=== PATIENT | female | born 1995 | race Caucasian/White ===

== ENCOUNTER 2017-11-28 06:20 | Emergency (ER) | payer OTHER, SELFPAY ==
[2017-11-28] MEDS ORDERED: LIDOCAINE 1% MPF 5 ML VIAL ONE (06:44)
[2017-11-28] MEDS ORDERED: LIDOCAINE 1% W/EPI 1:100,000 MDV 50 ML VIAL ONE (06:45)
--- NOTE | 2017-11-28 07:04 | EDPHYS ---
Physician Documentation [facility] Name: Jenn Wills Age: 21 yrs Sex: Female : 1995 Arrival Date: 11/28/2017 Time: 06:24 Bed 8 Private MD: ED Physician Lobito Trent HPI: 11/28 06:55 This 21 yrs old Female presents to ER via Ambulatory with complaints of mass cp on chest. 06:57 mass. Description: erythematous. Onset: The symptoms/episode began/occurred 1 year(s) cp ago. Associated signs and symptoms: Pertinent positives: bleeding, Pertinent negatives: discharge, fever. 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 - Social history:: Smoking status: Patient/guardian denies using tobacco. ROS: 06:58 Cardiovascular: Negative for chest pain, edema, palpitations. cp 06:58 Respiratory: Negative for cough, shortness of breath, wheezing. 06:58 Abdomen/GI: Negative for abdominal pain, nausea, vomiting, and diarrhea. 06:58 Skin: Positive for erythema, of the chest, mass, Negative for rash. 06:58 All other systems are negative. Exam: 07:00 Constitutional: The patient appears in no acute distress, alert, awake, well developed, cp well nourished. 07:00 Head/Face: Normocephalic, atraumatic. cp 07:00 Eyes: Periorbital structures: appear normal, Conjunctiva: normal, no exudate, no injection, Lids and lashes: appear normal, bilaterally. 07:00 ENT: External ear(s): are unremarkable, Nose: is normal, Mouth: is normal, Posterior pharynx: is normal, airway is patent. 07:00 Chest/axilla: Inspection: noted erythematous mass, tender with mild bleeding noted anterior upper chest. 07:00 Cardiovascular: Rate: normal, Rhythm: regular. 07:00 Respiratory: the patient does not display signs of respiratory distress, Respirations: normal, no use of accessory muscles, no retractions, no splinting, no tachypnea. 07:00 Abdomen/GI: Exam negative for discomfort, distension, guarding, Inspection: abdomen appears normal. Vital Signs: 06:36 BP 122 / 91; Pulse 87; Resp 18; Temp 98.9(O); Pulse Ox 100% on R/A; Weight 95.25 kg fc (R); Height 5 ft. 3 in. (160.02 cm) (R); Pain 5/10; 06:36 Body Mass Index 37.20 (95.25 kg, 160.02 cm) Procedures: 07:00 Performed excision of skin mass using: Area cleaned with betadine swabs. Area cp anaesthetized with 3 ccs of 1% lidocaine. Mass excised with #11 blade. Pressure dressing applied and bleeding controlled. MDM: 06:34 Patient medically screened. cp 07:01 Data reviewed: vital signs, nurses notes, and as a result, I will discharge patient. cp Administered Medications: 07:02 Drug: Lidocaine-Epinephrine -1%: (1:100,000) 1 application {Note: at bedside.} Volume: ak1 20 ml; Route: Infiltration; Disposition: 07:30 Chart complete. cp Disposition: 11/28/17 07:03 Discharged to Home. Impression: Localized swelling, mass and lump of skin and subcutaneous tissue - Chest. - Condition is Stable. - Discharge Instructions: Excision of Skin Lesions. - Prescriptions for Keflex 500 mg Oral Capsule - take 1 capsule by ORAL route every 8 hours for 7 days; 21 capsule. - Medication Reconciliation Form, Thank You Letter, Antibiotic Education, Prescription Opioid Use form. - Follow up: Private Physician; When: 1 - 2 days; Reason: Worsening of condition. - Problem is new. - Symptoms have improved. Addendum: 12/04/2017 01:53 Co-signature as Attending Physician, Lobito Trent MD. m a2 Signatures: Mayte Davison RN RN Rhoda Harden RN RN ak1 Zenon Diego PA PA cp Lawanda Martinez RN RN 2 Lobito Trent MD MD ma2 Corrections: (The following items were deleted from the chart) 11/28 07:18 07:03 11/28/2017 07:03 Discharged to Home. Impression: Localized swelling, mass and tw2 lump of skin and subcutaneous tissue - Chest. Condition is Stable. Forms are Medication Reconciliation Form, Thank You Letter, Antibiotic Education, Prescription Opioid Use. Follow up: Private Physician; When: 1 - 2 days; Reason: Worsening of condition. Problem is new. Symptoms have improved. cp
--- NOTE | 2017-11-28 07:19 | ER ---
Nurse's Notes [facility] Name: Jenn Wills Age: 21 yrs Sex: Female : 1995 Arrival Date: 11/28/2017 Time: 06:24 Bed 8 Private MD: Diagnosis: Localized swelling, mass and lump of skin and subcutaneous tissue-Chest Presentation: 11/28 06:34 Presenting complaint: Patient states: that she has had this bump on her chest for over fc a year. on the 4th it started to bleed and burn. Transition of care: patient was not received from another setting of care. Onset of symptoms was November 25, 2017. Initial Sepsis Screen: Does the patient meet any 2 criteria? No. Patient's initial sepsis screen is negative. Does the patient have a suspected source of infection? No. Patient's initial sepsis screen is negative. Care prior to arrival: None. 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 - Social history:: Smoking status: Patient/guardian denies using tobacco. Screenin:37 Abuse screen: Denies threats or abuse. Nutritional screening: No deficits noted. fc Tuberculosis screening: No symptoms or risk factors identified. Fall Risk None identified. Assessment: 07:16 General: Appears in no apparent distress. obese, Behavior is calm, cooperative, tw2 appropriate for age. Pain: Complains of pain in chest. Neuro: Level of Consciousness is awake, alert, obeys commands, Oriented to person, place, time, situation. Cardiovascular: Denies chest pain, shortness of breath, Capillary refill < 3 seconds Patient's skin is warm and dry. Respiratory: Airway is patent Respiratory effort is even, unlabored, Respiratory pattern is regular, symmetrical. GI: No signs and/or symptoms were reported involving the gastrointestinal system. : No signs and/or symptoms were reported regarding the genitourinary system. Derm: Abscess located on chest. Musculoskeletal: Range of motion: intact in all extremities. Vital Signs: 06:36 BP 122 / 91; Pulse 87; Resp 18; Temp 98.9(O); Pulse Ox 100% on R/A; Weight 95.25 kg (R); Height 5 ft. 3 in. (160.02 cm) (R); Pain 5/10; 06:36 Body Mass Index 37.20 (95.25 kg, 160.02 cm) ED Course: 06:24 Patient arrived in ED. al2 06:34 Zenon Diego PA is PHCP. cp 06:34 Lobito Trent MD is Attending Physician. cp 06:35 Triage completed. 06:36 Arm band placed on Patient placed in an exam room, on a stretcher. 06:37 Patient has correct armband on for positive identification. Bed in low position. Call light in reach. 07:17 No provider procedures requiring assistance completed. Patient did not have IV access tw2 during this emergency room visit. Administered Medications: 07:02 Drug: Lidocaine-Epinephrine -1%: (1:100,000) 1 application {Note: at bedside.} Volume: ak1 20 ml; Route: Infiltration; Outcome: 07:03 Discharge ordered by MD. cp 07:17 Discharged to home ambulatory. tw2 07:17 Condition: stable 07:17 Discharge instructions given to patient, Instructed on discharge instructions, follow up and referral plans. medication usage, wound care, Demonstrated understanding of instructions, follow-up care, medications, wound care, Prescriptions given X 1. 07:18 Patient left the ED. tw2 Signatures: Mayte Davison RN RN Rhoda Harden RN RN ak1 Zenon Diego PA PA cp Wise, Tara, RN RN tw2 Maureen Lazaro al2
== END 2017-11-28 07:18 | disposition home or self-care (01) ==
LOC: ER 06:20
DX: R22.2 Localized swelling, mass and lump, trunk (principal); Z88.6 Allergy status to analgesic agent
CPT/HCPCS: 99283

== ENCOUNTER 2018-02-25 14:06 | Emergency (ER) | payer SELFPAY ==
[2018-02-25] MEDS ORDERED: NA CHLORIDE 0.9% 1,000 ML ONE (14:49)
[2018-02-25] MEDS ORDERED: ONDANSETRON 4 MG/2 ML VIAL ONE (14:49)
[2018-02-25] MEDS ORDERED: CEFTRIAXONE/SWI 1gm 1 GM/10 ML SYR ONE (14:49)
[2018-02-25] MEDS ORDERED: FENTANYL CITR 100 MCG/2 ML ONE (14:49)
[2018-02-25 14:56] LABS: Urine Glucose NEGATIVE (NEG)
[2018-02-25 14:57] LABS: Urine Blood NEGATIVE (NEG); Urine Protein NEGATIVE (NEG); Urine pH 7.5 (5.0-7.0)
[2018-02-25 14:59] LABS: Urine Bacteria 20-50 /HPF (<20); Urine RBC <5 /HPF (NONE SEEN)
[2018-02-25 15:00] LABS: Urine Amorphous Sediment 1+ /HPF (NONE SEEN); Urine Culture Reflex Order NOT NEEDED
--- NOTE | 2018-02-25 15:04 | RAD REPORT ---
EXAM DESCRIPTION: CT - Stone Protocol - 02/25/2018 2:49 pm CLINICAL HISTORY: Flank pain. ABD PAIN COMPARISON: Stone Protocol dated 10/16/2017Stone Protocol dated 10/16/2017 TECHNIQUE: Axial images were obtained without oral or IV contrast. Lack of contrast limits solid org an and vascular assessment. The [id number] spans the entirety of the system partially obscuring uppermost abdomen and lung bases. Coronal reformatted images were obtained and reviewed. All CT scans are performed using dose optimization technique as appropriate and may include automated exposure control or mA/KV adjustment according to patient size. FINDINGS: The lower lung espinal are clear. Imaged portions of the liver and spleen show no suspicious findings on non-contrast imaging. The panc reas demonstrates diffuse fatty infiltration. The adrenal glands are normal. No pathologic lymphadeno ene in the abdomen or pelvis. No urinary tract stones or obstructive uropathy. No bowel obstruction, free air, free fluid or abscess. Normal appendix noted. Chronic bilateral spondylolysis L5-S1. IMPRESSION: No urinary tract stones or obstructive uropathy.
[2018-02-25 15:51] LABS: Absolute Lymphocytes (CBC) 3.4 K/uL (0.7-4.9); Absolute Monocytes 0.8 K/uL (0.1-1.3); Absolute Neutrophil 4.6 K/uL (1.8-8.0); Basophils % 0.7 % (0-1.3); Eosinophils % 1.4 % (0-4.4); Hematocrit 38.7 % (36.0-45.0); Lymphocytes % 38.1 % (15.3-44.8); MCH 28.9 pg (27.0-35.0); MCV 85.1 fL (80-100); Monocytes % 8.6 % (3.3-12.3); RBC Red Blood Cell Count 4.55 M/uL (3.86-4.86)
--- NOTE | 2018-02-25 15:53 | RAD REPORT ---
EXAM DESCRIPTION: RAD - Chest Single View - 02/25/2018 3:18 pm CLINICAL HISTORY: COUGH Chest pain. COMPARISON: Chest Pa And Lat (2 Views) dated 09/20/2017; Chest Pa And Lat (2 Views) dated 01/23/2017 FINDINGS: Portable technique limits examination quality. The lungs are grossly clear. The heart is normal in size. No displaced fractures. IMPRESSION: No acute intrathoracic process suspected.
[2018-02-25 16:02] LABS: ALT/SGPT 29 U/L (12-78); AST/SGOT 17 U/L (15-37); Albumin 3.4 g/dL (3.4-5.0); Alkaline Phosphatase 72 U/L (45-117); Amylase Level 39 U/L (25-115); BUN Blood Urea Nitrogen 15 mg/dL (7-18); Bicarbonate 28 mmol/L (21-32); Bilirubin Direct < 0.1 mg/dL (0-0.2); Bilirubin Total 0.3 mg/dL (0.2-1.0); Glucose Level 87 mg/dL (74-106); Lipase 116 U/L (73-393); Potassium 3.7 mmol/L (3.5-5.1); Protein, Total 7.7 g/dL (6.4-8.2); Sodium Level 143 mmol/L (136-145)
--- NOTE | 2018-02-25 16:13 | ER ---
Nurse's Notes [facility] Name: Jenn Wills Age: 22 yrs Sex: Female : 1995 Arrival Date: 02/25/2018 Time: 14:09 Bed 20 Private MD: Diagnosis: Abdominal tenderness;Urinary tract infection, site not specified Presentation: 02/25 14:15 Presenting complaint: Patient states: "I'm having really bad pain in my right side that aj1 goes to my back. I've had it for a week but to day it got to where I can't move. I'm having dizzy spells off and on." Reports nausea, denies V/D. Denies dysuria, urinary frequency. Transition of care: patient was not received from another setting of care. Onset of symptoms was February 18, 2018. Risk Assessment: Do you want to hurt yourself or someone else? Patient reports no desire to harm self or others. Initial Sepsis Screen: Does the patient meet any 2 criteria? No. Patient's initial sepsis screen is negative. Does the patient have a suspected source of infection? No. Patient's initial sepsis screen is negative. Care prior to arrival: None. 14:15 Method Of Arrival: Ambulatory aj1 14:15 Acuity: CARLOS 3 aj1 Triage Assessment: 14:20 General: Appears in no apparent distress. uncomfortable, Behavior is calm, cooperative, aj1 appropriate for age. Pain: Complains of pain in right lower quadrant and left lower quadrant Pain radiates to back Pain currently is 10 out of 10 on a pain scale. Neuro: Level of Consciousness is awake, alert, obeys commands. Cardiovascular: Patient's skin is warm and dry. Respiratory: Airway is patent Respiratory effort is even, unlabored, Respiratory pattern is regular, symmetrical. GI: Reports nausea, Patient currently denies diarrhea, vomiting. : Denies burning with urination, urinary frequency. Derm: Skin is pink, warm \\T\\ dry. normal. Musculoskeletal: Circulation, motion, and sensation intact. 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 - Social history:: Smoking status: Patient/guardian denies using tobacco. - Ebola Screening: : Patient denies travel to an Ebola-affected area in the 21 days before illness onset. - Family history:: not pertinent. Screenin:25 Abuse screen: Denies threats or abuse. Nutritional screening: No deficits noted. em Tuberculosis screening: No symptoms or risk factors identified. Fall Risk None identified. Assessment: 14:30 General: Appears in no apparent distress. uncomfortable, Behavior is calm, cooperative. em Pain: Complains of pain in right low back and right mid back. Neuro: Level of Consciousness is awake, alert, Oriented to person, place, time, situation. Cardiovascular: Capillary refill < 3 seconds Patient's skin is warm and dry. Respiratory: Airway is patent Respiratory effort is even, unlabored, Respiratory pattern is regular, symmetrical. GI: Reports nausea, Patient currently denies vomiting. : Urine is cloudy. EENT: No signs and/or symptoms were reported regarding the EENT system. Derm: Skin is intact, Skin is pink, warm \\T\\ dry. Musculoskeletal: Range of motion: intact in all extremities. 14:45 Reassessment: Patient appears in no apparent distress at this time. I agree with above iw assessment by Lexx Dahl LVN. 15:30 Reassessment: Patient appears in no apparent distress at this time. Patient and/or em family updated on plan of care and expected duration. Pain level reassessed. Patient is alert, oriented x 3, equal unlabored respirations, skin warm/dry/pink. rates pain 9/10. Vital Signs: 14:20 BP 127 / 89; Pulse 79; Resp 18; Temp 100.0(TE); Pulse Ox 100% on R/A; Weight 95.25 kg aj1 (R); Height 5 ft. 3 in. (160.02 cm) (R); Pain 10/10; 15:35 BP 118 / 72; Pulse 66; Resp 18; Pulse Ox 99% on R/A; Pain 9/10; em 16:00 Temp 98.7(O); em 14:20 Body Mass Index 37.20 (95.25 kg, 160.02 cm) aj1 ED Course: 14:09 Patient arrived in ED. rg4 14:19 Triage completed. aj1 14:20 Arm band placed on Patient placed in an exam room. aj1 14:25 Zenon Ojeda MD is Attending Physician. sabina 14:37 Lexx Dahl LVN is Primary Nurse. em 14:38 Radiology exam delayed due to test not completed at this time. vm2 14:46 CT completed. Patient tolerated procedure well. Patient moved to CT via wheelchair. mw3 Patient moved back from CT. 14:49 CT Stone Protocol In Process Unspecified. EDMS 14:53 Radiology exam delayed due to PT IS IN CT. ag1 15:13 X-ray completed. Portable x-ray completed in exam room. Patient tolerated procedure la2 well. 15:18 Chest Single View XRAY In Process Unspecified. EDMS 15:20 No provider procedures requiring assistance completed. Initial lab(s) drawn, by me, em sent to lab. Inserted saline lock: 20 gauge in right antecubital area, using aseptic technique. Blood collected. 15:25 Patient has correct armband on for positive identification. Bed in low position. Call em light in reach. Adult w/ patient. 16:40 IV discontinued, intact, bleeding controlled, No redness/swelling at site. Pressure em dressing applied. Administered Medications: 15:28 Drug: Rocephin - (cefTRIAXone) 1 grams Route: IVPB; Infused Over: 30 mins; Site: right iw antecubital; 16:43 Follow up: Response: No adverse reaction; IV Status: Completed infusion; IV Intake: 10mlem 15:28 Drug: fentaNYL (PF) 50 mcg Route: IVP; Site: right antecubital; iw 15:28 Drug: Zofran 4 mg Route: IVP; Site: right antecubital; iw 15:29 Drug: NS 0.9% 1000 ml Route: IV; Rate: 1 bolus; Site: right antecubital; em 16:37 Drug: Homer 10 mg-325 mg 1 tabs Route: PO; mg2 16:37 Follow up: Response: No adverse reaction; Medication administered at discharge. mg2 Intake: 16:43 IV: 10ml; Total: 10ml. em Outcome: 16:12 Discharge ordered by . sabina 16:40 Discharged to home ambulatory. em 16:40 Condition: good 16:40 Discharge instructions given to patient, Instructed on discharge instructions, follow up and referral plans. the need for admit, no drinking with medication, no driving heavy equipment, medication usage, Demonstrated understanding of instructions, follow-up care, medications, Prescriptions given X 3. 16:43 Patient left the ED. em Signatures: Dispatcher [employer] EDEthel Shrestha, MCKAY RN aj1 Zenon Ojeda MD MD cha Munoz, Edgar, ASSOCIATE PROFESSOR OF ANTHROPOLOGY ASSOCIATE PROFESSOR OF ANTHROPOLOGY em Tayler Castillo RN Melissa Ndiaye1 Zari Arguello rg4 Pretty Guzman 2 Anel Chen2 Barrington Amezquita RN RN [facility] Neda Cannon 3
--- NOTE | 2018-02-25 16:13 | EDPHYS ---
Physician Documentation [facility] Name: Jenn Wills Age: 22 yrs Sex: Female : 1995 Arrival Date: 02/25/2018 Time: 14:09 Bed 20 Private MD: ED Physician Zenon Ojeda HPI: 02/25 14:36 This 22 yrs old Female presents to ER via Ambulatory with complaints of Flank sabina Pain, Back Pain. 14:36 The patient complains of pain in the right mid back and right low back. The pain sabina radiates to the right mid back and right low back. Onset: The symptoms/episode began/occurred 2 day(s) ago. Modifying factors: The symptoms are alleviated by nothing. the symptoms are aggravated by movement. Associated signs and symptoms: Pertinent positives: fever, nausea. Severity of pain: At its worst the pain was moderate. The patient has not experienced similar symptoms in the past. 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 - Social history:: Smoking status: Patient/guardian denies using tobacco. - Ebola Screening: : Patient denies travel to an Ebola-affected area in the 21 days before illness onset. - Family history:: not pertinent. ROS: 14:36 Constitutional: Negative for fever, chills, and weight loss, Eyes: Negative for injury, sabina pain, redness, and discharge, ENT: Negative for injury, pain, and discharge, Neck: Negative for injury, pain, and swelling, Cardiovascular: Negative for chest pain, palpitations, and edema, Respiratory: Negative for shortness of breath, cough, wheezing, and pleuritic chest pain, MS/Extremity: Negative for injury and deformity, Skin: Negative for injury, rash, and discoloration, Neuro: Negative for headache, weakness, numbness, tingling, and seizure, Psych: Negative for depression, anxiety, suicide ideation, homicidal ideation, and hallucinations, Allergy/Immunology: Negative for hives, rash, and allergies, Endocrine: Negative for neck swelling, polydipsia, polyuria, polyphagia, and marked weight changes, Hematologic/Lymphatic: Negative for swollen nodes, abnormal bleeding, and unusual bruising. 14:36 Abdomen/GI: Positive for abdominal pain, nausea, of the posterior aspect of right lateral abdomen, anterior aspect of right lateral abdomen, right upper quadrant and right lower quadrant. Exam: 14:36 Constitutional: This is a well developed, well nourished patient who is awake, alert, sabina and in no acute distress. Head/Face: Normocephalic, atraumatic. Eyes: Pupils equal round and reactive to light, extra-ocular motions intact. Lids and lashes normal. Conjunctiva and sclera are non-icteric and not injected. Cornea within normal limits. Periorbital areas with no swelling, redness, or edema. ENT: Nares patent. No nasal discharge, no septal abnormalities noted. Tympanic membranes are normal and external auditory canals are clear. Oropharynx with no redness, swelling, or masses, exudates, or evidence of obstruction, uvula midline. Mucous membranes moist. Neck: Trachea midline, no thyromegaly or masses palpated, and no cervical lymphadenopathy. Supple, full range of motion without nuchal rigidity, or vertebral point tenderness. No Meningismus. Chest/axilla: Normal chest wall appearance and motion. Nontender with no deformity. No lesions are appreciated. Cardiovascular: Regular rate and rhythm with a normal S1 and S2. No gallops, murmurs, or rubs. Normal PMI, no JVD. No pulse deficits. Respiratory: Lungs have equal breath sounds bilaterally, clear to auscultation and percussion. No rales, rhonchi or wheezes noted. No increased work of breathing, no retractions or nasal flaring. Female : Normal external genitalia. Skin: Warm, dry with normal turgor. Normal color with no rashes, no lesions, and no evidence of cellulitis. MS/ Extremity: Pulses equal, no cyanosis. Neurovascular intact. Full, normal range of motion. Neuro: Awake and alert, GCS 15, oriented to person, place, time, and situation. Cranial nerves II-XII grossly intact. Motor strength 5/5 in all extremities. Sensory grossly intact. Cerebellar exam normal. Normal gait. Psych: Awake, alert, with orientation to person, place and time. Behavior, mood, and affect are within normal limits. 14:36 Respiratory: the patient does not display signs of respiratory distress, Respirations: normal, no acute changes, Breath sounds: are clear throughout. 14:36 Abdomen/GI: Inspection: abdomen appears normal, Bowel sounds: normal, Palpation: mild abdominal tenderness, in the posterior aspect of right lateral abdomen, anterior aspect of right lateral abdomen, right upper quadrant and right lower quadrant, Liver: no appreciated palpable abnormalities, Hernia: not appreciated. 16:30 Musculoskeletal/extremity: DVT Exam: No signs of deep vein thrombosis. no pain, no sabina swelling, no tenderness, negative Homans' sign noted on exam, no appreciated bluish discoloration, no erythema, no increased warmth. Vital Signs: 14:20 BP 127 / 89; Pulse 79; Resp 18; Temp 100.0(TE); Pulse Ox 100% on R/A; Weight 95.25 kg aj1 (R); Height 5 ft. 3 in. (160.02 cm) (R); Pain 10/10; 15:35 BP 118 / 72; Pulse 66; Resp 18; Pulse Ox 99% on R/A; Pain 9/10; em 16:00 Temp 98.7(O); em 14:20 Body Mass Index 37.20 (95.25 kg, 160.02 cm) aj1 MDM: 14:25 Patient medically screened. [facility] 14:39 Data reviewed: vital signs, nurses notes, lab test result(s), radiologic studies, CT sabina scan, plain films. 02/25 14:36 Order name: Amylase, Serum [facility] 02/25 14:36 Order name: Basic Metabolic Panel [facility] 02/25 14:36 Order name: CBC with Diff; Complete Time: 16:05 [facility] 02/25 14:36 Order name: Creatinine for Radiology; Complete Time: 16:05 [facility] 02/25 14:36 Order name: Hepatic Function; Complete Time: 16:05 [facility] 02/25 14:36 Order name: Lipase; Complete Time: 16:05 [facility] 02/25 14:36 Order name: Urine Microscopic Only; Complete Time: 15:47 [facility] 02/25 14:36 Order name: Blood Culture Adult (2) [facility] 02/25 14:36 Order name: Chest Single View XRAY; Complete Time: 16:05 [facility] 02/25 14:36 Order name: Urine Culture [facility] 02/25 14:36 Order name: Amylase Level; Complete Time: 16:05 [facility] 02/25 14:36 Order name: Basic Metabolic Panel; Complete Time: 16:05 [facility] 02/25 14:44 Order name: Urine Dipstick--Ancillary (enter results); Complete Time: 15:47 [facility] 02/25 14:44 Order name: Urine --Ancillary (enter results); Complete Time: 15:47 [facility] 02/25 14:36 Order name: Urine Test (obtain specimen); Complete Time: 15:29 [facility] 02/25 14:36 Order name: IV Saline Lock; Complete Time: 15:29 [facility] 02/25 14:36 Order name: Labs collected and sent; Complete Time: 15:29 [facility] 02/25 14:36 Order name: Urine Dipstick-Ancillary (obtain specimen); Complete Time: 15:29 [facility] 02/25 14:36 Order name: CT Stone Protocol; Complete Time: 15:47 [facility] Administered Medications: 15:28 Drug: Rocephin - (cefTRIAXone) 1 grams Route: IVPB; Infused Over: 30 mins; Site: right iw antecubital; 16:43 Follow up: Response: No adverse reaction; IV Status: Completed infusion; IV Intake: 10mlem 15:28 Drug: fentaNYL (PF) 50 mcg Route: IVP; Site: right antecubital; iw 15:28 Drug: Zofran 4 mg Route: IVP; Site: right antecubital; iw 15:29 Drug: NS 0.9% 1000 ml Route: IV; Rate: 1 bolus; Site: right antecubital; em 16:37 Drug: [place] 10 mg-325 mg 1 tabs Route: PO; mg2 16:37 Follow up: Response: No adverse reaction; Medication administered at discharge. mg2 Disposition: 02/25/18 16:12 Discharged to Home. Impression: Abdominal tenderness, Urinary tract infection, site not specified. - Condition is Stable. - Discharge Instructions: Abdominal Pain, Adult, Dysuria, Urinary Tract Infection, Adult, Abdominal Pain, Adult, [id number]. - Prescriptions for Zofran 4 mg Oral Tablet - take 1 tablet by ORAL route every 12 hours As needed; 20 tablet. Cipro 500 mg Oral Tablet - take 1 tablet by ORAL route every 12 hours for 7 days; 14 tablet. Tylenol- Codeine #3 300-30 mg Oral Tablet - take 2 tablets by ORAL route every 6 hours As needed; 20 tablet. - Medication Reconciliation Form, Thank You Letter, Antibiotic Education, Prescription Opioid Use, Work release form form. - Follow up: Private Physician; When: 2 - 3 days; Reason: Recheck today's complaints, Continuance of care, Re-evaluation by your physician. - Problem is new. - Symptoms have improved. Signatures: Dispatcher [employer] Ethel Briceno RN RN aj1 Zenon Ojeda MD MD cha Munoz, Edgar, BOAT MASTER BOAT MASTER em Tayler Castillo, RN RN iw Barrington Amezquita RN RN mg2 Corrections: (The following items were deleted from the chart) 16:43 16:13 02/25/2018 16:12 Discharged to Home. Impression: Abdominal tenderness; Urinary em tract infection, site not specified. Condition is Stable. Forms are Medication Reconciliation Form, Thank You Letter, Antibiotic Education, Prescription Opioid Use. Follow up: Private Physician; When: 2 - 3 days; Reason: Recheck today's complaints, Continuance of care, Re-evaluation by your physician. Problem is new. Symptoms have improved. sabina
[2018-02-25] MEDS ORDERED: HYDROCODONE/APAP 10/325 TAB ONE (16:40)
== END 2018-02-25 16:43 | disposition home or self-care (01) ==
LOC: ER 14:06
DX: N39.0 Urinary tract infection, site not specified (principal); Z88.6 Allergy status to analgesic agent
CPT/HCPCS: 36415; 71045; 74176; 76377; 80048; 80076; 81003; 81015; 81025; 82150; 83690; 85025; 87040; 87086; 87088; 96365; 96375; 99284; J0696; J2405; J3010; J7030

== ENCOUNTER 2018-04-12 16:44 | Emergency (ER) | payer SELFPAY ==
--- NOTE | 2018-04-12 17:35 | ER ---
Nurse's Notes [facility] Name: Jenn Wills Age: 22 yrs Sex: Female : 1995 Arrival Date: 04/12/2018 Time: 16:48 Bed 19 Private MD: None, None Diagnosis: Radiculopathy, lumbar region;Low back pain Presentation: 04/12 16:50 Presenting complaint: Patient states: Reports pain to low back that shoots down right aj leg since Tuesday. 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 Patient reports numbness to right leg when walking. Observed sitting in waiting room with right leg lifted and resting on her fiance's lap. Stood quickly and moved with steady quick gait to triage when called. Transition of care: patient was not received from another setting of care. Onset of symptoms was April 10, 2018. Risk Assessment: Do you want to hurt yourself or someone else? Patient reports no desire to harm self or others. Initial Sepsis Screen: Does the patient meet any 2 criteria? No. Patient's initial sepsis screen is negative. Does the patient have a suspected source of infection? No. Patient's initial sepsis screen is negative. Care prior to arrival: None. 16:50 Method Of Arrival: Ambulatory aj 16:50 Acuity: CARLOS 4 aj Triage Assessment: 16:53 General: Appears in no apparent distress. comfortable, Behavior is calm, cooperative, aj appropriate for age. Pain: Complains of pain in coccyx, left lower back, right lower back, right gluteus valente and right gluteal fold. Neuro: Level of Consciousness is awake, alert, obeys commands, Oriented to person, place, time, situation, Appropriate for age. Respiratory: Airway is patent Respiratory effort is even, unlabored, Respiratory pattern is regular, symmetrical. Derm: Skin is intact, is healthy with good turgor, Skin is pink, warm \T\ dry. normal. Musculoskeletal: Circulation, motion, and sensation intact. Range of motion: intact in all extremities, Reports pain in coccyx, left lower back, right lower back, right gluteus valente and right gluteal fold. 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 - Social history:: Smoking status: Patient/guardian denies using tobacco. - Ebola Screening: : Patient negative for fever greater than or equal to 101.5 degrees Fahrenheit, and additional compatible Ebola Virus Disease symptoms Patient denies exposure to infectious person Patient denies travel to an Ebola-affected area in the 21 days before illness onset No symptoms or risks identified at this time. Screenin:07 Abuse screen: Denies threats or abuse. Denies injuries from another. Nutritional hj screening: No deficits noted. Tuberculosis screening: No symptoms or risk factors identified. Fall Risk None identified. Assessment: 17:08 General: Appears in no apparent distress. uncomfortable, Behavior is calm, cooperative, hj appropriate for age. Pain: Complains of pain in buttocks and right lower back and left lower back Pain radiates to right gluteal fold and right gluteus valente and coccyx. Neuro: Level of Consciousness is awake, alert, obeys commands, Oriented to person, place, time, situation, Appropriate for age. Cardiovascular: Capillary refill < 3 seconds Patient's skin is warm and dry. Respiratory: Airway is patent Respiratory effort is even, unlabored, Respiratory pattern is regular, symmetrical. GI: No signs and/or symptoms were reported involving the gastrointestinal system. : No signs and/or symptoms were reported regarding the genitourinary system. EENT: No signs and/or symptoms were reported regarding the EENT system. Derm: No signs and/or symptoms reported regarding the dermatologic system. Musculoskeletal: Circulation, motion, and sensation intact. Capillary refill Reports pain in right lower back and left lower back. Vital Signs: 16:53 BP 124 / 78; Pulse 76; Resp 15; Temp 97.4; Pulse Ox 97% on R/A; Weight 95.25 kg; Height aj 5 ft. 3 in. (160.02 cm); 16:53 Body Mass Index 37.20 (95.25 kg, 160.02 cm) ED Course: 16:48 Patient arrived in ED. mr 16:48 None, None is Private Physician. mr 16:52 Guido Pedro MD is Attending Physician. snw 16:52 Denisse Lambert [facility]C [facility]. snw 16:52 Triage completed. aj 16:53 Arm band placed on right wrist. Patient placed in an exam room. aj 17:07 Ty Gil, RN is Primary Nurse. hj 17:07 Patient has correct armband on for positive identification. Placed in gown. Bed in low hj position. Call light in reach. Side rails up X 1. Adult w/ patient. 17:54 No provider procedures requiring assistance completed. Patient did not have IV access hj during this emergency room visit. Administered Medications: 17:33 Drug: Flexeril 10 mg Route: PO; hj 17:44 Follow up: Response: No adverse reaction hj 17:33 Drug: predniSONE 20 mg Route: PO; hj 17:44 Follow up: Response: No adverse reaction hj 17:33 Drug: Pepcid 20 mg Route: PO; hj 17:44 Follow up: Response: No adverse reaction hj Outcome: 17:31 Discharge ordered by MD. snw 17:54 Discharged to home ambulatory. hj 17:54 Condition: stable 17:54 Discharge instructions given to patient, family, Instructed on discharge instructions, follow up and referral plans. medication usage, Demonstrated understanding of instructions, follow-up care, medications, Prescriptions given X 2. 17:55 Patient left the ED. hj Signatures: Pascale Ayala RN Denisse Ivy FNP-C FNP-[facility] JigarSheryl mr Ty Gil RN MCKAY esquivel
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
[2018-04-12 17:46] LABS: Urine Glucose NEGATIVE (NEG); Urine Specific Gravity >1.030 (1.005-1.030)
[2018-04-12 17:47] LABS: Urine Blood NEGATIVE (NEG); Urine Protein NEGATIVE (NEG); Urine pH 6.5 (5.0-7.0)
[2018-04-12] MEDS ORDERED: CYCLOBENZAPRINE 10 MG TAB ONE (17:47)
[2018-04-12] MEDS ORDERED: predniSONE 10 MG TAB ONE (17:47)
[2018-04-12] MEDS ORDERED: FAMOTIDINE 20 MG TAB ONE (17:47)
[2018-04-12 19:20] LABS: Urine Bacteria 20-50 /HPF (<20); Urine Culture Reflex Order NOT NEEDED; Urine Mucus 3+ /HPF (NONE SEEN); Urine RBC <5 /HPF (NONE SEEN)
== END 2018-04-12 17:55 | disposition home or self-care (01) ==
LOC: ER 16:44
DX: M54.16 Radiculopathy, lumbar region (principal); Z88.6 Allergy status to analgesic agent
CPT/HCPCS: 81003; 81015; 87086; 87088; 99283; J7512

== ENCOUNTER 2018-05-17 10:26 | Emergency (ER) | payer SELFPAY ==
[2018-05-17 12:01] LABS: Urine Bacteria 20-50 /HPF (<20); Urine RBC <5 /HPF (NONE SEEN)
[2018-05-17 12:02] LABS: Urine Culture Reflex Order REFLEXED; Urine Mucus LIGHT /HPF (NONE SEEN)
[2018-05-17 12:04] LABS: Urine Blood NEGATIVE (NEG); Urine Glucose NEGATIVE (NEG); Urine Protein NEGATIVE (NEG); Urine Specific Gravity >1.030 (1.005-1.030)
[2018-05-17 12:54] LABS: Absolute Lymphocytes (CBC) 3.3 K/uL (0.7-4.9); Absolute Monocytes 0.5 K/uL (0.1-1.3); Absolute Neutrophil 5.3 K/uL (1.8-8.0); Basophils % 0.4 % (0-1.3); Eosinophils % 1.2 % (0-4.4); Hematocrit 38.2 % (36.0-45.0); Lymphocytes % 35.5 % (15.3-44.8); MCH 29.1 pg (27.0-35.0); MCV 85.4 fL (80-100); MPV 8.5 fL (7.6-11.3); Monocytes % 5.2 % (3.3-12.3); RBC Red Blood Cell Count 4.48 M/uL (3.86-4.86)
[2018-05-17 13:12] LABS: BUN Blood Urea Nitrogen 14 mg/dL (7-18); Bicarbonate 29 mmol/L (21-32); Glucose Level 154 mg/dL (74-106); Potassium 3.6 mmol/L (3.5-5.1); Sodium Level 141 mmol/L (136-145)
[2018-05-17] MEDS ORDERED: NA CHLORIDE 0.9% 1,000 ML ONE (13:26)
--- NOTE | 2018-05-17 13:44 | RAD REPORT ---
EXAM DESCRIPTION: CTAbdomen Pelvis W Contrast - 05/17/2018 1:32 pm CLINICAL HISTORY: Abdominal pain. IV contrast only;Abd pain COMPARISON: Stone Protocol dated 02/25/2018; Stone Protocol dated 10/16/2017 TECHNIQUE: Biphasic CT imaging of the abdomen and pelvis was performed with 100 ml non-ionic IV cont rast. All CT scans are performed using dose optimization technique as appropriate and may include automated exposure control or mA/KV adjustment according to patient size. FINDINGS: Small area of pneumonitis noted posterior left lung base. Fatty infiltration of of the liver and pancreas noted. The spleen, adrenal glands and kidneys are wit hin normal limits. No bowel obstruction, free air, free fluid or abscess. Sigmoid diverticulosis is present without dive rticulitis. The appendix is normal. No evidence of significant lymphadenopathy. No suspicious bony findings. IMPRESSION: No acute intra-abdominal or pelvic finding. Fatty infiltration of the liver and pancreas.
--- NOTE | 2018-05-17 14:07 | ER ---
Nurse's Notes [facility] Name: Jenn Wills Age: 22 yrs Sex: Female : 1995 Arrival Date: 05/17/2018 Time: 10:28 Bed 23 Private MD: Diagnosis: Urinary tract infection, site not specified;Lower abdominal pain, unspecified;Cough Presentation: 05/17 10:57 Presenting complaint: Patient states: "I was at work this morning when all the sudden I aj1 turned to cough and clear my throat and I just threw up and had a sudden pain in my right side. It comes and goes and it's moving. Its a sharp, stabbing pain. It's brought me to my knees once time already. I haven't thrown up since that one time." Denies diarrhea. Transition of care: patient was not received from another setting of care. Onset of symptoms was May 17, 2018 at 06:30. Risk Assessment: Do you want to hurt yourself or someone else? Patient reports no desire to harm self or others. Care prior to arrival: None. 10:57 Method Of Arrival: Ambulatory aj1 10:57 Acuity: CARLOS 3 aj1 13:06 Initial Sepsis Screen: Does the patient meet any 2 criteria? No. Patient's initial tw2 sepsis screen is negative. Does the patient have a suspected source of infection? No. Patient's initial sepsis screen is negative. Triage Assessment: 10:59 General: Appears in no apparent distress. comfortable, Behavior is calm, cooperative, aj1 appropriate for age. Pain: Complains of pain in abdomen Pain currently is 6 out of 10 on a pain scale. Neuro: Level of Consciousness is awake, alert, obeys commands. Cardiovascular: Patient's skin is warm and dry. Respiratory: Airway is patent Respiratory effort is even, unlabored, Respiratory pattern is regular, symmetrical. GI: Reports nausea, vomiting. 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 - Social history:: Smoking status: . - Ebola Screening: : Patient denies travel to an Ebola-affected area in the 21 days before illness onset. Screenin:28 Abuse screen: Denies threats or abuse. Nutritional screening: No deficits noted. tw2 Tuberculosis screening: No symptoms or risk factors identified. Fall Risk None identified. Assessment: 13:03 Reassessment: Patient appears in no apparent distress at this time. No changes from tw2 previously documented assessment. Patient and/or family updated on plan of care and expected duration. Pain level reassessed. Patient is alert, oriented x 3, equal unlabored respirations, skin warm/dry/pink. 13:04 General: Appears in no apparent distress. obese, Behavior is calm, cooperative, tw2 appropriate for age. Pain: Complains of pain in right lower quadrant and right upper quadrant. Neuro: Level of Consciousness is awake, alert, confused, Oriented to person, place, time, situation. Cardiovascular: Heart tones S1 S2 Patient's skin is warm and dry. Respiratory: Airway is patent Respiratory effort is even, unlabored, Respiratory pattern is regular, symmetrical, Breath sounds are clear bilaterally. GI: Abdomen is round obese, Bowel sounds present X 4 quads. Abd is soft X 4 quads. : No signs and/or symptoms were reported regarding the genitourinary system. EENT: No signs and/or symptoms were reported regarding the EENT system. Derm: No signs and/or symptoms reported regarding the dermatologic system. Musculoskeletal: Range of motion: intact in all extremities. 14:19 Reassessment: Patient appears in no apparent distress at this time. No changes from tw2 previously documented assessment. Patient and/or family updated on plan of care and expected duration. Pain level reassessed. Patient is alert, oriented x 3, equal unlabored respirations, skin warm/dry/pink. Vital Signs: 10:59 BP 132 / 88; Pulse 74; Resp 18; Temp 97.6; Pulse Ox 100% on R/A; Weight 95.25 kg (R); aj1 Height 5 ft. 3 in. (160.02 cm) (R); Pain 6/10; 13:03 BP 111 / 79; Pulse 69; Resp 17; Pulse Ox 98% on R/A; tw2 14:09 BP 133 / 83; Pulse 69; Resp 17; Pulse Ox 99% on R/A; tw2 10:59 Body Mass Index 37.20 (95.25 kg, 160.02 cm) aj1 ED Course: 10:28 Patient arrived in ED. as 10:59 Triage completed. aj1 10:59 Arm band placed on Patient placed in an exam room. aj1 12:24 [facility]C [facility] kb 12:24 Jhon Araiza MD is Attending Physician. kb 12:26 Bed in low position. Call light in reach. Adult w/ patient. Pulse ox on. NIBP on. Warm tw2 blanket given. 12:27 Lawanda Martinez, RN is Primary Nurse. tw2 12:45 Inserted saline lock: 22 gauge in right antecubital area, using aseptic technique. tw2 Blood collected. 13:32 CT Abd/Pelvis - W/Contrast In Process Unspecified. EDMS 14:10 Awaiting: completion of iv fluids PRIOR to discharge. tw2 14:19 No provider procedures requiring assistance completed. IV discontinued, intact, tw2 bleeding controlled, No redness/swelling at site. Pressure dressing applied. Administered Medications: 13:23 Drug: NS 0.9% 1000 ml Route: IV; Rate: 1000 ml; Site: right antecubital; tw2 14:17 Follow up: Response: No adverse reaction; IV Status: Order to discontinue infusion; IV tw2 Intake: 500ml Intake: 14:17 IV: 500ml; Total: 500ml. tw2 Outcome: 14:06 Discharge ordered by . kb 14:19 Discharged to home ambulatory, with family. tw2 14:19 Condition: stable 14:19 Discharge instructions given to patient, family, Instructed on discharge instructions, follow up and referral plans. medication usage, Demonstrated understanding of instructions, follow-up care, medications, Prescriptions given X 1. 14:19 Patient left the ED. tw2 Signatures: Dispatcher [employer] EDKS Sabina Cooper FNP-C FNP-Ckb Johnson, Angela RN RN aj1 Barbara Silverman as Lawanda Martinez RN RN tw2
--- NOTE | 2018-05-17 14:08 | EDPHYS ---
Physician Documentation [facility] Name: Jenn Wills Age: 22 yrs Sex: Female : 1995 Arrival Date: 05/17/2018 Time: 10:28 Bed 23 Private MD: ED Physician Jhon Araiza HPI: 05/17 12:46 This 22 yrs old Female presents to ER via Ambulatory with complaints of kb Abdominal Pain. 12:46 The patient presents with abdominal pain right lower quadrant. Onset: The kb symptoms/episode began/occurred this morning, at 06:00. The symptoms do not radiate. Associated signs and symptoms: Pertinent positives: nausea and vomiting. The symptoms are described as intermittent, sharp. Modifying factors: The symptoms are alleviated by nothing, the symptoms are aggravated by nothing. Modifying factors: the symptoms are aggravated by. Severity of pain: At its worst the pain was moderate in the emergency department the pain is unchanged. The patient has not experienced similar symptoms in the past. The patient has not recently seen a physician. 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 - Social history:: Smoking status: . - Ebola Screening: : Patient denies travel to an Ebola-affected area in the 21 days before illness onset. ROS: 12:46 Constitutional: Negative for fever, chills, and weight loss, Cardiovascular: Negative kb for chest pain, palpitations, and edema, Respiratory: Negative for shortness of breath, cough, wheezing, and pleuritic chest pain, Back: Negative for injury and pain, : Negative for injury, bleeding, discharge, and swelling, MS/Extremity: Negative for injury and deformity, Skin: Negative for injury, rash, and discoloration, Neuro: Negative for headache, weakness, numbness, tingling, and seizure. 12:46 Abdomen/GI: Positive for abdominal pain, nausea and vomiting, Negative for diarrhea, constipation, abdominal cramps, abdominal distension, anorexia. Exam: 12:46 Constitutional: This is a well developed, well nourished patient who is awake, alert, kb and in no acute distress. Head/Face: Normocephalic, atraumatic. Chest/axilla: Normal chest wall appearance and motion. Nontender with no deformity. No lesions are appreciated. Cardiovascular: Regular rate and rhythm with a normal S1 and S2. No gallops, murmurs, or rubs. Normal PMI, no JVD. No pulse deficits. Respiratory: Lungs have equal breath sounds bilaterally, clear to auscultation and percussion. No rales, rhonchi or wheezes noted. No increased work of breathing, no retractions or nasal flaring. Back: No spinal tenderness. No costovertebral tenderness. Full range of motion. Skin: Warm, dry with normal turgor. Normal color with no rashes, no lesions, and no evidence of cellulitis. MS/ Extremity: Pulses equal, no cyanosis. Neurovascular intact. Full, normal range of motion. Neuro: Awake and alert, GCS 15, oriented to person, place, time, and situation. Cranial nerves II-XII grossly intact. Motor strength 5/5 in all extremities. Sensory grossly intact. Cerebellar exam normal. Normal gait. 12:46 Abdomen/GI: Inspection: obese Bowel sounds: normal, in all quadrants, Palpation: soft, in all quadrants, mild abdominal tenderness, in the right upper quadrant, moderate abdominal tenderness, in the right lower quadrant. Vital Signs: 10:59 BP 132 / 88; Pulse 74; Resp 18; Temp 97.6; Pulse Ox 100% on R/A; Weight 95.25 kg (R); aj1 Height 5 ft. 3 in. (160.02 cm) (R); Pain 6/10; 13:03 BP 111 / 79; Pulse 69; Resp 17; Pulse Ox 98% on R/A; tw2 14:09 BP 133 / 83; Pulse 69; Resp 17; Pulse Ox 99% on R/A; tw2 10:59 Body Mass Index 37.20 (95.25 kg, 160.02 cm) aj1 MDM: 12:28 Patient medically screened. kb 12:47 Data reviewed: vital signs, nurses notes. Data interpreted: Pulse oximetry: on room air kb is 100 %. Interpretation: normal. 13:54 Counseling: I had a detailed discussion with the patient and/or guardian regarding: the kb historical points, exam findings, and any diagnostic results supporting the discharge/admit diagnosis, lab results, radiology results, the need for outpatient follow up, a family practitioner, to return to the emergency department if symptoms worsen or persist or if there are any questions or concerns that arise at home. 05/17 11:42 Order name: Urine Microscopic Only; Complete Time: 12:28 hb 05/17 11:55 Order name: Urine Dipstick--Ancillary (enter results) bd 05/17 11:55 Order name: Urine --Ancillary (enter results) bd 05/17 11:55 Order name: Urine Dipstick-Ancillary; Complete Time: 12:28 EDMS 05/17 11:55 Order name: Urine --Ancillary; Complete Time: 12:28 EDMS 05/17 12:04 Order name: Urine Culture EDMS 05/17 12:35 Order name: Basic Metabolic Panel; Complete Time: 13:15 kb 05/17 12:35 Order name: CBC with Diff; Complete Time: 13:00 kb 05/17 12:35 Order name: IV Saline Lock; Complete Time: 13:12 kb 05/17 12:35 Order name: Labs collected and sent; Complete Time: 13:12 kb 05/17 13:16 Order name: CT Abd/Pelvis - W/Contrast; Complete Time: 13:51 kb Administered Medications: 13:23 Drug: NS 0.9% 1000 ml Route: IV; Rate: 1000 ml; Site: right antecubital; tw2 14:17 Follow up: Response: No adverse reaction; IV Status: Order to discontinue infusion; IV tw2 Intake: 500ml Disposition: 05/17/18 14:06 Discharged to Home. Impression: Urinary tract infection, site not specified, Lower abdominal pain, unspecified, Cough. - Condition is Stable. - Discharge Instructions: Urinary Tract Infection, Adult, [id number], Abdominal Pain, Adult, [id number]. - Prescriptions for Augmentin 875- 125 mg Oral Tablet - take 1 tablet by ORAL route every 12 hours for 7 days; 14 tablet. - Medication Reconciliation Form, Thank You Letter, Antibiotic Education, Prescription Opioid Use, Work release form, Family Work Release form. - Follow up: Emergency Department; When: As needed; Reason: Worsening of condition. Follow up: Private Physician; When: 2 - 3 days; Reason: Recheck today's complaints, Continuance of care, Re-evaluation by your physician. Signatures: Dispatcher [employer] Sabina Santos FNP-C FNP-Ethel Tobias RN RN aj1 Lawanda Martinez RN RN tw2 Corrections: (The following items were deleted from the chart) 14:19 14:06 05/17/2018 14:06 Discharged to Home. Impression: Urinary tract infection, site tw2 not specified; Lower abdominal pain, unspecified; Cough. Condition is Stable. Forms are Medication Reconciliation Form, Thank You Letter, Antibiotic Education, Prescription Opioid Use. Follow up: Emergency Department; When: As needed; Reason: Worsening of condition. Follow up: Private Physician; When: 2 - 3 days; Reason: Recheck today's complaints, Continuance of care, Re-evaluation by your physician. kb
== END 2018-05-17 14:19 | disposition home or self-care (01) ==
LOC: ER 10:26
DX: N39.0 Urinary tract infection, site not specified (principal); R05 Cough; Z88.6 Allergy status to analgesic agent
CPT/HCPCS: 36415; 74177; 80048; 81003; 81015; 81025; 85025; 87086; 87088; J7030; Q9967

== ENCOUNTER 2018-06-08 22:00 | Emergency (ER) | payer SELFPAY ==
[2018-06-08] MEDS ORDERED: HYDROCODONE/APAP 5/325 MG TAB ONE (23:17)
[2018-06-08] MEDS ORDERED: AMOX/K CLAV 875 MG TAB ONE (23:17)
--- NOTE | 2018-06-08 23:18 | ER ---
Nurse's Notes [facility] Name: Jenn Wills Age: 22 yrs Sex: Female : 1995 Arrival Date: 06/08/2018 Time: 22:11 Bed 19 Private MD: Diagnosis: Otitis media, unspecified, right ear Presentation: 06/08 22:14 Presenting complaint: Patient states: R ear pain since this am. States, "It's so bad aa1 that I can't sleep.". Transition of care: patient was not received from another setting of care. Onset of symptoms was June 08, 2018. Risk Assessment: Do you want to hurt yourself or someone else? Patient reports no desire to harm self or others. Initial Sepsis Screen: Does the patient meet any 2 criteria? No. Patient's initial sepsis screen is negative. Does the patient have a suspected source of infection? No. Patient's initial sepsis screen is negative. Care prior to arrival: None. 22:14 Method Of Arrival: Ambulatory aa1 22:14 Acuity: CARLOS 5 aa1 Triage Assessment: 22:15 General: Appears in no apparent distress. uncomfortable, Behavior is calm, cooperative, aa1 appropriate for age. 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 - Social history:: Smoking status: Patient/guardian denies using tobacco. - Ebola Screening: : Patient denies exposure to infectious person Patient denies travel to an Ebola-affected area in the 21 days before illness onset. Screenin:39 Abuse screen: Denies threats or abuse. Denies injuries from another. Nutritional ak1 screening: No deficits noted. Tuberculosis screening: No symptoms or risk factors identified. Fall Risk None identified. Assessment: 22:38 General: Appears uncomfortable, Behavior is calm, cooperative. Pain:. ak1 22:38 Pain: Complains of pain in right ear Pain began this morning. Neuro: No deficits noted. ak1 Cardiovascular: No deficits noted. Respiratory: No deficits noted. GI: No signs and/or symptoms were reported involving the gastrointestinal system. : No signs and/or symptoms were reported regarding the genitourinary system. EENT: Reports pain in right ear. Derm: No signs and/or symptoms reported regarding the dermatologic system. Musculoskeletal: No signs and/or symptoms reported regarding the musculoskeletal system. Vital Signs: 22:15 BP 134 / 86; Pulse 84; Resp 18; Temp 98.7; Pulse Ox 100% on R/A; Weight 95.25 kg; aa1 Height 5 ft. 3 in. (160.02 cm); Pain 10/10; 22:15 Body Mass Index 37.20 (95.25 kg, 160.02 cm) aa1 ED Course: 22:11 Patient arrived in ED. ds1 22:15 Triage completed. aa1 22:15 Arm band placed on left wrist. Patient placed in waiting room, Patient notified of wait aa1 time. 22:30 Sabina Cooper FNP-C is PHCP. kb 22:30 Zenon Ojeda MD is Attending Physician. kb 22:38 Rhoda Harden, RN is Primary Nurse. ak1 22:40 Patient has correct armband on for positive identification. Bed in low position. Call ak1 light in reach. Side rails up X 1. 22:57 Sabina Cooper FNP-C is PHCP. kb 22:57 Zenon Ojeda MD is Attending Physician. kb 23:04 No provider procedures requiring assistance completed. ak1 23:32 Patient did not have IV access during this emergency room visit. lp1 Administered Medications: 23:11 Drug: Amoxicillin 875 mg Route: PO; ak1 23:32 Follow up: Response: No adverse reaction lp1 23:11 Drug: [place] 5 mg-325 mg 1 tabs Route: PO; ak1 23:32 Follow up: Response: No adverse reaction lp1 Outcome: 23:17 Discharge ordered by . kb 23:32 Discharged to home ambulatory, with significant other. lp1 23:32 Condition: good 23:32 Discharge instructions given to patient, Instructed on discharge instructions, follow up and referral plans. medication usage, Demonstrated understanding of instructions, follow-up care, medications, Prescriptions given X 1. 23:33 Patient left the ED. lp1 Signatures: Sabina Cooper FNP-C ENGRAVER LETTER-Ckb Saira Bruce, RN RN aa1 Julissa Tao ds1 Divina Awan, RN RN lp1 Rhoda Harden RN RN ak1
--- NOTE | 2018-06-08 23:19 | EDPHYS ---
Physician Documentation [facility] Name: Jenn Wills Age: 22 yrs Sex: Female : 1995 Arrival Date: 06/08/2018 Time: 22:11 Bed 19 Private MD: ED Physician Zenon Ojeda HPI: 06/08 23:16 This 22 yrs old Female presents to ER via Ambulatory with complaints of Ear kb Pain. 23:16 The patient presents with pain, severe. The complaints affect the right ear. Onset: The kb symptoms/episode began/occurred this morning. Modifying factors: The symptoms are alleviated by nothing, the symptoms are aggravated by touching. Associated signs and symptoms: The patient has no apparent associated signs or symptoms. Severity of symptoms: At their worst the symptoms were severe in the emergency department the symptoms are unchanged. The patient has not experienced similar symptoms in the past. The patient has not recently seen a physician. 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 - Social history:: Smoking status: Patient/guardian denies using tobacco. - Ebola Screening: : Patient denies exposure to infectious person Patient denies travel to an Ebola-affected area in the 21 days before illness onset. ROS: 23:16 Constitutional: Negative for fever, chills, and weight loss, Cardiovascular: Negative kb for chest pain, palpitations, and edema, Respiratory: Negative for shortness of breath, cough, wheezing, and pleuritic chest pain, Abdomen/GI: Negative for abdominal pain, nausea, vomiting, diarrhea, and constipation, MS/Extremity: Negative for injury and deformity, Skin: Negative for injury, rash, and discoloration, Neuro: Negative for headache, weakness, numbness, tingling, and seizure. 23:16 ENT: Positive for ear pain. Exam: 23:16 Constitutional: This is a well developed, well nourished patient who is awake, alert, kb and in no acute distress. Head/Face: Normocephalic, atraumatic. Chest/axilla: Normal chest wall appearance and motion. Nontender with no deformity. No lesions are appreciated. Cardiovascular: Regular rate and rhythm with a normal S1 and S2. No gallops, murmurs, or rubs. Normal PMI, no JVD. No pulse deficits. Respiratory: Lungs have equal breath sounds bilaterally, clear to auscultation and percussion. No rales, rhonchi or wheezes noted. No increased work of breathing, no retractions or nasal flaring. Abdomen/GI: Soft, non-tender, with normal bowel sounds. No distension or tympany. No guarding or rebound. No evidence of tenderness throughout. Skin: Warm, dry with normal turgor. Normal color with no rashes, no lesions, and no evidence of cellulitis. MS/ Extremity: Pulses equal, no cyanosis. Neurovascular intact. Full, normal range of motion. Neuro: Awake and alert, GCS 15, oriented to person, place, time, and situation. Cranial nerves II-XII grossly intact. Motor strength 5/5 in all extremities. Sensory grossly intact. Cerebellar exam normal. Normal gait. 23:16 ENT: External ear(s): are unremarkable, Ear canal(s): are normal, TM's: bulging, on the right, erythema, that is moderate, on the right. Vital Signs: 22:15 BP 134 / 86; Pulse 84; Resp 18; Temp 98.7; Pulse Ox 100% on R/A; Weight 95.25 kg; aa1 Height 5 ft. 3 in. (160.02 cm); Pain 10/10; 22:15 Body Mass Index 37.20 (95.25 kg, 160.02 cm) aa1 MDM: 22:30 Patient medically screened. kb 23:17 Data reviewed: vital signs, nurses notes. Data interpreted: Pulse oximetry: on room air kb is 100 %. Interpretation: normal. Counseling: I had a detailed discussion with the patient and/or guardian regarding: the historical points, exam findings, and any diagnostic results supporting the discharge/admit diagnosis, the need for outpatient follow up, a family practitioner, to return to the emergency department if symptoms worsen or persist or if there are any questions or concerns that arise at home. Administered Medications: 23:11 Drug: Amoxicillin 875 mg Route: PO; ak1 23:32 Follow up: Response: No adverse reaction lp1 23:11 Drug: [place] 5 mg-325 mg 1 tabs Route: PO; ak1 23:32 Follow up: Response: No adverse reaction lp1 Disposition: 06/08/18 23:17 Discharged to Home. Impression: Otitis media, unspecified, right ear. - Condition is Stable. - Discharge Instructions: Otitis Media, Adult, [id number]. - Prescriptions for Amoxicillin 875 mg Oral Tablet - take 1 tablet by ORAL route every 12 hours for 7 days; 14 tablet. - Medication Reconciliation Form, Thank You Letter, Antibiotic Education, Prescription Opioid Use, Work release form, Family Work Release form. - Follow up: Emergency Department; When: As needed; Reason: Worsening of condition. Follow up: Private Physician; When: 2 - 3 days; Reason: Recheck today's complaints, Continuance of care, Re-evaluation by your physician. Addendum: 06/12/2018 06:51 Co-signature as Attending Physician, Zenon Ojeda MD I agree with the assessment and c aquino plan of care. Signatures: Sabina Cooper, PAYROLL AND BENEFITS ASSISTANT-C PAYROLL AND BENEFITS ASSISTANT-Ckb Saira Bruce, RN RN aa1 Zenon Ojeda MD MD cha Pena, Laura, RN RN lp1 Rhoda Harden RN RN ak1 Corrections: (The following items were deleted from the chart) 06/08 23:33 23:17 06/08/2018 23:17 Discharged to Home. Impression: Otitis media, unspecified, right lp1 ear. Condition is Stable. Forms are Work release form, Family Work Release, Medication Reconciliation Form, Thank You Letter, Antibiotic Education, Prescription Opioid Use. Follow up: Emergency Department; When: As needed; Reason: Worsening of condition. Follow up: Private Physician; When: 2 - 3 days; Reason: Recheck today's complaints, Continuance of care, Re-evaluation by your physician. kb
== END 2018-06-08 23:33 | disposition home or self-care (01) ==
LOC: ER 22:00
DX: H66.91 Otitis media, unspecified, right ear (principal); Z88.6 Allergy status to analgesic agent
CPT/HCPCS: 99283

== ENCOUNTER 2018-07-19 19:41 | Emergency (ER) | payer SELFPAY ==
[2018-07-19 21:06] LABS: Urine Blood 2+ (NEG); Urine Glucose NEGATIVE (NEG); Urine Protein NEGATIVE (NEG); Urine Specific Gravity 1.025 (1.005-1.030); Urine pH 5.5 (5.0-7.0)
[2018-07-19 21:50] LABS: Absolute Lymphocytes (CBC) 3.6 K/uL (0.7-4.9); Absolute Monocytes 0.8 K/uL (0.1-1.3); Absolute Neutrophil 5.4 K/uL (1.8-8.0); Basophils % 0.8 % (0-1.3); Eosinophils % 1.3 % (0-4.4); Hematocrit 37.7 % (36.0-45.0); Lymphocytes % 35.9 % (15.3-44.8); MPV 7.9 fL (7.6-11.3); Monocytes % 7.9 % (3.3-12.3); RBC Red Blood Cell Count 4.43 M/uL (3.86-4.86)
[2018-07-19 22:04] LABS: BUN Blood Urea Nitrogen 15 mg/dL (7-18); Bicarbonate 28 mmol/L (21-32); Glucose Level 93 mg/dL (74-106); Potassium 3.9 mmol/L (3.5-5.1); Sodium Level 141 mmol/L (136-145)
[2018-07-19 22:29] LABS: Specific Gravity 1.025 (1.005-1.030)
--- NOTE | 2018-07-19 22:41 | EDPHYS ---
Physician Documentation [facility] Name: Jenn Wills Age: 22 yrs Sex: Female : 1995 Arrival Date: 07/19/2018 Time: 19:44 Bed 25 Private MD: ED Physician Zenon Ojeda HPI: 07/19 22:00 This 22 yrs old Female presents to ER via Ambulatory with complaints of pm1 Vaginal Bleeding. 22:00 The patient presents with vaginal bleeding that is spotting. Onset: The pm1 symptoms/episode began/occurred today. Modifying factors: The symptoms are alleviated by nothing, the symptoms are aggravated by nothing. Associated signs and symptoms: Pertinent negatives: constipation, diarrhea, dyspareunia, dysuria, fever, nausea, vaginal discharge, vomiting, abdominal pain. The patient is sexually active, reportedly has a single partner. The patient has not recently seen a physician. 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 - Social history:: Smoking status: Patient/guardian denies using tobacco. - Ebola Screening: : No symptoms or risks identified at this time. ROS: 22:00 Positive for vaginal bleeding, Negative for flank pain, burning with urination, pm1 vaginal discharge, vaginal itching. 22:00 Constitutional: Negative for fever, chills, and weight loss, Eyes: Negative for injury, pain, redness, and discharge, ENT: Negative for injury, pain, and discharge, Neck: Negative for injury, pain, and swelling, Cardiovascular: Negative for chest pain, palpitations, and edema, Respiratory: Negative for shortness of breath, cough, wheezing, and pleuritic chest pain, Abdomen/GI: Negative for abdominal pain, nausea, vomiting, diarrhea, and constipation, Back: Negative for injury and pain, MS/Extremity: Negative for injury and deformity, Skin: Negative for injury, rash, and discoloration. 22:00 Neuro: Negative for headache, weakness, numbness, tingling, and seizure. Exam: 22:00 Constitutional: This is a well developed, well nourished patient who is awake, alert, pm1 and in no acute distress. Head/Face: Normocephalic, atraumatic. Eyes: Pupils equal round and reactive to light, extra-ocular motions intact. Lids and lashes normal. Conjunctiva and sclera are non-icteric and not injected. Cornea within normal limits. Periorbital areas with no swelling, redness, or edema. ENT: Nares patent. No nasal discharge, no septal abnormalities noted. Tympanic membranes are normal and external auditory canals are clear. Oropharynx with no redness, swelling, or masses, exudates, or evidence of obstruction, uvula midline. Mucous membranes moist. Neck: Trachea midline, no thyromegaly or masses palpated, and no cervical lymphadenopathy. Supple, full range of motion without nuchal rigidity, or vertebral point tenderness. No Meningismus. Chest/axilla: Normal chest wall appearance and motion. Nontender with no deformity. No lesions are appreciated. Cardiovascular: Regular rate and rhythm with a normal S1 and S2. No gallops, murmurs, or rubs. Normal PMI, no JVD. No pulse deficits. Respiratory: Lungs have equal breath sounds bilaterally, clear to auscultation and percussion. No rales, rhonchi or wheezes noted. No increased work of breathing, no retractions or nasal flaring. Abdomen/GI: Soft, non-tender, with normal bowel sounds. No distension or tympany. No guarding or rebound. No evidence of tenderness throughout. Back: No spinal tenderness. No costovertebral tenderness. Full range of motion. 22:00 Neuro: Orientation: is normal, Motor: is normal, moves all fours. Vital Signs: 19:59 BP 116 / 78; Pulse 78; Resp 18; Temp 99.1; Pulse Ox 98% on R/A; Weight 97.52 kg (R); ak1 Height 5 ft. 3 in. (160.02 cm) (R); Pain 2/10; 21:40 BP 113 / 74; Pulse 73; Resp 18; Pulse Ox 100% on R/A; Pain 1/10; mg2 23:05 BP 95 / 61; Pulse 70; Resp 18; Pulse Ox 100% on R/A; Pain 0/10; mg2 19:59 Body Mass Index 38.09 (97.52 kg, 160.02 cm) ak1 MDM: 19:52 Patient medically screened. pm1 22:40 Data reviewed: vital signs. Data interpreted: Pulse oximetry: on room air is 100 %. pm1 Interpretation: normal. Counseling: I had a detailed discussion with the patient and/or guardian regarding: the historical points, exam findings, and any diagnostic results supporting the discharge/admit diagnosis, lab results, the need for outpatient follow up, for definitive care, an OB/Gyne specialist, to return to the emergency department if symptoms worsen or persist or if there are any questions or concerns that arise at home. 07/19 20:46 Order name: Urine Dipstick--Ancillary (enter results); Complete Time: 21:17 ar5 07/19 21:17 Order name: Abo/rh Typing; Complete Time: 22:40 pm1 07/19 21:17 Order name: Basic Metabolic Panel; Complete Time: 22:13 pm1 07/19 21:17 Order name: CBC with Diff; Complete Time: 22:13 pm1 07/19 22:26 Order name: Test, Urine; Complete Time: 22:40 EDMS 07/19 19:53 Order name: Urine Dipstick-Ancillary (obtain specimen); Complete Time: 20:12 pm1 07/19 19:53 Order name: Urine Test (obtain specimen); Complete Time: 20:44 pm1 07/19 21:17 Order name: IV Saline Lock; Complete Time: 21:40 pm1 07/19 21:17 Order name: Labs collected and sent; Complete Time: 21:40 pm1 07/19 21:17 Order name: NPO; Complete Time: 21:40 pm1 Administered Medications: No medications were administered Disposition: 07/19/18 22:41 Discharged to Home. Impression: Abnormal uterine and vaginal bleeding, unspecified. - Condition is Stable. - Discharge Instructions: Abnormal Uterine Bleeding. - Medication Reconciliation Form, Thank You Letter form. - Follow up: Emergency Department; When: As needed; Reason: Worsening of condition. Follow up: Private Physician; When: 2 - 3 days; Reason: Recheck today's complaints, Continuance of care, Re-evaluation by your physician. - Problem is new. - Symptoms have improved. Addendum: 07/25/2018 11:30 Co-signature as Attending Physician, Zenon Ojeda MD I agree with the assessment and c aquino plan of care. Signatures: Dispatcher [employer] [facility] Zenon Ojeda MD MD cha Krenek, Amber, RN RN ak1 Malcolm Adams, SUBSTITUTE SCHOOL NURSE SUBSTITUTE SCHOOL NURSE pm1 Barrington Amezquita, RN RN mg2 Corrections: (The following items were deleted from the chart) 07/19 22:26 21:18 TEST, SERUM+SC.LAB.BRZ ordered. [facility] 23:05 22:41 07/19/2018 22:41 Discharged to Home. Impression: Abnormal uterine and vaginal mg2 bleeding, unspecified. Condition is Stable. Forms are Medication Reconciliation Form, Thank You Letter, Antibiotic Education, Prescription Opioid Use. Follow up: Emergency Department; When: As needed; Reason: Worsening of condition. Follow up: Private Physician; When: 2 - 3 days; Reason: Recheck today's complaints, Continuance of care, Re-evaluation by your physician. Problem is new. Symptoms have improved. pm1
--- NOTE | 2018-07-19 22:41 | ER ---
Nurse's Notes [facility] Name: Jenn Wills Age: 22 yrs Sex: Female : 1995 Arrival Date: 07/19/2018 Time: 19:44 Bed 25 Private MD: Diagnosis: Abnormal uterine and vaginal bleeding, unspecified Presentation: 07/19 20:01 Presenting complaint: Patient states: spotting vaginal bleeding today after ak1 intercourse. pt stated LMP 06/23/18. pt stated she had spotting on 07/03/18. pt stated her home UPT test "did not activate and had no results.". Transition of care: patient was not received from another setting of care. Onset of symptoms was July 19, 2018. Risk Assessment: Do you want to hurt yourself or someone else? Patient reports no desire to harm self or others. Initial Sepsis Screen: Does the patient meet any 2 criteria? No. Patient's initial sepsis screen is negative. Does the patient have a suspected source of infection? No. Patient's initial sepsis screen is negative. Care prior to arrival: None. 20:01 Method Of Arrival: Ambulatory ak1 20:01 Acuity: CARLOS 3 ak1 Triage Assessment: 20:07 General: Appears in no apparent distress. Behavior is calm, cooperative. Pain: ak1 Complains of pain in suprapubic area. EENT: No signs and/or symptoms were reported regarding the EENT system. Neuro: No deficits noted. Cardiovascular: No deficits noted. Respiratory: No deficits noted. GI: No signs and/or symptoms were reported involving the gastrointestinal system. : Reports vaginal bleeding that is spotty. Derm: No signs and/or symptoms reported regarding the dermatologic system. Musculoskeletal: No signs and/or symptoms reported regarding the musculoskeletal system. 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 - Social history:: Smoking status: Patient/guardian denies using tobacco. - Ebola Screening: : No symptoms or risks identified at this time. Screenin:46 Abuse screen: Denies threats or abuse. Denies injuries from another. Nutritional mg2 screening: No deficits noted. Tuberculosis screening: No symptoms or risk factors identified. Fall Risk None identified. Assessment: 20:49 General: Appears in no apparent distress. comfortable, Behavior is calm, cooperative. mg2 Pain: Denies pain. Neuro: Level of Consciousness is awake, alert, obeys commands, Oriented to person, place, time, situation. Cardiovascular: Capillary refill < 3 seconds Patient's skin is warm and dry. Respiratory: Airway is patent Respiratory effort is even, unlabored, Respiratory pattern is regular, symmetrical. GI: No signs and/or symptoms were reported involving the gastrointestinal system. : Urine is clear, Reports vaginal bleeding that is spotty, since 2 days. EENT: No signs and/or symptoms were reported regarding the EENT system. Derm: Skin is intact, is healthy with good turgor, Skin is pink, warm \\T\\ dry. normal. Musculoskeletal: No signs and/or symptoms reported regarding the musculoskeletal system. 21:41 Reassessment: Patient appears in no apparent distress at this time. Patient and/or mg2 family updated on plan of care and expected duration. Pain level reassessed. Patient is alert, oriented x 3, equal unlabored respirations, skin warm/dry/pink. Vital Signs: 19:59 BP 116 / 78; Pulse 78; Resp 18; Temp 99.1; Pulse Ox 98% on R/A; Weight 97.52 kg (R); ak1 Height 5 ft. 3 in. (160.02 cm) (R); Pain 2/10; 21:40 BP 113 / 74; Pulse 73; Resp 18; Pulse Ox 100% on R/A; Pain 1/10; mg2 23:05 BP 95 / 61; Pulse 70; Resp 18; Pulse Ox 100% on R/A; Pain 0/10; mg2 19:59 Body Mass Index 38.09 (97.52 kg, 160.02 cm) ak1 ED Course: 19:44 Patient arrived in ED. ag3 19:52 Malcolm Adams NP is PHCP. pm1 19:52 Zenon Ojeda MD is Attending Physician. pm1 19:53 Gardose, Barrington, RN is Primary Nurse. mg2 19:59 Arm band placed on Patient placed in an exam room, on a stretcher, Patient notified of ak1 wait time. 20:05 Triage completed. ak1 20:48 No provider procedures requiring assistance completed. mg2 20:50 Patient has correct armband on for positive identification. Door closed. mg2 20:58 Urine collected: clean catch specimen, clear, for test. mg2 21:40 Inserted saline lock: 22 gauge in left antecubital area, using aseptic technique. Blood mg2 collected. 22:55 IV discontinued, intact, bleeding controlled, No redness/swelling at site. Pressure mg2 dressing applied. Administered Medications: No medications were administered Outcome: 22:41 Discharge ordered by MD. pm1 22:55 Discharged to home ambulatory, with family. mg2 22:55 Condition: stable 22:55 Discharge instructions given to patient, family, Instructed on discharge instructions, follow up and referral plans. Demonstrated understanding of instructions, follow-up care. 23:05 Patient left the ED. mg2 Signatures: Rhoda Harden RN RN ak1 Malcolm Adams, KYUNG CAR MOVER pm1 Barrington Amezquita, RN RN mg2 Prachi Lazo ag3 Corrections: (The following items were deleted from the chart) 21:40 20:48 Patient did not have IV access during this emergency room visit. mg2 mg2
== END 2018-07-19 23:05 | disposition home or self-care (01) ==
LOC: ER 19:41
DX: N93.9 Abnormal uterine and vaginal bleeding, unspecified (principal); Z79.84 Long term (current) use of oral hypoglycemic drugs
CPT/HCPCS: 36415; 80048; 81003; 81025; 85025; 86900; 86901; 99283

== ENCOUNTER 2018-11-01 14:03 | Emergency (ER) | payer OTHER ==
[2018-11-01] MEDS ORDERED: DICYCLOMINE HCL 10 MG CAP ONE (16:29)
[2018-11-01] MEDS ORDERED: ONDANSETRON 4 MG/2 ML VIAL ONE (16:30)
[2018-11-01] MEDS ORDERED: NA CHLORIDE 0.9% 1,000 ML ONE ×2 (16:30→17:53)
[2018-11-01] MEDS ORDERED: FAMOTIDINE 20 MG/2 ML VIAL IV ONE (16:30)
[2018-11-01 16:35] LABS: Absolute Lymphocytes (CBC) 2.3 K/uL (0.7-4.9); Absolute Monocytes 0.7 K/uL (0.1-1.3); Basophils % 0.6 % (0-1.3); Eosinophils % 2.2 % (0-4.4); Hematocrit 43.5 % (36.0-45.0); Lymphocytes % 27.8 % (15.3-44.8); MPV 8.6 fL (7.6-11.3); Monocytes % 8.4 % (3.3-12.3); RBC Red Blood Cell Count 5.14 M/uL (3.86-4.86)
[2018-11-01 16:42] LABS: Urine RBC <5 /HPF (NONE SEEN)
[2018-11-01 16:43] LABS: Urine Bacteria <20 /HPF (<20); Urine Culture Reflex Order NOT NEEDED
[2018-11-01 16:49] LABS: Albumin 3.9 g/dL (3.4-5.0); Bilirubin Direct 0.2 mg/dL (0-0.2); Bilirubin Total 0.8 mg/dL (0.2-1.0); Potassium 3.5 mmol/L (3.5-5.1); Protein, Total 8.6 g/dL (6.4-8.2)
--- NOTE | 2018-11-01 16:52 | RAD REPORT ---
EXAM DESCRIPTION: US - Abdomen Exam Limited - 11/01/2018 4:21 pm CLINICAL HISTORY: Epigastric pain, right upper quadrant pain COMPARISON: CT April 2018 FINDINGS: No gallstones, sludge or other abnormalities within the gallbladder lumen. There is no wal l thickening or pericholecystic fluid. No common duct stone or biliary tree dilatation identified. IMPRESSION: Normal gallbladder and biliary tree ultrasound.
[2018-11-01 17:22] LABS: Urine Blood NEGATIVE (NEG); Urine Glucose NEGATIVE (NEG); Urine Protein NEGATIVE (NEG); Urine Specific Gravity 1.015 (1.005-1.030); Urine pH 5.5 (5.0-7.0)
[2018-11-01] MEDS ORDERED: PROMETHAZINE 25 MG/ML VIAL ONE (17:53)
--- NOTE | 2018-11-01 18:57 | RAD REPORT ---
EXAM DESCRIPTION: CT - Abdomen Pelvis W Contrast - 11/01/2018 6:39 pm CLINICAL HISTORY: Right-sided abdominal pain, nausea and vomiting COMPARISON: CT April 2018, CT study February 2018 TECHNIQUE: Biphasic, helical CT imaging of the abdomen and pelvis was performed following 100 ml non -ionic IV contrast. Oral contrast was given. All CT scans are performed using dose optimization technique as appropriate and may include automated exposure control or mA/KV adjustment according to patient size. FINDINGS: Minimal patchy alveolar opacities are present in the lung bases. New pleural effusion. No pericardial effusion. In the absence of any acute respiratory symptoms this is probably atelectasis r ather than pneumonia. Fatty infiltration pattern of the liver is identified. No focal liver lesion identified. Gallbladder and biliary tree show no suspicious findings. No new splenic finding. No focal mass or pancreatic duct dilatation. No peripancreatic inflammatory stranding. There is dimin ished attenuation throughout the pancreas most likely fatty infiltration. This pattern is stable back to at least February 2018. Symmetric renal function is seen with no hydronephrosis or suspicious renal mass. No pyelonephritis o r acute parenchymal process. No bladder abnormalities. No adrenal abnormalities. Uterus and ovaries s how no suspicious findings. No dilated bowel loops or bowel wall thickening. No free air, free fluid or inflammatory stranding. No mass or bulky lymphadenopathy. A very small umbilical hernia is present. No suspicious bony findings. IMPRESSION: Contrast enhanced CT abdomen and pelvis showing no acute finding. Nonacute findings are detailed in the body of the report and similar to comparison.
--- NOTE | 2018-11-01 20:03 | EDPHYS ---
Physician Documentation [facility] Name: Jenn Wills Age: 22 yrs Sex: Female : 1995 Arrival Date: 11/01/2018 Time: 14:06 Bed 28 Private MD: None, None ED Physician Jhon Araiza HPI: 11/01 16:15 This 22 yrs old Female presents to ER via Ambulatory with complaints of cp Abdominal Pain, Nausea, Dizziness. 16:15 The patient presents with abdominal pain in the upper abdomen. Onset: The cp symptoms/episode began/occurred 1 week(s) ago. Associated signs and symptoms: Pertinent positives: nausea and vomiting since yesterday, Pertinent negatives: blood in stools, chest pain, constipation, diarrhea, dysuria, fever, vomiting blood. 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 - Social history:: Smoking status: . - Ebola Screening: : Patient negative for fever greater than or equal to 101.5 degrees Fahrenheit, and additional compatible Ebola Virus Disease symptoms Patient denies travel to an Ebola-affected area in the 21 days before illness onset. ROS: 16:20 Constitutional: Negative for body aches, chills, fever, poor PO intake. cp 16:20 Eyes: Negative for injury, pain, redness, and discharge. cp 16:20 ENT: Negative for drainage from ear(s), ear pain, sore throat, difficulty swallowing, difficulty handling secretions. 16:20 Cardiovascular: Negative for chest pain, edema, palpitations. 16:20 Respiratory: Negative for cough, shortness of breath, wheezing. 16:20 Abdomen/GI: Positive for abdominal pain, nausea and vomiting, Negative for diarrhea, constipation, anorexia, hematemesis, black/tarry stool, rectal bleeding. 16:20 Back: Negative for pain at rest, pain with movement. 16:20 Skin: Negative for cellulitis, rash. 16:20 Neuro: Negative for altered mental status, headache, weakness. 16:20 All other systems are negative. Exam: 16:23 Constitutional: The patient appears in no acute distress, alert, awake, non-toxic, well cp developed, well nourished. 16:23 Head/Face: Normocephalic, atraumatic. cp 16:23 Eyes: Periorbital structures: appear normal, Conjunctiva: normal, no exudate, no injection, Sclera: no appreciated abnormality, Lids and lashes: appear normal, bilaterally. 16:23 ENT: External ear(s): are unremarkable, Ear canal(s): are normal, clear, TM's: bulging, is not appreciated, bilaterally, dullness, bilaterally, erythema, is not appreciated, bilaterally, Nose: is normal, Mouth: Lips: moist, Oral mucosa: pink and intact, moist, Posterior pharynx: Airway: no evidence of obstruction, patent, Tonsils: are normal in appearance, Uvula: normal, swelling, is not appreciated, erythema, is not appreciated, exudate, is not appreciated. 16:23 Neck: ROM/movement: is normal, is supple, without pain, no range of motions limitations, no nuchal rigidity. 16:23 Chest/axilla: Inspection: normal. 16:23 Cardiovascular: Rate: normal, Rhythm: regular. 16:23 Respiratory: the patient does not display signs of respiratory distress, Respirations: normal, no use of accessory muscles, no retractions, no splinting, no tachypnea, labored breathing, is not present, Breath sounds: are clear throughout, no decreased breath sounds, no stridor, no wheezing. 16:23 Abdomen/GI: Inspection: obese Bowel sounds: active, all quadrants, Palpation: soft, in all quadrants, moderate abdominal tenderness, in the epigastric area and right upper quadrant, rebound tenderness, is not appreciated, involuntary guarding, is not appreciated. 16:23 Back: pain, of the between shoulder blades, ROM is normal. 16:23 Skin: cellulitis, is not appreciated, no rash present. Vital Signs: 14:53 BP 141 / 91; Pulse 97; Resp 17; Temp 98.5(TE); Pulse Ox 100% on R/A; Weight 95.25 kg tw2 (R); Height 5 ft. 3 in. (160.02 cm) (R); Pain 8/10; 17:00 BP 106 / 79 RA; Pulse 76; Resp 17 S; Pulse Ox 100% on R/A; rv 18:00 BP 103 / 70 RA; Pulse 64; Resp 16 S; Pulse Ox 100% on R/A; rv 19:00 BP 119 / 73 RA; Pulse 66; Resp 16 S; Pulse Ox 100% on R/A; rv 20:00 BP 128 / 99 RA; Pulse 79; Resp 17 S; Pulse Ox 98% on R/A; rv 14:53 Body Mass Index 37.20 (95.25 kg, 160.02 cm) tw2 MDM: 15:14 Patient medically screened. cp 17:00 Differential diagnosis: appendicitis, bowel obstruction, cholecystitis, Cholelithiasis, cp gastritis, pancreatitis, Peptic Ulcer Disease, Perf. Duodenal Ulcer, Perf. Gastric Ulcer, Ureterolithiasis, urinary tract infection. 20:02 Data reviewed: vital signs. Data interpreted: Pulse oximetry: on room air is 100 %. pm1 Interpretation: normal. 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 11/01 16:02 Order name: Basic Metabolic Panel; Complete Time: 17:13 cp 11/01 17:13 Interpretation: Normal except: GFR 89. cp 11/01 16:02 Order name: CBC with Diff; Complete Time: 17:13 cp 11/01 17:13 Interpretation: Normal except: RBC 5.14. cp 11/01 16:02 Order name: Creatinine for Radiology; Complete Time: 17:13 cp 11/01 16:02 Order name: Hepatic Function; Complete Time: 17:13 cp 11/01 16:02 Order name: Lipase; Complete Time: 17:13 cp 11/01 16:02 Order name: Urine Microscopic Only; Complete Time: 17:13 cp 11/01 16:02 Order name: US Abdomen Limited; Complete Time: 17:13 cp 11/01 16:34 Order name: Urine Dipstick--Ancillary (enter results) bd 11/01 16:34 Order name: Urine --Ancillary (enter results) bd 11/01 17:50 Order name: CT Abd/Pelvis - W/Contrast: no oral contrast; Complete Time: 19:01 cp 11/01 16:02 Order name: IV Saline Lock; Complete Time: 16:14 cp 11/01 16:02 Order name: Labs collected and sent; Complete Time: 16:14 cp 11/01 16:02 Order name: Urine Dipstick-Ancillary (obtain specimen); Complete Time: 16:03 cp 11/01 16:02 Order name: Urine Test (obtain specimen); Complete Time: 16:02 cp 11/01 16:02 Order name: NPO; Complete Time: 16:02 cp 11/01 17:14 Order name: PO challenge; Complete Time: 17:38 cp Administered Medications: 16:35 Drug: Zofran 4 mg Route: IVP; Site: left antecubital; rv 17:01 Follow up: Response: Nausea is decreased rv 16:35 Drug: Pepcid 20 mg Route: IVP; Site: left antecubital; rv 17:01 Follow up: Response: Nausea is decreased rv 16:35 Drug: NS 0.9% 1000 ml Route: IV; Rate: 1 bolus; Site: left antecubital; rv 17:01 Follow up: IV Status: Completed infusion rv 16:35 Drug: Bentyl 20 mg Route: PO; rv 17:01 Follow up: Response: Pain is unchanged, physician notified rv 17:50 Drug: Phenergan 12.5 mg Route: IVP; Site: left antecubital; rv 20:19 Follow up: Response: Nausea unchanged rv 17:50 Drug: NS 0.9% 1000 ml Route: IV; Rate: 1 bolus; Site: left antecubital; rv 20:18 Follow up: IV Status: Completed infusion rv 20:17 Not Given (Patient Refused): GI Cocktail without - (Maalox Suspension 30 ml, rv Lidocaine Liquid 2 % 15 ml) PO once Disposition: 11/02 06:40 Co-signature as Attending Physician, Jhon Araiza MD I agree with the assessment and kdr plan of care. Disposition: 11/01/18 20:03 Discharged to Home. Impression: Unspecified abdominal pain. - Condition is Stable. - Discharge Instructions: Abdominal Pain, Adult. - Prescriptions for Bentyl 20 mg Oral Tablet - take 1 tablet by ORAL route every 6 hours As needed; 20 tablet. Zofran 4 mg Oral Tablet - take 1 tablet by ORAL route every 12 hours As needed; 20 tablet. - Work release form, Medication Reconciliation Form, Thank You Letter, Antibiotic Education, Prescription Opioid Use form. - Follow up: Emergency Department; When: As needed; Reason: Worsening of condition. Follow up: Private Physician; When: 2 - 3 days; Reason: Recheck today's complaints, Continuance of care, Re-evaluation by your physician. - Problem is new. - Symptoms have improved. Signatures: Dispatcher [employer] EDMS Jhon Araiza MD MD [facility] Zenon Diego PA PA cp Malcolm Adams, WEIGH MACHINE OPERATOR WEIGH MACHINE OPERATOR pm1 Lawanda Martinez RN RN tw2 Gulshan Wisdom, RN RN rv Corrections: (The following items were deleted from the chart) 11/01 20:26 20:03 11/01/2018 20:03 Discharged to Home. Impression: Unspecified abdominal pain. rv Condition is Stable. Forms are Medication Reconciliation Form, Thank You Letter, Antibiotic Education, Prescription Opioid Use. Follow up: Emergency Department; When: As needed; Reason: Worsening of condition. Follow up: Private Physician; When: 2 - 3 days; Reason: Recheck today's complaints, Continuance of care, Re-evaluation by your physician. Problem is new. Symptoms have improved. pm1
--- NOTE | 2018-11-01 20:03 | ER ---
Nurse's Notes [facility] Name: Jenn Wilsl Age: 22 yrs Sex: Female : 1995 Arrival Date: 11/01/2018 Time: 14:06 Bed 28 Private MD: None, None Diagnosis: Unspecified abdominal pain Presentation: 11/01 14:52 Presenting complaint: Patient states: i have been having for a week now and it is tw2 strongly getting worse and worse on the right side where my gallbladder was, i have been nauseated, i am vomiting, 20 times in passed 2 days, i still have my gallbladders. Transition of care: patient was not received from another setting of care. Onset of symptoms was November 01, 2018. Risk Assessment: Do you want to hurt yourself or someone else? Patient reports no desire to harm self or others. Initial Sepsis Screen: Does the patient meet any 2 criteria? No. Patient's initial sepsis screen is negative. Does the patient have a suspected source of infection? No. Patient's initial sepsis screen is negative. Care prior to arrival: None. 14:52 Method Of Arrival: Ambulatory tw2 14:52 Acuity: CARLOS 3 tw2 Triage Assessment: 14:54 General: Appears in no apparent distress. Behavior is calm, cooperative, appropriate tw2 for age. Pain: Complains of pain in abdomen. GI: Reports lower abdominal pain, upper abdominal pain, nausea, vomiting. 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 - Social history:: Smoking status: . - Ebola Screening: : Patient negative for fever greater than or equal to 101.5 degrees Fahrenheit, and additional compatible Ebola Virus Disease symptoms Patient denies travel to an Ebola-affected area in the 21 days before illness onset. Screenin:03 Abuse screen: Denies threats or abuse. Denies injuries from another. Nutritional rv screening: No deficits noted. Tuberculosis screening: No symptoms or risk factors identified. Fall Risk None identified. Assessment: 15:01 General: Appears in no apparent distress. uncomfortable, Behavior is calm, cooperative. rv Pain: Complains of pain in abdomen Pain currently is 8 out of 10 on a pain scale. Neuro: Level of Consciousness is awake, alert, obeys commands, Oriented to person, place, time, situation. Cardiovascular: Capillary refill < 3 seconds. Respiratory: Airway is patent. GI: Bowel sounds present X 4 quads. Abd is soft and non tender X 4 quads. : No signs and/or symptoms were reported regarding the genitourinary system. EENT: No signs and/or symptoms were reported regarding the EENT system. Derm: Skin is intact. Musculoskeletal: No signs and/or symptoms reported regarding the musculoskeletal system. 17:00 Reassessment: Patient appears in no apparent distress at this time. No changes from rv previously documented assessment. Patient and/or family updated on plan of care and expected duration. Pain level reassessed. Patient is alert, oriented x 3, equal unlabored respirations, skin warm/dry/pink. Vital Signs: 14:53 BP 141 / 91; Pulse 97; Resp 17; Temp 98.5(TE); Pulse Ox 100% on R/A; Weight 95.25 kg tw2 (R); Height 5 ft. 3 in. (160.02 cm) (R); Pain 8/10; 17:00 BP 106 / 79 RA; Pulse 76; Resp 17 S; Pulse Ox 100% on R/A; rv 18:00 BP 103 / 70 RA; Pulse 64; Resp 16 S; Pulse Ox 100% on R/A; rv 19:00 BP 119 / 73 RA; Pulse 66; Resp 16 S; Pulse Ox 100% on R/A; rv 20:00 BP 128 / 99 RA; Pulse 79; Resp 17 S; Pulse Ox 98% on R/A; rv 14:53 Body Mass Index 37.20 (95.25 kg, 160.02 cm) tw2 ED Course: 14:06 Patient arrived in ED. mr 14:07 None, None is Private Physician. mr 14:53 Triage completed. tw2 14:53 Arm band placed on. tw2 14:57 Gulshan Wisdom, MCKAY is Primary Nurse. rv 15:03 Patient has correct armband on for positive identification. Bed in low position. Call rv light in reach. Side rails up X 1. Adult w/ patient. Pulse ox on. NIBP on. 15:14 Zenon Diego PA is PHCP. cp 15:14 Jhon Araiza MD is Attending Physician. cp 16:12 Inserted saline lock: 20 gauge in left antecubital area, using aseptic technique. Blood ca1 collected. 16:21 US Abdomen Limited In Process Unspecified. EDMS 18:15 PHCP role handed off by Zenon Diego PA pm1 18:15 Malcolm Adams NP is PHCP. pm1 18:39 CT Abd/Pelvis - W/Contrast: no oral contrast In Process Unspecified. EDMS 20:21 No provider procedures requiring assistance completed. IV discontinued, intact, rv bleeding controlled, No redness/swelling at site. Pressure dressing applied. Administered Medications: 16:35 Drug: Zofran 4 mg Route: IVP; Site: left antecubital; rv 17:01 Follow up: Response: Nausea is decreased rv 16:35 Drug: Pepcid 20 mg Route: IVP; Site: left antecubital; rv 17:01 Follow up: Response: Nausea is decreased rv 16:35 Drug: NS 0.9% 1000 ml Route: IV; Rate: 1 bolus; Site: left antecubital; rv 17:01 Follow up: IV Status: Completed infusion rv 16:35 Drug: Bentyl 20 mg Route: PO; rv 17:01 Follow up: Response: Pain is unchanged, physician notified rv 17:50 Drug: Phenergan 12.5 mg Route: IVP; Site: left antecubital; rv 20:19 Follow up: Response: Nausea unchanged rv 17:50 Drug: NS 0.9% 1000 ml Route: IV; Rate: 1 bolus; Site: left antecubital; rv 20:18 Follow up: IV Status: Completed infusion rv 20:17 Not Given (Patient Refused): GI Cocktail without - (Maalox Suspension 30 ml, rv Lidocaine Liquid 2 % 15 ml) PO once Outcome: 20:03 Discharge ordered by . pm1 20:23 Discharged to home ambulatory. rv 20:23 Condition: good 20:23 Discharge instructions given to patient, Instructed on discharge instructions, follow up and referral plans. medication usage, Demonstrated understanding of instructions, follow-up care, medications, Prescriptions given X 2. 20:26 Patient left the ED. rv Signatures: Dispatcher [employer] EDCO Rashmi Kimball, Zenon, Malcolm Rosado cp, KYUNG MACHINE SKIVER pm1 Lawanda Martinez RN RN tw2 Gulshan Wisdom RN RN rv Fabiola Fried RN RN ca1
== END 2018-11-01 20:26 | disposition home or self-care (01) ==
LOC: ER 14:03
DX: R10.10 Upper abdominal pain, unspecified (principal); R11.2 Nausea with vomiting, unspecified; E28.2 Polycystic ovarian syndrome; Z79.84 Long term (current) use of oral hypoglycemic drugs; Z88.6 Allergy status to analgesic agent
CPT/HCPCS: 36415; 74177; 76705; 80048; 80076; 81003; 81015; 81025; 83690; 85025; 96361; 96374; 96375; 99284; J2405; J2550; J7030; Q9967

== ENCOUNTER 2019-01-13 22:46 | Emergency (ER) | payer OTHER ==
[2019-01-13 23:21] LABS: Basophils % 0.7 % (0-1.3); Eosinophils % 1.3 % (0-4.4); Hematocrit 39.5 % (36.0-45.0); Lymphocytes % 48.1 % (15.3-44.8); MPV 8.4 fL (7.6-11.3); Monocytes % 8.3 % (3.3-12.3); RBC Red Blood Cell Count 4.61 M/uL (3.86-4.86)
[2019-01-13 23:41] LABS: ALT/SGPT 25 U/L (12-78); AST/SGOT 13 U/L (15-37); Albumin 3.7 g/dL (3.4-5.0); Alkaline Phosphatase 76 U/L (45-117); BUN Blood Urea Nitrogen 15 mg/dL (7-18); Bicarbonate 29 mmol/L (21-32); Bilirubin Direct 0.1 mg/dL (0-0.2); Bilirubin Total 0.3 mg/dL (0.2-1.0); Glucose Level 85 mg/dL (74-106); Lipase 109 U/L (73-393); Protein, Total 7.9 g/dL (6.4-8.2); Sodium Level 143 mmol/L (136-145)
[2019-01-13] MEDS ORDERED: ONDANSETRON 4 MG/2 ML VIAL ONE (23:46)
[2019-01-13] MEDS ORDERED: FAMOTIDINE 20 MG/2 ML VIAL IV ONE (23:46)
[2019-01-13] MEDS ORDERED: NA CHLORIDE 0.9% 1,000 ML ONE (23:46)
[2019-01-13] MEDS ORDERED: MORPHINE 4 MG/ML SYR ONE (23:46)
[2019-01-13 23:49] LABS: Magnesium 2.2 mg/dL (1.8-2.4)
[2019-01-14] MEDS ORDERED: FENTANYL CITR 100 MCG/2 ML ONE (02:20)
--- NOTE | 2019-01-14 02:48 | EDPHYS ---
Physician Documentation [facility] Name: Jenn Wills Age: 23 yrs Sex: Female : 1995 Arrival Date: 01/13/2019 Time: 22:49 Bed 8 Private MD: ED Physician Pollo Leach HPI: 01/13 23:10 This 23 yrs old Female presents to ER via Ambulatory with complaints of cp Abdominal Pain. 23:10 The patient presents with abdominal pain in the upper abdomen. cp 23:10 Onset: The symptoms/episode began/occurred yesterday. Associated signs and symptoms: cp Pertinent positives: nausea, vomiting. 23:10 The symptoms are described as constant. Modifying factors: the symptoms are aggravated cp by movement, pressure. Severity of pain: in the emergency department the pain is unchanged despite home interventions. The patient has experienced similar episodes in the past, several times. [employer] [place]: 23:02 LMP 12/19/2018 aa1 Historical: - Allergies: 23:02 Ibuprofen; aa1 23:02 NSAIDS; aa1 - Home Meds: 23:02 None [Active]; aa1 - PMHx: 23:02 PCOS; aa1 - PSHx: 23:02 Tonsillectomy; wisdon teeth; Adenoids; Ear Tubes; aa1 - Immunization history:: Flu vaccine is up to date. - Social history:: Smoking status: Patient/guardian denies using tobacco. - Ebola Screening: : No symptoms or risks identified at this time. ROS: 23:15 Constitutional: Positive for poor PO intake, Negative for body aches, chills, fever. cp 23:15 Eyes: Negative for injury, pain, redness, and discharge. cp 23:15 ENT: Negative for drainage from ear(s), ear pain, sore throat, difficulty swallowing, difficulty handling secretions. 23:15 Cardiovascular: Negative for chest pain, palpitations. 23:15 Respiratory: Negative for cough, shortness of breath, wheezing. 23:15 Abdomen/GI: Positive for abdominal pain, nausea and vomiting, anorexia, Negative for diarrhea, constipation, black/tarry stool, rectal bleeding. 23:15 Back: Positive for radiated pain. 23:15 : Negative for urinary symptoms. 23:15 Neuro: Negative for altered mental status, headache, weakness. 23:15 All other systems are negative. Exam: 23:25 Constitutional: The patient appears in no acute distress, alert, awake, non-toxic, well cp developed, well nourished, obese. 23:25 Head/Face: Normocephalic, atraumatic. cp 23:25 Eyes: Periorbital structures: appear normal, Conjunctiva: normal, no exudate, no cp injection, Sclera: no appreciated abnormality, Lids and lashes: appear normal, bilaterally. 23:25 ENT: External ear(s): are unremarkable, Nose: is normal, Mouth: Lips: moist, Oral cp mucosa: pink and intact, moist, Posterior pharynx: is normal, airway is patent, no erythema, no exudate. 23:25 Chest/axilla: Inspection: normal, Palpation: is normal, no crepitus, no tenderness. 23:25 Cardiovascular: Rate: normal, Rhythm: regular. 23:25 Respiratory: the patient does not display signs of respiratory distress, Respirations: normal, no use of accessory muscles, no retractions, no splinting, no tachypnea, labored breathing, is not present, Breath sounds: are clear throughout, no decreased breath sounds, no stridor, no wheezing. 23:25 Abdomen/GI: Inspection: abdomen appears normal, Bowel sounds: active, all quadrants, Palpation: soft, in all quadrants, moderate abdominal tenderness, in the epigastric area and right upper quadrant, rebound tenderness, is not appreciated, voluntary guarding, is elicited in the epigastric area and right upper quadrant. Vital Signs: 23:02 BP 123 / 79; Pulse 80; Resp 18; Temp 97.6; Pulse Ox 97% on R/A; Weight 102.06 kg; aa1 Height 5 ft. 4 in. (162.56 cm); Pain 10/10; 01/14 00:11 BP 102 / 66; Pulse 65; Resp 17; Pulse Ox 99% on R/A; Pain 6/10; tl1 01:04 BP 105 / 65; Pulse 64; Resp 17; Pulse Ox 100% ; tl1 02:13 BP 97 / 55; Pulse 75; Resp 17; Pulse Ox 96% ; Pain 5/10; tl1 01/13 23:02 Body Mass Index 38.62 (102.06 kg, 162.56 cm) aa1 MDM: 01/13 22:52 Patient medically screened. cp 23:30 Differential diagnosis: cholecystitis, Cholelithiasis, gastritis, non-specific abd cp pain, pancreatitis, Peptic Ulcer Disease, Perf. Duodenal Ulcer, Perf. Gastric Ulcer. 01/14 02:45 Data reviewed: vital signs, nurses notes, lab test result(s), radiologic studies, CT cp scan, and as a result, I will discharge patient. 02:45 Counseling: I had a detailed discussion with the patient and/or guardian regarding: the cp historical points, exam findings, and any diagnostic results supporting the discharge/admit diagnosis, lab results, radiology results, to return to the emergency department if symptoms worsen or persist or if there are any questions or concerns that arise at home. Response to treatment: the patient's symptoms have markedly improved after treatment. ED course: VSS. Patient reports she has upcoming appt with general surgeon DR Silverman on 01-17-2019 for evaluation of pain. Labs stable and CT abdomen/pelvis negative for acute findings. Will discharge to home for continued monitoring. 01/13 23:01 Order name: Basic Metabolic Panel 1 01/13 23:01 Order name: CBC with Diff; Complete Time: 01:10 tl1 01/13 23:01 Order name: Creatinine for Radiology; Complete Time: 01:10 tl1 01/13 23:01 Order name: Hepatic Function; Complete Time: 01:10 tl1 01/13 23:01 Order name: Lipase; Complete Time: 01:10 tl1 01/13 23:01 Order name: Basic Metabolic Panel; Complete Time: 01:10 EDMS 01/13 23:22 Order name: Urine Dipstick--Ancillary (enter results) ag4 01/13 23:22 Order name: Urine --Ancillary (enter results) ag4 01/13 23:45 Order name: Magnesium; Complete Time: 01:10 EDMS 01/14 01:11 Order name: CT Abd/Pelvis - IV Contrast Only cp 01/13 23:01 Order name: IV Saline Lock; Complete Time: 23:14 tl1 01/13 23:01 Order name: Labs collected and sent; Complete Time: 23:14 tl1 01/14 02:42 Order name: PO challenge; Complete Time: 03:00 cp Administered Medications: 01/13 23:39 Drug: Pepcid 20 mg Route: IVP; Infused Over: 2 mins; Site: right antecubital; tl1 01/14 00:24 Follow up: Response: No adverse reaction; No change in condition tl1 01/13 23:39 Drug: NS 0.9% 1000 ml Route: IV; Rate: 1 bolus; Site: right antecubital; tl1 01/14 00:24 Follow up: IV Status: Completed infusion; IV Intake: 1000ml tl1 01/13 23:40 Drug: morphine 4 mg Route: IVP; Infused Over: 2 mins; Site: right antecubital; tl1 01/14 00:24 Follow up: Response: No adverse reaction; Marked relief of symptoms; Pain is decreased tl1 01/13 23:40 Drug: Zofran 4 mg Route: IVP; Infused Over: 2 mins; Site: right antecubital; tl1 01/14 00:24 Follow up: Response: No adverse reaction; Marked relief of symptoms; Nausea is decreasedtl1 02:09 Drug: fentaNYL (PF) 25 mcg Route: IVP; Infused Over: 2 mins; Site: right antecubital; tl1 03:01 Follow up: Response: No adverse reaction; Marked relief of symptoms; Pain is decreased tl1 Disposition: 03:46 Co-signature as Attending Physician, Pollo Leach MD. pkl Disposition: 01/14/19 02:47 Discharged to Home. Impression: Upper abdominal pain, unspecified. - Condition is Stable. - Discharge Instructions: Abdominal Pain, Adult. - Prescriptions for Bentyl 20 mg Oral Tablet - take 2 tablet by ORAL route every 6 hours As needed; 40 tablet. Protonix 40 mg Oral Tablet, Delayed Release (E.C.) - take 1 tablet by ORAL route once daily; 20 tablet. promethazine 25 mg Oral Tablet - take 1 tablet by ORAL route every 6 hours As needed; 20 tablet. Phenergan 25 mg Rectal Suppository - insert 1 suppository by RECTAL route every 6 hours As needed; 12 suppository. - Work release form, Medication Reconciliation Form, Thank You Letter, Antibiotic Education, Prescription Opioid Use form. - Follow up: Ty Silverman MD; When: 01/17/2019; Reason: Recheck today's complaints, as scheduled. - Problem is new. - Symptoms have improved. Signatures: Dispatcher [employer] Saira Rich RN RN aa1 Pollo Leach MD MD pkl Allison Soliman RN RN tl1 Zenon Diego PA PA cp Corrections: (The following items were deleted from the chart) 01/13 23:44 23:26 MAGNESIUM+C.LAB.BRZ ordered. EDMS EDMS 01/14 03:31 02:47 01/14/2019 02:47 Discharged to Home. Impression: Upper abdominal pain, tl1 unspecified. Condition is Stable. Forms are Medication Reconciliation Form, Thank You Letter, Antibiotic Education, Prescription Opioid Use. Follow up: Ty Silverman; When: 01/17/2019; Reason: Recheck today's complaints, as scheduled. Problem is new. Symptoms have improved. cp
--- NOTE | 2019-01-14 02:48 | ER ---
Nurse's Notes [facility] Name: Jenn Wills Age: 23 yrs Sex: Female : 1995 Arrival Date: 01/13/2019 Time: 22:49 Bed 8 Private MD: Diagnosis: Upper abdominal pain, unspecified Presentation: 01/13 23:01 Presenting complaint: Patient states: upper abd pain and vomiting since yesterday. aa1 Transition of care: patient was not received from another setting of care. Onset of symptoms was January 12, 2019. Risk Assessment: Do you want to hurt yourself or someone else? Patient reports no desire to harm self or others. Initial Sepsis Screen: Does the patient meet any 2 criteria? No. Patient's initial sepsis screen is negative. Does the patient have a suspected source of infection? No. Patient's initial sepsis screen is negative. Care prior to arrival: None. 23:01 Method Of Arrival: Ambulatory aa1 23:01 Acuity: CARLOS 3 aa1 Triage Assessment: 23:02 General: Appears in no apparent distress. comfortable, Behavior is calm, cooperative, aa1 appropriate for age. 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 - Social history:: Smoking status: Patient/guardian denies using tobacco. - Ebola Screening: : No symptoms or risks identified at this time. Screenin/23 02:14 Abuse screen: Denies threats or abuse. Denies injuries from another. Nutritional tl1 screening: No deficits noted. Tuberculosis screening: No symptoms or risk factors identified. Fall Risk IV access (20 points). Assessment: 00:21 General: Appears in no apparent distress. uncomfortable, obese, Behavior is tl1 cooperative, appropriate for age. Pain: Complains of pain in right upper quadrant Pain currently is 10 out of 10 on a pain scale. Quality of pain is described as aching, crampy, sharp, shooting, Pain began 1 day ago. Neuro: Level of Consciousness is awake, alert, obeys commands, Oriented to person, place, time, situation. Cardiovascular: Denies chest pain. Respiratory: Airway is patent Trachea midline Respiratory effort is even, unlabored, Breath sounds are clear bilaterally. GI: Bowel sounds present X 4 quads. Abdomen is tender to palpation in right upper quadrant Reports upper abdominal pain, bloating, nausea, vomiting. : No signs and/or symptoms were reported regarding the genitourinary system. EENT: No signs and/or symptoms were reported regarding the EENT system. Derm: No signs and/or symptoms reported regarding the dermatologic system. 03:00 Reassessment: Patient and/or family updated on plan of care and expected duration. Pain tl1 level reassessed. Patient is alert, oriented x 3, equal unlabored respirations, skin warm/dry/pink. Patient states feeling better. Patient states symptoms have improved. GI: Bowel sounds present X 4 quads. Abdomen is tender to palpation in right upper quadrant. Vital Signs: 01/13 23:02 BP 123 / 79; Pulse 80; Resp 18; Temp 97.6; Pulse Ox 97% on R/A; Weight 102.06 kg; aa1 Height 5 ft. 4 in. (162.56 cm); Pain 10/10; 01/14 00:11 BP 102 / 66; Pulse 65; Resp 17; Pulse Ox 99% on R/A; Pain 6/10; tl1 01:04 BP 105 / 65; Pulse 64; Resp 17; Pulse Ox 100% ; tl1 02:13 BP 97 / 55; Pulse 75; Resp 17; Pulse Ox 96% ; Pain 5/10; tl1 01/13 23:02 Body Mass Index 38.62 (102.06 kg, 162.56 cm) aa1 ED Course: 01/13 22:49 Patient arrived in ED. am2 22:50 Zenon Diego PA is PHCP. cp 22:50 Pollo Leach MD is Attending Physician. cp 23:00 Allison Soliman, MCKAY is Primary Nurse. tl1 23:01 Triage completed. aa1 23:02 Arm band placed on right wrist. aa1 23:02 Patient has correct armband on for positive identification. Placed in gown. Bed in low tl1 position. Call light in reach. Side rails up X 1. 23:14 No provider procedures requiring assistance completed. Inserted saline lock: 20 gauge tl1 in right antecubital area, using aseptic technique. Blood collected. 01/14 01:05 Resting quietly. Appears to be sleeping. tl1 02:09 CT Abd/Pelvis - IV Contrast Only In Process Unspecified. EDMS 02:46 Ty Silverman MD is Referral Physician. cp 03:30 IV discontinued, intact, bleeding controlled, No redness/swelling at site. Pressure tl1 dressing applied. Administered Medications: 01/13 23:39 Drug: Pepcid 20 mg Route: IVP; Infused Over: 2 mins; Site: right antecubital; tl1 01/14 00:24 Follow up: Response: No adverse reaction; No change in condition tl1 01/13 23:39 Drug: NS 0.9% 1000 ml Route: IV; Rate: 1 bolus; Site: right antecubital; tl1 01/14 00:24 Follow up: IV Status: Completed infusion; IV Intake: 1000ml tl1 01/13 23:40 Drug: morphine 4 mg Route: IVP; Infused Over: 2 mins; Site: right antecubital; tl1 01/14 00:24 Follow up: Response: No adverse reaction; Marked relief of symptoms; Pain is decreased tl1 01/13 23:40 Drug: Zofran 4 mg Route: IVP; Infused Over: 2 mins; Site: right antecubital; tl1 01/14 00:24 Follow up: Response: No adverse reaction; Marked relief of symptoms; Nausea is decreasedtl1 02:09 Drug: fentaNYL (PF) 25 mcg Route: IVP; Infused Over: 2 mins; Site: right antecubital; tl1 03:01 Follow up: Response: No adverse reaction; Marked relief of symptoms; Pain is decreased tl1 Intake: 00:24 IV: 1000ml; Total: 1000ml. tl1 Outcome: 02:47 Discharge ordered by . cp 03:30 Discharged to home via wheelchair, with significant other. tl1 03:30 Condition: stable 03:30 Discharge instructions given to patient, family, Instructed on discharge instructions, follow up and referral plans. the need for admit, medication usage, Demonstrated understanding of instructions, follow-up care, medications, Prescriptions given X 4. 03:31 Patient left the ED. tl1 Signatures: Dispatcher [employer] EDMS Autenrieth, Saira, RN RN aa1 Allison Soliman RN RN tl1 Zenon Diego PA PA cp Moreno, Amanda am2
[2019-01-14 02:49] LABS: Urine Blood NEGATIVE (NEG); Urine Glucose NEGATIVE (NEG); Urine Protein NEGATIVE (NEG); Urine Specific Gravity 1.025 (1.005-1.030); Urine pH 6.5 (5.0-7.0)
--- NOTE | 2019-01-15 11:58 | RAD REPORT ---
EXAM DESCRIPTION: CT - Abdomen Pelvis W Contrast - 01/14/2019 2:39 am CLINICAL HISTORY: The patient is 23 years old and is Female; upper abdomen pain TECHNIQUE: Axial computed tomography images of the abdomen and pelvis with intravenous contrast. S agittal and coronal reformatted images were created and reviewed. This CT exam was performed using one or more of the following dose reduction techniques: automated exposure control, adjustment of t he mA and/or kV according to patient size, and/or use of iterative reconstruction technique. COMPARISON: CT the abdomen and pelvis November 01, 2018. FINDINGS: LUNG BASES: Unremarkable. No mass. No consolidation. ABDOMEN: LIVER: The liver is fatty. GALLBLADDER AND BILE DUCTS: No calcified stones. No ductal dilation. PANCREAS: Diffuse fatty infiltration of the pancreas is noted. There is no peripancreatic inflam mation or fluid. There is no pseudocyst. SPLEEN: A splenule is present within the left upper quadrant. The spleen is unremarkable. ADRENALS: Unremarkable. No mass. KIDNEYS AND URETERS: Unremarkable. No solid mass. No hydronephrosis. STOMACH AND BOWEL: The stomach is minimally distended. The small bowel is relatively normal in c aliber. A moderate amount of stool is present throughout the colon. There is no mucosal thickening or evidence of bowel obstruction. PELVIS: APPENDIX: The appendix is normal in caliber without surrounding inflammation. BLADDER: The bladder is moderately distended. REPRODUCTIVE: Unremarkable as visualized. ABDOMEN and PELVIS: INTRAPERITONEAL SPACE: Unremarkable. No free air. No significant fluid collection. BONES/JOINTS: No acute fracture. SOFT TISSUES: The soft tissues are normal. VASCULATURE: Unremarkable. No abdominal aortic aneurysm. LYMPH NODES: Unremarkable. No enlarged lymph nodes. IMPRESSION: No acute findings on this contrasted CT of the abdomen and pelvis to explain the patient 's symptoms. Electronically signed by: Tabatha Kline MD 01/14/2019 2:14 AM CDT Due to temporary technical issues with the PACS/Fluency reporting system, reports are being signed by the in house radiologist as a courtesy to ensure prompt reporting. The interpreting radiologist is f ully responsible for the content of the report.
== END 2019-01-14 03:31 | disposition home or self-care (01) ==
LOC: ER 22:46
DX: R10.10 Upper abdominal pain, unspecified (principal); Z88.6 Allergy status to analgesic agent
CPT/HCPCS: 36415; 74177; 80048; 80076; 81003; 81025; 83690; 83735; 85025; 96361; 96374; 96375; 99284; J2405; J3010; J7030; Q9967

== ENCOUNTER 2019-01-31 06:21 | Day surgery (SDC) | payer OTHER ==
[2019-01-30 16:28] LABS: Absolute Lymphocytes (CBC) 3.3 K/uL (0.7-4.9); Basophils % 0.6 % (0-1.3); Eosinophils % 0.9 % (0-4.4); Hematocrit 40.8 % (36.0-45.0); Lymphocytes % 35.1 % (15.3-44.8); MPV 8.7 fL (7.6-11.3)
[2019-01-30 16:46] LABS: BUN Blood Urea Nitrogen 14 mg/dL (7-18); Bicarbonate 29 mmol/L (21-32); Glucose Level 77 mg/dL (74-106); Sodium Level 141 mmol/L (136-145)
[2019-01-31] MEDS ORDERED: CEFAZOLIN/SWI 1gm 1 GM/10 ML SYR ONE (06:54)
[2019-01-31] MEDS ORDERED: NA CHLORIDE 0.9% 1,000 ML ONE ×2 (06:54→08:58)
[2019-01-31] MEDS ORDERED: BUPIVACAINE 0.5% PF 10 ML VIAL ONE (07:20)
[2019-01-31] MEDS ORDERED: FENTANYL CITR 100 MCG/2 ML ONE ×2 (07:24→08:35)
[2019-01-31] MEDS ORDERED: PROPOFOL 200 MG/20 ML VIAL IV ONE (07:24)
[2019-01-31] MEDS ORDERED: MIDAZOLAM HCL 2 MG/2 ML INJ ONE (07:24)
[2019-01-31] MEDS ORDERED: ROCURONIUM 50 MG/5 ML VIAL IV ONE (07:25)
[2019-01-31] MEDS ORDERED: LIDOCAINE 1% MPF 5 ML VIAL ONE (07:25)
[2019-01-31] MEDS ORDERED: NEOSTIGMINE 1 MG/ML -10 ML VIAL ONE (08:55)
[2019-01-31] MEDS ORDERED: GLYCOPYRROLATE 0.2 MG/ML SYR ONE (08:55)
--- NOTE | 2019-01-31 09:10 | P.BOP ---
Preoperative diagnosis: acute cholecystitis, biliary dyskinesia, intractable RUQ abd pain Postoperative diagnosis: same, upper abdominal extensive intrabdominal adhesions Primary procedure: 1. Laparoscopic cholecystectomy Secondary procedure: 2. Laparoscopic lysis of adhesions Estimated blood loss: <20cc Specimen: gb Findings: see dictation Anesthesia: General Complications: None Transferred to: Recovery Room Condition: Good
[2019-01-31] MEDS ORDERED: Mastisol Adhesive Liq ONE (09:14)
[2019-01-31] MEDS: HYDROMORPHONE HCL 1 MG/ML INJ ONE ×5 (09:20→09:59)
[2019-01-31] MEDS ORDERED: PROMETHAZINE 25 MG/ML VIAL ONE (09:37)
[2019-01-31] MEDS ORDERED: CODEINE 30MG/APAP 300MG TAB PO ONE (11:30)
--- NOTE | 2019-02-05 23:02 | DS ---
Date of Discharge: 01/31/2019 Diagnoses: Acute cholecystitis, biliary dyskinesia, intractable right upper quadrant abdominal pain, and upper abdominal extensive intraabdominal adhesions. Procedure: Laparoscopic cholecystectomy and extensive laparoscopic lysis of adhesions. Disposition: To home. Activity: As tolerated. No heavy lifting. Followup: Follow up in my office in 1 week. Call for appointment at [phone]. Keep the area dry fo r 48 hours, then may shower. Keep Steri-Strips intact. Medications: For medications, see orders. MANUEL/GEENA Voice ID: [id number] Report ID: [id number]
--- NOTE | 2019-02-05 23:14 | OP ---
Date of Procedure: 01/31/2019 Surgeon: Ty Silverman MD Preoperative Diagnoses: Acute cholecystitis, biliary dyskinesia, intractable right upper quadrant ab dominal pain. Postoperative Diagnosis: Acute cholecystitis, biliary dyskinesia, intractable right upper quadrant a bdominal pain, upper abdominal extensive intraabdominal adhesions. Procedures: 1.Laparoscopic cholecystectomy. 2.Laparoscopic lysis of adhesions. Specimen: Gallbladder. Anesthesia: General plus local. Indications: This is a case of a 23-year-old patient, who had persistent epigastric right upper quad rant pain associated with nausea, bloating, and vomiting. The patient has not been able to eat prope rly. 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 She even had an extensive workup done, endoscopies and imaging, and one that shows some finding is that duplication of symptoms when we had a HIDA scan done. The patient claimed symptoms were similar. Extensive workup was done and she was offered diag nostic laparoscopy and laparoscopic, possible open cholecystectomy since she wants her gallbladder ou t. Her family member had gallbladder out for having the same symptoms. She claimed that it was diff icult in their cases to diagnose also the gallbladder, and when it was done, they felt better. So, s he wants her gallbladder removed. The benefits, alternatives, and risks of laparoscopic, possible op en cholecystectomy were fully explained to the patient, which include but are not limited to infectio n, bleeding, damage to adjacent structures, anesthesia complication, choledocholithiasis, bile leak, pancreatitis, LA, and even . She also understands this may not relieve the symptoms and she melody ht need more than one surgical intervention. She understood, signed a consent. Description Of Procedure: The patient was brought to the operating room, placed in supine position. Anesthesia was done without complication. Abdominal area was prepped and draped in a sterile fashio n. Marcaine 0.5% was injected for local anesthetic, followed by sharp incision of the skin in the in fraumbilical region. Incision was carried down to fascia, which was opened under direct vision. Per itoneum was encountered, opened under direct vision. Vicryl #1 placed inside the fascia. Brennan tro car was carefully introduced. Pneumoperitoneum was obtained. I placed 3 more trocars, 5 mm each one of them, 1 in the epigastric area, 2 in the right upper quadrant using same technique, which consist ed of local anesthetic, sharp incision of the skin, and introduction of the trocars under direct visi on. This allowed me to visualize the area of the upper abdomen. Stomach looked soft and compressibl e. Liver with no masses, at least anterior and extracapsular. Gallbladder had lateral adhesions harry und the area, also near the falciform ligament. The etiology of that is unknown. Since transverse c olon does not show any inflammatory process or small bowel throughout that area. In order for me to go and take care of those, I had to even use LigaSure. I spent some time just doing lysis of adhesio ns to be able to get to the gallbladder. Using LigaSure, we proceeded to carefully do lysis of adhes ions. This allowed me to visualize the area of the gallbladder. Some adhesions of omentum were also attached to the gallbladder, carefully removed. A grasper was placed in the fundus of the gallbladd er, another grasper in the infundibulum. The gallbladder was retracted in the inferolateral fashion exposing the triangle of Calot and obtaining critical view of safety. Cystic duct and cystic artery were clearly isolated, freed circumferentially, and a connection between those and the gallbladder wa s clearly identified. I proceeded to ligate those by using at least 3 clips proximal, 1 clip distal, ligation in middle. Same was done with the cystic artery. No bile leak. No bleeding. The gallbla dder was removed from abdominal cavity using an EndoCatch through the umbilical incision. This gallb ladder wall looked erythematous and edematous. Gallbladder sent to the pathologist. At that moment, we inspected the area of the lysis of adhesions and also the area of the liver bed with no bile leak . No bleeding. Clips were intact. At that moment, I proceeded to remove the trocars under direct v ision. Deflated pneumoperitoneum. Closed the fascia with #1 Vicryl. Irrigated subcutaneous tissue, closed that with 3-0 chromic and the skin in a subcuticular fashion. Sponge count and instrument co unts were correct. The patient tolerated the procedure well. The patient was sent to recovery in stable condition. MANUEL/GEENA Voice ID: [id number] Report ID: [id number]
== END 2019-01-31 11:55 | disposition home or self-care (01) ==
LOC: OR 06:21
PROVIDERS: ATTEND Surgery
PROC: 0DNW4ZZ Release Peritoneum, Percutaneous Endoscopic Approach (ICD-10-PCS; 2019-01-31)
PROC: 0FT44ZZ Resection of Gallbladder, Percutaneous Endoscopic Approach (ICD-10-PCS; principal; 2019-01-31 07:30)
DX: K81.0 Acute cholecystitis (principal); K82.8 Other specified diseases of gallbladder; K66.0 Peritoneal adhesions (postprocedural) (postinfection); E66.01 Morbid (severe) obesity due to excess calories; Z68.39 Body mass index [BMI] 39.0-39.9, adult; Z83.3 Family history of diabetes mellitus; Z82.49 Family history of ischemic heart disease and other diseases of the circulatory system
CPT/HCPCS: 36415; 80048; 82962; 84703; 85025; 88304; J0690; J1170; J2250; J2550; J2704; J2710; J3010; J7030

== ENCOUNTER 2020-08-12 20:55 | Emergency (ER) | payer OTHER, SELFPAY ==
--- OUTSIDE RECORDS SUMMARY | 2020-08-12 20:58 | XMS REPORT | Continuity of Care Document ---
:1995 Author Organization [facility] t Address [address] [place] 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 00:00: Medica l 00 Group Allergies, Adverse Reactions, Alerts Allergy Allergy Status Severity Reaction(s) Onset Inactive Treating Comm ents Source Name Type Date Date Clinician Motrin Allergy Active Anaphylaxis Yao gor to da substanc Medical e Group NSAIDS Allergy Active Moderate Anaphylaxis [place] [facility] (NON-MICHEAL to to severe da ROIDAL substanc Medical ANTI-INF e Group LAMMATOR Y DRUG) Social History Smoking Status Start Date Stop Date Source Former Smoker [facility] Medications Ordered Filled Start Stop Current Ordering Indication Dosage Frequency Signature Comments Components Source Medication Medication Date Date Medication? Clinician (SIG) Name Name metformin metformin No 1 BID metformin [facility] 500 mg 500 mg 500 mg da tablet Take tablet Take tablet Medical 1 tablet 1 tablet Take 1 Group twice a day twice a day tablet by oral by oral twice a route. route. day by oral route. Provera 10 Provera 10 No 1 Q1D Provera 10 [facility] mg tablet mg tablet mg tablet da Take 1 Take 1 Take 1 Medical tablet tablet tablet Group every day every day every day by oral by oral by oral route for 7 route for 7 route for days. days. 7 days. Vital Signs Vital Name Observation Time Observation Value Comments Source BP Diastolic 2020-04-22 00:00:00 93 mm[Hg] [facility] Height 2020-04-22 00:00:00 62 [in_i] [facility] BMI (Body Mass 2020-04-22 00:00:00 41 kg/m2 [facility] Medical Index) Group BP Systolic 2020-04-22 00:00:00 133 mm[Hg] [facility] Body Weight 2020-04-22 00:00:00 224.1 [lb_av] [facility] Procedures Procedure Date / Time Performing Clinician Source Performed Cholecystectomy 2019-01-31 00:00:00 [facility] Extraction of Mize Tooth [facility] Remove Tonsils and [facility] Plan of Care Planned Activity Planned Date Details Comments Source Diagnostic Test 2020-04-22 urinalysis, [facility] Pending 00:00:00 dipstick [code = Group urinalysis, dipstick] Diagnostic Test 2020-04-22 pap, LB + CT/NG/TV [facility] Pending 00:00:00 + reflex HR HPV Group [code = pap, LB + CT/NG/TV + reflex HR HPV] Diagnostic Test 2020-04-22 test, [facility] Pending 00:00:00 urine [code = Group test, urine] Diagnostic Test 2020-04-22 beta-HCG, [facility] Pending 00:00:00 quantitative, serum Group or plasma [code = beta-HCG, quantitative, serum or plasma] Encounters Start End Encounter Admission Attending Care Care Encounter Source Date/Time Date/Time Type Type Clinicians Facility Department ID 2020-04-22 2020-04-22 Debbie Oseguera [facility] [place] - [id number] [place] 00:00:00 00:00:00 [facility] Kendall Cabrera: [address] [facility] [address], [place] [address] , Ph. [phone] Results This patient has no known results.
[2020-08-12 23:24] LABS: Urine Blood NEGATIVE (NEG); Urine Glucose NEGATIVE (NEG); Urine Protein NEGATIVE (NEG); Urine Specific Gravity >1.030 (1.005-1.030)
[2020-08-12 23:46] LABS: Absolute Lymphocytes (CBC) 4.4 K/uL (0.7-4.9); Basophils % 0.6 % (0-1.3); Hematocrit 41.9 % (36.0-45.0); Lymphocytes % 48.4 % (15.3-44.8); MPV 8.5 fL (7.6-11.3); RBC Red Blood Cell Count 4.81 M/uL (3.86-4.86)
[2020-08-12] MEDS ORDERED: ONDANSETRON 4 MG/2 ML VIAL ONE (23:47)
[2020-08-12] MEDS ORDERED: KETOROLAC 30 MG/ML INJ ONE (23:48)
[2020-08-12] MEDS ORDERED: NA CHLORIDE 0.9% 1,000 ML ONE (23:48)
[2020-08-12 23:55] LABS: ALT/SGPT 21 U/L (12-78); AST/SGOT 12 U/L (15-37); Albumin 3.7 g/dL (3.4-5.0); Alkaline Phosphatase 74 U/L (45-117); BUN Blood Urea Nitrogen 13 mg/dL (7-18); Bicarbonate 28 mmol/L (21-32); Bilirubin Direct 0.1 mg/dL (0-0.2); Bilirubin Total 0.6 mg/dL (0.2-1.0); Glucose Level 80 mg/dL (74-106); Lipase 56 U/L (73-393); Potassium 3.9 mmol/L (3.5-5.1); Protein, Total 8.1 g/dL (6.4-8.2); Sodium Level 142 mmol/L (136-145)
[2020-08-13] MEDS ORDERED: MORPHINE 2 MG/ML SYR ONE (00:31)
[2020-08-13 01:22] LABS: Blood Morphology Comment NOT SEEN (NOT SEEN); Platelet Estimate ADEQ
--- NOTE | 2020-08-13 01:45 | EDPHYS ---
Physician Documentation [facility] Name: Jenn Cronin Age: 24 yrs Sex: Female : 1995 Arrival Date: 08/12/2020 Time: 20:57 Bed 19 Private MD: ED Physician Lobito Trent HPI: 08/12 23:10 This 24 yrs old Female presents to ER via Ambulatory with complaints of cp Abdominal Pain. 23:10 The patient presents with abdominal pain in the right upper quadrant, right lower cp quadrant. 23:10 Onset: The symptoms/episode began/occurred 2 day(s) ago. cp 23:10 The symptoms radiate to right back. Associated signs and symptoms: Pertinent negatives: cp anorexia, constipation, diarrhea, dysuria, fever, vaginal discharge, vomiting. The symptoms are described as intermittent, sharp. 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 - Social history:: Smoking status: Patient denies any tobacco usage or history of. ROS: 23:15 Constitutional: Negative for body aches, chills, fever, poor PO intake. cp 23:15 Eyes: Negative for injury, pain, redness, and discharge. cp 23:15 Cardiovascular: Negative for chest pain. 23:15 Respiratory: Negative for cough, shortness of breath, wheezing. 23:15 Abdomen/GI: Positive for abdominal pain, nausea, Negative for vomiting, diarrhea, constipation, anorexia, black/tarry stool, rectal bleeding. 23:15 Back: Positive for radiated pain, of the right low back. 23:15 : Negative for urinary symptoms, vaginal bleeding, vaginal discharge. 23:15 Skin: Negative for rash. 23:15 Neuro: Negative for altered mental status, headache, syncope, weakness. 23:15 All other systems are negative. Exam: 23:20 Constitutional: The patient appears in no acute distress, alert, awake, non-toxic, well cp developed, well nourished, obese. 23:20 Head/Face: Normocephalic, atraumatic. cp 23:20 Eyes: Periorbital structures: appear normal, Conjunctiva: normal, no exudate, no injection, Sclera: no appreciated abnormality, Lids and lashes: appear normal, bilaterally. 23:20 ENT: External ear(s): are unremarkable, Nose: is normal, Mouth: Lips: moist, Oral mucosa: pink and intact, moist, Posterior pharynx: Airway: no evidence of obstruction, patent. 23:20 Neck: ROM/movement: is normal, is supple, without pain, no range of motions limitations. 23:20 Chest/axilla: Inspection: normal, Palpation: is normal, no crepitus, no tenderness. 23:20 Cardiovascular: Rate: normal, Rhythm: regular. 23:20 Respiratory: the patient does not display signs of respiratory distress, Respirations: normal, no use of accessory muscles, no retractions, labored breathing, is not present, Breath sounds: are clear throughout, no decreased breath sounds, no stridor, no wheezing. 23:20 Abdomen/GI: Inspection: abdomen appears normal, Bowel sounds: active, all quadrants, Palpation: soft, in all quadrants, mild abdominal tenderness, in the anterior aspect of right lateral abdomen, right upper quadrant and right lower quadrant, rebound tenderness, is not appreciated, voluntary guarding, is not appreciated, involuntary guarding, is not appreciated. 23:20 Back: CVA tenderness, is absent. 23:20 Skin: no rash present. Vital Signs: 21:46 BP 134 / 91; Pulse 84; Resp 16 S; Temp 97.2(TE); Pulse Ox 100% on R/A; Weight 97.52 kg ca1 (R); Height 5 ft. 3 in. (160.02 cm) (R); Pain 9/10; 08/13 00:00 BP 123 / 96; Pulse 71; Resp 16; Pulse Ox 100% on R/A; jb4 01:00 BP 112 / 77; Pulse 73; Resp 18; Pulse Ox 100% on R/A; jb4 01:45 BP 115 / 72; Pulse 70; Resp 16; Pulse Ox 100% on R/A; jb4 08/12 21:46 Body Mass Index 38.09 (97.52 kg, 160.02 cm) ca1 MDM: 08/12 22:53 Patient medically screened. 08/13 00:00 Differential diagnosis: appendicitis, non-specific abd pain, Pyelonephritis, cp Ureterolithiasis, urinary tract infection, colitis, enteritis. 45 Data reviewed: vital signs, nurses notes, lab test result(s), radiologic studies, CT cp scan. 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 Response to treatment: the patient's symptoms have markedly improved after treatment, and as a result, I will discharge patient. Special discussion: Based on the patient's Hx, exam, and Dx evaluation, there is no indication for emergent surgery or inpatient Tx. It is understood by the patient/guardian that if the Sx's persist or worsen they need to return immediately for re-evaluation. 08/12 23:06 Order name: Basic Metabolic Panel; Complete Time: 00:50 cp 08/13 00:51 Interpretation: Normal except: CL 110. cp 08/12 23:06 Order name: CBC with Diff; Complete Time: cp 08/13 00:51 Interpretation: Normal except: EDWARD% 39.3; LYM% 48.4. cp 08/12 23:06 Order name: Hepatic Function; Complete Time: 00:50 cp 08/13 00:51 Interpretation: Normal except: AST 12; GLOB 4.4; A/G 0.8. cp 08/12 23:06 Order name: Lipase; Complete Time: 00:50 cp 08/12 23:07 Order name: Urine --Ancillary (enter results); Complete Time: 00:50 tt3 08/12 23:07 Order name: Urine Dipstick--Ancillary (enter results); Complete Time: 00:50 tt3 08/13 00:51 Interpretation: Normal except: UESTR 1+. cp 08/12 23:07 Order name: CT Abd/Pelvis - IV Contrast Only cp 08/12 23:53 Order name: Manual Differential; Complete Time: EDMS 08/13 00: Interpretation: Normal except: SEGS 35; BANDS [F] 2; LYM 46; EOS 4. cp 08/12 22:45 Order name: Urine Dipstick-Ancillary (obtain specimen); Complete Time: 23:05 cp 08/12 22:45 Order name: Urine Test (obtain specimen); Complete Time: 23:05 cp 08/12 23:06 Order name: IV Saline Lock; Complete Time: 00:09 cp 08/12 23:06 Order name: Labs collected and sent; Complete Time: 00:08 cp Administered Medications: 08/12 23:39 Not Given (Pt is allergic): TORadol - Ketorolac 15 mg IVP once jb4 23:45 Drug: NS 0.9% 1000 ml Route: IV; Rate: 1 bolus; Site: right antecubital; jb4 08/13 00:45 Follow up: Response: No adverse reaction; IV Status: Completed infusion; IV Intake: jb4 1000ml 08/12 23:45 Drug: Zofran (Ondansetron) 4 mg Route: IVP; Site: right antecubital; jb4 08/13 00:15 Follow up: Response: No adverse reaction; Nausea is decreased jb4 00:25 Drug: morphine 2 mg Route: IVP; Site: right antecubital; jb4 00:50 Follow up: Response: No adverse reaction; Marked relief of symptoms; Pain is decreased; jb4 RASS: Alert and Calm (0) 01:55 Drug: Cipro 500 mg Route: PO; jb4 02:00 Follow up: Response: Medication administered at discharge. jb4 01:55 Drug: metroNIDAZOLE 500 mg Route: PO; jb4 02:00 Follow up: Response: Medication administered at discharge. jb4 Disposition: 06:59 Co-signature as Attending Physician, Lobito Trent MD. ma2 Disposition: 08/13/20 01:45 Discharged to Home. Impression: Unspecified abdominal pain. - Condition is Stable. - Discharge Instructions: Abdominal Pain, Adult. - Prescriptions for Bentyl 20 mg Oral Tablet - take 1 tablet by ORAL route every 6 hours As needed; 30 tablet. Zofran 4 mg Oral Tablet - take 1 tablet by ORAL route every 12 hours As needed; 20 tablet. Cipro 500 mg Oral Tablet - take 1 tablet by ORAL route every 12 hours for 10 days; 20 tablet. Metronidazole 500 mg Oral Tablet - take 1 tablet by ORAL route every 8 hours; 30 tablet. - Medication Reconciliation Form, Thank You Letter, Antibiotic Education, Prescription Opioid Use form. - Follow up: Johny Eisenberg MD; When: 2 - 3 days; Reason: Recheck today's complaints. - Problem is new. - Symptoms have improved. Signatures: Dispatcher [employer] EDMS Zenon Diego PA PA cp Bryson, James, RN RN jb4 Lobito Trent MD MD ak2 Fabiola Fried RN RN ca1 Corrections: (The following items were deleted from the chart) 02:13 01:45 08/13/2020 01:45 Discharged to Home. Impression: Unspecified abdominal pain. jb4 Condition is Stable. Forms are Medication Reconciliation Form, Thank You Letter, Antibiotic Education, Prescription Opioid Use. Follow up: Johny Eisenberg; When: 2 - 3 days; Reason: Recheck today's complaints. Problem is new. Symptoms have improved. cp
--- NOTE | 2020-08-13 01:45 | ER ---
Nurse's Notes [facility] Name: Jenn Cronin Age: 24 yrs Sex: Female : 1995 Arrival Date: 08/12/2020 Time: 20:57 Bed 19 Private MD: Diagnosis: Unspecified abdominal pain Presentation: 08/12 21:46 Chief complaint: Patient states: RUQ and RLQ pain radiating to the back x 2 days. ca1 Reports nausea. Coronavirus screen: Client denies travel out of the [place] in the last 14 days. nausea, Client presents with at least one sign or symptom that may indicate coronavirus-19. Standard/surgical mask placed on the client. Provider contacted for isolation considerations. Ebola Screen: Patient negative for fever greater than or equal to 101.5 degrees Fahrenheit, and additional compatible Ebola Virus Disease symptoms Patient denies exposure to infectious person. Patient denies travel to an Ebola-affected area in the 21 days before illness onset. No symptoms or risks identified at this time. Initial Sepsis Screen: Does the patient meet any 2 criteria? No. Patient's initial sepsis screen is negative. Does the patient have a suspected source of infection? No. Patient's initial sepsis screen is negative. Risk Assessment: Do you want to hurt yourself or someone else? Patient reports no desire to harm self or others. Onset of symptoms was August 10, 2020. 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 - Social history:: Smoking status: Patient denies any tobacco usage or history of. Screenin:10 Abuse screen: Denies threats or abuse. Nutritional screening: No deficits noted. jb4 Tuberculosis screening: No symptoms or risk factors identified. Fall Risk None identified. Assessment: 23:10 General: Appears in no apparent distress. uncomfortable, Behavior is calm, cooperative, jb4 appropriate for age. Pain: Complains of pain in right upper quadrant and right lower quadrant Pain radiates to right mid back and right low back Pain currently is 8 out of 10 on a pain scale. Quality of pain is described as stabbing. Neuro: Level of Consciousness is awake, alert, obeys commands, Oriented to person, place, time, situation. Cardiovascular: Patient's skin is warm and dry. Respiratory: Airway is patent Respiratory effort is even, unlabored, Respiratory pattern is regular, symmetrical. GI: Abdomen is round obese, Bowel sounds present X 4 quads. Abd is soft and non tender X 4 quads. :. : Reports pain in right flank(s). EENT: No signs and/or symptoms were reported regarding the EENT system. Derm: Skin is intact, Skin is pink, warm \T\ dry. Musculoskeletal: Circulation, motion, and sensation intact. Range of motion: intact in all extremities. 08/13 00:00 Reassessment: Patient appears in no apparent distress at this time. Patient and/or jb4 family updated on plan of care and expected duration. Pain level reassessed. Patient is alert, oriented x 3, equal unlabored respirations, skin warm/dry/pink. 01:00 Reassessment: Patient appears in no apparent distress at this time. Patient and/or jb4 family updated on plan of care and expected duration. Pain level reassessed. Patient is alert, oriented x 3, equal unlabored respirations, skin warm/dry/pink. 02:00 Reassessment: Patient appears in no apparent distress at this time. Patient and/or jb4 family updated on plan of care and expected duration. Pain level reassessed. Patient is alert, oriented x 3, equal unlabored respirations, skin warm/dry/pink. Vital Signs: 08/12 21:46 BP 134 / 91; Pulse 84; Resp 16 S; Temp 97.2(TE); Pulse Ox 100% on R/A; Weight 97.52 kg ca1 (R); Height 5 ft. 3 in. (160.02 cm) (R); Pain 04/03; 08/13 00:00 BP 123 / 96; Pulse 71; Resp 16; Pulse Ox 100% on R/A; jb4 01:00 BP 112 / 77; Pulse 73; Resp 18; Pulse Ox 100% on R/A; jb4 01:45 BP 115 / 72; Pulse 70; Resp 16; Pulse Ox 100% on R/A; jb4 08/12 21:46 Body Mass Index 38.09 (97.52 kg, 160.02 cm) ca1 ED Course: 08/12 20:57 Patient arrived in ED. am2 21:48 Triage completed. ca1 21:49 Arm band placed on right wrist. ca1 22:53 Zenon Diego PA is PHCP. cp 22:53 Lobito Trent MD is Attending Physician. cp 23:03 Elder Torres, MCKAY is Primary Nurse. jb4 23:10 Patient has correct armband on for positive identification. Bed in low position. Call jb4 light in reach. Side rails up X 1. Pulse ox on. NIBP on. 08/13 00:53 CT Abd/Pelvis - IV Contrast Only In Process Unspecified. EDMS 01:45 Johny Eisenberg MD is Referral Physician. cp 02:00 No provider procedures requiring assistance completed. IV discontinued, intact, jb4 bleeding controlled, No redness/swelling at site. Pressure dressing applied. Administered Medications: 08/12 23:39 Not Given (Pt is allergic): TORadol - Ketorolac 15 mg IVP once jb4 23:45 Drug: NS 0.9% 1000 ml Route: IV; Rate: 1 bolus; Site: right antecubital; jb4 08/13 00:45 Follow up: Response: No adverse reaction; IV Status: Completed infusion; IV Intake: jb4 1000ml 08/12 23:45 Drug: Zofran (Ondansetron) 4 mg Route: IVP; Site: right antecubital; jb4 08/13 00:15 Follow up: Response: No adverse reaction; Nausea is decreased jb4 00:25 Drug: morphine 2 mg Route: IVP; Site: right antecubital; jb4 00:50 Follow up: Response: No adverse reaction; Marked relief of symptoms; Pain is decreased; jb4 RASS: Alert and Calm (0) 01:55 Drug: Cipro 500 mg Route: PO; jb4 02:00 Follow up: Response: Medication administered at discharge. jb4 01:55 Drug: metroNIDAZOLE 500 mg Route: PO; jb4 02:00 Follow up: Response: Medication administered at discharge. jb4 Intake: 00:45 IV: 1000ml; Total: 1000ml. jb4 Outcome: 01:45 Discharge ordered by . cp 02:13 Discharged to home ambulatory. jb4 02:13 Condition: stable 02:13 Discharge instructions given to patient, Instructed on discharge instructions, follow up and referral plans. medication usage, Demonstrated understanding of instructions, follow-up care, medications, Prescriptions given X 4. 02:13 Patient left the ED. jb4 Signatures: Dispatcher [employer] EDMS Zenon Diego PA PA cp Bryson, James RN RN jb4 Pascale Temple am2 Fabiola Fried RN RN ca1
[2020-08-13] MEDS ORDERED: metroNIDAZOLE 500 MG TABLET ONE (02:11)
[2020-08-13] MEDS ORDERED: CIPROFLOXACIN HCL 500 MG TAB ONE (02:11)
[2020-08-13 02:18] VITALS: TEMP 97.2; O2SAT 100
[2020-08-13 02:22] VITALS: BP 115/72
--- NOTE | 2020-08-13 12:01 | RAD REPORT ---
EXAM DESCRIPTION: CT - Abdomen Pelvis W Contrast - 08/13/2020 5:42 am CLINICAL HISTORY: Right side abdomen pain COMPARISON: 01/14/2019 TECHNIQUE: CT of the abdomen and pelvis performed following IV administration of iodinated contras t. FINDINGS: Lung Bases: The visualized lung bases are clear. Bones: No destructive bone lesions identified. Abdomen: Liver: The liver has normal size and decreased density. No intrahepatic biliary dilatation. Gallbladder: Prior cholecystectomy. Spleen, Pancreas, and Adrenal Glands: Fatty replacement of the pancreas. Adrenal glands and spleen are unremarkable. Kidneys: No hydronephrosis or obstructing calculus. Vasculature: The aorta and IVC have normal caliber and position. The portal vein is patent. The pro ximal visceral and renal arteries are patent. Stomach: The stomach and duodenum have normal course. Other: No free intraperitoneal air. No free fluid or lymphadenopathy. Pelvis: Bladder: Urinary bladder is unremarkable. Bowel: Mild prominence and wall thickening of the terminal ileum. No other dilated loops of bowel. Moderate amount of stool. Appendix: Normal appendix. Pelvis: Uterus is not enlarged. IMPRESSION: 1. Findings compatible with enteritis involving the terminal ileum. This may be of infec tious or inflammatory etiology. 2. Hepatic steatosis. This exam was performed according to our departmental dose-optimization program, which includes autom ated exposure control, adjustment of the mA and/or kV according to patient size and/or use of iterati ve reconstruction technique. Electronically signed by: Dillon Mike 08/13/2020 1:07 AM SERVICE CENTER ASSISTANT Due to temporary technical issues with the PACS/Fluency reporting system, reports are being signed by the in house radiologist without review as a courtesy to ensure prompt reporting. The interpreting r adiologist is fully responsible for the content of the report.
== END 2020-08-13 02:13 | disposition home or self-care (01) ==
LOC: ER 20:55
DX: R10.9 Unspecified abdominal pain (principal)
CPT/HCPCS: 36415; 74177; 80048; 80076; 81003; 81025; 83690; 85025; 96361; 96374; 96375; 99284; J2270; J2405; J7030; Q9967

== ENCOUNTER 2020-12-18 16:08 | Emergency (ER) | payer BC, SELFPAY ==
--- OUTSIDE RECORDS SUMMARY | 2020-12-18 16:09 | XMS REPORT | Continuity of Care Document ---
:1995 Author Organization [facility] t Address [address] [place] [address] Care Team Providers Name Role Phone Cedrickdorene-Lawton ANP Attending Clinician Doctor Unassigned, Name Attending Clinician Unavailable Problems Condition Condition Condition Status Onset Resolution Last Treating Co mments Source Name Details Category Date Date Treatment Clinician Date Oligomenor Oligomenor Problem Active [facility] lorrie lorrie 04-22 da 00:00: Medical 00 Group Primary Primary Problem Active [place] female Female 04-22 da infertilit Infertilit 00:00: Me dical y y 00 Group Gynecologi Gynecologi Problem Active [facility] c c 04-22 da examinatio Examinatio 00:00: Me dical n n 00 Group 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 00:00: Medica l 00 Group Allergies, Adverse Reactions, Alerts Allergy Allergy Status Severity Reaction(s) Onset Inactive Treating Comm ents Source Name Type Date Date Clinician NSAIDS Allergy Active Moderate Anaphylaxis [place] (NON-MICHEAL to to severe da ROIDAL substanc Medical ANTI-INF e Group LAMMATOR Y DRUG) Motrin Allergy Active Anaphylaxis Yao gor to [facility] e Group Social History Smoking Status Start Date Stop Date Source Former Smoker [place] [facility] Medications Ordered Filled Start [...] Source BP Diastolic 2020-04-22 00:00:00 93 mm[Hg] [facility] Height 2020-04-22 00:00:00 62 [in_i] [facility] BMI (Body Mass 2020-04-22 00:00:00 41 kg/m2 [facility] Medical Index) Group BP Systolic 2020-04-22 00:00:00 133 [facility]Hg[facility] Body Weight 2020-04-22 00:00:00 224.1 [lb_av] [facility] Procedures Procedure Date / Time Performing Clinician Source Performed Cholecystectomy 2019-01-31 00:00:00 [facility] Extraction of [facility] Remove Tonsils and [place] [facility] Adenoids Group Plan of Care Planned Activity Planned Date Details Comments Source Diagnostic Test 2020-04-22 urinalysis, [place] [facility] dical Pending 00:00:00 dipstick [code = Group urinalysis, dipstick] Diagnostic Test 2020-04-22 pap, LB + CT/NG/TV [facility] 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 [id number] 10:47:00 23:59:00 Encounter ricardo, PRIMARY [id number] [facility] [id number] NIDIA [id number] 2020-10-16 2020-10-16 Orders Doctor ALBINA [id number] 00:00:00 00:00:00 Only Unassigned, MATT [id number] [facility] [id number] 2020-04-22 2020-04-22 Debbie Oseguera [facility] [place] - [id number] [place] 00:00:00 00:00:00 Discovery hawa Cabrera NP: [address] [facility] [address], [place] [address] , Ph. [phone] Results This patient has no known results.
[2020-12-18] MEDS ORDERED: ONDANSETRON 4 MG/2 ML VIAL ONE (17:50)
[2020-12-18] MEDS ORDERED: MORPHINE 4 MG/ML SYR ONE ×2 (17:50→19:49)
[2020-12-18] MEDS ORDERED: NA CHLORIDE 0.9% 1,000 ML ONE (17:50)
[2020-12-18 17:59] LABS: Absolute Lymphocytes (CBC) 2.5 K/uL (0.7-4.9); Basophils % 0.4 % (0-1.3); Hematocrit 38.4 % (36.0-45.0); Lymphocytes % 38.6 % (15.3-44.8); MPV 8.9 fL (7.6-11.3)
[2020-12-18 18:11] LABS: BUN Blood Urea Nitrogen 11 mg/dL (7-18); Bicarbonate 28 mmol/L (21-32); Glucose Level 88 mg/dL (74-106); Potassium 3.7 mmol/L (3.5-5.1); Sodium Level 143 mmol/L (136-145)
[2020-12-18 19:07] LABS: Urine Blood Negative (Negative); Urine Glucose Negative (Negative); Urine Protein Negative (Negative); Urine Specific Gravity 1.025 (1.005-1.030)
[2020-12-18 19:43] LABS: Urine Bacteria <20 /HPF (<20); Urine Mucus 2+ /HPF (NONE SEEN); Urine RBC <5 /HPF (NONE SEEN)
--- NOTE | 2020-12-18 19:48 | RAD REPORT ---
EXAM DESCRIPTION: CT - Abdomen Pelvis W Contrast - 12/18/2020 7:15 pm CLINICAL HISTORY: ABD PAIN COMPARISON: Abdomen Pelvis W Contrast dated 08/13/2020; Abdomen Pelvis W Contrast dated 01/14/2019 TECHNIQUE: Biphasic, helical CT imaging of the abdomen and pelvis was performed following 100 ml non -ionic IV contrast. No oral contrast administered. All CT scans are performed using dose optimization technique as appropriate and may include automated exposure control or mA/KV adjustment according to patient size. FINDINGS: No suspicious findings in the lung bases. Liver and spleen show no suspicious findings. Cholecystectomy clips are present with no biliary tree dilatation. Fat infiltration into the pancreatic parenchyma again noted. No acute pancreatic process seen. Symmetric renal function is seen with no hydronephrosis or suspicious renal mass. No pyelonephritis o r acute parenchymal process. No bladder abnormalities. No adrenal abnormalities. Uterus and ovaries s how no suspicious findings. No dilated bowel loops or bowel wall thickening. No direct or indirect evidence for appendicitis. No active GI process seen. No free air, free fluid or inflammatory stranding. No hernia, mass or bulky lymphadenopathy. No suspicious bony findings. IMPRESSION: Contrast enhanced CT abdomen and pelvis showing no acute or emergent finding. No worrisome changes since the prior study.
[2020-12-18 20:13] LABS: Urine Specific Gravity/Preg 1.025 (1.005-1.030)
--- NOTE | 2020-12-18 20:18 | ER ---
Nurse's Notes [facility] Name: Jenn Cronin Age: 25 yrs Sex: Female : 1995 Arrival Date: 12/18/2020 Time: 16:09 Bed 13 Private MD: Diagnosis: Generalized abdominal pain Presentation: 12/18 16:21 Chief complaint: Patient states: RLQ pain x 3 days. Reports N/V. Pain radiates to the ca1 pelvic and L groin area. Coronavirus screen: Client denies travel out of the [place] in the last 14 days. nausea, vomiting. Client presents with at least one sign or symptom that may indicate coronavirus-19. Standard/surgical mask placed on the client. Provider contacted for isolation considerations. Ebola Screen: Patient negative for fever greater than or equal to 101.5 degrees Fahrenheit, and additional compatible Ebola Virus Disease symptoms Patient denies exposure to infectious person. Patient denies travel to an Ebola-affected area in the 21 days before illness onset. No symptoms or risks identified at this time. Initial Sepsis Screen: Does the patient meet any 2 criteria? No. Patient's initial sepsis screen is negative. Does the patient have a suspected source of infection? No. Patient's initial sepsis screen is negative. Risk Assessment: Do you want to hurt yourself or someone else? Patient reports no desire to harm self or others. Onset of symptoms was December 18, 2020. 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 Flu vaccine is not up to date. - Social history:: Smoking status: Patient denies any tobacco usage or history of. Screenin:49 Abuse screen: Denies threats or abuse. Nutritional screening: No deficits noted. vg1 Tuberculosis screening: No symptoms or risk factors identified. Fall Risk No fall in past 12 months (0 pts). No secondary diagnosis (0 pts). IV access (20 points). Ambulatory Aid- None/Bed Rest/Nurse Assist (0 pts). Gait- Normal/Bed Rest/Wheelchair (0 pts) Mental Status- Oriented to own ability (0 pts). Total Warner Fall Scale indicates No Risk (0-24 pts). Assessment: 17:20 General: Appears in no apparent distress. comfortable, Behavior is calm, cooperative. vg1 Pain: Complains of pain in umbilical area and right lower quadrant Pain currently is 9 out of 10 on a pain scale. Quality of pain is described as sharp, stabbing. Neuro: Level of Consciousness is awake, alert, obeys commands, Oriented to person, place, time, situation. Cardiovascular: Patient's skin is warm and dry. Respiratory: Airway is patent Respiratory effort is even, unlabored. GI: Bowel sounds present X 4 quads. Abdomen is tender to palpation in umbilical area and right lower quadrant Reports nausea, vomiting. : No signs and/or symptoms were reported regarding the genitourinary system. EENT: No signs and/or symptoms were reported regarding the EENT system. Derm: Skin is intact, is healthy with good turgor. Musculoskeletal: Circulation, motion, and sensation intact. 18:56 Reassessment: Patient appears in no apparent distress at this time. No changes from vg1 previously documented assessment. Patient and/or family updated on plan of care and expected duration. Pain level reassessed. Patient is alert, oriented x 3, equal unlabored respirations, skin warm/dry/pink. Pt stated the pain medication 'only worked for a little bit'; pt stated 'is feeling uncomfortable and cant sit still' because of the pain. Provider notified. 19:15 Reassessment: Patient appears in no apparent distress at this time. Patient and/or wh family updated on plan of care and expected duration. Pain level reassessed. Patient is alert, oriented x 3, equal unlabored respirations, skin warm/dry/pink. 20:35 Reassessment: Patient appears in no apparent distress at this time. Patient and/or wh family updated on plan of care and expected duration. Pain level reassessed. Patient is alert, oriented x 3, equal unlabored respirations, skin warm/dry/pink. Vital Signs: 16:21 BP 139 / 77; Pulse 76; Resp 16; Temp 97.6(TE); Pulse Ox 100% on R/A; Weight 99.79 kg ca1 (R); Height 5 ft. 3 in. (160.02 cm) (R); Pain 9/10; 17:15 BP 110 / 80; Pulse 67; Resp 16; Pulse Ox 99% on R/A; vg1 19:30 BP 111 / 57; Pulse 68; Resp 18; Pulse Ox 100% on R/A; wh 20:30 BP 117 / 85; Pulse 79; Resp 18; Pulse Ox 100% on R/A; wh 16:21 Body Mass Index 38.97 (99.79 kg, 160.02 cm) ca1 ED Course: 16:09 Patient arrived in ED. ds1 16:19 Sab[facility] Cooper [facility]C [facility] kb 16:19 Jhon Araiza MD is Attending Physician. kb 16:22 Triage completed. ca1 16:23 Arm band placed on right wrist. ca1 17:13 Pretty Arguello RN is Primary Nurse. vg1 17:36 Initial lab(s) drawn, by wa, sent to lab. Inserted saline lock: 20 gauge in right vg1 antecubital area, using aseptic technique. Blood collected. 17:49 Patient has correct armband on for positive identification. Bed in low position. Call vg1 light in reach. Side rails up X 1. 18:00 Radiology exam delayed due to test not completed at this time. vm2 19:13 Primary Nurse role handed off by Pretty Arguello, RN mw2 19:15 CT Abd/Pelvis - IV Contrast Only In Process Unspecified. EDMS 20:09 Shauna Caal, RN is Primary Nurse. wh 20:44 No provider procedures requiring assistance completed. IV discontinued, intact, wh bleeding controlled, No redness/swelling at site. Administered Medications: 17:40 Drug: NS 0.9% 1000 ml Route: IV; Rate: 1000 ml; Site: right antecubital; vg1 18:56 Follow up: IV Status: Completed infusion; IV Intake: 1000ml vg1 17:41 Drug: Zofran (Ondansetron) 4 mg Route: IVP; Site: right antecubital; vg1 18:57 Follow up: Response: No adverse reaction; Nausea is decreased vg1 17:43 Drug: morphine 4 mg Route: IVP; Site: right antecubital; vg1 18:57 Follow up: Response: No adverse reaction; Pain is unchanged, physician notified vg1 19:31 Drug: morphine 4 mg {Note: RASS 0.} Route: IVP; Site: right antecubital; 20:09 Follow up: Response: No adverse reaction; Pain is decreased; RASS: Alert and Calm (0) 20:27 Drug: [place] (HYDROcodone-acetaminophen) 10 mg-325 mg 1 tabs Route: PO; 20:44 Follow up: Response: No adverse reaction Intake: 18:56 IV: 1000ml; Total: 1000ml. vg1 Outcome: 20:17 Discharge ordered by MD. kb 20:44 Discharged to home ambulatory, with family. 20:44 Condition: stable 20:44 Discharge instructions given to patient, family, Instructed on discharge instructions, follow up and referral plans. medication usage, POC Demonstrated understanding of instructions, follow-up care, medications, POC Prescriptions given X 2. 20:44 Patient left the ED. Signatures: Dispatcher [employer] EDMS Sabina Cooper, MARCELO-C CHIEF OF STAFF-Julissa Seth ds1 Pretty Guzman 2 Shauna Caal, MCKAY RN Re Lara mw2 Fabiola Fried RN RN [facility] Pretty Arguello, RN RN vg1 Corrections: (The following items were deleted from the chart) 18:58 18:56 Reassessment: Patient appears in no apparent distress at this time. No changes vg1 from previously documented assessment. Patient and/or family updated on plan of care and expected duration. Pain level reassessed. Patient is alert, oriented x 3, equal unlabored respirations, skin warm/dry/pink. vg1
--- NOTE | 2020-12-18 20:18 | EDPHYS ---
Physician Documentation [facility] Name: Jenn Cronin Age: 25 yrs Sex: Female : 1995 Arrival Date: 12/18/2020 Time: 16:09 Bed 13 Private MD: ED Physician Jhon Araiza HPI: 12/18 20:16 This 25 yrs old Female presents to ER via Ambulatory with complaints of kb Abdominal Pain, Nausea/Vomiting. 20:16 The patient presents with abdominal pain right lower quadrant. Onset: The kb symptoms/episode began/occurred 3 day(s) ago. The symptoms do not radiate. Associated signs and symptoms: Pertinent positives: nausea and vomiting, Pertinent negatives: fever. The symptoms are described as intermittent. Modifying factors: The symptoms are alleviated by nothing, the symptoms are aggravated by nothing. Severity of pain: At its worst the pain was moderate in the emergency department the pain is unchanged. The patient has not experienced similar symptoms in the past. The patient has not recently seen a physician. Pt reports RLQ pain that radiates to umbilicus at times, groin at others. Reports nausea intermittently and vomiting after eating. . 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 Flu vaccine is not up to date. - Social history:: Smoking status: Patient denies any tobacco usage or history of. ROS: 20:14 Constitutional: Negative for fever, chills, and weight loss. kb 20:14 Abdomen/GI: Positive for abdominal pain, nausea and vomiting. 20:14 All other systems are negative. Exam: 20:15 Constitutional: This is a well developed, well nourished patient who is awake, alert, kb and in no acute distress. Head/Face: Normocephalic, atraumatic. ENT: Moist Mucous membranes Respiratory: Respirations even and unlabored. No increased work of breathing, no retractions or nasal flaring. Skin: Warm, dry with normal turgor. Normal color. MS/ Extremity: Pulses equal, no cyanosis. Neurovascular intact. Full, normal range of motion. Neuro: Awake and alert, GCS 15, oriented to person, place, time, and situation. Moves all extremities. Normal gait. Psych: Awake, alert, with orientation to person, place and time. Behavior, mood, and affect are within normal limits. 20:15 Abdomen/GI: Inspection: abdomen appears normal, Bowel sounds: normal, Palpation: soft, in all quadrants, moderate abdominal tenderness, in the right lower quadrant. Vital Signs: 16:21 BP 139 / 77; Pulse 76; Resp 16; Temp 97.6(TE); Pulse Ox 100% on R/A; Weight 99.79 kg ca1 (R); Height 5 ft. 3 in. (160.02 cm) (R); Pain 9/10; 17:15 BP 110 / 80; Pulse 67; Resp 16; Pulse Ox 99% on R/A; vg1 19:30 BP 111 / 57; Pulse 68; Resp 18; Pulse Ox 100% on R/A; wh 20:30 BP 117 / 85; Pulse 79; Resp 18; Pulse Ox 100% on R/A; wh 16:21 Body Mass Index 38.97 (99.79 kg, 160.02 cm) ca1 MDM: 17:11 Patient medically screened. kb 20:14 Data reviewed: vital signs, nurses notes. Data interpreted: Pulse oximetry: on room air kb is 99 %. Interpretation: normal. Counseling: I had a detailed discussion with the patient and/or guardian regarding: the historical points, exam findings, and any diagnostic results supporting the discharge/admit diagnosis, lab results, radiology results, the need for outpatient follow up, a family practitioner, to return to the emergency department if symptoms worsen or persist or if there are any questions or concerns that arise at home. 12/18 16:54 Order name: Urine Microscopic Only; Complete Time: 19:48 kb 12/18 17:13 Order name: CBC with Diff; Complete Time: 18:00 kb 12/18 17:13 Order name: Basic Metabolic Panel; Complete Time: 18:19 kb 12/18 19:07 Order name: Urine Dipstick-Ancillary; Complete Time: 19:09 EDPA 12/18 19:44 Order name: Urine Culture EDPA 12/18 19:57 Order name: Urine --Ancillary (enter results) mw2 12/18 16:54 Order name: Urine Test (obtain specimen); Complete Time: 19:06 kb 12/18 17:13 Order name: CT Abd/Pelvis - IV Contrast Only; Complete Time: 19:59 kb 12/18 19:58 Order name: Urine --Ancillary; Complete Time: 20:14 EDMS 12/18 16:54 Order name: Urine Dipstick-Ancillary (obtain specimen); Complete Time: 19:06 kb 12/18 17:13 Order name: IV Saline Lock; Complete Time: 17:46 kb 12/18 17:13 Order name: Labs collected and sent; Complete Time: 17:46 kb Administered Medications: 17:40 Drug: NS 0.9% 1000 ml Route: IV; Rate: 1000 ml; Site: right antecubital; vg1 18:56 Follow up: IV Status: Completed infusion; IV Intake: 1000ml vg1 17:41 Drug: Zofran (Ondansetron) 4 mg Route: IVP; Site: right antecubital; vg1 18:57 Follow up: Response: No adverse reaction; Nausea is decreased vg1 17:43 Drug: morphine 4 mg Route: IVP; Site: right antecubital; vg1 18:57 Follow up: Response: No adverse reaction; Pain is unchanged, physician notified vg1 19:31 Drug: morphine 4 mg {Note: RASS 0.} Route: IVP; Site: right antecubital; 20:09 Follow up: Response: No adverse reaction; Pain is decreased; RASS: Alert and Calm (0) 20:27 Drug: [place] (HYDROcodone-acetaminophen) 10 mg-325 mg 1 tabs Route: PO; 20:44 Follow up: Response: No adverse reaction Disposition: 12/19 06:42 Co-signature as Attending Physician, Jhon Araiza MD I agree with the assessment and kdr plan of care. Disposition: 12/18/20 20:17 Discharged to Home. Impression: Generalized abdominal pain. - Condition is Stable. - Discharge Instructions: Abdominal Pain, Adult, [id number]. - Prescriptions for Bentyl 20 mg Oral Tablet - take 1 tablet by ORAL route every 6 hours As needed; 20 tablet. Zofran 4 mg Oral Tablet - take 1 tablet by ORAL route every 6 hours As needed; 20 tablet. - Medication Reconciliation Form, Thank You Letter, Antibiotic Education, Prescription Opioid Use, Work release form, Family Work Release form. - Follow up: Emergency Department; When: As needed; Reason: Worsening of condition. Follow up: Private Physician; When: 2 - 3 days; Reason: Recheck today's complaints, Continuance of care, Re-evaluation by your physician. Signatures: Dispatcher [employer] EDPA Sabina Cooper, PREPARING BOX TENDER-C PREPARING BOX TENDER-Jhon Ngo MD MD [facility] Shauna Caal RN RN Fabiola Fried RN RN [facility] Pretty Arguello, RN RN vg1 Corrections: (The following items were deleted from the chart) 12/18 20:15 20:15 Abdomen/GI: Inspection: abdomen appears normal, Bowel sounds: normal, Palpation: kb soft, in all quadrants, moderate abdominal tenderness, in the right lower quadrant, kb 20:44 20:17 12/18/2020 20:17 Discharged to Home. Impression: Generalized abdominal pain. Condition is Stable. Forms are Medication Reconciliation Form, Thank You Letter, Antibiotic Education, Prescription Opioid Use. Follow up: Emergency Department; When: As needed; Reason: Worsening of condition. Follow up: Private Physician; When: 2 - 3 days; Reason: Recheck today's complaints, Continuance of care, Re-evaluation by your physician. kb
[2020-12-18] MEDS ORDERED: HYDROCODONE/APAP 10/325 TAB ONE (20:43)
[2020-12-18 21:05] VITALS: TEMP 97.6
[2020-12-18 21:09] VITALS: O2SAT 100
[2020-12-18 21:10] VITALS: BP 117/85
== END 2020-12-18 20:44 | disposition home or self-care (01) ==
LOC: ER 16:08
DX: R10.84 Generalized abdominal pain (principal); R11.2 Nausea with vomiting, unspecified; Z88.6 Allergy status to analgesic agent
CPT/HCPCS: 36415; 74177; 80048; 81003; 81015; 81025; 85025; 87086; 87088; 96361; 96374; 96375; 99284; J2405; J7030; Q9967

== ENCOUNTER 2021-02-06 20:25 | Emergency (ER) | payer BC ==
--- OUTSIDE RECORDS SUMMARY | 2021-02-06 20:28 | XMS REPORT | Continuity of Care Document ---
:1995 Author Organization [facility] t Address [address] [place] [address] Care Team Providers Name Role Phone Adum , L Attending Clinician Doctor Unassigned, Name Attending Clinician Unavailable Problems Condition Condition Condition Status Onset Resolution Last Treating Co mments Source Name Details Category Date Date Treatment Clinician Date Oligomenor Oligomenor Problem Active 0 M atagor lorrie lorrie 04-22 da 00:00: [...] NSAIDS Allergy Active Moderate Anaphylaxis Ma tag[place] (NON-CHIKI to to severe da ROIDAL [facility] ANTI-INF e Group LAMMATOR Y DRUG) Social History Smoking Status Start Date Stop Date Source Former Smoker [facility] Medications Ordered Filled Start [...] BMI (Body Mass 2020-04-22 00:00:00 41 kg/m2 [facility]) Group BP Systolic 2020-04-22 00:00:00 133 mm[Hg] [facility] Body Weight 2020-04-22 00:00:00 224.1 [lb_av] [facility] Procedures Procedure Date / Time Performing Clinician Source Performed Cholecystectomy 2019-01-31 00:00:00 [facility] Extraction of [place] Tooth [facility] Remove Tonsils and [facility] Plan of Care Planned Activity Planned Date Details Comments Source Diagnostic Test 2020-04-22 urinalysis, [facility] Pending 00:00:00 dipstick [code = Group urinalysis, dipstick] Diagnostic Test 2020-04-22 pap, LB + CT/NG/TV [facility] Pending 00:00:00 + reflex HR HPV Group [code = pap, LB + CT/NG/TV + reflex HR HPV] Diagnostic Test 2020-04-22 test, [facility] Pending 00:00:00 urine [code = Group test, urine] Diagnostic Test 2020-04-22 beta-HCG, [facility] Pending 00:00:00 quantitative, serum Group or plasma [code = beta-HCG, quantitative, serum or plasma] Encounters Start End Encounter Admission Attending Care Care Encounter Source Date/Time Date/Time Type Type Clinicians Facility Department ID 2021-01-29 2021-01-29 Hospital [facility] [id number] 15:58:54 23:59:00 Encounter Joellen Gutiérrez [place] [id number] [place] [id number] [place] [id number] 2021-01-29 2021-01-29 Orders Doctor ALBINA [id number] 00:00:00 00:00:00 Only Unassigned, MATT [id number] [place] [facility] [id number] 2021-01-23 2021-01-23 Telephone [facility] [id number] 00:00:00 00:00:00 oJellen Quiros [id number] [place] [id number] [facility] [id number] [place] [address] Building 2020-04-22 2020-04-22 Debbie Oseguera [facility] [place] - [id number] [place] 00:00:00 00:00:00 [facility] hawa Cabrera WHNP: [address] [facility] [address], [place] [address] , Ph. [phone] Results This patient has no known results.
--- NOTE | 2021-02-06 21:50 | RAD REPORT ---
EXAM DESCRIPTION: CT - Head Brain Wo Cont - 02/06/2021 9:21 pm CLINICAL HISTORY: NUMBNESS Headache, drowsiness COMPARISON: No comparisons TECHNIQUE: All CT scans are performed using dose optimization technique as appropriate and may inclu de automated exposure control or mA/KV adjustment according to patient size. FINDINGS: No intracranial hemorrhage, hydrocephalus or extra-axial fluid collection.No areas of brai n edema or evidence of midline shift. The paranasal sinuses and mastoids are clear. The calvarium is intact. IMPRESSION: No acute intracranial abnormality.
[2021-02-06 23:06] LABS: Basophils % 0.6 % (0-1.3); Hematocrit 36.8 % (36.0-45.0); Lymphocytes % 36.6 % (15.3-44.8); MPV 9.2 fL (7.6-11.3); Protime INR 1.01; RBC Red Blood Cell Count 4.25 M/uL (3.86-4.86)
[2021-02-06 23:17] LABS: ALT/SGPT 21 U/L (12-78); AST/SGOT 11 U/L (15-37); Albumin 3.7 g/dL (3.4-5.0); Alkaline Phosphatase 62 U/L (45-117); BUN Blood Urea Nitrogen 15 mg/dL (7-18); Bicarbonate 25 mmol/L (21-32); Bilirubin Direct < 0.1 mg/dL (0-0.2); Bilirubin Total 0.4 mg/dL (0.2-1.0); CKMB Creatine Kinase MB < 1.0 ng/mL (1.0-3.6); Creatine Phosphokinase 47 U/L (26-192); Glucose Level 99 mg/dL (74-106); Lipase 67 U/L (73-393); Magnesium 2.2 mg/dL (1.8-2.4); Potassium 3.4 mmol/L (3.5-5.1); Protein, Total 7.6 g/dL (6.4-8.2); Sodium Level 143 mmol/L (136-145); Troponin (Emerg Dept Use Only) < 0.02 ng/mL (0.0-0.045)
[2021-02-06] MEDS ORDERED: ACETAMINOPHEN 500 MG TAB ONE (23:19)
[2021-02-07 00:46] LABS: Urine Blood 3+ (Negative); Urine Glucose Negative (Negative); Urine Protein 3+ (Negative)
--- NOTE | 2021-02-07 01:27 | ER ---
Nurse's Notes [facility] Name: Jenn Cronin Age: 25 yrs Sex: Female : 1995 Arrival Date: 02/06/2021 Time: 20:26 Bed 24 Private MD: Diagnosis: Cerebral Vascular Accident Presentation: 02/06 20:37 Chief complaint: Patient states: Numbness and tingling of L arm and L leg started early ca1 in the day around 1000. Has gotten worse through the day. Around 1600, gotten worse and worse with chest pains. Denies Hx of stroke. Denies Hx of heart conditions. No slurring. No facial droop. VAN negative. Coronavirus screen: Client denies travel out of the [place] in the last 14 days. At this time, the client does not indicate any symptoms associated with coronavirus-19. Ebola Screen: Patient negative for fever greater than or equal to 101.5 degrees Fahrenheit, and additional compatible Ebola Virus Disease symptoms Patient denies exposure to infectious person. Patient denies travel to an Ebola-affected area in the 21 days before illness onset. No symptoms or risks identified at this time. No acute neurological deficit is noted. Pre-hospital glucose is not applicable to this patient. Initial Sepsis Screen: Does the patient meet any 2 criteria? No. Patient's initial sepsis screen is negative. Does the patient have a suspected source of infection? No. Patient's initial sepsis screen is negative. Risk Assessment: Do you want to hurt yourself or someone else? Patient reports no desire to harm self or others. Onset of symptoms was February 06, 2021. 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 02/04/2021 ca1 Stroke Activation: Symptom onset > 6 hours Physician: Stroke Attending; Name: ; Notified At: ; Arrived At: Physician: Chief Stroke Resident; Name: ; Notified At: ; Arrived At: Physician: Stroke Resident; Name: ; Notified At: ; Arrived At: Physician: ED Attending; Name: ; Notified At: ; Arrived At: Physician: ED Resident; Name: ; Notified At: ; Arrived At: Historical: - Allergies: 20:41 Ibuprofen; ca1 20:41 NSAIDS; ca1 - PMHx: 20:41 Anxiety; Depression; PCOS; PCOS; ca1 - PSHx: 20:41 Cholecystectomy; ear tubes; ca1 - Immunization history:: Client reports having NOT received the Covid vaccine. - Social history:: Smoking status: Patient denies any tobacco usage or history of. Screenin:00 Abuse screen: Denies threats or abuse. Nutritional screening: No deficits noted. jb4 Tuberculosis screening: No symptoms or risk factors identified. Fall Risk None identified. Assessment: 20:45 VAN Scoring: Arm Drift: Patients demonstrates NO arm weakness. Patient is VAN Negative. ca1 Patient has been NPO before screening. The patient is alert, and able to follow commands. The patient does not exhibit slurred or garbled speech. The patient is not exhibiting difficulty speaking. The patient does not exhibit difficulty understanding words. The patient is able to swallow own secretions with no drooling or need for suction. Patient tolerated one teaspoon of water. No drooling, immediate coughing, gurgling, or clearing of the throat was noted. The patient tolerated 90mL of water. No drooling, immediate coughing, gurgling, or clearing of the throat was noted. The patient passed the bedside swallow screening. Oral medications may be given as ordered. Contact Physician for further diet orders. Provider notified of bedside swallow screening results: Tarun Wong MD. 21:15 General: Appears in no apparent distress. comfortable, Behavior is calm, cooperative, jb4 appropriate for age. Pain: Denies pain. Neuro: Level of Consciousness is awake, alert, obeys commands, Oriented to person, place, time, situation. Cardiovascular: Patient's skin is warm and dry. Respiratory: Airway is patent Respiratory effort is even, unlabored, Respiratory pattern is regular, symmetrical. GI: No signs and/or symptoms were reported involving the gastrointestinal system. : No signs and/or symptoms were reported regarding the genitourinary system. EENT: No signs and/or symptoms were reported regarding the EENT system. Derm: Skin is intact, Skin is pink, warm \T\ dry. Musculoskeletal: Circulation, motion, and sensation intact. Range of motion: intact in all extremities. 22:30 Reassessment: Patient appears in no apparent distress at this time. Patient and/or jb4 family updated on plan of care and expected duration. Pain level reassessed. Patient is alert, oriented x 3, equal unlabored respirations, skin warm/dry/pink. 23:30 Reassessment: Patient appears in no apparent distress at this time. Patient and/or jb4 family updated on plan of care and expected duration. Pain level reassessed. Patient is alert, oriented x 3, equal unlabored respirations, skin warm/dry/pink. 02/07 01:00 Reassessment: Patient appears in no apparent distress at this time. Patient and/or jb4 family updated on plan of care and expected duration. Pain level reassessed. Patient is alert, oriented x 3, equal unlabored respirations, skin warm/dry/pink. 02:00 Reassessment: Patient appears in no apparent distress at this time. Patient and/or jb4 family updated on plan of care and expected duration. Pain level reassessed. Patient is alert, oriented x 3, equal unlabored respirations, skin warm/dry/pink. 02:55 Reassessment: Patient appears in no apparent distress at this time. Patient and/or jb4 family updated on plan of care and expected duration. Pain level reassessed. Patient is alert, oriented x 3, equal unlabored respirations, skin warm/dry/pink. Vital Signs: 02/06 20:37 BP 125 / 71; Pulse 75; Resp 16; Temp 97.3(TE); Pulse Ox 96% ; Weight 98.88 kg (R); ca1 Height 5 ft. 2 in. (157.48 cm) (R); Pain 5/10; 21:00 BP 96 / 63; Pulse 74; Resp 16; Pulse Ox 100% on R/A; jb4 22:30 BP 92 / 76; Pulse 71; Resp 16; Pulse Ox 100% on R/A; jb4 23:15 BP 116 / 80; Pulse 68; Resp 15; Pulse Ox 100% on R/A; jb4 02/07 01:15 BP 124 / 76; Pulse 69; Resp 16; Pulse Ox 100% on R/A; jb4 02:00 BP 133 / 94; Pulse 81; Resp 16; Pulse Ox 100% on R/A; jb4 02/06 20:37 Body Mass Index 39.87 (98.88 kg, 157.48 cm) ca1 NIH Stroke Scale Scores: 02/06 21:20 NIHSS Score: 2 mh7 ED Course: 20:26 Patient arrived in ED. wm 20:40 Triage completed. ca1 20:41 Arm band placed on right wrist. ca1 21:00 Patient has correct armband on for positive identification. Bed in low position. Call jb4 light in reach. Side rails up X 1. classroom monitor on. Pulse ox on. NIBP on. 21:14 Tarun Wong MD is Attending Physician. mh7 21:20 Head Brain Wo Cont In Process Unspecified. EDMS 22:10 Inserted saline lock: 20 gauge in left antecubital area, using aseptic technique. Blood ds4 collected. 22:23 Chest Single View XRAY In Process Unspecified. EDMS 22:25 Elder Torres, RN is Primary Nurse. jb4 23:40 CT Neck Angio In Process Unspecified. EDMS 23:40 CT Head Angio In Process Unspecified. EDMS 02/07 01:03 Called [facility] to initiate transfer. tt3 01:07 Initiated transfer at [facility] with Ana Huffman. Stated she would do a capacity check and tt3 call back. 01:14 Ana Huffman called back with their physician to do doc to doc consultation regarding tt3 the transfer request with Dr. Wong. 01:22 Ana Huffman gave admin approval. The accepting physician is Dr. Adamaris Wheeler. The pt is tt3 going to [facility] room [address] [place] [address]. Nurse to call report to . Face sheet to be faxed to and emailed to [facility] if fax doesn't go through. 02:56 No provider procedures requiring assistance completed. Patient transferred, IV remains jb4 in place. Administered Medications: 02/06 22:15 Drug: Tylenol 1000 mg Route: PO; jb4 23:00 Follow up: Response: No adverse reaction; Marked relief of symptoms; Pain is decreased jb4 02/07 01:45 Drug: PlaVIX (clopidogrel) 300 mg Route: PO; jb4 02:53 Follow up: Response: No adverse reaction jb4 01:45 Drug: NS 0.9% 1000 ml Route: IV; Rate: 1000 ml; Site: left antecubital; jb4 02:53 Follow up: Response: No adverse reaction; IV Status: Completed infusion; IV Intake: jb4 1000ml Intake: 02:53 IV: 1000ml; Total: 1000ml. jb4 Outcome: 01:26 ER care complete, transfer ordered by . 7 02:56 Transferred by [facility]. to [facility], Transfer jb4 form completed. X-rays sent w/ patient. 02:56 Condition: stable 02:56 Discharge instructions given to patient, family, Instructed on the need for transfer, Demonstrated understanding of instructions. 02:56 Patient left the ED. jb4 NIH Stroke Scale - NIH Stroke Score Date: 02/06/2021 Time: 21:20 Total Score = 2 1a. Level of Consciousness (LOC) - 0(Alert) 1b. Level of Consciousness (LOC) (Month \T\ Age) - 0(Both) 1c. LOC Commands (Open \T\ Closes Eyes/Buggy Runner) - 0(Both) 2. Best Gaze (Lateral Gaze Paresis) - 0(Normal) 3. Visual Field Loss - 0(No visual loss) 4. Facial Palsy - 0(Normal) 5a. Left Arm: Motor (10-second hold) - 1(Drift) 5b. Right Arm: Motor (10-second hold) - 0(No drift) 6a. Left Leg: Motor (5-second hold - always test supine) - 1(Drift) 6b. Right Leg: Motor (5-second hold - always test supine) - 0(No drift) 7. Limb Ataxia (finger/nose \T\ heel/ramirez - test with eyes open) - 0(Absent) 8. Sensory Loss (pinprick arms/legs/face) - 0(Normal) 9. Best Language: Aphasia (description/naming/reading) - 0(No aphasia) 10. Dysarthria (speech clarity - read or repeat words) - 0(Normal) 11. Extinction and Inattention (visual/tactile/auditory/spatial/personal) - 0(No abnormality) Initials: 7 Signatures: Dispatcher [employer] EDMS Mando Richard ds4 Elder Torres RN RN jb4 Fabiola Fried RN RN ca1 Holmes, Maurice, MD MD 7 Prem Argueta tt3 Irina Acevedo Corrections: (The following items were deleted from the chart) 01:27 01:07 Initiated transfer at [facility] with Ana. Stated she would do a capacity tt3 check and call back. tt3 01:28 01:27 Ana Huffman called back with their physician to do doc to doc tt3 consultation regarding the transfer request with Dr. Wong. tt3
--- NOTE | 2021-02-07 01:27 | EDPHYS ---
Physician Documentation [facility] Name: Jenn Cronin Age: 25 yrs Sex: Female : 1995 Arrival Date: 02/06/2021 Time: 20:26 Bed 24 Private MD: ED Physician Tarun Wong HPI: 02/06 21:20 This 25 yrs old Female presents to ER via Ambulatory with complaints of S/S mh7 of Possible Stroke, Numbness Of Arm - LEFT SIDE. 21:20 The patient's problem is reported as paresthesias, in left upper extremity, in left mh7 lower extremity, weakness, in the left upper extremity, in the left lower extremity. Onset: The symptoms/episode began/occurred today, at 10:00. Duration: The episode is continuous. Context: the episode(s) was witnessed, by family, , symptoms became apparent on February 06, 2021, at 10:00. occurred at an office, occurred while the patient was sitting, Possible contributing factors include: none. The symptoms are alleviated by nothing. The symptoms are aggravated by nothing. Associated signs and symptoms: Pertinent positives: chest pain, headache, numbness, tingling, weakness, Pertinent negatives: abdominal pain, agitation, blurred vision, combativeness, confusion, diaphoresis, diarrhea, dizziness. Severity of symptoms: At their worst the symptoms were moderate today, in the emergency department the symptoms are unchanged. Patient's baseline: Neuro: alert and fully oriented, Motor: no deficits, Ambulation: walks without assistance, Speech: normal. 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 - Social history:: Smoking status: Patient denies any tobacco usage or history of. ROS: 21:20 Constitutional: Negative for fever, chills, and weight loss, Eyes: Negative for injury, mh7 pain, redness, and discharge, ENT: Negative for injury, pain, and discharge, Neck: Negative for injury, pain, and swelling, Respiratory: Negative for shortness of breath, cough, wheezing, and pleuritic chest pain, Abdomen/GI: Negative for abdominal pain, nausea, vomiting, diarrhea, and constipation, Back: Negative for injury and pain, : Negative for injury, bleeding, discharge, and swelling, Skin: Negative for injury, rash, and discoloration, Psych: Negative for depression, anxiety, suicide ideation, homicidal ideation, and hallucinations, Allergy/Immunology: Negative for hives, rash, and allergies, Endocrine: Negative for neck swelling, polydipsia, polyuria, polyphagia, and marked weight changes, Hematologic/Lymphatic: Negative for swollen nodes, abnormal bleeding, and unusual bruising. Exam: 21:20 Constitutional: This is a well developed, well nourished patient who is awake, alert, mh7 and in no acute distress. Head/Face: Normocephalic, atraumatic. Eyes: Pupils equal round and reactive to light, extra-ocular motions intact. Lids and lashes normal. Conjunctiva and sclera are non-icteric and not injected. Cornea within normal limits. Periorbital areas with no swelling, redness, or edema. Neck: Trachea midline, no thyromegaly or masses palpated, and no cervical lymphadenopathy. Supple, full range of motion without nuchal rigidity, or vertebral point tenderness. No Meningismus. Chest/axilla: Normal chest wall appearance and motion. Nontender with no deformity. No lesions are appreciated. Cardiovascular: Regular rate and rhythm with a normal S1 and S2. No gallops, murmurs, or rubs. Normal PMI, no JVD. No pulse deficits. Respiratory: Lungs have equal breath sounds bilaterally, clear to auscultation and percussion. No rales, rhonchi or wheezes noted. No increased work of breathing, no retractions or nasal flaring. Abdomen/GI: Soft, non-tender, with normal bowel sounds. No distension or tympany. No guarding or rebound. No evidence of tenderness throughout. Back: No spinal tenderness. No costovertebral tenderness. Full range of motion. Skin: Warm, dry with normal turgor. Normal color with no rashes, no lesions, and no evidence of cellulitis. Psych: Awake, alert, with orientation to person, place and time. Behavior, mood, and affect are within normal limits. 22:00 Radiologist reports: No Acute findings [facility] Vital Signs: 20:37 BP 125 / 71; Pulse 75; Resp 16; Temp 97.3(TE); Pulse Ox 96% ; Weight 98.88 kg (R); ca1 Height 5 ft. 2 in. (157.48 cm) (R); Pain 5/10; 21:00 BP 96 / 63; Pulse 74; Resp 16; Pulse Ox 100% on R/A; jb4 22:30 BP 92 / 76; Pulse 71; Resp 16; Pulse Ox 100% on R/A; jb4 23:15 BP 116 / 80; Pulse 68; Resp 15; Pulse Ox 100% on R/A; jb4 02/07 01:15 BP 124 / 76; Pulse 69; Resp 16; Pulse Ox 100% on R/A; jb4 02:00 BP 133 / 94; Pulse 81; Resp 16; Pulse Ox 100% on R/A; jb4 02/06 20:37 Body Mass Index 39.87 (98.88 kg, 157.48 cm) ca1 NIH Stroke Scale Scores: 02/06 21:20 NIHSS Score: 2 [facility] MDM: 02/07 01:22 Differential diagnosis: CVA, TIA, paralysis, metabolic disorder, drug effects. Data [facility] reviewed: vital signs, nurses notes, lab test result(s), cardiac enzymes, CBC, electrolytes, EKG, radiologic studies, CT scan, plain films. Data interpreted: Pulse oximetry: on room air is 100 %. Interpretation: normal. Counseling: I had a detailed discussion with the patient and/or guardian regarding: the historical points, exam findings, and any diagnostic results supporting the discharge/admit diagnosis, lab results, radiology results, the need for further work-up and treatment in the hospital. Physician consultation: Renaldo Bailey MD was contacted at 22:15, regarding patient's condition, and will see patient in inpatient room. ED course: Patient requested transfer to [facility].. 01:22 ED course: Patient presented to ED outside of time window for consideration of [facility] thrombolytic therapy.. 01:26 Patient medically screened. [facility] 02/06 21:42 Order name: Basic Metabolic Panel [facility] 02/06 21:42 Order name: CBC with Diff [facility] 02/06 21:42 Order name: CPK [facility] 02/06 21:42 Order name: Ckmb [facility] 02/06 21:42 Order name: Hepatic Function [facility] 02/06 21:42 Order name: Lipase; Complete Time: 23:23 [facility] 02/06 21:42 Order name: Magnesium; Complete Time: 23:23 [facility] 02/06 21:42 Order name: Protime (+inr); Complete Time: 23:23 [facility] 02/06 21:42 Order name: Ptt, Activated; Complete Time: 23:23 [facility] 02/06 21:42 Order name: Troponin (emerg Dept Use Only); Complete Time: 23:23 [facility] 02/06 21:42 Order name: Basic Metabolic Panel; Complete Time: 23:23 [facility] 02/06 21:43 Order name: CBC with Automated Diff; Complete Time: 23:23 [facility] 02/06 21:43 Order name: Creatine Phosphokinase; Complete Time: 23:23 [facility] 02/06 21:43 Order name: CKMB Creatine Kinase MB; Complete Time: 23:23 [facility] 02/06 20:52 Order name: Head Brain Wo Cont; Complete Time: 22:18 [facility] 02/06 21:42 Order name: EKG; Complete Time: 21:43 [facility] 02/06 21:42 Order name: Cardiac monitoring; Complete Time: 21:54 [facility] 02/06 21:43 Order name: Liver (Hepatic) Function; Complete Time: 23:23 [facility] 02/06 21:43 Order name: Chest Single View XRAY [facility] 02/06 22:54 Order name: CT Neck Angio [facility] 02/06 22:54 Order name: CT Head Angio [facility] 02/07 00:45 Order name: Urine Dipstick-Ancillary; Complete Time: 01:08 [facility] 02/07 00:47 Order name: Urine --Ancillary (enter results); Complete Time: 01:08 [facility] 02/07 00:52 Order name: COVID-19 : Document "Date of Symptom Onset" if Symptomatic. tt3 02/07 02:14 Order name: SARS-COV-2 RT PCR [facility] 02/06 21:42 Order name: EKG - Nurse/Tech; Complete Time: 23:50 [facility] 02/06 21:42 Order name: IV Saline Lock; Complete Time: 22:14 [facility] 02/06 21:42 Order name: Labs collected and sent; Complete Time: 22:14 [facility] 02/06 21:42 Order name: NPO; Complete Time: 23:50 [facility] 02/06 21:42 Order name: O2 Per Protocol; Complete Time: 21:54 [facility] 02/06 21:42 Order name: O2 Sat Monitoring; Complete Time: 21:54 [facility] 02/06 21:42 Order name: Urine Dipstick-Ancillary (obtain specimen); Complete Time: 00:46 [facility] 02/06 21:43 Order name: Urine Test (obtain specimen); Complete Time: 00:46 [facility] Administered Medications: 02/06 22:15 Drug: Tylenol 1000 mg Route: PO; [facility] [place] 23:00 Follow up: Response: No adverse reaction; Marked relief of symptoms; Pain is decreased [facility] [place] 02/07 01:45 Drug: PlaVIX (clopidogrel) 300 mg Route: PO; jb4 02:53 Follow up: Response: No adverse reaction [facility] [place] 01:45 Drug: NS 0.9% 1000 ml Route: IV; Rate: 1000 ml; Site: left antecubital; 4 02:53 Follow up: Response: No adverse reaction; IV Status: Completed infusion; IV Intake: jb4 1000ml Disposition Summary: 02/07/21 01:26 Transfer Ordered Transfer Location: [place] [id number] Reason: Higher level of care [facility] Condition: Stable [facility] Problem: new [facility] Symptoms: are unchanged 7 Accepting Physician: Dr. Wheeler(02/07/21 02:56) jb4 Diagnosis - Cerebral Vascular Accident [facility] Forms: - Medication Reconciliation Form 7 - SBAR form 7 NIH Stroke Scale - NIH Stroke Score Date: 02/06/2021 Time: 21:20 Total Score = 2 1a. Level of Consciousness (LOC) - 0(Alert) 1b. Level of Consciousness (LOC) (Month \\T\\ Age) - 0(Both) 1c. LOC Commands (Open \\T\\ Closes Eyes/Meat Grader) - 0(Both) 2. Best Gaze (Lateral Gaze Paresis) - 0(Normal) 3. Visual Field Loss - 0(No visual loss) 4. Facial Palsy - 0(Normal) 5a. Left Arm: Motor (10-second hold) - 1(Drift) 5b. Right Arm: Motor (10-second hold) - 0(No drift) 6a. Left Leg: Motor (5-second hold - always test supine) - 1(Drift) 6b. Right Leg: Motor (5-second hold - always test supine) - 0(No drift) 7. Limb Ataxia (finger/nose \\T\\ heel/ramirez - test with eyes open) - 0(Absent) 8. Sensory Loss (pinprick arms/legs/face) - 0(Normal) 9. Best Language: Aphasia (description/naming/reading) - 0(No aphasia) 10. Dysarthria (speech clarity - read or repeat words) - 0(Normal) 11. Extinction and Inattention (visual/tactile/auditory/spatial/personal) - 0(No abnormality) Initials: 7 Signatures: Dispatcher [employer] EDMS Elder Torres RN RN jb4 Fabiola Fried RN RN ca1 Tarun Wong MD MD mh7 Corrections: (The following items were deleted from the chart) 02/06 20:52 20:45 CT-STROKE BRAIN W/O CONTRAST+CT.RAD.BRZ ordered. EDMS EDMS 02/07 01:23 00:53 CORONAVIRUS ordered. EDMS EDMS 02:56 01:26 Dr. Wheeler 7 jb4
[2021-02-07] MEDS ORDERED: NA CHLORIDE 0.9% 1,000 ML ONE (02:00)
[2021-02-07] MEDS ORDERED: CLOPIDOGREL 75 MG TABLET ONE (02:00)
[2021-02-07 03:06] VITALS: TEMP 97.3
[2021-02-07 03:09] VITALS: O2SAT 100
[2021-02-07 03:16] VITALS: BP 133/94
--- NOTE | 2021-02-07 06:32 | RAD REPORT ---
EXAM DESCRIPTION: RAD - Chest Single View - 02/06/2021 10:23 pm CLINICAL HISTORY: weakness COMPARISON: Chest Single View dated 02/25/2018; Chest Pa And Lat (2 Views) dated 09/20/2017; Chest Pa A nd Lat (2 Views) dated 01/23/2017 FINDINGS: No evidence of edema or pneumonia. The heart size is within normal limits.No acute osseous abnormality. No significant pleural effusions or pneumothorax. IMPRESSION: No acute cardiopulmonary disease.
--- NOTE | 2021-02-07 09:02 | EKG ---
Test Date: 2021-02-06 Test Time: 22:37:29 Real Estate Clerk: RENALDO MEASUREMENT RESULTS: Intervals: Rate: 69 WA: 140 QRSD: 80 QT: 394 QTc: 422 [place]: P: 3 WA: 140 QRS: -1 T: -14 INTERPRETIVE STATEMENTS: Normal sinus rhythm Nonspecific T wave abnormality Abnormal ECG No previous ECG available for comparison Electronically Signed On 02-07-21 09:01:49 CDT by Armando Garibay
--- NOTE | 2021-02-08 16:23 | RAD REPORT ---
EXAM DESCRIPTION: CT - Neck Angio - 02/07/2021 6:47 am CLINICAL HISTORY: 25-year-old female with stroke symptoms. COMPARISON: Noncontrast CT brain 02/07/2021. TECHNIQUE: CT angiography of the head and neck following dynamic bolus of intravenous contrast. MIP reformatted reconstructions were created. This exam was performed according to our departmental dose optimization program which includes use of automated exposure control, adjustment of the mA and/or kV according to patient size and/or use of iterative reconstruction technique. FINDINGS: CTA neck: Patent flow opacification of the aortic arch origin right brachiocephalic, left common carotid, and l eft subclavian arteries. The LEFT vertebral artery origin is normal. The RIGHT vertebral artery origi n is obscured by contrast artifact. Medialization of the RIGHT internal carotid artery. Patent flow opacification through the bilateral common carotid arteries, carotid bifurcations, cervic al internal/external carotid, and vertebral arteries. CTA brain: Patent flow opacification through anterior circulation (bilateral petrous/cavernous/supraclinoid inte rnal carotid arteries, anterior and middle cerebral arteries), posterior circulation (vertebral-basil ar, posterior-inferior cerebellar, anterior-inferior cerebellar, superior cerebellar, and posterior c erebral arteries), and distal intracranial vasculature. Patent flow opacification through an incomplete [id number] with a patent anterior communicating artery and bilateral absent posterior communicating arteries. Normal superficial and deep intracranial venous drainage. No evidence of occlusive thrombus, dissection, or vascular malformation. 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 IMPRESSION: 1. Patent flow related enhancement of the intracranial circulation. 2. Patent flow related enhancement of the cervical vasculature without significant stenosis by NASC ET criteria. 3. 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 Electronically signed by: Xin Finn MD 02/07/2021 12:12 AM CDT Due to temporary technical issues with the PACS/Fluency reporting system, reports are being signed by the in house radiologists without review as a courtesy to insure prompt reporting. The interpreting radiologist is fully responsible for the content of the report.
--- NOTE | 2021-02-08 16:28 | RAD REPORT ---
EXAM DESCRIPTION: CT - Head angio - 02/07/2021 6:47 am CLINICAL HISTORY: 25-year-old female with stroke symptoms. COMPARISON: Noncontrast CT brain 02/07/2021. TECHNIQUE: CT angiography of the head and neck following dynamic bolus of intravenous contrast. MIP reformatted reconstructions were created. This exam was performed according to our departmental dose optimization program which includes use of automated exposure control, adjustment of the mA and/or kV according to patient size and/or use of iterative reconstruction technique. FINDINGS: CTA neck: Patent flow opacification of the aortic arch origin right brachiocephalic, left common carotid, and l eft subclavian arteries. The LEFT vertebral artery origin is normal. The RIGHT vertebral artery origi n is obscured by contrast artifact. Medialization of the RIGHT internal carotid artery. Patent flow opacification through the bilateral common carotid arteries, carotid bifurcations, cervic al internal/external carotid, and vertebral arteries. CTA brain: Patent flow opacification through anterior circulation (bilateral petrous/cavernous/supraclinoid inte rnal carotid arteries, anterior and middle cerebral arteries), posterior circulation (vertebral-basil ar, posterior-inferior cerebellar, anterior-inferior cerebellar, superior cerebellar, and posterior c erebral arteries), and distal intracranial vasculature. Patent flow opacification through an incomplete [id number] with a patent anterior communicating artery and bilateral absent posterior communicating arteries. Normal superficial and deep intracranial venous drainage. No evidence of occlusive thrombus, dissection, or vascular malformation. 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 IMPRESSION: 1. Patent flow related enhancement of the intracranial circulation. 2. Patent flow related enhancement of the cervical vasculature without significant stenosis by NASC ET criteria. 3. 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 Electronically signed by: Xin Finn MD 02/07/2021 12:12 AM CDT Due to temporary technical issues with the PACS/Fluency reporting system, reports are being signed by the in house radiologists without review as a courtesy to insure prompt reporting. The interpreting radiologist is fully responsible for the content of the report.
== END 2021-02-07 02:56 | disposition short-term general hospital (02) ==
LOC: ER 20:25
DX: I63.9 Cerebral infarction, unspecified (principal); R29.702 NIHSS score 2; Z20.822 Contact with and (suspected) exposure to COVID-19; Z88.6 Allergy status to analgesic agent
CPT/HCPCS: 93005; 85025; 80048; 36415; 83735; 82550; 81025; 85610; 80076; 85730; 81003; 84484; 82553; 83690; 70450; 70496; 70498; 71045; 96360; 99285; U0003; Q9967; J7030

== ENCOUNTER 2021-06-07 19:51 | Emergency (ER) | payer BC, OTHER ==
--- OUTSIDE RECORDS SUMMARY | 2021-06-07 19:57 | XMS REPORT | Continuity of Care Document ---
:1995 Author Organization [facility] t Address [address] [place] [address] Care Team Providers Name Role Phone GRAZYNA, Jade Primary Care Physician Unavailable Yudy Attending Clinician Unavailable PATSY WHEELER Attending Clinician Unavailable LUKE Attending Clinician Unavailable Marla HART Attending Clinician Unavailable Jos RN, D Attending Clinician Unavailable Jean-Pierre ROBERTSON Attending Clinician Manuelito ORTIZ, L Attending Clinician Unavailable Marla King MD Attending Clinician Jade RAMIREZ Attending Clinician Unavailable Marla KING Attending Clinician Unavailable Everett Esqueda PT Attending Clinician Unavailable AB MORA Attending Clinician Unavailable AB MORA Attending Clinician Unavailable Patsy Wheeler MD Attending Clinician Angel ALONZO Attending Clinician ANGEL Attending Clinician Unavailable Doctor Unassigned, Name Attending Clinician Unavailable Jade Flynn Attending Clinician Ab Mora MD Attending Clinician Marla Hart MD Attending Clinician Pob, Lab Main Attending Clinician Unavailable Lab, Fam Pob I Attending Clinician Unavailable Brandy PATEL Attending Clinician BRANDY Attending Clinician Unavailable G_Pappafederico Admitting Clinician Unavailable PATSY WHEELER Admitting Clinician Unavailable Patsy Wheeler MD Admitting Clinician Payers Payer Name Policy Type Policy Number Effective Date Expiration Date Federico saavedra [place] - [id number] [facility] (MEDICAID) [facility] [id number] 2020 EMPLOYEE PLAN 00:00:00 Problems Condition Condition Condition Status Onset Resolution Last Treating Co mments Source Name Details Category Date Date Treatment Clinician Date Disturbanc Disturbanc Disease Active U nivers e of skin e of skin 02-07 it[place] [facility] Numbness Numbness Disease Active Unive rs 02-07 ity of 00:00: [address] Acute non Acute non Disease Active Uni vers intractabl intractabl 02-07 it y of e e 00:00: [place] tension-ty tension-ty 00 Me dical pe pe Branch headache headache Obesity Obesity Disease Active Univers (BMI (BMI 01-22 ity of 30-39.9) 30-39.9) 00:00: [address] Oligomenor Oligomenor Problem Active M atagor lorrie lorrie 04-22 da 00:00: Medical 00 Group Primary Primary Problem Active [place] female Female 04-22 da infertilit Infertilit 00:00: Me dical y y 00 Group Gynecologi Gynecologi Problem Active M atagor c c 04-22 da examinatio Examinatio 00:00: Me dical n n 00 Group No known No known Disease Unive rs active active ity of problems problems [facility] PCOS PCOS Disease Active Univers (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) [facility] Allergies, Adverse Reactions, Alerts Allergy Allergy Status Severity Reaction(s) Onset Inactive Treating Comm ents Source Name Type Date Date Clinician IBUPROFE DRUG Active Anaphylaxis Uni vers N INGREDI 02-07 ity of 00:00: [place] 00 Medical Branch NSAIDS Drug Active Anaphylaxis Unive rs (NON-MICHEAL Class 02-07 ity of ROIDAL 00:00: [place] ANTI-INF 00 Medical LAMMATOR Branch Y DRUG) Ibuprofe Propensi Active Anaphylaxis U nivers n ty to 02-07 ity of adverse 00:00: [place] reaction 00 Medical s Branch Nsaids Propensi Active Anaphylaxis Uni vers (Non-Micheal ty to 02-07 ity of roidal adverse 00:00: [place] Anti-Inf reaction 00 Medica l lammator s Branch y Drug) IBUPROFE DRUG Active Swelling 2016-07 Univer s N INGREDI 07-26 ity of 00:00: [place] 00 Medical Branch NSAIDS Drug Active Swelling 2016-07 Univers (NON-MICHEAL Class 07-26 ity of ROIDAL 00:00: [place] ANTI-INF 00 Medical LAMMATOR Branch Y DRUG) Ibuprofe Propensi Active Swelling 2016-07 Univ ers n ty to 07-26 ity of adverse 00:00: [place] reaction 00 Medical s Branch Nsaids Propensi Active Swelling 2016-07 Univer s (Non-Micheal ty to 07-26 ity of roidal adverse 00:00: [place] Anti-Inf reaction 00 Medica l lammator s Branch y Drug) Motrin Allergy Active Anaphylaxis Yao gor to da substanc Medical e Group NSAIDS Allergy Active Moderate Anaphylaxis [place] (NON-MICHEAL to to severe da ROIDAL substanc Medical ANTI-INF e Group LAMMATOR Y DRUG) Social History Social Habit Start Date Stop Date Quantity Comments Source History SDSD University o f Alcohol Frequency [facility] edical Branch History [facility] University o f Alcohol Std [place] Medical Drinks Branch History [facility] University o f Alcohol Binge [place] Medic al Branch Exposure to Not sure University of SARS-CoV-2 [place] Medical (event) Branch Alcohol intake 2021-04-17 2021-04-17 Current drinker Unive rsity of 00:00:00 00:00:00 of alcohol [facility] (finding) Branch Alcohol Comment 2021-03-24 2021-03-24 Socially Universit y of 00:00:00 00:00:00 [facility] Tobacco use and 2021-02-07 2021-02-07 Never used Universit y of exposure 00:00:00 00:00:00 [facility] Sex Ass[birth year] At [birth year] Universit y of 00:00:00 00:00:00 [facility] Smoking Status Start Date Stop Date Source Former Smoker [facility] Never smoker [facility] Medications Ordered Filled Start Stop Current Ordering Indication Dosage Frequency Signature Comments Components Source Medication Medication Date Date Medication? Clinician (SIG) Name Name polymyxin B 2020- Yes [id number] 1[drp] Place 1 Univers sulf-trimet 04-17 Drop in ity of hoprim 00:00: 04:59 right eye [place] 10,000 00 :00 every 4 Medical unit- 1 (four) Branch mg/mL hours for ophthalmic 7 days. drops polymyxin B 2020- Yes [id number] 1[drp] Place 1 Univers sulf-trimet 04-17 Drop in ity of hoprim 00:00: 04:59 right eye [place] 10,000 00 :00 every 4 Medical unit- 1 (four) Branch mg/mL hours for ophthalmic 7 days. drops methylPREDN 2020-0 Yes [id number] Take by Univers ISolone 9-17 mouth ity of (MEDROL, 00:00: SEE-INSTRU Renaldo as ROBLES,) 4 mg 00 CTIONS. Medica l tablets follow Branch package directions methylPREDN 2020-0 Yes [id number] Take by Univers ISolone 9-17 mouth ity of (MEDROL, 00:00: SEE-INSTRU Renaldo as ROBLES,) 4 mg 00 CTIONS. Medica l tablets follow Branch package directions methylPREDN 2020-0 Yes [id number] Take by Univers ISolone 9-17 mouth ity of (MEDROL, 00:00: SEE-INSTRU Renaldo as ROBLES,) 4 mg 00 CTIONS. Medica l tablets follow Branch package directions methylPREDN 2020-0 Yes [id number] Take by Univers ISolone 9-17 mouth ity of (MEDROL, 00:00: SEE-INSTRU Renaldo as ROBLES,) 4 mg 00 CTIONS. Medica l tablets follow Branch package directions amitriptyli 2020-0 Yes [id number] 25mg Take 1 Univers ne 25 mg 8-27 tablet by ity of tablet 00:00: mouth at [place] 00 bedtime. Medical Branch amitriptyli Yes [id number] 25mg Take 1 Univers ne 25 mg 8-27 tablet by ity of tablet 00:00: mouth at [place] [address] bedtime. Medical Branch amitriptyli Yes [id number] 25mg Take 1 Univers ne 25 mg 8-27 tablet by ity of tablet 00:00: mouth at [place] [address] bedtime. Medical Branch amitriptyli Yes [id number] 25mg Take 1 Univers ne 25 mg 8-27 tablet by ity of tablet 00:00: mouth at [place] [address] bedtime. Medical Branch amitriptyli Yes [id number] 25mg Take 1 Univers ne 25 mg 8-27 tablet by ity of tablet 00:00: mouth at [place] [address] bedtime. Medical Branch amitriptyli Yes [id number] 25mg Take 1 Univers ne 25 mg 8-27 tablet by ity of tablet 00:00: mouth at [place] [address] bedtime. Medical Branch amitriptyli Yes [id number] 25mg Take 1 Univers ne 25 mg 8-27 tablet by ity of tablet 00:00: mouth at [place] [address] bedtime. Medical Branch amitriptyli Yes [id number] 25mg Take 1 Univers ne 25 mg 8-27 tablet by ity of tablet 00:00: mouth at [place] [address] bedtime. Medical Branch cyanocobala 2020- No 1000ug 1,000 mcg, Univers min 02-08 Intramuscu ity of (VITAMIN 18:43: 19:46 [place], ONCE, [place] B12) 00 :00 1 dose, Medical injection [facility], [facility] 1,000 mcg 02/08/21 at 1345, Routine acetaminoph Yes 650mg 650 mg, Un celestino en 02-08 Oral, ity of (TYLENOL) 12:44: Q6HPRN, [place] tablet 650 15 Starting Medic al mg [facility], [facility] 02/08/21 at 0744, Until Discontinu ed, Routine, Pain (scale 1-3), Pain (scale 4-6), pain 1-10 gadobenate 2020- No [id number] .2mL/kg 19.8 mL Univers dimeglumine 02-08 (0.2 mL/kg i ty of (MULTIHANCE 10:33: 10:45 ?99 kg), [place] -20 mL) 00 :00 Intravenou Medica l injection s, ONCE, 1 Bran ch 19.8 mL dose, [place] 02/08/21 at 0545, Routine LORazepam 2020-0 2020- No 1mg 1 mg, Univer s (ATIVAN) 02-08 Oral, ity of tablet 1 mg 06:00: 09:11 ONCE, 1 [place] 00 :[place] dose, [facility] 02/08/21 at Branch 0100, Routine glucagon 2020- Yes 1mg 1 mg, Univers (GLUCAGEN 02-08 Intramuscu ity of DIAGNOSTIC 01:45: lar, PRN, [place] KIT) 14 Starting Medical injection 1 Sat [facility] 02/07/21 at 2044, Until Discontinu ed, MIRANDA, Blood Glucose < or = 70 mg/dL and patient is unable to swallow or has mental changes. dextrose 50 Yes 25mL 25 mL, Univ ers % in water 02-08 Slow IV ity of (D50W) 01:45: Push, PRN, [place] injection 14 Starting Medica l 25 mL Sat [place] 02/07/21 at 2044, Until Discontinu ed, MIRANDA, Blood Glucose < or = 70 mg/dL and patient is unable to swallow or has mental status changes. magnesium 0 Yes [id number] 400mg Take 1 U nivers oxide 400 7-18 tablet by ity o f mg (241.3 00:00: mouth [place] mg 00 daily. Medical magnesium) Branch tablet vitamin 2020-0 Yes [id number] 1000ug Take 1 Un celestino B-12 1,000 7-18 tablet by ity of mcg tablet 00:00: mouth [place] 00 daily. Medical Branch magnesium 2020-0 Yes [id number] 400mg Take 1 U nivers oxide 400 7-18 tablet by ity o f mg (241.3 00:00: mouth [place] mg 00 daily. Medical magnesium) Branch tablet vitamin 2020-0 Yes [id number] 1000ug Take 1 Un celestino B-12 1,000 7-18 tablet by ity of mcg tablet 00:00: mouth [place] 00 daily. Medical Branch magnesium 2020-0 Yes [id number] 400mg Take 1 U nivers oxide 400 7-18 tablet by ity o f mg (241.3 00:00: mouth [place] mg 00 daily. Medical magnesium) Branch tablet vitamin 2020-0 Yes [id number] 1000ug Take 1 Un celestino B-12 1,000 7-18 tablet by ity of mcg tablet 00:00: mouth [place] 00 daily. Medical Branch magnesium 2020-0 Yes [id number] 400mg Take 1 U nivers oxide 400 7-18 tablet by ity o f mg (241.3 00:00: mouth [place] mg 00 daily. Medical magnesium) Branch tablet vitamin 2020-0 Yes [id number] 1000ug Take 1 Un celestino B-12 1,000 7-18 tablet by ity of mcg tablet 00:00: mouth [place] 00 daily. Medical Branch magnesium 2020-0 Yes [id number] 400mg Take 1 U nivers oxide 400 7-18 tablet by ity o f mg (241.3 00:00: mouth [place] mg 00 daily. Medical magnesium) Branch tablet vitamin 2020-0 Yes [id number] 1000ug Take 1 Un celestino B-12 1,000 7-18 tablet by ity of mcg tablet 00:00: mouth [place] 00 daily. Medical Branch magnesium 2020-0 Yes [id number] 400mg Take 1 U nivers oxide 400 7-18 tablet by ity o f mg (241.3 00:00: mouth [place] mg 00 daily. Medical magnesium) Branch tablet vitamin 2020-0 Yes [id number] 1000ug Take 1 Un celestino B-12 1,000 7-18 tablet by ity of mcg tablet 00:00: mouth [place] 00 daily. Medical Branch magnesium 2020-0 Yes [id number] 400mg Take 1 U nivers oxide 400 7-18 tablet by ity o f mg (241.3 00:00: mouth [place] mg 00 daily. Medical magnesium) Branch tablet vitamin 2020-0 Yes [id number] 1000ug Take 1 Un celest[place] B-12 1,000 7-18 tablet by ity of mcg tablet 00:00: mouth [place] 00 daily. Medical Branch magnesium 2020-0 Yes [id number] 400mg Take 1 U nivers oxide 400 7-18 tablet by ity o f mg (241.3 00:00: mouth [place] mg 00 daily. Medical magnesium) Branch tablet vitamin 2020-0 Yes [id number] 1000ug Take 1 Un celestino B-12 1,000 7-18 tablet by ity of mcg tablet 00:00: mouth [place] 00 daily. Medical Branch magnesium 2020-0 Yes [id number] 400mg Take 1 U nivers oxide 400 7-18 tablet by ity o f mg (241.3 00:00: mouth [place] mg 00 daily. Medical magnesium) Branch tablet vitamin 2020-0 Yes [id number] 1000ug Take 1 Un celestino B-12 1,000 7-18 tablet by ity of mcg tablet 00:00: mouth [place] 00 daily. Medical Branch magnesium 2020-0 Yes [id number] 400mg Take 1 U nivers oxide 400 7-18 tablet by ity o f mg (241.3 00:00: mouth [place] mg 00 daily. Medical magnesium) Branch tablet vitamin 2020-0 Yes [id number] 1000ug Take 1 Un celestino B-12 1,000 7-18 tablet by ity of mcg tablet 00:00: mouth [place] 00 daily. Medical Branch magnesium 2020-0 Yes [id number] 400mg Take 1 U nivers oxide 400 7-18 tablet by ity o f mg (241.3 00:00: mouth [place] mg 00 daily. Medical magnesium) Branch tablet vitamin 2020-0 Yes [id number] 1000ug Take 1 Un celest[place] B-12 1,000 7-18 tablet by ity of mcg tablet 00:00: mouth [place] 00 daily. Medical Branch magnesium 2020-0 Yes [id number] 400mg Take 1 U nivers oxide 400 7-18 tablet by ity o f mg (241.3 00:00: mouth [place] mg 00 daily. Medical magnesium) Branch tablet vitamin 2020-0 Yes [id number] 1000ug Take 1 Un celestino B-12 1,000 7-18 tablet by ity of mcg tablet 00:00: mouth [place] 00 daily. Medical Branch magnesium 2020-0 Yes [id number] 400mg Take 1 U nivers oxide 400 7-18 tablet by ity o f mg (241.3 00:00: mouth [place] mg 00 daily. Medical magnesium) Branch tablet vitamin 2020-0 Yes [id number] 1000ug Take 1 Un celestino B-12 1,000 7-18 tablet by ity of mcg tablet 00:00: mouth [place] 00 daily. Medical Branch magnesium No 2g 2 g, IV Univ ers sulfate in 02-07 Piggyback, it y of water 2 16:51: 17:00 ONCE, 1 [place] gram/50 mL 00 :00 dose, Sat Medi chavo (4 %) 02/07/21 at Branch infusion 2 1200, g Routine famotidine Yes 20mg 20 mg, Unive rs (PEPCID AC) 02-07 Oral, BID, it y of tablet 20 13:00: First dose [place] mg 00 on [facility] Medical 02/07/21 at Branch 0800, Until Discontinu ed, Routine heparin Yes 5000U 5,000 Univers (porcine) 02-07 Units, ity of injection 13:00: Subcutaneo [place] 5,000 Units 00 us, Q12H, Med ical First dose Branch on [facility] 02/07/21 at 0800, Until Discontinu ed, Routine ondansetron Yes 4mg 4 mg, Slow Univers (ZOFRAN 02-07 IV Push, ity of (PF)) 10:47: Q6HPRN, [place] injection 4 30 Starting Medi chavo mg Sat [place] 02/07/21 at 0547, Until Discontinu ed, Routine, Nausea and Vomiting (N/V) acetaminoph 2020- No 500mg 500 mg, U nivers en 02-07 Oral, ity of (TYLENOL) 10:47: 12:45 Q6HPRN, [place] tablet 500 00 :19 Starting Medic al mg [facility] 02/07/21 at 0547, Until 02/08/21 at 0745, Routine, Pain (scale 1-3), Pain (scale 4-6) PNV WITH Yes Take by Unive rs CA8/IRON/FA 01-22 mouth. ity of /LMEFOLATE 19:49: [place] (PNV-IRON 14 Medical ORAL) Branch PNV WITH Yes Take by Unive rs CA8/IRON/FA 01-22 mouth. ity of /LMEFOLATE 19:49: [place] (PNV-IRON 14 Medical ORAL) Branch PNV WITH Yes Take by Unive rs CA8/IRON/FA 7- mouth. ity of /LMEFOLATE 19:49: [place] (PNV-IRON 14 Medical ORAL) Branch PNV WITH 2020-0 Yes Take by Unive rs CA8/IRON/FA 7- mouth. ity of /LMEFOLATE 19:49: [place] (PNV-IRON 14 Medical ORAL) Branch PNV WITH 2020-0 Yes Take by Unive rs CA8/IRON/FA 7- mouth. ity of /LMEFOLATE 19:49: [place] (PNV-IRON 14 Medical ORAL) Branch PNV WITH 2020-0 Yes Take by Unive rs CA8/IRON/FA 7- mouth. ity of /LMEFOLATE 19:49: [place] (PNV-IRON 14 Medical ORAL) Branch PNV WITH 2020-0 Yes Take by Unive rs CA8/IRON/FA 7- mouth. ity of /LMEFOLATE 19:49: [place] (PNV-IRON 14 Medical ORAL) Branch PNV WITH 2020-0 Yes Take by Unive rs CA8/IRON/FA 7 mouth. ity of /LMEFOLATE 19:49: [place] (PNV-IRON 14 Medical ORAL) Branch PNV WITH 2020-0 Yes Take by Unive rs CA8/IRON/FA 7 mouth. ity of /LMEFOLATE 19:49: [place] (PNV-IRON 14 Medical ORAL) Branch PNV WITH 2020-0 Yes Take by Unive rs CA8/IRON/FA 7- mouth. ity of /LMEFOLATE 19:49: [place] (PNV-IRON 14 Medical ORAL) Branch PNV WITH 2020-0 Yes Take by Unive rs CA8/IRON/FA 7- mouth. ity of /LMEFOLATE 19:49: [place] (PNV-IRON 14 Medical ORAL) Branch PNV WITH 2020-0 Yes Take by Unive rs CA8/IRON/FA 7- mouth. ity of /LMEFOLATE 19:49: [place] (PNV-IRON 14 Medical ORAL) Branch PNV WITH 2020-0 Yes Take by Unive rs CA8/IRON/FA 7- mouth. ity of /LMEFOLATE 19:49: [place] (PNV-IRON 14 Medical ORAL) Branch PNV WITH 2020-0 Yes Take by Unive rs CA8/IRON/FA 01-22 mouth. ity of /LMEFOLATE 19:49: [place] (PNV-IRON 14 Medical ORAL) Branch PNV WITH 2020-0 Yes Take by Unive rs CA8/IRON/FA 01-22 mouth. ity of /LMEFOLATE 19:49: [place] (PNV-IRON 14 Medical ORAL) Branch PNV WITH 0 Yes Take by Unive rs CA8/IRON/FA 01-22 mouth. ity of /LMEFOLATE 14:49: [place] (PNV-IRON 14 Medical ORAL) Branch PNV WITH 2020-0 Yes Take by Unive rs CA8/IRON/FA 7 mouth. ity of /LMEFOLATE 14:49: [place] (PNV-IRON 14 Medical ORAL) Branch PNV WITH 0 Yes Take by Unive rs CA8/IRON/FA 01-22 mouth. ity of /LMEFOLATE 14:49: [place] (PNV-IRON 14 Medical ORAL) Branch PNV WITH 2020- Yes Take by Unive rs CA8/IRON/FA 01-22 mouth. ity of /LMEFOLATE 14:49: [place] (PNV-IRON 14 Medical ORAL) Branch PNV WITH Yes Take by Unive rs CA8/IRON/FA 01-22 mouth. ity of /LMEFOLATE 14:49: [place] (PNV-IRON 14 Medical ORAL) Branch PNV WITH Yes Take by Unive rs CA8/IRON/FA 01-22 mouth. ity of /LMEFOLATE 14:49: [place] (PNV-IRON 14 Medical ORAL) Branch PNV WITH 2020-0 Yes Take by Unive rs CA8/IRON/FA 01-22 mouth. ity of /LMEFOLATE 14:49: [place] (PNV-IRON 14 Medical ORAL) Branch PNV WITH 2020-0 Yes Take by Unive rs CA8/IRON/FA 01-22 mouth. ity of /LMEFOLATE 14:49: [place] (PNV-IRON 14 Medical ORAL) Branch medroxyPROG 2020-0 Yes [id number] 10mg Take 1 Univers ESTERone 7- tablet by ity of (PROVERA) 00:00: mouth [place] 10 mg 00 daily. Medical tablet Branch medroxyPROG 2021-0 Yes [id number] 10mg Take 1 Univers ESTERone 7-01 tablet by ity of (PROVERA) 00:00: mouth [place] 10 mg 00 daily. Medical tablet Branch medroxyPROG 2021-0 Yes [id number] 10mg Take 1 Univers ESTERone 7-01 tablet by ity of (PROVERA) 00:00: mouth [place] 10 mg 00 daily. Medical tablet Branch medroxyPROG 2021-0 Yes [id number] 10mg Take 1 Univers ESTERone 7-01 tablet by ity of (PROVERA) 00:00: mouth [place] 10 mg 00 daily. Medical tablet Branch medroxyPROG 2021-0 Yes [id number] 10mg Take 1 Univers ESTERone 7-01 tablet by ity of (PROVERA) 00:00: mouth [place] 10 mg 00 daily. Medical tablet Branch medroxyPROG 2021-0 Yes [id number] 10mg Take 1 Univers ESTERone 7-01 tablet by ity of (PROVERA) 00:00: mouth [place] 10 mg 00 daily. Medical tablet Branch medroxyPROG 2021-0 Yes [id number] 10mg Take 1 Univers ESTERone 7-01 tablet by ity of (PROVERA) 00:00: mouth [place] 10 mg 00 daily. Medical tablet Branch medroxyPROG 2021-0 Yes [id number] 10mg Take 1 Univers ESTERone 7-01 tablet by ity of (PROVERA) 00:00: mouth [place] 10 mg 00 daily. Medical tablet Branch medroxyPROG 2021-0 Yes [id number] 10mg Take 1 Univers ESTERone 7-01 tablet by ity of (PROVERA) 00:00: mouth [place] 10 mg 00 daily. Medical tablet Branch medroxyPROG 2021-0 Yes [id number] 10mg Take 1 Univers ESTERone 7-01 tablet by ity of (PROVERA) 00:00: mouth [place] 10 mg 00 daily. Medical tablet Branch medroxyPROG 2021-0 Yes [id number] 10mg Take 1 Univers ESTERone 7-01 tablet by ity of (PROVERA) 00:00: mouth [place] 10 mg 00 daily. Medical tablet Branch medroxyPROG 2021-0 Yes [id number] 10mg Take 1 Univers ESTERone 7-01 tablet by ity of (PROVERA) 00:00: mouth [place] 10 mg 00 daily. Medical tablet Branch medroxyPROG 2021-0 Yes [id number] 10mg Take 1 Univers ESTERone 7-01 tablet by ity of (PROVERA) 00:00: mouth [place] 10 mg 00 daily. Medical tablet Branch medroxyPROG 2021-0 Yes [id number] 10mg Take 1 Univers ESTERone 7-01 tablet by ity of (PROVERA) 00:00: mouth [place] 10 mg 00 daily. Medical tablet Branch medroxyPROG 2021-0 Yes [id number] 10mg Take 1 Univers ESTERone 7-01 tablet by ity of (PROVERA) 00:00: mouth [place] 10 mg 00 daily. Medical tablet Branch medroxyPROG 2021-0 Yes [id number] 10mg Take 1 Univers ESTERone 7-01 tablet by ity of (PROVERA) 00:00: mouth [place] 10 mg 00 daily. Medical tablet Branch medroxyPROG 2021-0 Yes [id number] 10mg Take 1 Univers ESTERone 7-01 tablet by ity of (PROVERA) 00:00: mouth [place] 10 mg 00 daily. Medical tablet Branch medroxyPROG 2021-0 Yes [id number] 10mg Take 1 Univers ESTERone 7-01 tablet by ity of (PROVERA) 00:00: mouth [place] 10 mg 00 daily. Medical tablet Branch medroxyPROG 2021-0 Yes [id number] 10mg Take 1 Univers ESTERone 7-01 tablet by ity of (PROVERA) 00:00: mouth [place] 10 mg 00 daily. Medical tablet Branch medroxyPROG 2021-0 Yes [id number] 10mg Take 1 Univers ESTERone 7-01 tablet by ity of (PROVERA) 00:00: mouth [place] 10 mg 00 daily. Medical tablet Branch medroxyPROG 2021-0 Yes [id number] 10mg Take 1 Univers ESTERone 7-01 tablet by ity of (PROVERA) 00:00: mouth [place] 10 mg 00 daily. Medical tablet Branch medroxyPROG 2021-0 Yes [id number] 10mg Take 1 Univers ESTERone 7-01 tablet by ity of (PROVERA) 00:00: mouth [place] 10 mg 00 daily. Medical tablet Branch medroxyPROG 2021-0 Yes [id number] 10mg Take 1 Univers ESTERone 7-01 tablet by ity of (PROVERA) 00:00: mouth [place] 10 mg 00 daily. Medical tablet Branch PN WITH Yes Take by Unive rs CA8/IRON/FA 6-25 mouth. ity of /LMEFOLATE 16:01: [place] (PNV-IRON 40 Medical ORAL) Branch PNV WITH Yes Take by Unive rs CA8/IRON/FA 6-25 mouth. ity of /LMEFOLATE 16:01: [place] (PNV-IRON 40 Medical ORAL) Branch PNV WITH Yes Take by Unive rs CA8/IRON/FA 6-25 mouth. ity of /LMEFOLATE 16:01: [place] (PNV-IRON 40 Medical ORAL) Branch ondansetron 2017-07 Yes 4mg Take 1 Univ ers 4 mg 1-06 tablet by ity of disintegrat 00:00: mouth [place] ing tablet 00 every 8 Medica l (eight) Branch hours as needed for Nausea and Vomiting (N/V). sucralfate 2017-07 Yes 1g Take 1 Unive rs (CARAFATE) 1-06 tablet by ity of 1 gram 00:00: mouth [place] tablet 00 before Medical meals and Branch at bedtime. ondansetron 2017-07 Yes 4mg Take 1 Univ ers 4 mg 1-06 tablet by ity of disintegrat 00:00: mouth [place] ing tablet 00 every 8 Medica l (eight) Branch hours as needed for Nausea and Vomiting (N/V). sucralfate 2017-07 Yes 1g Take 1 Unive rs (CARAFATE) 1-06 tablet by ity of 1 gram 00:00: mouth [place] tablet 00 before Medical meals and Branch at bedtime. ondansetron 2017-07 Yes 4mg Take 1 Univ ers 4 mg 1-06 tablet by ity of disintegrat 00:00: mouth [place] ing tablet 00 every 8 Medica l (eight) Branch hours as needed for Nausea and Vomiting (N/V). sucralfate 2017-07 Yes 1g Take 1 Unive rs (CARAFATE) 1-06 tablet by ity of 1 gram 00:00: mouth [place] tablet 00 before Medical meals and Branch at bedtime. ondansetron 2017-07 No 4mg Take 1 Uni vers 4 mg 1-06 06-25 tablet by ity of disintegrat 00:00: 00:00 [place] tablet 00 :00 every 8 Medica l (eight) Branch hours as needed for Nausea and Vomiting (N/V). sucralfate 2017-07- No 1g Take 1 Univ ers (CARAFATE) 07-30 06-25 tablet by ity of 1 gram 00:00: 00:00 mouth [place] tablet 00 :00 before Medical meals and Branch at bedtime. ondansetron 2017-07 No 4mg Take 1 Uni vers 4 mg 07-30-25 tablet by ity of disintegrat 00:00: 00:00 [place] tablet 00 :00 every 8 Medica l (eight) Branch hours as needed for Nausea and Vomiting (N/V). sucralfate 2017-07 No 1g Take 1 Univ ers (CARAFATE) 07-30 06-25 tablet by ity of 1 gram 00:00: 00:00 mouth [place] tablet 00 :00 before Medical meals and Branch at bedtime. PNV WITH 2017-0 Yes Take by Unive rs CA8/IRON/FA 7-25 mouth. ity of /LMEFOLATE 14:03: [place] (PNV-IRON 41 Medical ORAL) Branch PNV WITH 2017-0 Yes Take by Unive rs CA8/IRON/FA 7-25 mouth. ity of /LMEFOLATE 14:03: [place] (PNV-IRON 41 Medical ORAL) Branch PNV WITH 2018-0 Yes Take by Unive rs CA8/IRON/FA 7-25 mouth. ity of /LMEFOLATE 14:03: [place] (PNV-IRON 41 Medical ORAL) Branch medroxyPROG 2017- Yes 10mg Take 1 Univ ers ESTERone 7-25 tablet by ity of (PROVERA) 00:00: mouth [place] 10 mg 00 daily. Medical tablet Branch medroxyPROG 2017-0 Yes 10mg Take 1 Univ ers ESTERone 7-25 tablet by ity of (PROVERA) 00:00: mouth [place] 10 mg 00 daily. Medical tablet Branch medroxyPROG 2017-0 Yes 10mg Take 1 Univ ers ESTERone 7-25 tablet by ity of (PROVERA) 00:00: mouth [place] 10 mg 00 daily. Medical tablet Branch medroxyPROG 2020- No 10mg Take 1 Uni vers ESTERone 7-25 06-25 tablet by ity o f (PROVERA) 00:00: 00:00 mouth [place] 10 mg 00 :00 daily. Medical tablet Branch medroxyPROG 1- No 10mg Take 1 Uni vers ESTERone 7-25 06-25 tablet by ity o f (PROVERA) 00:00: 00:00 mouth [place] 10 mg 00 :00 daily. Medical tablet Branch metformin Yes 500mg Take 1 Unive rs ER 500 mg 6-14 tablet by ity o f 24 hr 00:00: mouth [place] tablet 00 daily with Medical breakfast. Branch metformin Yes 500mg Take 1 Unive rs ER 500 mg 6-14 tablet by ity o f 24 hr 00:00: mouth [place] tablet 00 daily with Medical breakfast. Branch metformin Yes 500mg Take 1 Unive rs ER 500 mg 6-14 tablet by ity o f 24 hr 00:00: mouth [place] tablet 00 daily with Medical breakfast. Branch metformin 2020- No 500mg Take 1 Univ ers ER 500 mg 6-14 06-25 tablet by ity of 24 hr 00:00: 00:00 mouth [place] tablet 00 :00 daily with Medical breakfast. Branch metformin 2020- No 500mg Take 1 Univ ers ER 500 mg 6-14 06-25 tablet by ity of 24 hr 00:00: 00:00 mouth [place] tablet 00 :00 daily with Medical breakfast. Branch metformin metformin No 1 BID metformin [place] [...] 7 route for days. days. 7 days. Immunizations Ordered Filled Immunization Date Status Comments [facility] e Immunization Name Name [facility] 2017-12-23 Completed University of 00:00:00 [facility] 2017-12-23 Completed [facility] 00:00:00 [facility] 2017-12-23 Completed [facility] 00[facility]00:00 [facility] 2017-12-23 Completed [facility] 00:00:00 [facility] 2017-12-23 Completed University of 00:00:00 [facility] TDAP 2017-12-23 Completed University of 00:00:00 [facility] TDAP 2017-12-23 Completed University of 00:00:00 [facility] TDAP 2017-12-23 Completed University of 00:00:00 [facility] TDAP 2017-12-23 Completed University of 00:00:00 [facility] TDAP 2017-12-23 Completed University of 00:00:00 [facility] TDAP 2017-12-23 Completed University of 00:00:00 [facility] TDAP 2017-12-23 Completed University of 00:00:00 [facility] TDAP 2017-12-23 Completed University of 00:00:00 [facility] TDAP 2017-12-23 Completed University of 00:00:00 [facility] TDAP 2017-12-23 Completed University of 00:00:00 [facility] TDAP 2017-12-23 Completed University of 00:00:00 [facility] TDAP 2017-12-23 Completed University of 00:00:00 [facility] TDAP 2017-12-23 Completed University of 00:00:00 [facility] TDAP 2017-12-23 Completed University of 00:00:00 [facility] TDAP 2017-12-23 Completed University of 00:00:00 [facility] TDAP 2017-12-23 Completed University of 00:00:00 [place] [facility] TDAP 2017-12-23 Completed University of 00:00:00 [facility] Branch TDAP 2017-12-23 Completed University of 00:00:00 [facility] Branch TDAP 2017-12-23 Completed University of 00:00:00 [facility] TDAP 2017-12-23 Completed University of 00:00:00 [facility] TDAP 2017-12-23 Completed University of 00:00:00 [place] [facility] TDAP 2017-12-23 Completed University of 00:00:00 [facility] Vital Signs Vital Name Observation Time Observation Value Comments Source Systolic blood 2021-04-17 15:32:00 103 mm[Hg] Univer sity of pressure [facility] Diastolic blood 2021-04-17 15:32:00 69 mm[Hg] Unive rsity of pressure [facility] Heart rate 2021-04-17 15:32:00 85 /min [facility] [place] [facility] Body temperature 2021-04-17 15:32:00 36.89 Bre Univ ersity of [place] [facility] Respiratory rate 2021-04-17 15:32:00 18 /min Univ ersity of [place] [facility] Body height 2021-04-17 15:32:00 160 cm [facility] [place] [facility] Body weight 2021-04-17 15:32:00 98.657 kg [facility] [place] [facility] BMI 2021-04-17 15:32:00 38.53 kg/m2 [facility] [place] [facility] Oxygen saturation in 2021-04-17 15:32:00 99 /min University of Arterial blood by [place] [employer] chavo Pulse oximetry Branch Systolic blood 2021-03-24 16:25:00 119 mm[Hg] Univer sity of pressure [place] [facility] Diastolic blood 2021-03-24 16:25:00 83 mm[Hg] Unive rsity of pressure [place] [facility] Heart rate 2021-03-24 16:25:00 78 /min Universi ty [facility] [place] [facility] Body temperature 2021-03-24 16:25:00 36.11 Bre Univ ersity of [place] [facility] Body height 2021-03-24 16:25:00 157.5 cm [facility]i [facility] [place] [facility] Body weight 2021-03-24 16:25:00 99.791 kg [facility]i [facility] [place] [facility] BMI 2021-03-24 16:25:00 40.24 kg/m2 [facility] [place] [facility] Systolic blood 2021-03-06 14:04:00 130 mm[Hg] Univer sity of pressure [place] [facility] Diastolic blood 2021-03-06 14:04:00 70 mm[Hg] Unive rsity of pressure [place] [facility] Heart rate 2021-03-06 14:04:00 75 /min Universi ty [facility] [place] [facility] Body height 2021-03-06 14:04:00 157.5 cm [facility] [place] [facility] Body weight 2021-03-06 14:04:00 99.338 kg [facility] [place] [facility] BMI 2021-03-06 14:04:00 40.06 kg/m2 Univers[facility] [place] [facility] Oxygen saturation in 2021-03-06 14:04:00 97 /min University of Arterial blood by [employer] chavo Pulse oximetry Branch Systolic blood 2021-02-20 13:53:00 96 mm[Hg] Univer sity of pressure [place] [facility] Diastolic blood 2021-02-20 13:53:00 65 mm[Hg] Unive rsity of pressure [place] [facility] Heart rate 2021-02-20 13:53:00 73 /min [facility]i [facility] [place] [facility] Body height 2021-02-20 13:53:00 157.5 cm [facility] [place] [facility] Body weight 2021-02-20 13:53:00 98.431 kg [facility] [place] [facility] BMI 2021-02-20 13:53:00 39.69 kg/m2 [facility] [place] [facility] Systolic blood 2021-02-11 20:51:00 117 mm[Hg] Univer sity of pressure [place] [facility] Diastolic blood 2021-02-11 20:51:00 79 mm[Hg] Unive rsity of pressure [place] [facility] Heart rate 2021-02-11 20:51:00 72 /min [facility]i [facility] [place] [facility] Body temperature 2021-02-11 20:51:00 36.28 Bre Univ ersity of [place] [facility] Body height 2021-02-11 20:51:00 157.5 cm [facility] [place] [facility] Body weight 2021-02-11 20:51:00 97.977 kg [facility] [place] [facility] BMI 2021-02-11 20:51:00 39.51 kg/m2 [facility] [place] [facility] Oxygen saturation in 2021-02-11 20:51:00 96 /min University of Arterial blood by [facility] Pulse oximetry Branch Systolic blood 2021-02-08 16:18:00 103 mm[Hg] Univer sity of pressure [place] [facility] Diastolic blood 2021-02-08 16:18:00 50 mm[Hg] Unive rsity of pressure [place] [facility] Heart rate 2021-02-08 16:18:00 63 /min Universi ty [facility] [place] [facility] Body temperature 2021-02-08 16:18:00 36.22 Bre Univ ersity of [facility] Branch Respiratory rate 2021-02-08 16:18:00 18 /min Univ ersity of [facility] Branch Oxygen saturation in 2021-02-08 16:18:00 100 /min University of Arterial blood by [facility] Pulse oximetry Branch Body weight 2021-02-07 09:25:00 99.02 kg Universi ty [facility] [place] [facility] Systolic blood 2021-01-22 19:47:00 139 mm[Hg] Univer sity of pressure [place] [facility] Diastolic blood 2021-01-22 19:47:00 88 mm[Hg] Unive rsity of pressure [place] [facility] Heart rate 2021-01-22 19:47:00 73 /min Universi ty [facility] [place] [facility] Body temperature 2021-01-22 19:47:00 37 Bre Univ ersity of [place] [facility] Respiratory rate 2021-01-22 19:47:00 18 /min Univ ersity [facility] [place] [facility] Body height 2021-01-22 19:47:00 160 cm [facility]i [facility] [place] [facility] Body weight 2021-01-22 19:47:00 100.789 kg [facility] [place] [facility] BMI 2021-01-22 19:47:00 39.36 kg/m2 [facility] [place] [facility] Systolic blood 2021-01-16 15:31:00 113 mm[Hg] Univer sity of pressure [place] [facility] Diastolic blood 2021-01-16 15:31:00 81 mm[Hg] Unive rsity of pressure [place] [facility] Heart rate 2021-01-16 15:31:00 72 /min [facility]i [facility] [place] [facility] Body temperature 2021-01-16 15:31:00 36.61 Bre Univ ersity of [place] [facility] Body height 2021-01-16 15:31:00 160 cm [facility]i [facility] [place] [facility] Body weight 2021-01-16 15:31:00 100.336 kg [facility] [place] [facility] BMI 2021-01-16 15:31:00 39.18 kg/m2 [facility] [place] [facility] Oxygen saturation in 2021-01-16 15:31:00 96 /min University of Arterial blood by [facility] Pulse oximetry Branch BP Diastolic 2020-04-22 00:00:00 93 mm[Hg] [facility] Height 2020-04-22 00:00:00 62 [in_i] [facility] BMI (Body Mass 2020-04-22 00:00:00 41 kg/m2 [facility] Medical Index) Group BP Systolic 2020-04-22 00:00:00 133 mm[Hg] [facility] Body Weight 2020-04-22 00:00:00 224.1 [lb_av] [facility] Procedures Procedure Date / Time Performing Clinician Source Performed ASSIGNMENT OF BENEFITS 2021-03-17 13:09:25 Doctor Alec Hess [facility] Name Medical [place] EXTERNAL PROVIDER RECORDS 2021-02-23 05:01:00 Doctor Unassigned, [facility] Name Medical [place] EXTERNAL PROVIDER RECORDS 2021-02-17 05:01:00 Doctor Samirassigned, [facility] MR ANGIOGRAM NECK W WO 2021-02-08 10:56:14 Viv [facility] CONTRAST [facility] MR VENOGRAM HEAD WO 2021-02-08 10:27:[address] [facility] CONTRAST Medical Branch MR ANGIOGRAM HEAD WO 2021-02-08 10:26:56 Viv [facility] CONTRAST [facility] MR CERVICAL SPINE WO 2021-02-08 09:53:23 Luis Vega [facility] CONTRAST [facility] MR STROKE BRAIN WO 2021-02-07 12:40:45 Patricia Panda [facility] CONTRAST [facility] MAGNESIUM 2021-02-07 11:17:[address] [facility] VITAMIN B12, LEVEL 2021-02-07 11:17:00 Gen Bruno [facility] THYROID STIMULATING 2021-02-07 11:17:00 Patricia Panda [facility] HORMONE [facility] BASIC METABOLIC PANEL (NA, 2021-02-07 11:17:00 Patricia Panda [facility] K, CL, CO2, GLUCOSE, BUN, [facility]ica l Branch CREATININE, CA) CBC WITH DIFF 2021-02-07 11:17:00 Patricia Panda [facility] CONSENT/REFUSAL FOR 2021-01-29 20:57:37 Doctor Dehsawn [facility] DIAGNOSIS AND TREATMENT [place] [facility] ASSIGNMENT OF BENEFITS 2021-01-29 20:57:19 Doctor Unassigned, Un [facility] [place] [facility] POCT TEST 2021-01-22 19:49:00 Joellen Hart [facility] Medical Branch THYROID STIMULATING 2021-01-16 16:29:00 Anel Ramirez [facility] HORMONE Medical Branch COMP. METABOLIC PANEL 2021-01-16 16:29:00 Anel Ramirez [facility] ([id number]) Medical [place] LIPID PANEL (42716)(TOTAL 2021-01-16 16:29:00 Anel Ramirez [facility] CHOLESTEROL, [facility] TRIGLYCERIDES, HDL) CBC WITH DIFF 2021-01-16 16:29:00 Anel Ramirez [facility] GLYCOSYLATED HEMOGLOBIN 2021-01-16 16:29:00 Anel Ramirez [facility] (A1C) [facility] HCV ANTIBODY 2021-01-16 16:29:00 Anel Ramirez [facility] ASSIGNMENT OF BENEFITS 2021-01-16 15:15:47 Doctor Unassigned, [facility] Name [facility] HOME HEALTH - OTHER 2020-10-16 05:01:00 Doctor Unassmadalyn, [facility] Medical [place] Cholecystectomy 2019-01-31 00:00:00 [facility] [facility] Extraction of Foss Tooth [facility] Remove Tonsils and [place] [facility] Plan of Care Planned Activity Planned Date Details Comments Source Diagnostic Test 2020-04-22 urinalysis, [place] [facility] Pending 00:00:00 dipstick [code = Group urinalysis, dipstick] Diagnostic Test 2020-04-22 pap, LB + CT/NG/TV [facility] Medical Pending 00:00:00 + reflex HR HPV Group [code = pap, LB + CT/NG/TV + reflex HR HPV] Diagnostic Test 2020-04-22 test, [place] [facility] Pending 00:00:00 urine [code = Group test, urine] Diagnostic Test 2020-04-22 beta-HCG, [place] [facility] Pending 00:00:00 quantitative, serum Group or plasma [code = beta-HCG, quantitative, serum or plasma] Encounters Start End Encounter Admission Attending Care Care Encounter Source Date/Time Date/Time Type Type Clinicians Facility Department ID 2021-06-07 [place] [id number] [place] 01:42:15 0503 da [facility] 2021-02-07 Inpatient U CORBIN [facility] EDWARD [id number] Univers 04:14:00 EZRA [facility] 2021-06-03 2021-06-03 [facility] [id number] Univers 13:30:00 13:30:00 LEDY [id number] [facility] 2021-05-28 2021-05-28 [facility] [id number] Univers 14:30:00 14:30:00 JOELLEN [id number] [facility] 2021-05-28 2021-05-28 [facility] [id number] Univers 14:30:00 14:30:00 JOELLEN [facility] 2021-04-18 2021-04-18 Telephone ALBINA Arguello [id number] Univers 00:00:00 00:00:00 Kenya GUTIERREZ [id number] i ty of [facility] [id number] [place] as [phone] [address] 2021-04-17 2021-04-17 [facility] [id number] Univers 10:26:23 11:05:15 Care [facility] [id number] it y of [place] [id number] Ren[place]do as Gurjit?Blea [phone] [address] Medical Office Building 2021-04-17 2021-04-17 Outpatient R [facility] [id number] Univers 10:20:00 10:20:[facility] 2021-04-17 2021-04-17 Outpatient R [facility] [id number] Univers 09:40:00 09:40:00 [id number] [facility] 2021-04-16 2021-04-16 Outpatient [facility] [id number] Univers 10:00:00 10:00:00 [id number] ity [facility] 2021-04-13 2021-04-13 Ancillary Chely Billings [facility] 1.2.8 [id number] [id number] Univers 09:53:32 11:15:31 Visit Jem King [id number] ity [id number] [phone] Id dical nal 179 [facility] 2021-04-13 2021-04-13 Outpatient R [facility] [id number] Univers 10:00:00 10:00:00 [id number] ity [facility] 2021-04-10 2021-04-10 [facility] [id number] Univers 16:00:00 16:00:00 ANEL [id number] ity [facility] 2021-04-10 2021-04-10 [facility] [id number] Univers 16:00:00 16:00:00 [facility] 2021-04-09 2021-04-09 [facility] [id number] Univers 08:00:00 11:22:37 [facility] 2021-04-09 2021-04-09 Ancillary Safia Aguirre [facility] 1 .2.840.114 [id number] Univers 07:54:21 11:22:37 Visit Jem King [id number] ity [id number] [phone] Id dical nal 179 [facility] 2021-04-09 2021-04-09 Outpatient R [facility] [id number] Univers 08:00:00 08:00:00 [id number] ity [facility] 2021-04-01 2021-04-01 Outpatient R [facility] [id number] Univers 08:20:00 08:20:00 [id number] [facility] 2021-04-01 2021-04-01 Outpatient Korina DIAZSRIKANTH Mckeon [facility] [id number] Univers 08:20:00 08:20:00 [facility]ANTH [facility] 2021-03-24 2021-03-24 Office CorbinKODY [id number] Univers 11:19:00 12:19:00 Visit Ezra HEALTH [id number] i ty of [facility] [id number] [place] [phone] [place] [id number] Branch 2021-03-24 2021-03-24 Outpatient R CORBIN [facility] [id number] Univers 11:30:00 11:30:00 EZRA [id number] [facility] 2021-03-24 2021-03-24 Outpatient Korina WHEELER [facility] [id number] Univers 11:30:00 11:30:00 EZRA [facility] 2021-03-20 2021-03-20 Outpatient Korina DIAZESRIKANTH [facility] [id number] Univers 16:20:00 16:20:00 ANJELICASRIKANTH [id number] [facility] 2021-03-20 2021-03-20 Outpatient SRIKANTH PARKINSON [facility] [id number] Univers 16:20:00 16:20:00 ANJELICA, SRIKANTH [facility] 2021-03-17 2021-03-17 [facility] [id number] Univers 08:00:00 23:59:00 Encounter [facility] [id number] ity [facility] [id number] [facility] [phone] [place] [address] Branch Office Building 2021-03-17 2021-03-17 Outpatient R ANGEL [facility] [id number] Univers 08:00:00 23:59:00 LALA [facility] 2021-03-17 2021-03-17 Outpatient R ANGEL [facility] [id number] Univers 08:00:00 08:00:00 LALA [facility] 2021-03-17 2021-03-17 Orders Doctor ALBINA 1.2.840.114 [id number] Univers 00:00:00 00:00:00 Only Unassigned, MATT [id number] ity of [place] [facility] [id number] Renaldo as [phone] [address] 2021-03-17 2021-03-17 Telephone [facility] [id number] Univers 00:00:00 00:00:00 Ezra [facility] [id number] it y [facility] [id number] [facility] [phone] [address] Office Building 2021-03-06 2021-03-06 Office [facility] 1.2.840.114 [id number] Univers 08:53:54 09:55:39 Visit Anel [facility] [id number] i ty of [place] [id number] Renaldo [address]io [phone] [facility] 044 [place] Office Building One 2021-03-06 2021-03-06 [facility] [id number] Univers 09:30:00 09:30:00 ANEL [id number] ity [facility] 2021-03-06 2021-03-06 Outpatient [facility] [id number] Univers 09:30:00 09:30:00 ANEL ity [facility] 2021-03-06 2021-03-06 Telephone [facility] 1.2.840.114 [id number] Univers 00:00:00 00:00:00 Srikanth Quiros [id number] [id number] [phone] Id dicnh nal 092 Branch Building 2021-02-25 2021-02-25 Outpatient [facility] [id number] Univers 11:30:00 11:30:00 ANEL [id number] ity [facility] 2021-02-25 2021-02-25 Outpatient R GRAZYNA [facility] [id number] Univers 11:30:00 11:30:00 ANEL ity [facility] 2021-02-23 2021-02-23 Orders Doctor ALBINA 1.2.840.114 [id number] Univers 00:00:00 00:00:00 Only Unassigned, MATT [id number] ity of [place] [facility] [id number] Renaldo as [phone] [address] 2021-02-20 2021-02-20 Office [facility] 1.2.840.114 [id number] Univers 08:34:34 10:15:20 Visit Srikanth Quiros [id number] it[id number] [phone] Id dical nal 092 [place] Building 2021-02-20 2021-02-20 Outpatient R SRIKANTH MORA [facility] [id number] Univers 08:40:00 08:40:00 SRIKANTH MORA [id number] [facility] 2021-02-20 2021-02-20 Outpatient SRIKANTH PARKINSON [facility] [id number] Univers 08:40:00 08:40:00 SRIKANTH MORA [facility] 2021-02-17 2021-02-17 Orders Doctor ALBINA [id number] Univers 00:00:00 00:00:00 Only Unassigned, MATT [id number] ity of [place] [facility] [id number] Ren[place]do as [phone] [address] 2021-02-11 2021-02-11 Office [facility] 1.2.840.114 [id number] Univers 15:37:09 16:50:15 Visit Anel Jade Wong [id number] i ty of [place] [id number] Ren[place]do as Professio [phone] Id dical nal 044 [place] Office Building One 2021-02-11 2021-02-11 [facility] [id number] Univers 16:00:00 16:00:00 ANEL [id number] ity of [facility] 2021-02-11 2021-02-11 Outpatient R GRAZYNA, [facility] [id number] Univers 16:00:00 16:00:00 ANEL ity of [facility] 2021-02-07 2021-02-08 [facility] Petrona Wheeler 1.2.840.114 [id number] Univers 04:14:00 17:51:00 Encounter Erza Gutierrez [id number] [facility] [id number] [facility] [phone] [facility] 098 Branch 2021-01-29 2021-01-29 [facility] 1.2.840.114 [id number] 15:58:54 23:59:00 Encounter Joellen Quiros [id number] [place] 4.2.7.2.686 [place] [phone] 80 2021-01-29 2021-01-29 [facility] 1.2.840.114 [id number] Univers 15:58:54 23:59:00 Encounter Joellen Quiros [id number] ity [facility] 4.2.7.2.[address] [place] [address] [phone] [facility] 806 [place] 2021-01-29 2021-01-29 Outpatient R AD, [facility] [id number] Univers 16:00:00 16:00:00 JOELLEN [id number] ity of [facility] 2021-01-29 2021-01-29 [facility] [id number] Univers 00:00:00 00:00:00 JOELLEN ity of [facility] 2021-01-29 2021-01-29 Orders Doctor MONTEMAYOR 1.2.840.114 [id number] Univers 00:00:00 00:00:00 Only Unassigned, MATT [id number] ity of [facility] [id number] Ren[place]do [phone] [facility] 009 Branch 2021-01-29 2021-01-29 Orders Doctor MONTEMAYOR 1.2.840.114 [id number] 00:00:00 00:00:00 Only Unassigned, MATT [id number] [place] [facility] 4.2.7.2.686 [phone] [id number] 2021-01-23 2021-01-23 Telephone Adum, [facility] [id number] [facility] 00:00:00 00:00:00 Joellen Moraleston [id number] [id number] [phone] Id dical [address] 2021-01-23 2021-01-23 Telephone Ad, [facility] [id number] [id number] 00:00:00 00:00:00 Joellen Moraleston [id number] [place] [id number] Professio [phone] [address] 2021-01-22 2021-01-22 Window Glass Installer Mikhail, [facility] Main [facility] 1.2.8 40.114 [id number] Univers 16:38:34 16:53:34 Visit Adum, Joellen Quiros [id number] it[place] of [id number] [phone] Id dical [address] 2021-01-22 2021-01-22 Office Adum, [facility] 1.2.840.114 [id number] Univers 14:41:29 16:15:20 Visit Joellen Quiros [id number] [id number] [phone] Id dical [address] 2021-01-22 2021-01-22 Outpatient R ADUM, [facility] [id number] Univers 16:15:00 16:15:00 JOELLEN itluís [facility] 2021-01-22 2021-01-22 Outpatient R ADUM, [facility] [id number] Univers 15:00:00 15:00:00 JOELLEN [id number] itluís [facility] 2021-01-22 2021-01-22 Outpatient R ADUM, [facility] [id number] Univers 15:00:00 15:00:00 JOELLEN alvarez [facility] 2021-01-22 2021-01-22 Outpatient R ELVI [facility] [id number] Univers 15:00:00 15:00:00 JOELLEN alvarez [facility] 2021-01-16 2021-01-16 Window Glass Installer Lab, Adc Fam Pob I [facility] 1.2. 840.114 [id number] Univers 11:22:23 11:42:23 Visit Anel Ramirez [facility] [id number] ity of [place] [id number] Renaldo as Professio [phone] [address] Office [facility] Medical [facility] 2021-01-16 2021-01-16 [facility] [id number] Univers 10:16:56 11:20:58 Visit [facility] 350.1.13.10 i ty of [place] 4.2.7.2.686 Renaldo as Professio [phone] [address] Office [facility] 2021-01-16 2021-01-16 [facility] [id number] Univers 10:30:00 10:30:00 ANEL [id number] ity [facility]ly [facility] 2021-01-16 2021-01-16 Outpatient R GRAZYNA [facility] [id number] Univers 10:30:00 10:30:00 ANEL ity [facility]ly [facility] 2021-01-16 2021-01-16 Orders Doctor ALBINA [id number] [id number] Univers 00:00:00 00:00:00 Only Unassigned, MATT 350.1.13.10 ity of [place] [facility] 4.2.7.2.686 Renaldo as [phone] [address] 2020-10-31 2020-10-31 [facility] [id number] Univers 10:47:00 23:59:00 Encounter mariama, PRIMARY 350.1.13.10 ity [place]2.[place] [facility] [phone] Id dical [address] 2020-10-31 2020-10-31 Outpatient R [id number] Univers 10:47:00 10:47:00 [facility]-16 2020-10-16 Orders Doctor ALBINA 1.2.840.114 [id number] Univers 00:00:00 00:00:00 Only Unassigned, MATT 350.1.13.10 ity of [place] [facility] 4.2.7.2.686 Renaldo as [phone] [place] [address] [address] 2020-04-22 2020-04-22 Debbie Oseguera [facility] [place] - [id number] [place] 00:00:00 00:00:00 Discovery hawa Cabrera WHNP: [address] - [address], [place] [address] , Ph. [phone] Results Test Description Test Time Test Comments Results Result Comments Source VITAMIN B12, LEVEL 2021-02-08 18:13:43 Test Item Value Reference Range Interpretation Comme nts VIT B12 (test code = 2243502169) 239 pg/mL 240-930 L RABIA (test code = RABIA) Biotin has been reported to cause a positive bias, interpret results relative to patient's use of biotin. Lab Interpretation (test code = Abnormal 64703-5) [facility]18 Test Item Value Reference Range Interpretation Comments MAGNESIUM (test code = 2059489875) 2.1 mg/dL 1.7-2.4 Lab Interpretation (test code = Normal 27298-5) [facility] WO [id number] 15:01:17 Unremarkable MRA head. No significant abnormalities in the MRI cervical spine. The right vertebral artery origin is not clearly identified due toartifact. The visualized right vertebral artery demonstrates noabnormality. The MRA neck is otherwise unremarkable. No evidence of venous sinus thrombosis.HISTORY:left sided weakness TECHNIQUE: MRI of the cervical spine was performed without IV contrast. MRAof the head was performed without IV contrast. MR venogram was performedwithout IV contrast. MRA ofthe neck was performed with IV contrast COMPARISON:None. FINDINGS: MRI cervical spine: There is strai ghtening of the normal cervical lordosis. The vertebral bodyheights are preserved. No acute fractures are seen. The cervical spinal cord demonstrates normal signal intensity. Nodegenerative changes, spinal canal stenosis. MR ANGIOGRAPHY OF [place]: The PICA origin is visualized on the left. An AICA/PICA is suspected on theright. The basilar artery is normal in caliber. The superior cerebellararteries are unremarkable. The posterior cerebral arteries areunremarkable. No sizable posteriorcommunicating artery. The distal cervical, petrous, cavernous and supraclinoid internal carotidarteries are unremarkable. The anterior and middle cerebral arteries areunremarkable. An anterior communicating artery is visualized. 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 The vessels originating arthropathy. Normal appearance of the common carotid and cervical internal carotidarteries. The right vertebral artery origin is not identified. The visualized vesselsis unremarkable. The left vertebral artery originates from the left subclavian artery, isdominant. MR venogram: Evaluation is suboptimal due to lack of IV contrast. The right transverse sinus is dominant. The straight, sagittal, transverseand sigmoid sinuses are otherwise patent without evidence of venousthrombosis. [facility], Radiant Results Inft User - 02/08/2021 10:02 AM CDT HISTORY:left sided weakness TECHNIQUE: MRI of the cervical spine was performed without IV contrast. MRAof the head was performed without IV contrast. MR venogram was performedwithout IV contrast. MRA of the n gena was performed with IV contrastCOMPARISON:None.FINDINGS:MRI cervical spine:There is straighteningof the normal cervical lordosis. The vertebral bodyheights are preserved. No acute fractures are seen.The cervical spinal cord demonstrates normal signal intensity. Nodegenerative changes, spinal canal stenosis.MR ANGIOGRAPHY OF [place]:The PICA origin is visualized on the left. An AICA/PICA is suspected on theright. The basilar artery is normal in caliber. The superior cerebellararteries are unremarkable. The posterior cerebral arteries areunremarkable. No sizable posterior communicating artery.The distal cervical, petrous, cavernous and supraclinoid internal carotidarteries are unremarkable. The anterior and middle cerebral arteries areunremarkable. 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 The vessels originating arthropathy.Normal appearance of the common carotid and cervical internal carotidarteries.The right vertebral artery origin is not identified. The visualized vesselsis unremarkable.The left vertebral artery originates from the left subclavian artery, isdominant.MR venogram:Evaluation is suboptimal due to lack of IV contrast.The right transverse sinus is dominant. The straight, sagittal, transverseand sigmoid sinuses are otherwise patent without evidence of venousthrombosis.IMPRESSIONUnremarkable MRA head.No significant abnormalities in the MRI cervical spine.The right vertebral artery origin is not clearly identified due toartifact. The visualized right vertebral artery demonstrates noabnormality. The MRA neck is otherwise unremarkable.No evidence of venous sinus thrombosis.[facility]AST 2021-02-08 15:01:17 Unremarkable MRA head. No significant abnormalities in the MRI cervical spine. The right vertebral artery origin is not clearly identified due toartifact. The visualized right vertebral artery demonstrates noabnormality. The MRA neck is otherwise unremarkable. No evidence of venous sinus thrombosis.HISTORY:left sided weakness TECHNIQUE: MRI of the cervical spine was performed without IV contrast. MRAof the head was performed without IV contrast. MR venogram was performedwithout IV contrast. MRA ofthe neck was performed with IV contrast COMPARISON:None. FINDINGS: MRI cervical spine: There is straightening of the normal cervical lordosis. The vertebral bodyheights are preserved. No acute fractures are seen. The cervical spinal cord demonstrates normal signal intensity. Nodegenerative changes, spinal canal stenosis. MR ANGIOGRAPHY OF [place]: The PICA origin is visualized on the left. An AICA/PICA is suspected on theright. The basilar artery is normal in caliber. The superior cerebellararteries are unremarkable. The posterior cerebral arteries areunremarkable. No sizable posteriorcommunicating artery. The distal cervical, petrous, cavernous and supraclinoid internal carotidarteries are unremarkable. The anterior and middle cerebral arteries areunremarkable. An anterior communicating artery is visualized. 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 The vessels originating arthropathy. Normal appearance of the common carotid and cervical internal carotidarteries. The right vertebral artery origin is not identified. The visualized vesselsis unremarkable. The left vertebral artery originates from the left subclavian artery, isdominant. MR venogram: Evaluation is suboptimal due to lack of IV contrast. The right transverse sinus is dominant. The straight, sagittal, transverseand sigmoid sinuses are otherwise patent without evidence of venousthrombosis. [facility], Radiant Results Inft User - 02/08/2021 10:02 AM CDT HISTORY:left sided weakness TECHNIQUE: MRI of the cervical spine was performed without IV contrast. MRAof the head was performed without IV contrast. MR venogram was performedwithout IV contrast. MRA of the n gena was performed with IV contrastCOMPARISON:None.FINDINGS:MRI cervical spine:There is straighteningof the normal cervical lordosis. The vertebral bodyheights are preserved. No acute fractures are seen.The cervical spinal cord demonstrates normal signal intensity. Nodegenerative changes, spinal canal stenosis.MR ANGIOGRAPHY OF [place]:The PICA origin is visualized on the left. An AICA/PICA is suspected on theright. The basilar artery is normal in caliber. The superior cerebellararteries are unremarkable. The posterior cerebral arteries areunremarkable. No sizable posterior communicating artery.The distal cervical, petrous, cavernous and supraclinoid internal carotidarteries are unremarkable. The anterior and middle cerebral arteries areunremarkable. 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 The vessels originating arthropathy.Normal appearance of the common carotid and cervical internal carotidarteries.The right vertebral artery origin is not identified. The visualized vesselsis unremarkable.The left vertebral artery originates from the left subclavian artery, isdominant.MR venogram:Evaluation is suboptimal due to lack of IV contrast.The right transverse sinus is dominant. The straight, sagittal, transverseand sigmoid sinuses are otherwise patent without evidence of venousthrombosis.IMPRESSIONUnremarkable MRA head.No significant abnormalities in the MRI cervical spine.The right vertebral artery origin is not clearly identified due toartifact. The visualized right vertebral artery demonstrates noabnormality. The MRA neck is otherwise unremarkable.No evidence of venous sinus thrombosis.[facility] WO CONTRAST 2021-02-08 15:01:17 Unremarkable MRA head. No significant abnormalities in the MRI cervical spine. The right vertebral artery origin is not clearly identified due toartifact. The visualized right vertebral artery demonstrates noabnormality. The MRA neck is otherwise unremarkable. No evidence of venous sinus thrombosis.HISTORY:left sided weakness TECHNIQUE: MRI of the cervical spine was performed without IV contrast. MRAof the head was performed without IV contrast. MR venogram was performedwithout IV contrast. MRA ofthe neck was performed with IV contrast COMPARISON:None. FINDINGS: MRI cervical spine: There is straightening of the normal cervical lordosis. The vertebral bodyheights are preserved. No acute fractures are seen. The cervical spinal cord demonstrates normal signal intensity. Nodegenerative changes, spinal canal stenosis. MR ANGIOGRAPHY OF [place]: The PICA origin is visualized on the left. An AICA/PICA is suspected on theright. The basilar artery is normal in caliber. The superior cerebellararteries are unremarkable. The posterior cerebral arteries areunremarkable. No sizable posteriorcommunicating artery. The distal cervical, petrous, cavernous and supraclinoid internal carotidarteries are unremarkable. The anterior and middle cerebral arteries areunremarkable. An anterior communicating artery is visualized. 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 The vessels originating arthropathy. Normal appearance of the common carotid and cervical internal carotidarteries. The right vertebral artery origin is not identified. The visualized vesselsis unremarkable. The left vertebral artery originates from the left subclavian artery, isdominant. MR venogram: Evaluation is suboptimal due to lack of IV contrast. The right transverse sinus is dominant. The straight, sagittal, transverseand sigmoid sinuses are otherwise patent without evidence of venousthrombosis. [facility], Radiant Results Inft User - 02/08/2021 10:02 AM CDT HISTORY:left sided weakness TECHNIQUE: MRI of the cervical spine was performed without IV contrast. MRAof the head was performed without IV contrast. MR venogram was performedwithout IV contrast. MRA of the n gena was performed with IV contrastCOMPARISON:None.FINDINGS:MRI cervical spine:There is straighteningof the normal cervical lordosis. The vertebral bodyheights are preserved. No acute fractures are seen.The cervical spinal cord demonstrates normal signal intensity. Nodegenerative changes, spinal canal stenosis.MR ANGIOGRAPHY OF [place]:The PICA origin is visualized on the left. An AICA/PICA is suspected on theright. The basilar artery is normal in caliber. The superior cerebellararteries are unremarkable. The posterior cerebral arteries areunremarkable. No sizable posterior communicating artery.The distal cervical, petrous, cavernous and supraclinoid internal carotidarteries are unremarkable. The anterior and middle cerebral arteries areunremarkable. 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 The vessels originating arthropathy.Normal appearance of the common carotid and cervical internal carotidarteries.The right vertebral artery origin is not identified. The visualized vesselsis unremarkable.The left vertebral artery originates from the left subclavian artery, isdominant.MR venogram:Evaluation is suboptimal due to lack of IV contrast.The right transverse sinus is dominant. The straight, sagittal, transverseand sigmoid sinuses are otherwise patent without evidence of venousthrombosis.IMPRESSIONUnremarkable MRA head.No significant abnormalities in the MRI cervical spine.The right vertebral artery origin is not clearly identified due toartifact. The visualized right vertebral artery demonstrates noabnormality. The MRA neck is otherwise unremarkable.No evidence of venous sinus thrombosis.[facility] NECK W WO [id number] 15:01:17 Unremarkable MRA head. No significant abnormalities in the MRI cervical spine. The right vertebral artery origin is not clearly identified due toartifact. The visualized right vertebral artery demonstrates noabnormality. The MRA neck is otherwise unremarkable. No evidence of venous sinus thrombosis.HISTORY:left sided weakness TECHNIQUE: MRI of the cervical spine was performed without IV contrast. MRAof the head was performed without IV contrast. MR venogram was performedwithout IV contrast. MRA ofthe neck was performed with IV contrast COMPARISON:None. FINDINGS: MRI cervical spine: There is straightening of the normal cervical lordosis. The vertebral bodyheights are preserved. No acute fractures are seen. The cervical spinal cord demonstrates normal signal intensity. Nodegenerative changes, spinal canal stenosis. MR ANGIOGRAPHY OF [place]: The PICA origin is visualized on the left. An AICA/PICA is suspected on theright. The basilar artery is normal in caliber. The superior cerebellararteries are unremarkable. The posterior cerebral arteries areunremarkable. No sizable posteriorcommunicating artery. The distal cervical, petrous, cavernous and supraclinoid internal carotidarteries are unremarkable. The anterior and middle cerebral arteries areunremarkable. An anterior communicating artery is visualized. 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 The vessels originating arthropathy. Normal appearance of the common carotid and cervical internal carotidarteries. The right vertebral artery origin is not identified. The visualized vesselsis unremarkable. The left vertebral artery originates from the left subclavian artery, isdominant. MR venogram: Evaluation is suboptimal due to lack of IV contrast. The right transverse sinus is dominant. The straight, sagittal, transverseand sigmoid sinuses are otherwise patent without evidence of venousthrombosis. [facility], Radiant Results Inft User - 02/08/2021 10:02 AM CDT HISTORY:left sided weakness TECHNIQUE: MRI of the cervical spine was performed without IV contrast. MRAof the head was performed without IV contrast. MR venogram was performedwithout IV contrast. MRA of the n gena was performed with IV contrastCOMPARISON:None.FINDINGS:MRI cervical spine:There is straighteningof the normal cervical lordosis. The vertebral bodyheights are preserved. No acute fractures are seen.The cervical spinal cord demonstrates normal signal intensity. Nodegenerative changes, spinal canal stenosis.MR ANGIOGRAPHY OF [place]:The PICA origin is visualized on the left. An AICA/PICA is suspected on theright. The basilar artery is normal in caliber. The superior cerebellararteries are unremarkable. The posterior cerebral arteries areunremarkable. No sizable posterior communicating artery.The distal cervical, petrous, cavernous and supraclinoid internal carotidarteries are unremarkable. The anterior and middle cerebral arteries areunremarkable. 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 The vessels originating arthropathy.Normal appearance of the common carotid and cervical internal carotidarteries.The right vertebral artery origin is not identified. The visualized vesselsis unremarkable.The left vertebral artery originates from the left subclavian artery, isdominant.MR venogram:Evaluation is suboptimal due to lack of IV contrast.The right transverse sinus is dominant. The straight, sagittal, transverseand sigmoid sinuses are otherwise patent without evidence of venousthrombosis.IMPRESSIONUnremarkable MRA head.No significant abnormalities in the MRI cervical spine.The right vertebral artery origin is not clearly identified due toartifact. The visualized right vertebral artery demonstrates noabnormality. The MRA neck is otherwise unremarkable.No evidence of venous sinus thrombosis.[facility] 2021-02-07 22:45:37 Test Item Value Reference Range Interpretation Comments TSH (test code = See_Comment [Automated message] [id number]) The system [employer] generated this result transmitted ref erence range: 0.45 - 4 .70 mIU/L. The refe rence range was not u sed to interpret this result as normal/abnor mal. Lab Interpretation (test Normal code = 67558-1) [facility] METABOLIC PANEL (NA, K, CL, CO2, GLUCOSE, BUN, CREATININE, CA)2021-02-07 22:28:15 Test Item Value Reference Range Interpretation Comments NA (test code = 142 mmol/L 135-145 6917576632) K (test code = 3.7 mmol/L 3.5-5.0 4292610972) CL (test code = 111 mmol/L 98-108 H 6511632756) CO2 TOTAL (test code = 19 mmol/L 23-31 L 6616549480) AGAP (test code = 2-16 7634455659) BUN (test code = 11 mg/dL 7-23 3076988231) GLUCOSE (test code = 47 mg/dL 70-110 LL 2349781325) CREATININE (test code = 0.50 mg/dL 0.50-1.04 9653198390) CALCIUM (test code = 8.8 mg/dL 8.6-10.6 1785746601) eGFR (test code = mL/min/1.73m2 1585708034) RABIA (test code = RABIA) Association of Glomerular Filtration Rate (GFR) and Staging of Kidney Disease* + --+ --+ ------+| GFR (mL/min/1.73 m2) ?| With Kidney Damage ?| ?Without Kidney Damage+ --------+ --------+ +| ?>90 ?| ?Stage one ?| ? Normal ?+ ---+ ---+ -------+| ?60-89 ?| ?Stage two ?| ? Decreased GFR ? + --+ --+ ------+| ?30-59 ?| ?Stage three ?| ? Stage three ? + --+ --+ ------+| ?15-29 ?| ?Stage four ? | ? Stage four ?+ ---+ ---+ -------+| ?<15 (or dialysis) ? ?| ?Stage five ? | ? Stage five ?+ ---+ ---+ -------+ *Each stage assumes the associated GFR level has been in effect for at least three months. ?Stages 1 to 5, with or without kidney disease, indicate chronic kidney disease. Notes: Determination of stages one and two (with eGFR >59mL/min/1.73 m2) requires estimation of kidney damage for at least three months as defined by structural or functional abnormalities of the kidney, manifested by either:Pathological abnormalities or Markers of kidney damage (including abnormalities in the composition of the blood or urine or abnormalities in imaging tests). Lab Interpretation Abnormal (test code = 80426-4) [facility] WITH [id number] 21:56:18 Test Item Value Reference Range Interpretation Comments WBC (test code = See_Comment [Automated message] 6690-2) The system [employer] generated this result transmitted ref erence range: 4.30 - 1 1.10 10*3/?L. The re ference range was not u sed to interpret this result as normal/abnor mal. RBC (test code = See_Comment [Automated message] 789-8) The system [employer] generated this result transmitted ref erence range: 3.93 - 5 .25 10*6/?L. The re ference range was not u sed to interpret this result as normal/abnor mal. HGB (test code = 11.6 g/dL 11.6-15.0 718-7) HCT (test code = 36.2 % 35.7-45.2 4544-3) MCV (test code = 89.4 fL 80.6-95.5 787-2) MCH (test code = 28.6 pg 25.9-32.8 785-6) MCHC (test code = 32.0 g/dL 31.6-35.1 786-4) RDW-SD (test code 42.5 fL 39.0-49.9 = 33028-6) RDW-CV (test code 13.0 % 12.0-15.5 = 788-0) PLT (test code = See_Comment [Automated message] 777-3) The system whic h generated this result transmitted ref erence range: 166 - 35 8 10*3/?L. The re ference range was not u sed to interpret this result as normal/abnor mal. MPV (test code = 11.1 fL 9.5-12.9 12119-8) NRBC/100 WBC (test See_Comment [Automat ed message] code = 6035303043) The syste m which generated this result transmitted ref erence range: 0.0 - 10 .0 /100 WBCs. The refer ence range was not u sed to interpret this result as normal/abnor mal. NRBC x10^3 (test <0.01 See_Comment [Automated message] code = 9056574043) The syste m which generated this result transmitted ref erence range: 10*3/?L. The reference range was not used to interpr et this result as normal/abnormal . GRAN MAT (NEUT) % 56.9 % (test code = 770-8) IMM GRAN % (test 0.20 % code = 8504026049) LYMPH % (test code 34.2 % = 736-9) MONO % (test code 7.0 % = 5905-5) EOS % (test code = 0.9 % 713-8) BASO % (test code 0.8 % = 706-2) GRAN MAT 5.06 10*3/uL 1.88-7.09 x10^3(ANC) (test code = 1358903200) IMM GRAN x10^3 <0.03 0.00-0.06 (test code = 2331327080) LYMPH x10^3 (test 3.04 10*3/uL 1.32-3.29 code = 731-0) MONO x10^3 (test 0.62 10*3/uL 0.33-0.92 code = 742-7) EOS x10^3 (test 0.08 10*3/uL 0.03-0.39 code = 711-2) BASO x10^3 (test 0.07 10*3/uL 0.01-0.07 code = 704-7) [facility] [id number] 14:15:04 Unremarkable brain MRI.HISTORY:Neuro deficit, acute, stroke suspected TECHNIQUE: MRI of the brain was performed without IV contrast. COMPARISON: None. FINDINGS: The ventricles and sulci are within normal limits for patient's age. There is no midline shift. The basal cisterns are preserved. There is no diffusion restriction to suggest an acute infarct. No pathological extra-axial fluid collection isseen. No abnormal foci ofgradient blooming is identified. [facility], Radiant Results Inft User - 02/07/2021 9:16 AM CDT HISTORY:Neuro deficit, acute, stroke suspected TECHNIQUE: MRI of the brain was performed without IV contrast.COMPARISON: None.FINDINGS: The ventricles and sulci are within normal limits for patient's age.There is no midline shift. The basal cisterns are preserved.There is no diffusion restriction to suggest an acute infarct.No pathological extra-axial fluid collection is seen. No abnormal foci ofgradient blooming is identified. IMPRESSIONUnremarkable brain MRI.[facility] HospitalPONM [id number] 19:49:00 Test Item Value Reference Range Interpretation Comments POCT PREG (test code Negative = 1605) On board controls Yes acceptable with C Line (test code = 3574) POCT PREG LOT # (test code = 3575) POCT PREG TEST DATE (test code = 3576) RABIA (test code = RABIA) accurate development and interpretation of all internal controls [facility] [id number] 19:49:00 Test Item Value Reference Range Interpretation Comments POCT PREG (test code Negative = 1605) On board controls Yes acceptable with C Line (test code = 3574) POCT PREG LOT # (test code = 3575) POCT PREG TEST DATE (test code = 3576) RABIA (test code = RABIA) accurate development and interpretation of all internal controls [facility] [id number] 20:58:57 Test Item Value Reference Range Interpretation Comments HCV Ab (test code = 81191-6) Negative HCV Semi-Quantitative (test code = 56889-7) [facility] [id number] 20:58:57 Test Item Value Reference Range Interpretation Comments HCV Ab (test code = 43534-0) Negative HCV Semi-Quantitative (test code = 95592-0) [facility] [id number] 18:50:51 Test Item Value Reference Range Interpretation Comments TSH (test code = See_Comment [Automated message] 2569312247) The system [employer] generated this result transmitted ref erence range: 0.45 - 4 .70 mIU/L. The refe rence range was not u sed to interpret this result as normal/abnor mal. Lab Interpretation (test Normal code = 10526-3) [facility] [id number] 18:50:51 Test Item Value Reference Range Interpretation Comments TSH (test code = See_Comment [Automated message] [id number]) The system [employer] generated this result transmitted ref erence range: 0.45 - 4 .70 mIU/L. The refe rence range was not u sed to interpret this result as normal/abnor mal. Lab Interpretation (test Normal code = 72625-4) [facility] (86910)(TOTAL CHOLESTEROL, TRIGLYCERIDES, HDL)2021-01-16 18:30:46 Test Item Value Reference Range Interpretation Comments CHOL (test code = 196 mg/dL 120-200 1150598646) HDL (test code = 47 mg/dL >50 L 7199541186) HDLC RATIO (test code = See_Comment [Au tomated message] 3851968863) The system [employer] generated this result transmit justice reference range : <=4.5. The refe rence range was not u sed to interpret th is result as normal/abnormal . TRIG (test code = 113 mg/dL 30-170 2881642884) LDL CHOL (test code = 126 mg/dL See_Comment [Auto mated message] 75553-4) The system [employer] generated this result transmit justice reference range : <=160. The refe rence range was not u sed to interpret th is result as normal/abnormal . VLDL (test code = 23 mg/dL 5-60 7474049787) Lab Interpretation (test Abnormal code = 36643-9) [facility] (25548)(TOTAL CHOLESTEROL, TRIGLYCERIDES, HDL)2021-01-16 18:30:46 Test Item Value Reference Range Interpretation Comments CHOL (test code = 196 mg/dL 120-200 7497370262) HDL (test code = 47 mg/dL >50 L 0673009849) HDLC RATIO (test code = See_Comment [Au tomated message] 6590171753) The system [employer] generated this result transmit justice reference range : <=4.5. The refe rence range was not u sed to interpret th is result as normal/abnormal . TRIG (test code = 113 mg/dL 30-170 4653261851) LDL CHOL (test code = 126 mg/dL See_Comment [Auto mated message] 01560-0) The system [employer] generated this result transmit justice reference range : <=160. The refe rence range was not u sed to interpret th is result as normal/abnormal . VLDL (test code = 23 mg/dL 5-60 2019282741) Lab Interpretation (test Abnormal code = 69820-0) [facility] METABOLIC PANEL (99800)2021-01-16 18:30:26 Test Item Value Reference Range Interpretation Comments NA (test code = 142 mmol/L 135-145 9970367519) K (test code = 4.4 mmol/L 3.5-5.0 1943288512) CL (test code = 104 mmol/L 98-108 8304573998) CO2 TOTAL (test code 28 mmol/L 23-31 = 0599530130) AGAP (test code = 2-16 2691126670) BUN (test code = 14 mg/dL 7-23 2596161285) GLUCOSE (test code = 86 mg/dL 70-110 0165417935) CREATININE (test code 0.61 mg/dL 0.50-1.04 = 6308873435) TOTAL BILI (test code 0.9 mg/dL 0.1-1.1 = 1058336310) CALCIUM (test code = 10.0 mg/dL 8.6-10.6 1540088413) T PROTEIN (test code 7.8 g/dL 6.3-8.2 = 7369853051) ALBUMIN (test code = 4.4 g/dL 3.5-5.0 6548583824) ALK PHOS (test code = 66 U/L 34-122 8563083450) ALTv (test code = 22 U/L 5-35 2-6) AST(SGOT) (test code 22 U/L 13-40 = 2129958868) eGFR (test code = mL/min/1.73m2 1915441083) RABIA (test code = RABIA) Association of Glomerular Filtration Rate (GFR) and Staging of Kidney Disease* + + +- +| GFR (mL/min/1.73 m2) ?| With Kidney Damage ?| ?Without Kidney Damage+ ------+ ----+ ------+| ?>90 ?| ?Stage one ?| ? Normal ?+ -+ + -+| ?60-89 ?| ?Stage two ?| ? Decreased GFR ? + + +- +| ?30-59 ?| ?Stage three ?| ? Stage three ? + + +- +| ?15-29 ?| ?Stage four ? | ? Stage four ?+ -+ + -+| ?<15 (or dialysis) ? ?| ?Stage five ? | ? Stage five ?+ -+ + -+ *Each stage assumes the associated GFR level has been in effect for at least three months. ?Stages 1 to 5, with or without kidney disease, indicate chronic kidney disease. Notes: Determination of stages one and two (with eGFR >59mL/min/1.73 m2) requires estimation of kidney damage for at least three months as defined by structural or functional abnormalities of the kidney, manifested by either:Pathological abnormalities or Markers of kidney damage (including abnormalities in the composition of the blood or urine or abnormalities in imaging tests). [facility]. METABOLIC PANEL (48723)2021-01-16 18:30:26 Test Item Value Reference Range Interpretation Comments NA (test code = 142 mmol/L 135-145 6404123110) K (test code = 4.4 mmol/L 3.5-5.0 6063529688) CL (test code = 104 mmol/L 98-108 0972177172) CO2 TOTAL (test code 28 mmol/L 23-31 = 2315490663) AGAP (test code = 2-16 1846495366) BUN (test code = 14 mg/dL 7-23 7713594727) GLUCOSE (test code = 86 mg/dL 70-110 6863817525) CREATININE (test code 0.61 mg/dL 0.50-1.04 = 8600084166) TOTAL BILI (test code 0.9 mg/dL 0.1-1.1 = 6000815473) CALCIUM (test code = 10.0 mg/dL 8.6-10.6 8839312387) T PROTEIN (test code 7.8 g/dL 6.3-8.2 = 7650043861) ALBUMIN (test code = 4.4 g/dL 3.5-5.0 9791341532) ALK PHOS (test code = 66 U/L 34-122 1095377774) ALTv (test code = 22 U/L 5-35 1742-6) AST(SGOT) (test code 22 U/L 13-40 = 9055674648) eGFR (test code = mL/min/1.73m2 1411580402) RABIA (test code = RABIA) Association of Glomerular Filtration Rate (GFR) and Staging of Kidney Disease* + + +- +| GFR (mL/min/1.73 m2) ?| With Kidney Damage ?| ?Without Kidney Damage+ ------+ ----+ ------+| ?>90 ?| ?Stage one ?| ? Normal ?+ -+ + -+| ?60-89 ?| ?Stage two ?| ? Decreased GFR ? + + +- +| ?30-59 ?| ?Stage three ?| ? Stage three ? + + +- +| ?15-29 ?| ?Stage four ? | ? Stage four ?+ -+ + -+| ?<15 (or dialysis) ? ?| ?Stage five ? | ? Stage five ?+ -+ + -+ *Each stage assumes the associated GFR level has been in effect for at least three months. ?Stages 1 to 5, with or without kidney disease, indicate chronic kidney disease. Notes: Determination of stages one and two (with eGFR >59mL/min/1.73 m2) requires estimation of kidney damage for at least three months as defined by structural or functional abnormalities of the kidney, manifested by either:Pathological abnormalities or Markers of kidney damage (including abnormalities in the composition of the blood or urine or abnormalities in imaging tests). [facility] (A1C)2021-01-16 17:39:10 Test Item Value Reference Range Interpretation Comments HGB A1C (test code = 5.4 % 4.0-5.7 4548-4) RABIA (test code = RABIA) Reference RangesNormal: <5.7%Prediabetes: 5.7 - 6.4%Diabetes: > 6.5% Lab Interpretation (test Normal code = 52138-6) [facility] (A1C)2021-01-16 17:39:10 Test Item Value Reference Range Interpretation Comments HGB A1C (test code = 5.4 % 4.0-5.7 4548-4) RABIA (test code = RABIA) Reference RangesNormal: <5.7%Prediabetes: 5.7 - 6.4%Diabetes: > 6.5% Lab Interpretation (test Normal code = 25158-0) [facility] WITH [id number] 17:14:53 Test Item Value Reference Range Interpretation Comments WBC (test code = See_Comment [Automated message] 6690-2) The system [employer] generated this result transmitted ref erence range: 4.30 - 1 1.10 10*3/?L. The re ference range was not u sed to interpret this result as normal/abnor mal. RBC (test code = See_Comment [Automated message] 789-8) The system [employer] generated this result transmitted ref erence range: 3.93 - 5 .25 10*6/?L. The re ference range was not u sed to interpret this result as normal/abnor mal. HGB (test code = 13.0 g/dL 11.6-15.0 718-7) HCT (test code = 40.3 % 35.7-45.2 4544-3) MCV (test code = 89.6 fL 80.6-95.5 787-2) MCH (test code = 28.9 pg 25.9-32.8 785-6) MCHC (test code = 32.3 g/dL 31.6-35.1 786-4) RDW-SD (test code 42.5 fL 39.0-49.9 = 37737-2) RDW-CV (test code 12.9 % 12.0-15.5 = 788-0) PLT (test code = See_Comment [Automated message] 777-3) The system whic h generated this result transmitted ref erence range: 166 - 35 8 10*3/?L. The re ference range was not u sed to interpret this result as normal/abnor mal. MPV (test code = 10.4 fL 9.5-12.9 72277-1) NRBC/100 WBC (test See_Comment [Automat ed message] code = 3105674644) The syste m which generated this result transmitted ref erence range: 0.0 - 10 .0 /100 WBCs. The refer ence range was not u sed to interpret this result as normal/abnor mal. NRBC x10^3 (test <0.01 See_Comment [Automated message] code = 7030871295) The syste m which generated this result transmitted ref erence range: 10*3/?L. The reference range was not used to interpr et this result as normal/abnormal . GRAN MAT (NEUT) % 51.9 % (test code = 770-8) IMM GRAN % (test 0.20 % code = 2179388439) LYMPH % (test code 36.7 % = 736-9) MONO % (test code 7.8 % = 5905-5) EOS % (test code = 2.7 % 713-8) BASO % (test code 0.7 % = 706-2) GRAN MAT 4.53 10*3/uL 1.88-7.09 x10^3(ANC) (test code = 5344632415) IMM GRAN x10^3 <0.03 0.00-0.06 (test code = 3125471606) LYMPH x10^3 (test 3.20 10*3/uL 1.32-3.29 code = 731-0) MONO x10^3 (test 0.68 10*3/uL 0.33-0.92 code = 742-7) EOS x10^3 (test 0.24 10*3/uL 0.03-0.39 code = 711-2) BASO x10^3 (test 0.06 10*3/uL 0.01-0.07 code = 704-7) [facility] WITH [id number] 17:14:53 Test Item Value Reference Range Interpretation Comments WBC (test code = See_Comment [Automated message] 6690-2) The system [employer] generated this result transmitted ref erence range: 4.30 - 1 1.10 10*3/?L. The re ference range was not u sed to interpret this result as normal/abnor mal. RBC (test code = See_Comment [Automated message] 519-8) The system [employer] generated this result transmitted ref erence range: 3.93 - 5 .25 10*6/?L. The re ference range was not u sed to interpret this result as normal/abnor mal. HGB (test code = 13.0 g/dL 11.6-15.0 718-7) HCT (test code = 40.3 % 35.7-45.2 4544-3) MCV (test code = 89.6 fL 80.6-95.5 787-2) MCH (test code = 28.9 pg 25.9-32.8 785-6) MCHC (test code = 32.3 g/dL 31.6-35.1 786-4) RDW-SD (test code 42.5 fL 39.0-49.9 = 52116-4) RDW-CV (test code 12.9 % 12.0-15.5 = 788-0) PLT (test code = See_Comment [Automated message] 777-3) The system [employer] generated this result transmitted ref erence range: 166 - 35 8 10*3/?L. The re ference range was not u sed to interpret this result as normal/abnor mal. MPV (test code = 10.4 fL 9.5-12.9 97975-8) NRBC/100 WBC (test See_Comment [Automat ed message] code = 0230271994) The syste m which generated this result transmitted ref erence range: 0.0 - 10 .0 /100 WBCs. The refer ence range was not u sed to interpret this result as normal/abnor mal. NRBC x10^3 (test <0.01 See_Comment [Automated message] code = 2909675142) The syste m which generated this result transmitted ref erence range: 10*3/?L. The reference range was not used to interpr et this result as normal/abnormal . GRAN MAT (NEUT) % 51.9 % (test code = 770-8) IMM GRAN % (test 0.20 % code = 3944357327) LYMPH % (test code 36.7 % = 736-9) MONO % (test code 7.8 % = 5905-5) EOS % (test code = 2.7 % 713-8) BASO % (test code 0.7 % = 706-2) GRAN MAT 4.53 10*3/uL 1.88-7.09 x10^3(ANC) (test code = 1233211734) IMM GRAN x10^3 <0.03 0.00-0.06 (test code = 4428583009) LYMPH x10^3 (test 3.20 10*3/uL 1.32-3.29 code = 731-0) MONO x10^3 (test 0.68 10*3/uL 0.33-0.92 code = 742-7) EOS x10^3 (test 0.24 10*3/uL 0.03-0.39 code = 711-2) BASO x10^3 (test 0.06 10*3/uL 0.01-0.07 code = 704-7) [facility]"
[2021-06-07 22:37] LABS: Urine Blood Negative (Negative); Urine Glucose Negative (Negative); Urine Protein Negative (Negative); Urine Specific Gravity >=1.030 (1.005-1.030); Urine pH 5.5 (5.0-7.0)
[2021-06-07] MEDS ORDERED: HYDROCODONE/APAP 5/325 MG TAB ONE ×2 (22:53→22:57)
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
[2021-06-07 23:36] LABS: Urine Specific Gravity/Preg >1.030 (1.005-1.030)
[2021-06-07 23:38] LABS: Urine Bacteria >50 /HPF (<20); Urine RBC <5 /HPF (NONE SEEN)
[2021-06-07 23:52] VITALS: BP 140/88; TEMP 98; O2SAT 100
--- NOTE | 2021-06-08 07:28 | RAD REPORT ---
EXAM DESCRIPTION: RAD - Thoracic Spine Ap/Lat - 06/07/2021 10:43 pm CLINICAL HISTORY: PAIN COMPARISON: No comparisons FINDINGS: No acute fracture. No malalignment. No significant focal degenerative changes. IMPRESSION: No acute osseous abnormality involving the thoracic spine.
--- NOTE | 2021-06-08 07:28 | RAD REPORT ---
EXAM DESCRIPTION: RAD - Lumbar Spine 3 Views - 06/07/2021 10:44 pm CLINICAL HISTORY: PAIN COMPARISON: Abdomen Pelvis W Contrast dated 12/18/2020 FINDINGS: No acute fracture. No malalignment. No significant focal degenerative changes. IMPRESSION: No acute osseous abnormality involving the lumbar spine.
== END 2021-06-07 23:47 | disposition home or self-care (01) ==
LOC: ER 19:51
DX: M54.50 Low back pain, unspecified (principal); V89.2XXA Person injured in unspecified motor-vehicle accident, traffic, initial encounter; Z88.6 Allergy status to analgesic agent
CPT/HCPCS: 72070; 72100; 81003; 81015; 81025; 87086; 87088; 99283

== ENCOUNTER 2022-04-11 18:44 | Emergency (ER) | payer BC, SELFPAY ==
--- OUTSIDE RECORDS SUMMARY | 2022-04-11 18:49 | XMS REPORT | Continuity of Care Document ---
:1995 Author Organization [facility] t Address [address] [place] [address] Care Team Providers Name Role Phone Anel Flynn Primary Care Physician EZRA WHEELER Attending Clinician Unavailable JOELLEN HART Attending Clinician Unavailable LAURA GEE Attending Clinician Unavailable Laura Gee DO Attending Clinician Anel Flynn Attending Clinician YINA BRYSON Attending Clinician Unavailable Joleen Vilchis Attending Clinician Yina Rajput Attending Clinician Joellen Hart MD Attending Clinician Pascale Arceo Attending Clinician Jerad Griffin MD Attending Clinician JERAD GRIFFIN Attending Clinician Unavailable Doctor Unassigned, [place] Attending Clinician Unavailable Ezra Wheeler MD Attending Clinician G_[place] Attending Clinician Unavailable PRATIK Attending Clinician Unavailable Vivein Attending Clinician Unavailable EZRA WHEELER Admitting Clinician Unavailable Ezra Wheeler MD Admitting Clinician [phone] [place] Admitting Clinician Unavailable PRATIK Admitting Clinician Unavailable Vivien Admitting Clinician Unavailable Payers Payer Name Policy Type Policy Number Effective Date Expiration Date [place] [employer] [place] [id number] 2020 EMPLOYEE PLAN 00:00:00 [place] - [id number] 2021 OUT OF STATE 00:00:00 [place] [id number] [facility]OM[facility]S [facility] PRO[facility] (MEDICAID) Problems Condition Condition Condition Status Onset Resolution Last Treating Co mments Source Name Details Category Date Date Treatment Clinician Date Morbid Morbid Disease Active Univers obesity obesity 2-08 [place] of with [place] mass index mass index 00 Me dical of of Branch 40.0-49.9 40.0-49.9 Disturbanc Disturbanc Disease Active U nivers e of skin e of skin 02-07 ity of sensation sensation 00:[place] Numbness Numbness Disease Active Unive rs 7-17 ity of 00:00: [place] [address] Medical Branch Acute non Acute non Disease Active Uni vers intractabl intractabl 02-07 it y of e e 00:00: [place] tension-ty tension-ty 00 Me dical pe pe Branch headache headache Obesity Obesity Disease Active Univers (BMI (BMI 01-22 ity of 30-39.9) 30-39.9) 00:00: [place] [facility] Primary Primary Disease Active Univers female female 04-22 ity of infertilit infertilit 00:[place] y [place] Oligomenor Oligomenor Disease Active U nivers lorrie lorrie 04-22 ity of 00:00: [place] [facility] Polycystic Polycystic Disease Active 2019- U nivers ovary ovary 04-22 ity of syndrome syndrome 00:00: [place] 00 Medical Branch Gynecologi Gynecologi Problem Active 2019-0 M brenden c c 9- da examinatio Examinatio 00:00: Me dical n n 00 Group Allergies, Adverse Reactions, Alerts Allergy Allergy Status Severity Reaction(s) Onset Inactive Treating Comm ents Source Name Type Date Date Clinician IBUPROFE DRUG Active Anaphylaxis Uni vers N INGREDI 7-17 ity of 00:00: [place] 00 Medical Branch NSAIDS Drug Active Anaphylaxis Unive rs (NON-MICHEAL Class 7-17 ity of ROIDAL 00:00: [place] ANTI-INF 00 Medical LAMMATOR Branch Y DRUG) Nsaids Propensi Active Anaphylaxis Uni vers (Non-Micheal ty to 7-17 ity of roidal adverse 00:00: [place] Anti-Inf reaction 00 Medica l lammator s Branch y Drug) Ibuprofe Propensi Active Anaphylaxis U nivers n ty to 7-17 ity of adverse 00:00: [place] reaction 00 Medical s Branch Nsaids Propensi Active Anaphylaxis Uni vers (Non-Micheal ty to 7-17 ity of roidal adverse 00:00: [place] Anti-Inf reaction 00 Medica l lammator s Branch y Drug) NSAIDS Drug Active High Swelling 2016-07 Univers (NON-MICHEAL Class 1-02 ity of ROIDAL 00:00: [place] ANTI-INF 00 Medical LAMMATOR Branch Y DRUG) IBUPROFE DRUG Active Swelling 2016-07 Univer s N INGREDI 02 ity of 00:00: [place] 00 Medical Branch Nsaids Drug Active Anaphylaxis 2016-07 Unive rs (Non-Micheal Allergy 1-02 ity of roidal 00:00: [place] Anti-Inf 00 Medical lammator Branch y Drug) Ibuprofe Drug Active Anaphylaxis 2016-07 Uni vers n Allergy 1-02 ity of 00:00: [place] 00 Medical Branch Nsaids Drug Active Anaphylaxis 2016-07 Unive rs (Non-Micheal Allergy 1-02 ity of roidal 00:00: [place] Anti-Inf 00 Medical lammator Branch y Drug) Motrin Allergy Active Anaphylaxis Yao gor to da substanc Medical e Group NSAIDS Allergy Active Moderate Anaphylaxis [place] (NON-MICHEAL to to severe da ROIDAL substanc Medical ANTI-INF e Group LAMMATOR Y DRUG) Social History Social Habit Start Date Stop Date Quantity Comments Source History SDOH University o f Alcohol Frequency [place] M edical Branch History SDPA University o f Alcohol Std [place] Medical Drinks Branch History [facility] o f Alcohol Binge [place] Medic al Branch Exposure to 2022-03-18 2022-03-28 Not sure University SARS-CoV-2 00:00:00 11:27:00 [facility] (event) Branch Alcohol intake 2022-03-28 2022-03-28 Current drinker Unive rsity of 00:00:00 00:00:00 of alcohol [facility] (finding) [place] Tobacco use and 2022-02-19 2022-02-19 Smokeless tobacco Un iversity of exposure 00:00:00 00:00:00 non-user [facility] Alcohol Comment 2021-03-24 2021-03-24 Socially Universit y of 00:00:00 00:00:00 [facility] Sex Assigned At [birth year] Universit y of 00:00:00 00:00:00 [facility] Smoking Status Start Date Stop Date Source Former Smoker [facility] Never smoked tobacco [facility] Medications Ordered Filled Start Stop Current Ordering Indication Dosage Frequency Signature Comments Components Source Medication Medication Date Date Medication? Clinician (SIG) Name Name ondansetron 2021- No 4mg 4 mg, Univ ers (ZOFRAN-ODT 03-28 Oral, ity of ) 17:30: 16:26 ONCE, 1 [place] disintegrat 00 :00 dose, On Medi chavo ing tablet 03/28/22 Bra nch 4 mg at 1230, Routine maalox:diph No 15mL 15 mL, Uni vers enhydrAMINE 03-28 Oral, ity of :lidocaine 17:00: 17:04 ONCE, 1 [place] as 2 % viscous 00 :00 dose, On Medi chavo 1:1:1 03/28/22 Branch (FIRST-MOUT at 1200, HWASH BLM) Routine oral suspension 15 mL ondansetron Yes [id number] 4mg Take 1 Univers 4 mg 03-28 tablet by ity of disintegrat 00:00: mouth [place] ing tablet 00 every 8 Medica l (eight) Branch hours as needed for Nausea and Vomiting (N/V). codeine-gua 0 2021- Yes [id number] 5mL Take 5 mL Univers ifenesin 02-19 by mouth ity of 10-100 mg/5 00:00: 04:59 every 6 [place] mL oral 00 :00 (six) Medical solution hours as Branch needed for Cough for up to 7 days. Indication s: acute pain codeine-gua 2021- Yes [id number] 5mL Take 5 mL Univers ifenesin 02-1906 by mouth ity of 10-100 mg/5 00:00: 04:59 every 6 [place] mL oral 00 :00 (six) Medical solution hours as Branch needed for Cough for up to 7 days. Indication s: acute pain multivit-mi 0 Yes Take by Uni vers n/ascorbic/ 6-30 mouth. ity of herb 124 09:28: [place] (AIRBORNE 20 Medical NATURAL Branch ENERGY ORAL) multivit-mi Yes Take by Uni vers n/ascorbic/ 6-30 mouth. ity of herb 124 09:28: [place] (AIRBORNE 20 Medical NATURAL Branch ENERGY ORAL) multivit-mi 2021-0 Yes Take by Uni vers n/ascorbic/ 6-30 mouth. ity of herb 124 09:28: [place] (AIRBORNE 20 Medical NATURAL Branch ENERGY ORAL) multivit-mi 0 Yes Take by Uni vers n/ascorbic/ 6-30 mouth. ity of herb 124 09:28: [place] (AIRBORNE 20 Medical NATURAL Branch ENERGY ORAL) multivit-mi Yes Take by Uni vers n/ascorbic/ 6-30 mouth. ity of herb 124 09:28: [place] (AIRBORNE 20 Medical NATURAL Branch ENERGY ORAL) multivit-mi 2021-0 Yes Take by Uni vers n/ascorbic/ 6-30 mouth. ity of herb 124 09:28: [place] (AIRBORNE 20 Medical NATURAL Branch ENERGY ORAL) omeprazole 0 Yes [id number] 40mg Take 1 Univers 40 mg 6-30 capsule by ity of capsule 00:00: mouth [place] 00 daily. Medical Branch omeprazole 2021-0 Yes [id number] 40mg Take 1 Univers 40 mg 6-30 capsule by ity of capsule 00:00: mouth [place] 00 daily. Medical Branch omeprazole 2021-0 Yes [id number] 40mg Take 1 Univers 40 mg 6-30 capsule by ity of capsule 00:00: mouth [place] 00 daily. Medical Branch omeprazole Yes [id number] 40mg Take 1 Univers 40 mg 6-30 capsule by ity of capsule 00:00: mouth [place] 00 daily. Medical Branch omeprazole Yes [id number] 40mg Take 1 Univers 40 mg 6-30 capsule by ity of capsule 00:00: mouth [place] 00 daily. Medical Branch omeprazole Yes [id number] 40mg Take 1 Univers 40 mg 6-30 capsule by ity of capsule 00:00: mouth [place] 00 daily. Medical Branch linaCLOtide 2021- Yes [id number] 72ug Take 1 Univers (LINZESS) 6-23 04- capsule by ity of 72 mcg Cap 00:00: 04:59 mouth [place] 00 :00 daily for Medical 90 days. Branch linaCLOtide 2021- Yes [id number] 72ug Take 1 Univers (LINZESS) 6-23 04- capsule by ity of 72 mcg Cap 00:00: 04:59 mouth [place] 00 :00 daily for Medical 90 days. Branch linaCLOtide 2021- Yes [id number] 72ug Take 1 Univers (LINZESS) 6-23 04- capsule by ity of 72 mcg Cap 00:00: 04:59 mouth [place] 00 :00 daily for Medical 90 days. Branch linaCLOtide 2021- Yes [id number] 72ug Take 1 Univers (LINZESS) 6-23 04- capsule by ity of 72 mcg Cap 00:00: 04:59 mouth [place] 00 :00 daily for Medical 90 days. Branch linaCLOtide 2021- Yes [id number] 72ug Take 1 Univers (LINZESS) 6-30 - capsule by ity of 72 mcg Cap 00:00: 04:59 mouth [place] 00 :00 daily for Medical 90 days. Branch linaCLOtide 2021- Yes [id number] 72ug Take 1 Univers (LINZESS) 6-30 - capsule by ity of 72 mcg Cap 00:00: 04:59 mouth [place] 00 :00 daily for Medical 90 days. Branch PNV WITH Yes Take by [facility] [place] [facility] s CA8/IRON/FA 5-21 mouth. ity of /LMEFOLATE 13:03: [place] (PNV-IRON 07 Medical ORAL) Branch PNV WITH 2021-0 Yes Take by [facility] [place] [facility] s CA8/IRON/FA 5-21 mouth. ity of /LMEFOLATE 13:03: [place] (PNV-IRON 07 Medical ORAL) Branch PNV WITH 2021-0 Yes Take by [facility] [place] [facility] s CA8/IRON/FA 5-21 mouth. ity of /LMEFOLATE 13:03: [place] (PNV-IRON 07 Medical ORAL) Branch V WITH 2021-0 Yes Take by [facility] [place] [facility] s CA8/IRON/FA 5-21 mouth. ity of /LMEFOLATE 13:03: [place] (PNV-IRON 07 Medical ORAL) Branch [facility] WITH 2021-0 Yes Take by [facility] [place] [facility] s CA8/IRON/FA 5-21 mouth. ity of /LMEFOLATE 13:03: [place] (V-IRON 07 Medical ORAL) Branch [facility] WITH 2021-0 Yes Take by [facility] CA8/IRON/FA 5-21 mouth. ity of /LMEFOLATE 13:03: [place] (PNV-IRON 07 Medical ORAL) Branch metFORMIN 2021-0 Yes metformin Uni vers 500 mg 5-05 500 mg ity of tablet 12:34: tablet [place] [id number] Take 1 Medical tablet Branch twice a day by oral route. metFORMIN 2021-0 Yes metformin Uni vers 500 mg 5-05 500 mg ity of tablet 12:34: tablet [place] [id number] Take 1 Medical tablet Branch twice a day by oral route. metFORMIN 0 Yes metformin Uni vers 500 mg 5-05 500 mg ity of tablet 12:34: tablet [place] 58 Take 1 Medical tablet Branch twice a day by oral route. metFORMIN 2021-0 Yes metformin Uni vers 500 mg 5-05 500 mg ity of tablet 12:34: tablet [place] 58 Take 1 Medical tablet Branch twice a day by oral route. metFORMIN 2021-0 Yes metformin Uni vers 500 mg 5-05 500 mg ity of tablet 12:34: tablet [place] 58 Take 1 Medical tablet Branch twice a day by oral route. metFORMIN 2021-0 Yes metformin Uni vers 500 mg 5-05 500 mg ity of tablet 12:34: tablet [place] 58 Take 1 Medical tablet Branch twice a day by oral route. peg-electro 2022-0 Yes [id number] Take as Univers lyte soln 5-05 directed ity of 236-22.74-6 00:00: before [place] .74 -5.86 00 colonoscop Medi chavo gram y Branch solution peg-electro 2021-0 Yes [id number] Take as Univers lyte soln 5-05 directed ity of 236-22.74-6 00:00: [place] .74 -5.86 00 colonoscop Medi chavo gram y Branch solution peg-electro 0 Yes [id number] Take as Univers lyte soln 5-05 directed ity of 236-22.74-6 00:00: before [place] .74 -5.86 00 colonoscop Medi chavo gram y Branch solution peg-electro 0 Yes [id number] Take as Univers lyte soln 5-05 directed ity of 236-22.74-6 00:00: before [place] .74 -5.86 00 colonoscop Medi chavo gram y Branch solution peg-electro 0 Yes [id number] Take as Univers lyte soln 5-05 directed ity of 236-22.74-6 00:00: before [place] .74 -5.86 00 colonoscop Medi chavo gram y Branch solution peg-electro 2021-0 Yes [id number] Take as Univers lyte soln 5-05 directed ity of 236-22.74-6 00:00: before [place] .74 -5.86 00 colonoscop Medi chavo gram y Branch solution omeprazole 2021-2021- No [id number] 40mg Take 1 Univers 40 mg 5-05 06-30 capsule by ity of capsule 00:00: 00:00 mouth [place] 00 :00 daily for Medical 90 days. Branch omeprazole 2021- No [id number] 40mg Take 1 Univers 40 mg 5-05 06-30 capsule by ity of capsule 00:00: 00:00 mouth [place] 00 :00 daily for Medical 90 days. Branch dicyclomine Yes [id number] 20mg Take 1 Univers 20 mg 3-12 tablet by ity of tablet 00:00: mouth 4 [place] 00 (four) Medical times Branch daily. dicyclomine Yes [id number] 20mg Take 1 Univers 20 mg 3-12 tablet by ity of tablet 00:00: mouth 4 00 (four) Medical times Branch daily. dicyclomine 2022-0 Yes [id number] 20mg Take 1 Univers 20 mg 3-12 tablet by ity of tablet 00:00: mouth 4 (four) Medical times Branch daily. dicyclomine 2022-0 Yes [id number] 20mg Take 1 Univers 20 mg 3-12 tablet by ity of tablet 00:00: mouth 4 (four) Medical times Branch daily. dicyclomine 2022-0 Yes [id number] 20mg Take 1 Univers 20 mg 3-12 tablet by ity of tablet 00:00: mouth 4 00 (four) Medical times Branch daily. dicyclomine 2022-0 Yes [id number] 20mg Take 1 Univers 20 mg 3-12 tablet by ity of tablet 00:00: mouth 4 (four) Medical times Branch daily. medroxyPROG 2022-0 Yes [id number] 10mg Take 1 Univers ESTERone 2-08 tablet by ity of (PROVERA) 00:00: mouth [place] 10 mg 00 daily. Medical tablet Branch medroxyPROG 2022-0 Yes [id number] 10mg Take 1 Univers ESTERone 2-08 tablet by ity of (PROVERA) 00:00: mouth [place] 10 mg 00 daily. Medical tablet Branch medroxyPROG 2022-0 Yes [id number] 10mg Take 1 Univers ESTERone 2-08 tablet by ity of (PROVERA) 00:00: mouth [place] 10 mg 00 daily. Medical tablet Branch medroxyPROG 2022-0 Yes [id number] 10mg Take 1 Univers ESTERone 2-08 tablet by ity of (PROVERA) 00:00: mouth [place] 10 mg 00 daily. Medical tablet Branch medroxyPROG 2022-0 Yes [id number] 10mg Take 1 Univers ESTERone 2-08 tablet by ity of (PROVERA) 00:00: mouth [place] 10 mg 00 daily. Medical tablet Branch medroxyPROG 2022-0 Yes [id number] 10mg Take 1 Univers ESTERone 2-08 tablet by ity of (PROVERA) 00:00: mouth [place] 10 mg 00 daily. Medical tablet Branch amitriptyli 2021-0 Yes [id number] 25mg Take 1 Univers ne 25 mg 8-27 tablet by ity of tablet 00:00: mouth at [place] 00 bedtime. Medical Branch amitriptyli Yes [id number] 25mg Take 1 Univers ne 25 mg 8-27 tablet by ity of tablet 00:00: mouth at [place] [address] bedtime. Medical Branch amitriptyli Yes [id number] 25mg Take 1 Univers ne 25 mg 8-27 tablet by ity of tablet 00:00: mouth at [place] [address] bedtime. Medical Branch amitriptyli Yes [id number] 25mg Take 1 Univers ne 25 mg 8-27 tablet by ity of tablet 00:00: mouth at [place] [address] bedtime. Medical Branch amitriptyli Yes [id number] 25mg Take 1 Univers ne 25 mg 8-27 tablet by ity of tablet 00:00: mouth at [place] [address] bedtime. Medical Branch amitriptyli Yes [id number] 25mg Take 1 Univers ne 25 mg 8-27 tablet by ity of tablet 00:00: mouth at [place] [address] bedtime. Medical Branch cyanocobala 2020- No 1000ug 1,000 mcg, Univers min 02-08 Intramuscu ity of (VITAMIN 18:43: 19:46 [place], ONCE, [place] B12) 00 :00 1 dose, Medical injection [facility] 1,000 mcg 02/08/21 at 1345, Routine acetaminoph Yes 650mg 650 mg, Un celestino en 02-08 Oral, ity of (TYLENOL) 12:44: Q6HPRN, [place] tablet 650 15 Starting Medic al mg Massiel Peters 02/08/21 at 0744, Until Discontinu ed, Routine, Pain (scale 1-3), Pain (scale 4-6), pain 1-10 gadobenate 2020- No [id number] .2mL/kg 19.8 mL Univers dimeglumine 02-08 (0.2 mL/kg i ty of (MULTIHANCE 10:33: 10:45 ?99 kg), [place] -20 mL) 00 :00 Intravenou Medica l injection s, ONCE, 1 Bran ch 19.8 mL dose, [place] 02/08/21 at 0545, Routine LORazepam 2020- No 1mg 1 mg, Univer s (ATIVAN) 18 07-18 Oral, ity of tablet 1 mg 06:00: 09:11 ONCE, 1 [place] 00 :00 dose, [facility] 02/08/21 at Branch 0100, Routine glucagon 2020-0 Yes 1mg 1 mg, Univers (GLUCAGEN 02-08 Intramuscu ity of DIAGNOSTIC 01:45: lar, PRN, [place] KIT) 14 Starting Medical injection 1 Sat [facility] 02/07/21 at 2044, Until Discontinu ed, MIRANDA, Blood Glucose < or = 70 mg/dL and patient is unable to swallow or has mental changes. dextrose 50 2020-0 Yes 25mL 25 mL, Univ ers % in water 02-08 Slow IV ity of (D50W) 01:45: Push, PRN, [place] injection 14 Starting Medica l 25 mL [facility] 02/07/21 at 2044, Until Discontinu ed, MIRANDA, Blood Glucose < or = 70 mg/dL and patient is unable to swallow or has mental status changes. magnesium 2020-0 Yes [id number] 400mg Take 1 U nivers oxide 400 7-18 tablet by ity o f mg (241.3 00:00: mouth [place] mg 00 daily. Medical magnesium) Branch tablet vitamin 2020-0 Yes [id number] 1000ug Take 1 Un celestino B-12 1,000 7-18 tablet by ity of mcg tablet 00:00: mouth [place] 00 daily. [facility] Branch magnesium 2020-0 Yes [id number] 400mg Take 1 U nivers oxide 400 7-18 tablet by ity o f mg (241.3 00:00: mouth [place] mg 00 daily. Medical magnesium) Branch tablet vitamin 2020-0 Yes [id number] 1000ug Take 1 Un celestino B-12 1,000 7-18 tablet by ity of mcg tablet 00:00: mouth [place] 00 daily. [facility] Branch magnesium 2020-0 Yes [id number] 400mg Take 1 U nivers oxide 400 7-18 tablet by ity o f mg (241.3 00:00: mouth [place] mg 00 daily. Medical magnesium) Branch tablet vitamin 2020-0 Yes [id number] 1000ug Take 1 Un celestino B-12 1,000 7-18 tablet by ity of mcg tablet 00:00: mouth [place] 00 daily. Medical Branch magnesium Yes [id number] 400mg Take 1 U nivers oxide 400 -18 tablet by ity o f mg (241.3 00:00: mouth [place] mg 00 daily. Medical magnesium) Branch tablet vitamin Yes [id number] 1000ug Take 1 Un celestino B-12 1,000 -18 tablet by ity of mcg tablet 00:00: mouth [place] 00 daily. Medical Branch magnesium 2020- No 2g 2 g, IV Univ ers sulfate in 02-07 Piggyback, it y of water 2 16:51: 17:00 ONCE, 1 [place] gram/50 mL 00 :00 dose, [facility] Medi chavo (4 %) 02/07/21 at [place] infusion 2 1200, g Routine famotidine Yes 20mg 20 mg, Unive rs (PEPCID AC) 02-07 Oral, BID, it y of tablet 20 13:00: First dose [place] mg 00 on [facility] 02/07/21 at Branch 0800, Until Discontinu ed, Routine heparin Yes 5000U 5,000 Univers (porcine) 02-07 Units, ity of injection 13:00: Subcutaneo [place] 5,000 Units 00 us, Q12H, Med ical First dose Branch on [facility] 02/07/21 at 0800, Until Discontinu ed, Routine ondansetron Yes 4mg 4 mg, Slow Univers (ZOFRAN 02-07 IV Push, ity of (PF)) 10:47: Q6HPRN, [place] injection 4 30 Starting Medi chavo mg [facility] 02/07/21 at 0547, Until Discontinu ed, Routine, Nausea and Vomiting (N/V) acetaminoph 2020- No 500mg 500 mg, U nivers en 02-07 Oral, ity of (TYLENOL) 10:47: 12:45 Q6HPRN, [place] tablet 500 00 :19 Starting Medic al mg [facility] 02/07/21 at 0547, Until 02/08/21 at 0745, Routine, Pain (scale 1-3), Pain (scale 4-6) metformin metformin No 1 BID metformin [place] [...] Immunizations Ordered Filled Immunization Date Status Comments [facility] Immunization Name Name Influenza Virus 2020 Completed Universit y of Vaccine 00:00:00 [facility] Influenza Virus 2020 Completed Universit y of Vaccine 00:00:00 [facility] Influenza Virus 2020 Completed Universit y of Vaccine 00:00:00 [facility] Influenza Virus 2020 Completed Universit y of Vaccine 00:00:00 [facility] Influenza Virus 2020 Completed Universit y of Vaccine 00:00:00 [facility] Influenza Virus 2020 Completed Universit y of Vaccine 00:00:00 [facility] TDAP 2017-12-23 Completed University of 00:00:00 [facility] TDAP 2017-12-23 Completed University of 00:00:00 [facility] TDAP 2017-12-23 Completed University of 00:00:00 [facility] TDAP 2017-12-23 Completed University of 00:00:00 [facility] TDAP 2017-12-23 Completed University of 00:00:00 [facility] TDAP 2017-12-23 Completed University of 00:00:00 [facility] Vital Signs Vital Name Observation Time Observation Value Comments Source Systolic blood 2022-03-28 17:30:00 138 mm[Hg] Univer sity of pressure [facility] Diastolic blood 2022-03-28 17:30:00 85 mm[Hg] Unive rsity of pressure [facility] Heart rate 2022-03-28 17:30:00 85 /min Universi ty of [facility] Respiratory rate 2022-03-28 17:30:00 14 /min Univ ersity [facility] [place] [facility] Oxygen saturation in 2022-03-28 17:30:00 99 /min [facility] Arterial blood by [facility] Pulse oximetry Branch Body temperature 2022-03-28 16:20:00 36.39 Bre Univ ersity of [place] [facility] Body weight 2022-03-28 16:20:00 102.059 kg Universi ty of [place] [facility] BMI 2022-03-28 16:20:00 41.15 kg/m2 Universi ty of [place] [facility] Systolic blood 2022-02-20 01:15:00 129 mm[Hg] Univer sity of pressure [place] [facility] Diastolic blood 2022-02-20 01:15:00 89 mm[Hg] Unive rsity of pressure [facility] Branch Heart rate 2022-02-20 01:15:00 78 /min Universi ty of [place] [facility] Body temperature 2022-02-20 01:15:00 36.5 Bre Univ ersity of [facility] Branch Respiratory rate 2022-02-20 01:15:00 16 /min Univ ersity of [place] [facility] Body height 2022-02-20 01:15:00 157.5 cm Universi ty of [place] Medical [place] Body weight 2022-02-20 01:15:00 105.461 kg Universi ty of [place] [facility] BMI 2022-02-20 01:15:00 42.52 kg/m2 Universi ty of [facility] Branch Oxygen saturation in 2022-02-20 01:15:00 97 /min University of Arterial blood by [facility] Pulse oximetry Branch Systolic blood 2022-01-21 14:27:00 119 mm[Hg] Univer sity of pressure [place] [facility] Diastolic blood 2022-01-21 14:27:00 89 mm[Hg] Unive rsity of pressure [facility] Branch Heart rate 2022-01-21 14:27:00 90 /min Universi ty of [place] [facility] Body temperature 2022-01-21 14:27:00 36.56 Bre Univ ersity of [facility] Branch Respiratory rate 2022-01-21 14:27:00 16 /min Univ ersity of [facility] Branch Body height 2022-01-21 14:27:00 157.5 cm Universi ty of [place] [facility] Body weight 2022-01-21 14:27:00 104.418 kg Universi ty of [place] [facility] BMI 2022-01-21 14:27:00 42.10 kg/m2 Universi ty of [facility] Branch Systolic blood 2021-02-08 16:18:00 103 mm[Hg] Cherie ndiaye of [facility] Diastolic blood 2021-02-08 16:18:00 50 mm[Hg] [facility] 2021-02-08 16:18:00 63 /min [facility] Body temperature 2021-02-08 16:18:00 36.22 Bre [facility] Respiratory rate 2021-02-08 16:18:00 18 /min [facility] Oxygen saturation in 2021-02-08 16:18:00 100 /min [facility] Arterial blood by [facility] Pulse oximetry Branch Body weight 2021-02-07 09:25:00 99.02 kg [facility] BP Diastolic 2020-04-22 00:00:00 93 mm[Hg] [place] [facility] Height 2020-04-22 00:00:00 62 [in_i] [facility] BMI (Body Mass 2020-04-22 00:00:00 41 kg/m2 [facility] 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 Name Medical [place] EXTERNAL PROVIDER RECORDS 2021-02-17 05:01:00 Doctor Des[facility] [place] [facility] [place] MR ANGIOGRAM NECK W WO 2021-02-08 10:56:14 [facility] MR VENOGRAM HEAD WO 2021-02-08 10:27:46 Kellee Nam [facility] CONTRAST Medical Branch MR ANGIOGRAM HEAD WO 2021-02-08 10:26:56 Kellee Nam [facility] CONTRAST [facility] MR CERVICAL SPINE WO 2021-02-08 09:53:23 Luis Vega [facility] CONTRAST [facility] MR STROKE BRAIN WO 2021-02-07 12:40:45 Patricia Panda [facility] CONTRAST [facility] MAGNESIUM 2021-02-07 11:17:00 [facility] VITAMIN B12, LEVEL 2021-02-07 11:17:00 Gen Bruno [facility] THYROID STIMULATING 2021-02-07 11:17:00 Patricia Panda [facility] HORMONE [facility] BASIC METABOLIC PANEL (NA, 2021-02-07 11:17:00 [facility] K, CL, CO2, GLUCOSE, BUN, [facility] l Branch CREATININE, CA) CBC WITH DIFF 2021-02-07 11:17:00 [facility] 2019-01-31 00:00:00 [facility] Extraction of [place] [facility] Remove Tonsils and [facility]en[facility] Plan of Care Planned Activity Planned Date Details Comments Source Diagnostic Test 2020-04-22 urinalysis, [facility] Pending 00:00:00 dipstick [code = Group urinalysis, dipstick] Diagnostic Test 2020-04-22 pap, LB + [facility]/NG/[facility] infrastructure technician Medical Pending 00:00:00 + reflex HR HPV Group [code = pap, LB + CT/NG/TV + reflex HR HPV] Diagnostic Test 2020-04-22 test, [facility] Pending 00:00:00 urine [code = Group test, urine] Diagnostic Test 2020-04-22 beta-HCG, [facility] Pending 00:00:00 quantitative, serum Group or plasma [code = beta-HCG, quantitative, serum or plasma] Encounters Start End Encounter Admission Attending Care Care Encounter Source Date/Time Date/Time Type Type Clinicians Facility Department ID 2021-02-07 Inpatient U CORBIN [facility] [id number] Univers 04:14[facility] 2022-09-03 [id number] Univers 09:30:00 09:30:00 JOELLEN [id number] [facility] 2022-03-28 2022-03-28 Emergency X [facility] ERT [id number] Univers 11:21:00 12:35:00 LAURA [facility] 2022-03-28 2022-03-28 [facility] 1.2.840.114 [id number] Univers 11:21:00 12:35:00 Laura Keyes [place] 350.1.13.10 ity [facility] 4.2.7.2.686 [place] [facility] [phone] [address] 2022-02-24 2022-02-24 [facility] 1..840.114 [id number] Univers 00:00:00 00:00:00 Secure [facility] [id number] ity [facility] 4.2.7.2.686 Renaldo as MELISSA?BLEA [id number] Sd cirilo [facility] [address] [place] MEDICAL OFFICE [facility] 2022-02-19 2022-02-19 [facility] [id number] Univers 20:00:00 20:51:59 YINA alvarez o f [facility] 2022-02-19 2022-02-19 Urgent Joleen Morejon [facility] ..840.114 [id number] Univers 20:00:00 20:20:00 Yina Chamorro [facility] 350.1.13.10 ity of [place] 4.2.7.2.686 Renaldo as MELISSA?BLEA [phone] Sd cirilo [facility] [address] [place] MEDICAL OFFICE BUILDING 2022-02-19 2022-02-19 Outpatient R [facility] [id number] Univers 20:00:00 20:00:00 [id number] [facility] 2022-02-09 2022-02-09 [facility] 1..840.114 [id number] Univers 00:00:00 00:00:00 Secure Msg Joellen ARCE 350.1.13.10 ity of [place].2.[place] [id number] Sd dical [facility] [address] BUILDING 2022-01-21 2022-01-21 Office Salvador KODY [id number] Univers 09:00:00 09:30:00 Visit Pascale Y HEALTH 350.1.13.10 i ty of CL[place].2.[place] [id number] [facility] [address] Branch 2021-03-17 2021-03-17 [facility] 1.2.774.641 [id number] Univers 08:00:00 23:59:00 Encounter [facility] 350.1.13.10 ity [place] [phone] [facility] [address] [place] Office Building 2021-03-17 2021-03-17 Outpatient R [facility] [id number] Univers 08:00:00 08:00:00 JERAD ity of [facility] 2021-03-17 2021-03-17 Orders Doctor ALBINA 1.2.840.114 [id number] Univers 00:00:00 00:00:00 Only Unassigned, MATT 350.1.13.10 ity of [place] H[facility]PITAL 4.2.7.2.686 Renaldo as [phone] [facility] [address] [place] 2021-02-17 2021-02-17 Orders Doctor ALBINA 1.2.840.114 [id number] Univers 00:00:00 00:00:00 Only Unassigned, MATT 350.1.13.10 ity of [place] HOSPITAL 4.2.7.2.686 Renaldo as [phone] [facility] [address] [place] 2021-02-07 2021-02-08 Hospital Petrona [facility] 1.2.840.114 [id number] Univers 04:14:00 17:51:00 Encounter Ezra [place] 350.1.13.10 ity of [facility] 4.2.7.2.686 [place] a [id number] [facility] [address] [place] 2021-01-29 2021-01-29 [facility] 1.2.840.114 [id number] 15:58:54 23:59:00 Encounter Joellen Arce 350.1.13.10 [place] 4.2.7.2.686 [place] [id number] 2021-01-29 2021-01-29 Orders Doctor ALBINA 1.2.840.114 [id number] 00:00:00 00:00:00 Only Unassigned, MATT 350.1.13.10 [place] [facility] 4.2.7.2.686 [id number] 2021-01-23 2021-01-23 Telephone [facility] [id number] 00:00:00 00:00:00 Joellen Arce 350.1.13.10 [place] 4.2.7.2.686 [facility] [id number] [address] 2020-11-24 2020-11-24 Outpatient G_Pappas [facility] [id number] [place] 04:18:00 04:18:00 0503 [facility] 2020-07-10 2020-07-10 Outpatient G_Pappas [facility] [id number] [place] 02:18:00 02:18:00 1217 [facility] 2020-06-27 2020-06-27 Outpatient [facility] [id number] [place] 06:16:00 06:16:00 TRISTEN 85419 da [facility] Program 2020-06-11 2020-06-11 Outpatient V_Landis [facility] [id number] [place] 02:25:00 02:25:00 1118 [facility] 2020-04-22 2020-04-22 Outpatient V_Landis [facility] [id number] [place] 07:01:00 07:01:00 0929 [facility] 2020-04-22 2020-04-22 Debbie Oseguera [facility] [place] - [id number] [place] 00:00:00 00:00:00 Discovery Rick da WHNP: [address] [facility] [address], [place] [address] , Ph. [phone] 2020-04-21 2020-04-21 Outpatient Dago_Rick MMTorie [facility] [id number] [place] 03:52:00 03:52:00 0928 Medical Group Results Test Description Test Time Test Comments Results Result Comments Source POCT TEST 2022-03-28 16:29:00 Test Item Value Reference Range Interpretation Comme nts POCT PREG (test code = 1605) negative On board controls acceptable with C Line (test code = 3574) present POCT PREG LOT # (test code = 3575) [id number] POCT PREG TEST DATE (test code = 3576) 06/23/2023 Lab Interpretation (test code = 21733-7) Normal [facility], [id number] 18:13:43 Test Item Value Reference Range Interpretation Comments VIT B12 (test code = 239 pg/mL 240-930 L [id number]) RABIA (test code = RABIA) Biotin has been reported to cause a positive bias, interpret results relative to patient's use of biotin. Lab Interpretation (test Abnormal code = 02769-2) [facility]18 15:05:18 Test Item Value Reference Range Interpretation Comments MAGNESIUM (test code = 2240221457) 2.1 mg/dL 1.7-2.4 Lab Interpretation (test code = Normal 65173-6) [facility] C[facility] SPINE WO [id number] 15:01:17 Unremarkable MRA head. No significant abnormalities [...] was performedwithout IV contrast. MRA of the neck was performed with IV contrast COMPARISON:None. FINDINGS: MRI cervical spine: There is straig htening of the normal cervical lordosis. The vertebral bodyheights are preserved. No acute fracturesare seen. The cervical spinal cord demonstrates normal signal intensity. Nodegenerative changes, spinal canal stenosis. MR ANGIOGRAPHY OF THE [place]: The PICA origin is visualized on the left. An AICA/PICA is suspected on theright. The basilar artery is normal in caliber. The superior cerebellararteries are unremarkable. The posterior cerebral arteries areunremarkable. No sizable posterior communicating artery. The distal cervical, petrous, cavernous and [...] was performedwithout IV contrast. MRA of the ne ck was performed with IV contrastCOMPARISON:None.FINDINGS:MRI cervical spine:There is straightening of the normal cervical lordosis. The vertebral bodyheights are preserved. No acute fractures are seen.The cervical spinal cord demonstrates normal signal intensity. Nodegenerative changes, spinal canal s tenosis.MR ANGIOGRAPHY OF THE [place]:The PICA origin is visualized on the left. An AICA/PICA is suspected on theright. The basilar artery is normal in caliber. The superior cerebellararteriesare unremarkable. The posterior cerebral arteries areunremarkable. No sizable posterior communicating artery.The distal cervical, petrous, cavernous and supraclinoid internal carotidarteries are unremarkable. The anterior and middle cerebral arteries areunremarkable. 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 The vessels originating arthropathy.Normalappearance of the common carotid and cervical internal [...] right vertebral artery origin is not clearly identifieddue toartifact. The visualized right vertebral artery demonstrates noabnormality. The MRA neck is otherwise unremarkable.No evidence of venous sinus thrombosis.[facility] HEAD WO CONTRAST 2021-02-08 15:01:17 [...] was performedwithout IV contrast. MRA of the neck was performed with IV contrast COMPARISON:None. FINDINGS: MRI cervical spine: There is straightening of the normal cervical lordosis. The vertebral bodyheights are preserved. No acute fracturesare seen. The cervical spinal cord demonstrates normal signal intensity. Nodegenerative changes, spinal canal stenosis. MR ANGIOGRAPHY OF [place]: The PICA origin is visualized on the left. An AICA/PICA is suspected on theright. The basilar artery is normal in caliber. The superior cerebellararteries are unremarkable. The posterior cerebral arteries areunremarkable. No sizable posterior communicating artery. The distal cervical, petrous, cavernous and [...] was performedwithout IV contrast. MRA of the ne ck was performed with IV contrastCOMPARISON:None.FINDINGS:MRI cervical spine:There is straightening of the normal cervical lordosis. The vertebral bodyheights are preserved. No acute fractures are seen.The cervical spinal cord demonstrates normal signal intensity. Nodegenerative changes, spinal canal s tenosis.MR ANGIOGRAPHY OF THE [place]:The PICA origin is visualized on the left. An AICA/PICA is suspected on theright. The basilar artery is normal in caliber. The superior cerebellararteriesare unremarkable. The posterior cerebral arteries areunremarkable. No sizable posterior communicating artery.The distal cervical, petrous, cavernous and supraclinoid internal carotidarteries are unremarkable. The anterior and middle cerebral arteries areunremarkable. 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 The vessels originating arthropathy.Normalappearance of the common carotid and cervical internal [...] right vertebral artery origin is not clearly identifieddue toartifact. The visualized right vertebral artery demonstrates noabnormality. The MRA neck is otherwise unremarkable.No evidence of venous sinus thrombosis.[facility] HEAD WO CONTRAST 2021-02-08 15:01:17 [...] was performedwithout IV contrast. MRA of the neck was performed with IV contrast COMPARISON:None. FINDINGS: MRI cervical spine: There is straightening of the normal cervical lordosis. The vertebral bodyheights are preserved. No acute fracturesare seen. The cervical spinal cord demonstrates normal signal intensity. Nodegenerative changes, spinal canal stenosis. MR ANGIOGRAPHY OF [place]: The PICA origin is visualized on the left. An AICA/PICA is suspected on theright. The basilar artery is normal in caliber. The superior cerebellararteries are unremarkable. The posterior cerebral arteries areunremarkable. No sizable posterior communicating artery. The distal cervical, petrous, cavernous and [...] are otherwise patent without evidence of venousthrombosis. Lamb, Radiant Results Inft User - 02/08/2021 10:02 AM CDT HISTORY:left sided weakness TECHNIQUE: MRI of the cervical spine was performed without IV contrast. MRAof the head was performed without IV contrast. MR venogram was performedwithout IV contrast. MRA of the ne ck was performed with IV contrastCOMPARISON:None.FINDINGS:MRI cervical spine:There is straightening of the normal cervical lordosis. The vertebral bodyheights are preserved. No acute fractures are seen.The cervical spinal cord demonstrates normal signal intensity. Nodegenerative changes, spinal canal s tenosis.MR ANGIOGRAPHY OF THE [place]:The PICA origin is visualized on the left. An AICA/PICA is suspected on theright. The basilar artery is normal in caliber. The superior cerebellararteriesare unremarkable. The posterior cerebral arteries areunremarkable. No sizable posterior communicating artery.The distal cervical, petrous, cavernous and supraclinoid internal carotidarteries are unremarkable. The anterior and middle cerebral arteries areunremarkable. 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 The vessels originating arthropathy.Normalappearance of the common carotid and cervical internal [...] right vertebral artery origin is not clearly identifieddue toartifact. The visualized right vertebral artery demonstrates noabnormality. The MRA neck is otherwise unremarkable.No evidence of venous sinus thrombosis.[facility] NECK W WO [id number] 15:01:17 Unremarkable MRA head. No significant abnormalities [...] was performedwithout IV contrast. MRA of the neck was performed with IV contrast COMPARISON:None. FINDINGS: MRI cervical spine: There is straightening of the normal cervical lordosis. The vertebral bodyheights are preserved. No acute fracturesare seen. The cervical spinal cord demonstrates normal signal intensity. Nodegenerative changes, spinal canal stenosis. MR ANGIOGRAPHY OF THE [place]: The PICA origin is visualized on the left. An AICA/PICA is suspected on theright. The basilar artery is normal in caliber. The superior cerebellararteries are unremarkable. The posterior cerebral arteries areunremarkable. No sizable posterior communicating artery. The distal cervical, petrous, cavernous and [...] was performedwithout IV contrast. MRA of the ne ck was performed with IV contrastCOMPARISON:None.FINDINGS:MRI cervical spine:There is straightening of the normal cervical lordosis. The vertebral bodyheights are preserved. No acute fractures are seen.The cervical spinal cord demonstrates normal signal intensity. Nodegenerative changes, spinal canal s tenosis.MR ANGIOGRAPHY OF THE [place]:The PICA origin is visualized on the left. An AICA/PICA is suspected on theright. The basilar artery is normal in caliber. The superior cerebellararteriesare unremarkable. The posterior cerebral arteries areunremarkable. No sizable posterior communicating artery.The distal cervical, petrous, cavernous and supraclinoid internal carotidarteries are unremarkable. The anterior and middle cerebral arteries areunremarkable. 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 The vessels originating arthropathy.Normalappearance of the common carotid and cervical internal [...] right vertebral artery origin is not clearly identifieddue toartifact. The visualized right vertebral artery demonstrates noabnormality. The MRA neck is otherwise unremarkable.No evidence of venous sinus thrombosis.[facility] Hospital[facility]orm[facility] 2021-02-07 22:45:37 Test Item Value Reference Range Interpretation Comments TSH (test code = See_Comment [Automated message] [id number]) The system SkyJam generated this result transmitted ref erence range: 0.45 - 4 .70 mIU/L. The refe rence range was not u sed to interpret this result as normal/abnor mal. Lab Interpretation (test Normal code = 35465-9) [facility] METABOLIC PANEL (NA, K, CL, CO2, GLUCOSE, BUN, CREATININE, CA)2021-02-07 22:28:15 Test Item Value Reference Range Interpretation Comments NA (test code = 142 mmol/L 135-145 3107831745) K (test code = 3.7 mmol/L 3.5-5.0 7730018460) CL (test code = 111 mmol/L 98-108 H 1101080190) CO2 TOTAL (test code = 19 mmol/L 23-31 L 0782434946) AGAP (test code = 2-16 4456929326) BUN (test code = 11 mg/dL 7-23 2770194727) GLUCOSE (test code = 47 mg/dL 70-110 LL 3058209621) CREATININE (test code = 0.50 mg/dL 0.50-1.04 4016165050) CALCIUM (test code = 8.8 mg/dL 8.6-10.6 1291254987) eGFR (test code = mL/min/1.73m2 2915941053) RABIA (test code = RABIA) Association of [...] tests). Lab Interpretation Abnormal (test code = 30049-0) [facility] WITH [id number] 21:56:18 Test Item Value Reference Range Interpretation Comments WBC (test code = See_Comment [Automated message] 3690-2) The system [employer] generated this result transmitted ref erence range: 4.30 - 1 1.10 10*3/?L. The re ference range was not u sed to interpret this result as normal/abnor mal. RBC (test code = See_Comment [Automated message] 269-8) The system [employer] generated this result transmitted ref erence range: [...] RDW-SD (test code 42.5 fL 39.0-49.9 = 10547-6) RDW-CV (test code 13.0 % 12.0-15.5 = 788-0) PLT (test code = See_Comment [Automated message] 397-3) The system whic h generated this result transmitted ref erence range: 166 - 35 8 10*3/?L. The re ference range was not u sed to interpret this result as normal/abnor mal. MPV (test code = 11.1 fL 9.5-12.9 87965-4) NRBC/100 WBC (test See_Comment [Automat ed message] code = 8842594186) The syste m which generated this result transmitted ref erence range: 0.0 - 10 .0 /100 WBCs. The refer ence range was not u sed to interpret this result as normal/abnor mal. NRBC x10^3 (test <0.01 See_Comment [Automated message] code = 2470255248) The syste m which generated this result transmitted ref erence range: 10*3/?L. The reference range was not used to interpr et this result as normal/abnormal . GRAN MAT (NEUT) % 56.9 % (test code = 770-8) IMM GRAN % (test 0.20 % code = 2469315628) LYMPH % (test code 34.2 % = 736-9) MONO % (test code 7.0 % = 5905-5) EOS % (test code = 0.9 % 713-8) BASO % (test code 0.8 % = 706-2) GRAN MAT 5.06 10*3/uL 1.88-7.09 x10^3(ANC) (test code = 9754609174) IMM GRAN x10^3 <0.03 0.00-0.06 (test code = 1977220543) LYMPH x10^3 (test 3.04 10*3/uL 1.32-3.29 code = 731-0) MONO x10^3 (test 0.62 10*3/uL 0.33-0.92 code = 742-7) EOS x10^3 (test 0.08 10*3/uL 0.03-0.39 code = 711-2) BASO x10^3 (test 0.07 10*3/uL 0.01-0.07 code = 704-7) [facility] WO [id number] 14:15:04 Unremarkable brain MRI.HISTORY:Neuro deficit, acute, stroke suspected TECHNIQUE: MRI of the brain was performed without IV contrast. COMPARISON: None. FINDINGS: The ventricles and sulci are within normal limits for patient's age. There is no midline shift. The basal cisterns are preserved. There is nodiffusion restriction to suggest an acute infarct. No pathological extra-axial fluid collection is seen. No abnormal foci ofgradient blooming is identified. [facility], Radiant Results Inft User - 19:16 AM CDT HISTORY:Neuro deficit, acute, stroke suspected TECHNIQUE: MRI of the brain was performed without IV contrast.COMPARISON: None.FINDINGS: The ventricles and sulci are within normal limits for patient's age.There is no midline shift.The basal cisterns are preserved.There is no diffusion restriction to suggest an acute infarct.No pathological extra-axial fluid collection is seen. No abnormal foci ofgradient blooming is identified. I MPRESSIONUnremarkable brain MRI.[facility]"
[2022-04-11 19:45] LABS: Urine Blood Negative (Negative); Urine Glucose Negative (Negative); Urine Protein Negative (Negative); Urine Specific Gravity 1.025 (1.005-1.030)
[2022-04-11 20:00] LABS: Urine RBC <5 /HPF (None Seen)
[2022-04-11 20:01] LABS: Absolute Lymphocytes (CBC) 4.1 K/uL (0.7-4.9); Lymphocytes % 39.2 % (15.3-44.8); MCV 87.6 fL (80-100); MPV 7.9 fL (7.6-11.3); RBC Red Blood Cell Count 4.69 M/uL (3.86-4.86)
[2022-04-11 20:09] LABS: Albumin 3.5 g/dL (3.4-5.0); Bilirubin Total 0.4 mg/dL (0.2-1.0); Potassium 3.9 mmol/L (3.5-5.1); Protein, Total 8.2 g/dL (6.4-8.2)
[2022-04-11 20:33] LABS: Urine Specific Gravity/Preg 1.025 (1.005-1.030)
--- NOTE | 2022-04-11 20:53 | RAD REPORT ---
EXAM DESCRIPTION: CT - Abdomen Pelvis W Contrast - 04/11/2022 8:34 pm CLINICAL HISTORY: abd pain COMPARISON: <Comparisons>CT study 12/18/2020 TECHNIQUE: Biphasic, helical CT imaging of the abdomen and pelvis was performed following 100 ml non -ionic IV contrast. No oral contrast given. All CT scans are performed using dose optimization technique as appropriate and may include automated exposure control or mA/KV adjustment according to patient size. FINDINGS: No suspicious findings in the lung bases. The liver, spleen, and pancreas show no suspicious findings. Cholecystectomy clips are present. No ab normal biliary tree dilatation. Symmetric renal function is seen with no hydronephrosis or suspicious renal mass. No pyelonephritis o r acute parenchymal process. No bladder abnormalities. No adrenal abnormalities. Uterus and ovaries s how no suspicious findings. No dilated bowel loops or bowel wall thickening. No appendicitis findings. No free air, free fluid or inflammatory stranding. No hernia, mass or bulky lymphadenopathy. No suspicious bony findings. IMPRESSION: Contrast enhanced CT abdomen and pelvis showing no significant or suspicious finding. No significant change from comparison.
--- NOTE | 2022-04-11 21:11 | ER ---
Nurse's Notes [facility] Name: Jenn Cronin Age: 26 yrs Sex: Female : 1995 Arrival Date: 04/11/2022 Time: 18:47 Bed 15 Private MD: Diagnosis: Abdominal pain, unspecified Presentation: 04/11 19:10 Chief complaint: Right sided abdominal pain and nausea x 2 days. Coronavirus screen: At this time, the client does not indicate any symptoms associated with coronavirus-19. Ebola Screen: No symptoms or risks identified at this time. Initial Sepsis Screen: Does the patient meet any 2 criteria? No. Patient's initial sepsis screen is negative. Does the patient have a suspected source of infection? No. Patient's initial sepsis screen is negative. Risk Assessment: Do you want to hurt yourself or someone else? Patient reports no desire to harm self or others. Onset of symptoms was April 10, 2022. 19:10 Method Of Arrival: Ambulatory hb 19:10 Acuity: CARLOS 3 hb Historical: - Allergies: 19:12 Ibuprofen; hb 19:12 NSAIDS; hb - PMHx: 19:12 Anxiety; Depression; PCOS; PCOS; hb - PSHx: 19:12 Adenoid excision; Cholecystectomy; ear tubes; Tonsillectomy; hb - Immunization history:: Adult Immunizations up to date. - Social history:: Smoking status: Patient denies any tobacco usage or history of. Screenin:45 Abuse screen: Denies threats or abuse. Denies injuries from another. Nutritional lg3 screening: No deficits noted. Tuberculosis screening: No symptoms or risk factors identified. Fall Risk None identified. Assessment: 19:45 General: Appears in no apparent distress. comfortable, Behavior is calm, cooperative. lg3 Pain: Complains of pain in abdomen Pain radiates to pelvis Quality of pain is described as aching, crampy, pressure, radiating. Neuro: No deficits noted. Level of Consciousness is awake, alert, obeys commands, Oriented to person, place, time, situation. Cardiovascular: No deficits noted. Denies chest pain, shortness of breath, Capillary refill < 3 seconds Clubbing of nail beds is absent JVD is absent Patient's skin is warm and dry. Respiratory: No deficits noted. Airway is patent Trachea midline Respiratory effort is even, unlabored, Respiratory pattern is regular, symmetrical, Breath sounds are clear bilaterally. GI: Abdomen is round non-distended, obese, Bowel sounds present X 4 quads. Abd is soft X 4 quads Abdomen is tender to palpation in right upper quadrant and right lower quadrant. : No deficits noted. EENT: No deficits noted. No signs and/or symptoms were reported regarding the EENT system. Derm: No deficits noted. No signs and/or symptoms reported regarding the dermatologic system. Skin is intact, is healthy with good turgor, Skin is dry, Skin is normal, Skin temperature is warm. Musculoskeletal: No deficits noted. No signs and/or symptoms reported regarding the musculoskeletal system. Circulation, motion, and sensation intact. Range of motion: intact in all extremities. 21:06 Reassessment: Patient appears in no apparent distress at this time. No changes from lg3 previously documented assessment. Patient and/or family updated on plan of care and expected duration. Pain level reassessed. Patient is alert, oriented x 3, equal unlabored respirations, skin warm/dry/pink. Vital Signs: 19:10 BP 148 / 101; Pulse 87; Resp 18; Temp 97.3(TE); Pulse Ox 100% on R/A; Weight 99.79 kg; hb Height 5 ft. 2 in. (157.48 cm); Pain 8/10; 21:17 BP 138 / 84; Pulse 88; Resp 17 S; Pulse Ox 100% on R/A; lg3 19:10 Body Mass Index 40.24 (99.79 kg, 157.48 cm) ED Course: 18:47 Patient arrived in ED. as 19:10 Arm band placed on. hb 19:11 Sabina Cooper FNP-C is PHCP. kb 19:11 Carlos Goncalves DO is Attending Physician. kb 19:12 Triage completed. hb 19:18 Kacy Rueda, RN is Primary Nurse. lg3 19:39 CBC with Diff Sent. lg3 19:39 CMP Sent. lg3 19:39 Lipase Sent. lg3 19:45 Patient has correct armband on for positive identification. Bed in low position. Call lg3 light in reach. Side rails up X 1. Client placed on continuous cardiac and pulse oximetry monitoring. NIBP monitoring applied. Door closed. Noise minimized. Warm blanket given. Family accompanied patient. 19:45 Urine Microscopic Only Sent. lg3 19:45 Inserted saline lock: 20 gauge in left antecubital area, using aseptic technique. Blood lg3 collected. 20:35 CT Abd/Pelvis - IV Contrast Only In Process Unspecified. EDMS 21:28 No provider procedures requiring assistance completed. IV discontinued, intact, lg3 bleeding controlled, No redness/swelling at site. Pressure dressing applied. Administered Medications: 21:28 Drug: Zofran (Ondansetron) 4 mg Route: IVP; Site: left antecubital; lg3 21:28 Follow up: Response: No adverse reaction; Marked relief of symptoms lg3 21:28 Drug: morphine 4 mg Route: IVP; Infused Over: 4 mins; Site: left antecubital; lg3 21:28 Follow up: Response: No adverse reaction; Marked relief of symptoms lg3 Medication: 21:29 VIS not applicable for this client. lg3 Outcome: 21:10 Discharge ordered by . kb 21:29 Discharged to home ambulatory, with family. lg3 21:29 Condition: stable 21:29 Discharge instructions given to patient, Instructed on discharge instructions, follow up and referral plans. Demonstrated understanding of instructions, follow-up care. 21:29 Patient left the ED. lg3 Signatures: Dispatcher [employer] EDSabina Mckeon, MARCELO-C MARCELO-Barbara Babb Heather, RN RN Kacy Colorado RN RN lg3
--- NOTE | 2022-04-11 21:11 | EDPHYS ---
Physician Documentation [facility] Name: Jenn Cronin Age: 26 yrs Sex: Female : 1995 Arrival Date: 04/11/2022 Time: 18:47 Bed 15 Private MD: ED Physician Carlos Goncalves HPI: 04/11 21:09 This 26 yrs old Female presents to ER via Ambulatory with complaints of Abdominal Pain, kb Back Pain. 21:09 The patient presents with abdominal pain in the right upper quadrant, right lower kb quadrant. Onset: The symptoms/episode began/occurred this morning. The symptoms radiate to right back. Associated signs and symptoms: Pertinent positives: nausea, Pertinent negatives: constipation, diarrhea, fever, vomiting. The symptoms are described as constant. Modifying factors: The symptoms are alleviated by nothing, the symptoms are aggravated by pressure. Severity of pain: At its worst the pain was moderate in the emergency department the pain is unchanged. The patient has not experienced similar symptoms in the past. The patient has not recently seen a physician. Pt reports right sided abd pain that started this morning and radiates to back. States she has had similar pain in the past from a UTI, but has no urinary symptoms. Reports nausea. Denies vomiting or fever.. Historical: - Allergies: 19:12 Ibuprofen; hb 19:12 NSAIDS; hb - PMHx: 19:12 Anxiety; Depression; PCOS; PCOS; hb - PSHx: 19:12 Adenoid excision; Cholecystectomy; ear tubes; Tonsillectomy; hb - Immunization history:: Adult Immunizations up to date. - Social history:: Smoking status: Patient denies any tobacco usage or history of. ROS: 21:08 Constitutional: Negative for fever, chills, and weight loss. kb 21:08 Abdomen/GI: Positive for abdominal pain, vomiting. 21:08 Back: Positive for pain at rest. 21:08 All other systems are negative. Exam: 21:08 Constitutional: This is a well developed, well nourished patient who is awake, alert, kb and in no acute distress. Head/Face: Normocephalic, atraumatic. ENT: Moist Mucous membranes Cardiovascular: Regular rate and rhythm with a normal S1 and S2. No gallops, murmurs, or rubs. No pulse deficits. Respiratory: Respirations even and unlabored. No increased work of breathing. Talking in full sentences Back: No spinal tenderness. No costovertebral tenderness. Full range of motion. Skin: Warm, dry with normal turgor. Normal color. MS/ Extremity: Pulses equal, no cyanosis. Neurovascular intact. Full, normal range of motion. Neuro: Awake and alert, GCS 15, oriented to person, place, time, and situation. Moves all extremities. Normal gait. Psych: Awake, alert, with orientation to person, place and time. Behavior, mood, and affect are within normal limits. 21:08 Abdomen/GI: Inspection: abdomen appears normal, Bowel sounds: normal, in all quadrants, Palpation: soft, in all quadrants, mild abdominal tenderness, in the right lower quadrant. Vital Signs: 19:10 BP 148 / 101; Pulse 87; Resp 18; Temp 97.3(TE); Pulse Ox 100% on R/A; Weight 99.79 kg; hb Height 5 ft. 2 in. (157.48 cm); Pain 8/10; 21:17 BP 138 / 84; Pulse 88; Resp 17 S; Pulse Ox 100% on R/A; lg3 19:10 Body Mass Index 40.24 (99.79 kg, 157.48 cm) hb MDM: 19:11 Patient medically screened. kb 21:08 Data reviewed: vital signs, nurses notes. Data interpreted: Pulse oximetry: on room air kb is 100 %. Interpretation: normal. Counseling: I had a detailed discussion with the patient and/or guardian regarding: the historical points, exam findings, and any diagnostic results supporting the discharge/admit diagnosis, lab results, radiology results, the need for outpatient follow up, a family practitioner, to return to the emergency department if symptoms worsen or persist or if there are any questions or concerns that arise at home. 04/11 19:12 Order name: CBC with Diff kb 04/11 19:12 Order name: CMP; Complete Time: 20:12 kb 04/11 19:12 Order name: Lipase; Complete Time: 20:12 kb 04/11 19:12 Order name: Urine Microscopic Only kb 04/11 19:45 Order name: Urine Dipstick-Ancillary; Complete Time: 19:48 EDMS 04/11 19:45 Order name: Urine --Ancillary (enter results); Complete Time: 20:34 mw2 04/11 19:12 Order name: CT Abd/Pelvis - IV Contrast Only; Complete Time: 21:01 kb 04/11 19:12 Order name: IV Saline Lock; Complete Time: 19:39 kb 04/11 19:12 Order name: Labs collected and sent; Complete Time: 19:39 kb 04/11 19:12 Order name: Urine Dipstick-Ancillary (obtain specimen); Complete Time: 19:45 kb 04/11 20:00 Order name: Urine Microscopic Only EDMS 04/11 20:03 Order name: CBC with Automated Diff EDMS 04/11 19:12 Order name: Urine Test (obtain specimen); Complete Time: 19:45 kb Administered Medications: 21:28 Drug: Zofran (Ondansetron) 4 mg Route: IVP; Site: left antecubital; lg3 21:28 Follow up: Response: No adverse reaction; Marked relief of symptoms lg3 21:28 Drug: morphine 4 mg Route: IVP; Infused Over: 4 mins; Site: left antecubital; lg3 21:28 Follow up: Response: No adverse reaction; Marked relief of symptoms lg3 Disposition Summary: 04/11/22 21:10 Discharge Ordered Location: Home kb Condition: Stable kb Diagnosis - Abdominal pain, unspecified kb Followup: kb - With: Emergency Department - When: As needed - Reason: Worsening of condition Followup: kb - With: Private Physician - When: 2 - 3 days - Reason: Recheck today's complaints, Continuance of care, Re-evaluation by your physician Discharge Instructions: - Discharge Summary Sheet kb - Abdominal Pain, Adult, [id number] kb Forms: - Medication Reconciliation Form kb - Thank You Letter kb - Antibiotic Education kb - Work release form kb - Prescription Opioid Use kb Addendum: 04/13/2022 03:40 Co-signature as Attending Physician, Carlos Goncalves DO I was immediately available onsite m s3 in the emergency department for consultation in the care of the patient. Signatures: Dispatcher [employer] Sabina Santos, BALLOON DIPPER-C BALLOON DIPPER-Chely Colvin, RN RN Kacy Rueda, MCKAY RN lg3 Carlos Goncalves DO DO ms3
[2022-04-11] MEDS ORDERED: ONDANSETRON 4 MG/2 ML VIAL ONE (21:29)
[2022-04-11] MEDS ORDERED: MORPHINE 4 MG/ML SYR ONE (21:29)
[2022-04-13 06:03] VITALS: TEMP 97.3; O2SAT 100
[2022-04-13 06:19] VITALS: BP 138/84
== END 2022-04-11 21:29 | disposition home or self-care (01) ==
LOC: ER 18:44
DX: R10.9 Unspecified abdominal pain (principal); R11.0 Nausea
CPT/HCPCS: 36415; 74177; 80053; 81003; 81015; 81025; 83690; 85025; 96374; 96375; 99284; J2405; Q9967

== ENCOUNTER 2022-04-20 12:19 | Emergency (ER) | payer SELFPAY ==
--- OUTSIDE RECORDS SUMMARY | 2022-04-20 12:35 | XMS REPORT | Continuity of Care Document ---
:1995 Author Organization [facility] t Address [address] [place] [address] Care Team Providers Name Role Phone Anel Flynn Primary Care Physician EZRA WHEELER Attending Clinician Unavailable JOELLEN HART Attending Clinician Unavailable Joellen Hart MD Attending Clinician LAURA GEE Attending Clinician Unavailable Laura Gee DO Attending Clinician Anel Flynn Attending Clinician YINA FRANKLIN Attending Clinician Unavailable Joleen Vilchis Attending Clinician Yina Rajput Attending Clinician Pascale Arceo Attending Clinician Jerad Griffin MD Attending Clinician JERAD GRIFFIN Attending Clinician Unavailable Doctor Unassigned, [place] Attending Clinician Unavailable Wheeler MD, Ezra Garner Attending Clinician [phone] G_Sadi Attending Clinician Unavailable PRATIK Attending Clinician Unavailable Vivien Attending Clinician Unavailable EZRA WHEELER Admitting Clinician Unavailable Ezra Wheeler MD Admitting Clinician [phone] G_Pappafederico Admitting Clinician Unavailable PRATIK Admitting Clinician Unavailable Vivien Admitting Clinician Unavailable Payers Payer Name Policy Type Policy Number Effective Date Expiration Date S quentin [facility] [id number] 2020 EMPLOYEE PLAN 00:00:00 [place] [id number] [facility] (MEDICAID) Problems Condition Condition [...] nivers e of skin e of skin 7-17 ity of [place] Numbness Numbness Disease Active Unive rs 7-17 ity of 00:00: [place] 00 Medical Branch Acute non Acute non Disease Active Uni vers intractabl intractabl 17 it y of e e 00:00: [place] tension-ty tension-ty 00 Me dical pe pe Branch headache headache Obesity Obesity Disease Active Univers (BMI (BMI 7-01 ity of 30-39.9) 30-39.9) 00:00: [place] 00 Medical Branch Primary Primary Disease Active Univers female female 9 ity of infertilit infertilit 00:[place] 00 Medical [place] Oligomenor Oligomenor Disease Active 2019- U nivers lorrie lorrie 04-22 ity of 00:00: [place] 00 Medical Branch Polycystic Polycystic Disease Active 2019- U nivers ovary ovary 04-22 ity of syndrome syndrome 00:00: [place] 00 Medical Branch Gynecologi Gynecologi Problem Active M atagor c [...] Active Anaphylaxis Uni vers (Non-Micheal ty to 717 ity of roidal adverse 00:00: [place] Anti-Inf reaction 00 Medica l lammator s Branch y Drug) Ibuprofe Propensi Active Anaphylaxis U nivers n ty to 717 ity of adverse 00:00: [place] reaction 00 Medical s Branch Nsaids Propensi Active Anaphylaxis Uni vers (Non-Micheal ty to 717 ity of roidal adverse 00:00: [place] Anti-Inf [...] Date Stop Date Quantity Comments Source History [facility] University o f Alcohol Frequency [place] M edical Branch History [facility] o f Alcohol Std [place] Medical Drinks Branch History [facility] o f Alcohol Binge [place] Medic al Branch Exposure to 2022-03-18 2022-03-28 Not sure University SARS-CoV-2 00:00:00 11:27:00 [facility] (event) Branch Alcohol intake 2022-03-28 2022-03-28 Current drinker Unive rsity of 00:00:00 00:00:00 of alcohol [facility] (finding) [place] Tobacco use and 2022-02-19 2022-02-19 Smokeless tobacco Un iversity of exposure 00:00:00 00:00:00 non-user [facility] Alcohol Comment 2021-03-24 2021-03-24 Socially Universit y of 00:00:00 00:00:00 [facility] Sex Assigned At [birth year] Universit y of 00:00:00 00:00:00 [facility] Smoking Status Start Date Stop Date Source Former Smoker [facility] Never smoked tobacco [facility] Medications Ordered Filled Start Stop Current Ordering [...] 1:1:1 03/28/22 Branch (FIRST-MOUT at 1200, [facility]) Routine oral suspension 15 mL ondansetron Yes [id number] 4mg Take 1 Univers 4 mg 03-28 tablet by ity of disintegrat 00:00: mouth [place] ing tablet 00 every 8 Medica l (eight) Branch hours as needed for Nausea and Vomiting (N/V). ondansetron Yes [id number] 4mg Take 1 Univers 4 mg 9-04 tablet by ity of disintegrat 00:00: mouth [place] ing tablet 00 every 8 Medica l (eight) Branch hours as needed for Nausea and Vomiting (N/V). codeine-gua 2021- Yes [id number] 5mL Take 5 [...] 7 days. Indication s: acute pain multivit-mi Yes Take by Uni vers n/ascorbic/ 6-30 mouth. ity of herb 124 09:28: [place] (AIR[place]ORNE 20 Medical NATURAL Branch ENERGY ORAL) multivit-mi 0 Yes Take by Uni vers n/ascorbic/ 6-30 mouth. ity of herb 124 09:28: [place] (AIR[place]ORNE 20 Medical NATURAL Branch ENERGY ORAL) multivit-mi 0 Yes Take by Uni vers n/ascorbic/ 6-30 mouth. ity of herb 124 09:28: [place] (AIR[place]NE 20 Medical NATURAL Branch ENERGY ORAL) multivit-mi 0 Yes Take by Uni vers n/ascorbic/ 6-30 mouth. ity of herb 124 09:28: [place] (AIR[place]NE 20 Medical NATURAL Branch ENERGY ORAL) multivit-mi 0 Yes Take by Uni vers n/ascorbic/ 6-30 mouth. ity of herb 124 09:28: [place] (AIR[place]NE 20 Medical NATURAL Branch ENERGY ORAL) multivit-mi 0 Yes Take by Uni vers n/ascorbic/ 6-30 mouth. ity of herb 124 09:28: [place] (AIR[place]NE 20 Medical NATURAL Branch ENERGY ORAL) multivit-mi 0 Yes Take by Uni vers n/ascorbic/ 6-30 mouth. ity of herb 124 09:28: [place] (AIR[place]NE 20 Medical NATURAL Branch ENERGY ORAL) omeprazole 2022-0 Yes [id number] 40mg Take 1 Univers 40 mg 6-30 capsule by ity of capsule 00:00: mouth [place] 00 daily. Medical Branch omeprazole 2021-0 Yes [id number] 40mg Take 1 Univers 40 mg 6-30 capsule by ity of capsule 00:00: mouth [place] 00 daily. Medical Branch omeprazole 2021-0 Yes [id number] 40mg Take 1 Univers 40 mg 6-30 capsule by ity of capsule 00:00: mouth [place] 00 daily. Medical Branch omeprazole 2021-0 Yes [id number] 40mg Take 1 Univers 40 mg 6-30 capsule by ity of capsule 00:00: mouth [place] 00 daily. [facility] Branch omeprazole 2021-0 Yes [id number] 40mg Take 1 Univers 40 mg 6-30 capsule by ity of capsule 00:00: mouth [place] 00 daily. [facility] Branch omeprazole 0 Yes [id number] 40mg Take 1 Univers 40 mg 6-30 capsule by ity of capsule 00:00: mouth [place] 00 daily. [facility] Branch omeprazole 0 Yes [id number] 40mg Take 1 Univers 40 mg 6-30 capsule by ity of capsule 00:00: mouth [place] 00 daily. [facility] Branch linaCLOtide 2021- Yes [id number] 72ug Take 1 Univers (LINZESS) 6-30 -29 capsule by ity of 72 mcg Cap 00:00: 04:59 mouth [place] 00 :00 daily for Medical 90 days. Branch linaCLOtide 2021- Yes [id number] 72ug Take 1 Univers (LINZESS) 6-30 -29 capsule by ity of 72 mcg Cap 00:00: 04:59 mouth [place] 00 :00 daily for Medical 90 days. Branch linaCLOtide 2021- Yes [id number] 72ug Take 1 Univers (LINZESS) 6-30 -29 capsule by ity of 72 mcg Cap 00:00: 04:59 mouth [place] 00 :00 daily for Medical 90 days. Branch linaCLOtide 2021- Yes [id number] 72ug Take 1 Univers (LINZESS) 6-30 -29 capsule by ity of 72 mcg Cap 00:00: 04:59 mouth [place] 00 :00 daily for Medical 90 days. Branch linaCLOtide 2021- Yes [id number] 72ug Take 1 Univers (LINZESS) 01-21 capsule by ity of 72 mcg Cap 00:00: 04:59 mouth [place] 00 :00 daily for Medical 90 days. Branch linaCLOtide 0 202- Yes [id number] 72ug Take 1 Univers (LINZESS) 01-21 capsule by ity of 72 mcg Cap 00:00: 04:59 mouth [place] 00 :00 daily for Medical 90 days. Branch linaCLOtide 2021- Yes [id number] 72ug Take 1 Univers (LINZESS) 01-21 capsule by ity of 72 mcg Cap 00:00: 04:59 mouth [place] 00 :00 daily for Medical 90 days. Branch PNV WITH Yes Take by Univer s CA8/IRON/FA 5-21 mouth. ity of /LMEFOLATE 13:03: [place] (PNV-IRON 07 Medical ORAL) Branch PNV WITH Yes Take by [facility] CA8/IRON/FA 5-21 mouth. ity of /LMEFOLATE 13:03: [place] (PNV-IRON 07 Medical ORAL) Branch PNV WITH Yes Take by Univer s CA8/IRON/FA 5-21 mouth. ity of /LMEFOLATE 13:03: [place] (PNV-IRON 07 Medical ORAL) Branch PNV WITH 0 Yes Take by Univer s CA8/IRON/FA 5-21 mouth. ity of /LMEFOLATE 13:03: [place] (PNV-IRON 07 Medical ORAL) Branch PNV WITH Yes Take by Univer s CA8/IRON/FA 5-21 mouth. ity of /LMEFOLATE 13:03: [place] (PNV-IRON 07 Medical ORAL) Branch PNV WITH 0 Yes Take by Univer s CA8/IRON/FA 5-21 mouth. ity of /LMEFOLATE 13:03: [place] (PNV-IRON 07 Medical ORAL) Branch PNV WITH 0 Yes Take by Univer s CA8/IRON/FA 5-21 mouth. ity of /LMEFOLATE 13:03: [place] (PNV-IRON 07 Medical ORAL) Branch metFORMIN Yes metformin Uni vers 500 mg 5-05 500 mg ity of tablet 12:34: tablet [place] 58 Take 1 Medical tablet Branch twice a day by oral route. metFORMIN 2021-0 Yes metformin Uni vers 500 mg 5-05 500 mg ity of tablet 12:34: tablet [place] 58 Take 1 Medical tablet Branch twice a day by oral route. metFORMIN 2021-0 Yes metformin Uni vers 500 mg 5-05 500 mg ity of tablet 12:34: tablet [place] 58 Take 1 Medical tablet Branch twice a day by oral route. metFORMIN 2021-0 Yes metformin Uni vers 500 mg 5-05 500 mg ity of tablet 12:34: tablet [place] 58 Take 1 Medical tablet Branch twice a day by oral route. metFORMIN 2021-0 Yes metformin Uni vers 500 mg 5-05 500 mg ity of tablet 12:34: tablet [place] 58 Take 1 Medical tablet Branch twice a day by oral route. metFORMIN 2021-0 Yes metformin Uni vers 500 mg 5-05 500 mg ity of tablet 12:34: tablet [place] 58 Take 1 Medical tablet Branch twice a day by oral route. metFORMIN 2021-0 Yes metformin Uni vers 500 mg 5-05 500 mg ity of tablet 12:34: tablet [place] 58 Take 1 Medical tablet Branch twice a day by oral route. peg-electro 2021-0 Yes [id number] Take as Univers lyte soln 5-05 directed ity of 236-22.74-6 00:00: before [place] .74 -5.86 00 colonoscop Medi chavo gram y Branch solution peg-electro 2021-0 Yes [id number] Take as Univers lyte soln 5-05 directed ity of 236-22.74-6 00:00: before [place] .74 -5.86 00 colonoscop Medi chavo gram y Branch solution peg-electro 2021-0 Yes [id number] Take as Univers lyte soln 5-05 directed ity of 236-22.74-6 00:00: before [place] .74 -5.86 00 colonoscop Medi chavo gram y Branch solution peg-electro 2021-0 Yes [id number] Take as Univers lyte soln 5-05 directed ity of 236-22.74-6 00:00: before [place] .74 -5.86 00 colonoscop Medi chavo gram y Branch solution peg-electro 2021-0 Yes [id number] Take as Univers lyte soln 5-05 directed ity of 236-22.74-6 00:00: before [place] .74 -5.86 00 colonoscop Medi chavo gram y Branch solution peg-electro 2021-0 Yes [id number] Take as Univers lyte soln 5-05 directed ity of 236-22.74-6 00:00: before [place] .74 -5.86 00 colonoscop Medi chavo gram y Branch solution peg-electro 2021-0 Yes [id number] Take as Univers lyte soln 5-05 directed ity of 236-22.74-6 00:00: [place] .74 -5.86 00 colonoscop Medi chavo gram y Branch solution omeprazole 2021-0 2021- No [id number] 40mg Take 1 Univers 40 mg 5-05 06-30 capsule by ity of capsule 00:00: 00:00 mouth [place] 00 :00 daily for Medical 90 days. Branch omeprazole 2021-0 2021- No [id number] 40mg Take 1 Univers 40 mg 5-05 06-30 capsule by ity of capsule 00:00: 00:00 mouth [place] 00 :00 daily for Medical 90 days. Branch dicyclomine 2022-0 Yes [id number] 20mg Take 1 Univers 20 mg 3-12 tablet by ity of tablet 00:00: mouth ([facility]) Medical times Branch daily. dicyclomine 2022-0 Yes [id number] 20mg Take 1 Univers 20 mg 3-12 tablet by ity of tablet 00:00: mouth ([facility]) Medical times Branch daily. dicyclomine 2022-0 Yes [id number] 20mg Take 1 Univers 20 mg 3-12 tablet by ity of tablet 00:00: mouth ([facility]) Medical times Branch daily. dicyclomine 2022-0 Yes [id number] 20mg Take 1 Univers 20 mg 3-12 tablet by ity of tablet 00:00: mouth ([facility]) Medical times Branch daily. dicyclomine 2022-0 Yes [id number] 20mg Take 1 Univers 20 mg 3-12 tablet by ity of tablet 00:00: mouth ([facility]) Medical times Branch daily. dicyclomine 2022-0 Yes [id number] 20mg Take 1 Univers 20 mg 3-12 tablet by ity of tablet 00:00: mouth 4 [place] 00 (four) Medical times Branch daily. dicyclomine 2022-0 Yes [id number] 20mg Take 1 Univers 20 mg 3-12 tablet by ity of tablet 00:00: mouth 4 00 (four) Medical times Branch daily. medroxyPROG 2022-0 Yes [id number] 10mg Take 1 Univers ESTERone 2-08 tablet by ity of (PROVERA) 00:00: mouth [place] 10 mg 00 daily. Medical tablet Branch medroxyPROG 2022-0 Yes [id number] 10mg Take 1 Univers ESTERone 2-08 tablet by ity of (PROVERA) 00:00: mouth [place] 10 mg 00 daily. Medical tablet Branch medroxyPROG 2022-0 Yes [id number] 10mg Take 1 Univers ESTERone 2-08 tablet by ity of (PROVERA) 00:00: mouth [place] 10 mg 00 daily. Medical tablet Branch medroxyPROG 2022-0 Yes [id number] 10mg Take 1 Univers ESTERone 2-08 tablet by ity of (PROVERA) 00:00: mouth [place] 10 mg 00 daily. Medical tablet Branch medroxyPROG 2022-0 Yes [id number] 10mg Take 1 Univers ESTERone 2-08 tablet by ity of (PROVERA) 00:00: mouth [place] 10 mg 00 daily. Medical tablet Branch medroxyPROG 2022-0 Yes [id number] 10mg Take 1 Univers ESTERone 2-08 tablet by ity of (PROVERA) 00:00: mouth [place] 10 mg 00 daily. Medical tablet Branch medroxyPROG 2022-0 Yes [id number] 10mg Take 1 Univers ESTERone 2-08 tablet by ity of (PROVERA) 00:00: mouth [place] 10 mg 00 daily. Medical tablet Branch amitriptyli 2021-0 Yes [id number] 25mg Take 1 Univers ne 25 mg 8-27 tablet by ity of tablet 00:00: mouth at [place] 00 bedtime. Medical Branch amitriptyli 2021-0 Yes [id number] 25mg Take 1 Univers ne 25 mg 8-27 tablet by ity of tablet 00:00: mouth at [place] 00 bedtime. Medical Branch amitriptyli 2021-0 Yes [id number] 25mg Take 1 Univers ne 25 mg 8-27 tablet by ity of tablet 00:00: mouth at [place] 00 bedtime. Medical Branch amitriptyli Yes [id number] 25mg Take 1 Univers ne 25 mg 8-27 tablet by ity of tablet 00:00: mouth at [place] [address] bedtime. Medical Branch amitriptyli Yes [id number] 25mg Take 1 Univers ne 25 mg 8-27 tablet by ity of tablet 00:00: mouth at [place] [address] bedtime. Medical Branch amitriptyli Yes [id number] 25mg Take 1 Univers ne 25 mg 8-27 tablet by ity of tablet 00:00: mouth at [place] [address] bedtime. Medical Branch amitriptyli Yes [id number] 25mg Take 1 Univers ne 25 mg 8-27 tablet by ity of tablet 00:00: mouth at [place] [address] bedtime. Medical Branch cyanocobala 2020- No 1000ug 1,000 mcg, Univers min 02-08 Intramuscu ity of (VITAMIN 18:43: 19:46 [place], ONCE, [place] B12) 00 :00 1 dose, Medical injection [facility] 1,000 mcg 02/08/21 at 1345, Routine acetaminoph Yes 650mg 650 mg, Un celestino en 02-08 Oral, ity of (TYLENOL) 12:44: Q6HPRN, [place] tablet 650 15 Starting Medic al mg [facility] 02/08/21 at 0744, Until Discontinu ed, Routine, Pain (scale 1-3), Pain (scale 4-6), pain 1-10 gadobenate 2020- No [id number] .2mL/kg 19.8 mL Univers dimeglumine 02-08 (0.2 mL/kg i ty of (MULTIHANCE 10:33: 10:45 ?99 kg), [place] -20 mL) 00 :00 Intravenou Medica l injection s, ONCE, 1 Bran ch 19.8 mL dose, [place] 02/08/21 at 0545, Routine LORazepam 2020- No 1mg 1 mg, Univer s (ATIVAN) 02-08 Oral, ity of tablet 1 mg 06:00: 09:11 ONCE, 1 [place] 00 :00 dose, [facility] 02/08/21 at Branch 0100, Routine glucagon 2020-0 Yes 1mg 1 mg, Univers (GLUCAGEN 18 Intramuscu ity of DIAGNOSTIC 01:45: lar, PRN, [place] KIT) 14 Starting Medical injection 1 Sat [facility] 02/07/21 at 2044, Until Discontinu ed, MIRANDA, Blood Glucose < or = 70 mg/dL and patient is unable to swallow or has mental changes. dextrose 50 2020-0 Yes 25mL 25 mL, Univ ers % in water 02-08 Slow IV ity of (D50W) 01:45: Push, PRN, [place] injection 14 Starting Medica l 25 mL [facility] 02/07/21 at 2044, Until Discontinu ed, MIRANDA, Blood Glucose < or = 70 mg/dL and patient is unable to swallow or has mental status changes. magnesium 2020-0 Yes [id number] 400mg Take 1 U nivers oxide 400 7-18 tablet by ity o f mg (241.3 00:00: mouth [place] mg 00 daily. Medical magnesium) Branch tablet vitamin 2020-0 Yes [id number] 1000ug Take 1 Un celestino B-12 1,000 7-18 tablet by ity of mcg tablet 00:00: mouth [place] 00 daily. [facility] Branch magnesium 2020-0 Yes [id number] 400mg Take 1 U nivers oxide 400 7-18 tablet by ity o f mg (241.3 00:00: mouth [place] mg 00 daily. Medical magnesium) Branch tablet vitamin 2020-0 Yes [id number] 1000ug Take 1 Un celestino B-12 1,000 7-18 tablet by ity of mcg tablet 00:00: mouth [place] 00 daily. [facility] Branch magnesium 2020-0 Yes [id number] 400mg Take 1 U nivers oxide 400 7-18 tablet by ity o f mg (241.3 00:00: mouth [place] mg 00 daily. Medical magnesium) Branch tablet vitamin 2020-0 Yes [id number] 1000ug Take 1 Un celestino B-12 1,000 7-18 tablet by ity of mcg tablet 00:00: mouth [place] 00 daily. [facility] Branch magnesium 2020-0 Yes [id number] 400mg Take 1 U nivers oxide 400 7-18 tablet by ity o f mg (241.3 00:00: mouth [place] mg 00 daily. Medical magnesium) Branch tablet vitamin Yes [id number] 1000ug Take 1 Un celestino B-12 1,000 02-08 tablet by ity of mcg tablet 00:00: mouth [place] 00 daily. Medical Branch magnesium 2020- No 2g 2 g, IV Univ ers sulfate in 02-07 Piggyback, it y of water 2 16:51: 17:00 ONCE, 1 [place] gram/50 mL 00 :00 dose, Sat Medi chavo (4 %) 02/07/21 at [place] infusion 2 1200, g Routine famotidine Yes 20mg 20 mg, Unive rs (PEPCID AC) 02-07 Oral, BID, it y of tablet 20 13:00: First dose [place] mg [address] [facility] 02/07/21 at Branch 0800, Until Discontinu ed, Routine heparin Yes 5000U 5,000 Univers (porcine) 02-07 Units, ity of injection 13:00: Subcutaneo [place] 5,000 Units 00 us, Q12H, Med ical First dose Branch on [facility] 02/07/21 at 0800, Until Discontinu ed, Routine ondansetron Yes 4mg 4 mg, Slow Univers (ZOFRAN 02-07 IV Push, ity of (PF)) 10:47: Q6HPRN, [place] injection 4 30 Starting Medi chavo mg [facility] 02/07/21 at 0547, Until Discontinu ed, Routine, Nausea and Vomiting (N/V) acetaminoph 2020- No 500mg 500 mg, U nivers en 02-07 Oral, ity of (TYLENOL) 10:47: 12:45 Q6HPRN, [place] tablet 500 00 :19 Starting Medic al mg [facility] 02/07/21 at 0547, Until 02/08/21 at [...] Immunizations Ordered Filled Immunization Date Status Comments Sour e Immunization Name Name Influenza Virus 2020 Completed Universit y of Vaccine 00:00:00 [facility] Influenza Virus 2020 Completed Universit y of Vaccine 00:00:00 [facility] Influenza Virus 2020 Completed Universit y of Vaccine 00:00:00 [facility] Influenza Virus 2020 Completed Universit y of Vaccine 00:00:00 [facility] Influenza Virus 2020 Completed Universit y of Vaccine 00:00:00 [facility] Influenza Virus 2020 Completed Universit y of Vaccine 00:00:00 [facility] Influenza Virus 2020 Completed Universit y of Vaccine 00:00:00 [facility] TDAP 2017-12-23 Completed University of 00:00:00 [facility] TDAP 2017-12-23 Completed University of 00:00:00 [facility] TDAP 2017-12-23 Completed University of 00:00:00 [facility] TDAP 2017-12-23 Completed University of 00:00:00 [facility] TDAP 2017-12-23 Completed University of 00:00:00 [facility] TDAP 2017-12-23 Completed University of 00:00:00 [facility] TDAP 2017-12-23 Completed University of 00:00:00 [facility] Vital Signs Vital Name Observation Time Observation Value Comments Source Systolic blood 2022-03-28 17:30:00 138 mm[Hg] Univer sity of pressure [facility] Diastolic blood 2022-03-28 17:30:00 85 mm[Hg] Unive rsity of pressure [facility] Heart rate 2022-03-28 17:30:00 85 /min [facility] Respiratory rate 2022-03-28 17:30:00 14 /min [facility] Oxygen saturation in 2022-03-28 17:30:00 99 /min [facility] Arterial blood by [facility] Pulse oximetry Branch Body temperature 2022-03-28 16:20:00 36.39 Bre [facility] Branch Body weight 2022-03-28 16:20:00 102.059 kg Universi ty of [place] [facility] BMI 2022-03-28 16:20:00 41.15 kg/m2 Universi ty of [facility] Branch Systolic blood 2022-02-20 01:15:00 129 mm[Hg] Univer sity of pressure [facility] Branch Diastolic blood 2022-02-20 01:15:00 89 mm[Hg] Unive rsity of pressure [facility] Branch Heart rate 2022-02-20 01:15:00 78 /min Universi ty of [facility] Branch Body temperature 2022-02-20 01:15:00 36.5 Bre Univ ersity of [facility] Branch Respiratory rate 2022-02-20 01:15:00 16 /min Univ ersity of [facility] Body height 2022-02-20 01:15:00 157.5 cm Universi ty of [place] [facility] [place] Body weight 2022-02-20 01:15:00 105.461 kg Universi ty of [place] [facility] BMI 2022-02-20 01:15:00 42.52 kg/m2 Universi ty of [facility] Branch Oxygen saturation in 2022-02-20 01:15:00 97 /min [facility] Arterial blood by [facility] Pulse oximetry Branch Systolic blood 2022-01-21 14:27:00 119 mm[Hg] Univer sity of [facility] Diastolic blood 2022-01-21 14:27:00 89 mm[Hg] Unive rsity of [facility] Heart rate 2022-01-21 14:27:00 90 /min [facility]i ty [facility] [place] [facility] Body temperature 2022-01-21 14:27:00 36.56 Bre Univ ersity of [facility] Branch Respiratory rate 2022-01-21 14:27:00 16 /min Univ ersity of [facility] Body height 2022-01-21 14:27:00 157.5 cm Universi ty of [facility] Branch Body weight 2022-01-21 14:27:00 104.418 kg Universi ty of [place] [facility] [place] BMI 2022-01-21 14:27:00 42.10 kg/m2 Universi ty of [facility] Branch Systolic blood 2021-02-08 16:18:00 103 mm[Hg] Univer sity of pressure [facility] Diastolic blood 2021-02-08 16:18:00 50 mm[Hg] [facility] Heart rate 2021-02-08 16:18:00 63 /min [facility] Body temperature 2021-02-08 16:18:00 36.22 Bre [facility] Respiratory rate 2021-02-08 16:18:00 18 /min [facility] Oxygen saturation in 2021-02-08 16:18:00 100 /min [facility] Arterial blood by [facility] Pulse oximetry Branch Body weight 2021-02-07 09:25:00 99.02 kg [facility] BP Diastolic 2020-04-22 00:00:00 93 mm[Hg] [facility] Height 2020-04-22 00:00:00 62 [in_i] [facility] BMI (Body Mass 2020-04-22 00:00:00 41 kg/m2 [facility] new order clerk Medical Index) Group BP Systolic 2020-04-22 00:00:00 133 mm[Hg] [facility] Body Weight 2020-04-22 00:00:00 224.1 [lb_av] [facility] Procedures Procedure Date / Time Performing Clinician Source Performed POCT TEST 2022-03-28 16:29:00 [facility] CONSENT/REFUSAL FOR 2022-03-28 16:12:09 Doctor Unajerad, [facility] DIAGNOSIS AND TREATMENT [facility] [place] ASSIGNMENT OF BENEFITS 2021-03-17 13:09:25 Doctor Unajerad, [facility] Name [facility] EXTERNAL PROVIDER RECORDS 2021-02-17 05:01:00 Doctor Deshawn, [facility] [place] MR ANGIOGRAM NECK W WO 2021-02-08 10:56:14 K[facility] Northwest[facility]ler [facility] MR VENOGRAM HEAD WO 2021-02-08 10:27:46 Kellee Nam [facility] CONTRAST Medical Branch MR ANGIOGRAM HEAD WO 2021-02-08 10:26:56 Kellee Nam [facility] CONTRAST [facility] MR CERVICAL SPINE WO 2021-02-08 09:53:23 Luis Vega [facility] CONTRAST [facility] MR STROKE BRAIN WO 2021-02-07 12:40:45 Patricia Panda [facility] CONTRAST [facility] MAGNESIUM 2021-02-07 11:17:[address] [facility] VITAMIN B12, LEVEL 2021-02-07 11:17:00 Gen Bruno [facility] THYROID STIMULATING 2021-02-07 11:17:00 Patricia Panda [facility] HORMONE [facility] BASIC METABOLIC PANEL (NA, 2021-02-07 11:17:00 Amarilys [facility] K, CL, CO2, GLUCOSE, BUN, [facility] CREATININE, CA) CBC WITH DIFF 2021-02-07 11:17:00 Amarilys [facility] Cholecystectomy 2019-01-31 00:00:00 [facility] Extraction of Saxis [facility] Remove Tonsils and [facility] Plan of Care Planned Activity Planned Date Details Comments Source Diagnostic Test 2020-04-22 urinalysis, [facility] Pending 00:00:00 dipstick [code = Group urinalysis, dipstick] Diagnostic Test 2020-04-22 pap, LB + CT/NG/TV [place] new order clerk Medical Pending 00:00:00 + reflex HR HPV Group [code = pap, LB + CT/NG/TV + reflex HR HPV] Diagnostic Test 2020-04-22 test, [facility] Pending 00:00:00 urine [code = Group test, urine] Diagnostic Test 2020-04-22 beta-HCG, [facility] Pending 00:00:00 quantitative, serum Group or plasma [code = beta-HCG, quantitative, serum or plasma] Encounters Start End Encounter Admission Attending Care Care Encounter Source Date/Time Date/Time Type Type Clinicians Facility Department ID 2021-02-07 Inpatient U CORBIN [facility] EDWARD [id number] Univers 04:14:00 EZRA ity [facility] 2022-09-03 2022-09-03 Outpatient R [facility] [id number] Univers 09:30:00 09:30:00 JOELLEN [id number] ity [facility] 2022-04-14 2022-04-14 Telephone [facility] [id number] Univers 00:00:00 00:00:00 Joellen ARCE [id number] ity [facility] [place] [facility] [phone] Dc dical [facility] 134 [facility] 2022-03-28 2022-03-28 Emergency X [facility] ERT [id number] Univers 11:21:00 12:35:00 LAURA [facility] 2022-03-28 2022-03-28 Emergency [facility] [id number] Univers 11:21:00 12:35:00 Laura ARCE 350.1.13.10 ity [facility] [place] [id number] [place] [id number] [place] 2022-02-24 2022-02-24 [facility] [id number] Univers 00:00:00 00:00:00 Secure Msg Anel A HEALTH [id number] [facility] 4.2.7.2.686 Renaldo as MELISSA?BLEA [phone] Dc cirilo [facility] [address] [place] MEDICAL OFFICE [facility]ILDING 2022-02-19 2022-02-19 Outpatient R [facility] [id number] Univers 20:00:00 20:51:59 YINA alvarez o f [facility] 2022-02-19 2022-02-19 Urgent Joleen Morejon [facility] [id number] Univers 20:00:00 20:20:00 Care Yina [facility] [id number] ity of [place] 4.2.7.2.686 Renaldo as MELISSA?BLEA [phone] Dc diceleuterio [facility] [address] MEDICAL OFFICE BUILDING 2022-02-19 2022-02-19 Outpatient R [facility] [id number] Univers 20:00:00 20:00:00 [id number] ity of [facility] 2022-02-09 2022-02-09 Patient Hailey [facility] [id number] Univers 00:00:00 00:00:00 Secure Msg Joellen TENORIOTON [id number] ity of [place] PROF[place] [phone] Dc dical NAL [address] [facility] 2022-01-21 2022-01-21 Office Salvador [facility] [id number] Univers 09:00:00 09:30:00 Visit Pascale Y HEALTH 350.1.13.10 i ty of [place] [phone] [address] 2021-03-17 2021-03-17 Hospital [facility] [id number] Univers 08:00:00 23:59:00 Encounter [facility] 350.1.13.10 ity [place] [id number] [facility] 0[address] [place] Office [facility] 2021-03-17 2021-03-17 Outpatient R [facility] [id number] Univers 08:00:00 08:00:00 JERAD ity of [facility] 2021-03-17 2021-03-17 Orders Doctor ALBINA [id number] Univers 00:00:00 00:00:00 Only Unassigned, MATT 350.1.13.10 ity of [place] [facility] 4.2.7.2.686 Renaldo as [phone] [address] 2021-02-17 2021-02-17 Orders Doctor ALBINA 1.2.840.114 [id number] Univers 00:00:00 00:00:00 Only Unassigned, MATT 350.1.13.10 ity of [place] [facility] 4.2.7.2.686 Renaldo as [phone] [address] 2021-02-07 2021-02-08 [facility] Petrona Wheeler 1.2.840.114 [id number] [facility] 04:14:00 17:51:00 Encounter Ezrapro Roe 350.1.13.10 ity of [facility] 4.2.7.2.[address] [facility] [phone] [facility] 098 [place] 2021-01-29 2021-01-29 [facility] 1.2.840.114 [id number] 15:58:54 23:59:00 Encounter Joellen Marla Arce 350.1.13.10 [place] 4.2.7.2.686 Carmen [id number] 2021-01-29 2021-01-29 Orders Doctor ALBINA 1.2.840.114 [id number] 00:00:00 00:00:00 Only Unassigned, MATT 350.1.13.10 [place] [facility] 4.2.7.2.686 [id number] [facility] 2021-01-23 2021-01-23 Telephone [facility] [id number] 00:00:00 00:00:00 Joellen Marla Arce 350.1.13.10 [place] 4.2.7.2.686 Profess [id number] [address] 2020-11-24 2020-11-24 Outpatient G_Pappas [facility] [id number] [place] 04:18:00 04:18:00 0503 [facility] 2020-07-10 2020-07-10 Outpatient [facility] [id number] [place] 02:18:00 02:18:00 1217 [facility] 2020-06-27 2020-06-27 Outpatient [facility] [id number] [place] 06:16:00 06:16:00 TRISTEN [id number] da [facility] 2020-06-11 2020-06-11 Outpatient V[facility] [id number] [place] 02:25:00 02:25:00 1118 [facility] 2020-04-22 2020-04-22 Outpatient V[facility] [id number] [place] 07:01:00 07:01:00 0929 [facility] 2020-04-22 2020-04-22 Debbie Oseguera [facility] [place] - [id number] [place] 00:00:00 00:00:00 Discovery Rick da WHNP: [address] [facility] [address] [facility] [place] [address], [place] [address] , Ph. [phone] 2020-04-21 2020-04-21 Outpatient V_Rick RIVERA [facility] [id number] [place] 03:52:00 03:52:00 0928 [facility] Results Test Description Test Time Test Comments Results Result Comments Source POCT TEST 2022-03-28 16:29:00 Test Item Value Reference Range Interpretation Comme nts POCT PREG (test code = 1605) negative On board controls acceptable with C Line (test code = 3574) present POCT PREG LOT # (test code = 3575) [id number] POCT PREG TEST DATE (test code = 3576) 06/23/2023 Lab Interpretation (test code = 15593-0) [facility] [id number] 18:13:43 Test Item Value Reference Range Interpretation Comments VIT B12 (test code = 239 pg/mL 240-930 L [id number]) RABIA (test code = RABIA) Biotin has been reported to cause a positive bias, interpret results relative to patient's use of biotin. Lab Interpretation (test Abnormal code = 93442-9) [facility]21-[facility] 15:05:18 Test Item Value Reference Range Interpretation Comments MAGNESIUM (test code = 0438910037) 2.1 mg/dL 1.7-2.4 Lab Interpretation (test code = Normal 70656-2) [facility] CERV[facility] SPINE WO [id number] 15:01:17 Unremarkable MRA head. No significant abnormalities [...] spinal canal stenosis. MR ANGIOGRAPHY OF THE [place]: The PICA origin is visualized [...] spinal canal s tenosis.MR ANGIOGRAPHY OF THE [place]:The PICA origin is visualized on [...] is otherwise unremarkable.No evidence of venous sinus thrombosis.[facility] HEAD [facility] CONTRAST 2021-02-08 15:01:17 Unremarkable [...] spinal canal stenosis. MR ANGIOGRAPHY OF THE [place]: The PICA origin is visualized [...] spinal canal s tenosis.MR ANGIOGRAPHY OF THE [place]:The PICA origin is visualized on [...] is otherwise unremarkable.No evidence of venous sinus thrombosis.[facility] 2021-02-08 15:01:17 Unremarkable [...] spinal canal stenosis. MR ANGIOGRAPHY OF THE [place]: The PICA origin is visualized [...] spinal canal s tenosis.MR ANGIOGRAPHY OF THE [place]:The PICA origin is visualized on [...] is otherwise unremarkable.No evidence of venous sinus thrombosis.[facility] AN[facility] NECK W WO [id number] 15:01:17 Unremarkable MRA head. No significant abnormalities [...] spinal canal stenosis. MR ANGIOGRAPHY OF THE [place]: The PICA origin is visualized [...] are otherwise patent without evidence of venousthrombosis. [facility], Radiant Results Inft User - 02/08/2021 10:02 [...] spinal canal s tenosis.MR ANGIOGRAPHY OF THE [place]:The PICA origin is visualized on [...] is otherwise unremarkable.No evidence of venous sinus thrombosis.[facility] 2021-02-07 22:45:37 Test Item Value Reference Range Interpretation Comments TSH (test code = See_Comment [Automated message] 4002820710) The system Vidable generated this result transmitted ref erence range: 0.45 - 4 .70 mIU/L. The refe rence range was not u sed to interpret this result as normal/abnor mal. Lab Interpretation (test Normal code = 60764-1) [facility] METABOLIC PANEL (NA, K, CL, CO2, GLUCOSE, BUN, CREATININE, CA)2021-02-07 22:28:15 Test Item Value Reference Range Interpretation Comments NA (test code = 142 mmol/L 135-145 6076537702) K (test code = 3.7 mmol/L 3.5-5.0 7537457937) CL (test code = 111 mmol/L 98-108 H 7360318568) CO2 TOTAL (test code = 19 mmol/L 23-31 L 1503301590) AGAP (test code = 2-16 0825394811) BUN (test code = 11 mg/dL 7-23 1126183418) GLUCOSE (test code = 47 mg/dL 70-110 LL 2835197974) CREATININE (test code = 0.50 mg/dL 0.50-1.04 1371423063) CALCIUM (test code = 8.8 mg/dL 8.6-10.6 4221640680) eGFR (test code = mL/min/1.73m2 1343210310) RABIA (test code = RABIA) Association of [...] tests). Lab Interpretation Abnormal (test code = 69268-3) [facility] [id number] 21:56:18 Test Item Value Reference Range Interpretation Comments WBC (test code = See_Comment [Automated message] 6690-2) The system Vidable generated this result transmitted ref erence range: 4.30 - 1 1.10 10*3/?L. The re ference range was not u sed to interpret this result as normal/abnor mal. RBC (test code = See_Comment [Automated message] 789-8) The system Vidable generated this result transmitted ref erence range: [...] RDW-SD (test code 42.5 fL 39.0-49.9 = 78675-3) RDW-CV (test code 13.0 % 12.0-15.5 = 788-0) PLT (test code = See_Comment [Automated message] 777-3) The system whic h generated this result transmitted ref erence range: 166 - 35 8 10*3/?L. The re ference range was not u sed to interpret this result as normal/abnor mal. MPV (test code = 11.1 fL 9.5-12.9 34857-5) NRBC/100 WBC (test See_Comment [Automat ed message] code = 8951203154) The syste m which generated this result transmitted ref erence range: 0.0 - 10 .0 /100 WBCs. The refer ence range was not u sed to interpret this result as normal/abnor mal. NRBC x10^3 (test <0.01 See_Comment [Automated message] code = 7109582580) The syste m which generated this result transmitted ref erence range: 10*3/?L. The reference range was not used to interpr et this result as normal/abnormal . GRAN MAT (NEUT) % 56.9 % (test code = 770-8) IMM GRAN % (test 0.20 % code = 7762599198) LYMPH % (test code 34.2 % = 736-9) MONO % (test code 7.0 % = 5905-5) EOS % (test code = 0.9 % 713-8) BASO % (test code 0.8 % = 706-2) GRAN MAT 5.06 10*3/uL 1.88-7.09 x10^3(ANC) (test code = 6527151539) IMM GRAN x10^3 <0.03 0.00-0.06 (test code = 4035323241) LYMPH x10^3 (test 3.04 10*3/uL 1.32-3.29 code = 731-0) MONO x10^3 (test 0.62 10*3/uL 0.33-0.92 code = 742-7) EOS x10^3 (test 0.08 10*3/uL 0.03-0.39 code = 711-2) BASO x10^3 (test 0.07 10*3/uL 0.01-0.07 code = 704-7) [facility] STROKE BRAIN WO [id number] 14:15:04 Unremarkable brain MRI.HISTORY:Neuro deficit, acute, stroke [...] No abnormal foci ofgradient blooming is identified. [facility], Radiant Results Inft User - 19:16 AM [...] ofgradient blooming is identified. I MPRESSIONUnremarkable brain MRI.[facility]"
[2022-04-20] MEDS ORDERED: ACETAMINOPHEN 325 MG TABLET ONE (12:56)
[2022-04-20] MEDS ORDERED: NA CHLORIDE 0.9% 1,000 ML ONE (12:57)
[2022-04-20] MEDS ORDERED: ONDANSETRON 4 MG/2 ML VIAL ONE (12:57)
[2022-04-20 13:20] LABS: Absolute Lymphocytes (CBC) 0.8 K/uL (0.7-4.9); Hematocrit 40.4 % (36.0-45.0); Lymphocytes % 7.4 % (15.3-44.8); MCV 85.7 fL (80-100); MPV 8.1 fL (7.6-11.3); RBC Red Blood Cell Count 4.72 M/uL (3.86-4.86)
[2022-04-20 13:21] LABS: Urine Blood Negative (Negative); Urine Glucose Negative (Negative); Urine Protein 1+ (Negative); Urine pH 7.5 (5.0-7.0)
[2022-04-20 13:52] LABS: Urine Bacteria <20 /HPF (<20); Urine Mucus 3+ /HPF (None Seen)
--- NOTE | 2022-04-20 14:06 | RAD REPORT ---
EXAM DESCRIPTION: Rafia Single View04/20/2022 1:57 pm CLINICAL HISTORY: Chest pain COMPARISON: 2020 FINDINGS: The lungs appear clear of acute infiltrate. The heart is normal size IMPRESSION: No acute abnormalities displayed
[2022-04-20 14:22] LABS: ALT/SGPT 22 U/L (12-78); AST/SGOT 15 U/L (15-37); Albumin 3.4 g/dL (3.4-5.0); Alkaline Phosphatase 72 U/L (45-117); BUN Blood Urea Nitrogen 9 mg/dL (7-18); Bicarbonate 24 mmol/L (21-32); Bilirubin Direct 0.3 mg/dL (0-0.2); Bilirubin Total 1.5 mg/dL (0.2-1.0); Glomerular Filtration Rate 124 ml/min (=/>90); Glucose Level 93 mg/dL (74-106); Potassium 3.7 mmol/L (3.5-5.1); Protein, Total 7.9 g/dL (6.4-8.2); Sodium Level 136 mmol/L (136-145); Troponin High Sensitivity < 3.0 pg/mL (<58.9)
--- NOTE | 2022-04-20 16:08 | RAD REPORT ---
EXAM DESCRIPTION: CT - Chest For Pe Angio - 04/20/2022 3:47 pm CLINICAL HISTORY: Chest pain COMPARISON: 2017 TECHNIQUE: Dynamically enhanced axial 3 mm thick images of the chest were obtained during administra tion of <100> mL Isovue 370 IV contrast. Coronal and oblique reconstruction images were generated and reviewed. Exam utilizes a protocol for optimal evaluation of pulmonary arterial tree. Maximum intensity projections 3D imaging was utilized All CT scans are performed using dose optimization technique as appropriate and may include automated exposure control or mA/KV adjustment according to patient size. FINDINGS: A pulmonary embolus is not seen. A thoracic aortic aneurysm is not noted. A pleural effusion is not seen. A pericardial effusion is not seen. A lung consolidation is not present. Mild bilateral hilar lymphadenopathy is without significant change IMPRESSION: Negative for a pulmonary embolism.
--- NOTE | 2022-04-20 16:18 | ER ---
Nurse's Notes [facility] Name: Jenn Cronin Age: 26 yrs Sex: Female : 1995 Arrival Date: 04/20/2022 Time: 12:22 Bed 24 Private MD: Diagnosis: Acute bronchitis, unspecified Presentation: 04/20 12:35 Chief complaint: Patient states: "I started feeling bad yesterday but I feel worse aa5 today". Pt c/o chest pain with cough, generalized weakness, SOB, dizziness. Coronavirus screen: cough unrelated to allergies, shortness of breath. Ebola Screen: Patient denies travel to an Ebola-affected area in the 21 days before illness onset. Initial Sepsis Screen: Does the patient meet any 2 criteria? HR > 90 bpm. Does the patient have a suspected source of infection? Yes:. Risk Assessment: Do you want to hurt yourself or someone else? Patient reports no desire to harm self or others. Onset of symptoms was March 2022. 12:35 Method Of Arrival: Ambulatory aa5 12:35 Acuity: CARLOS 3 aa5 Historical: - Allergies: 12:35 Ibuprofen; aa5 12:35 NSAIDS; aa5 - PMHx: 12:35 Anxiety; Depression; PCOS; aa5 - PSHx: 12:35 Adenoid excision; Cholecystectomy; ear tubes; Tonsillectomy; aa5 - Immunization history:: Adult Immunizations unknown. - Social history:: Smoking status: Patient denies any tobacco usage or history of. Vital Signs: 12:35 BP 139 / 78; Pulse 114; Resp 20 S; Temp 100.5(O); Pulse Ox 94% on R/A; Weight 102.06 kg aa5 (R); Height 5 ft. 2 in. (157.48 cm) (R); 13:36 BP 125 / 78; Pulse 110; Resp 18; Pulse Ox 96% ; jh5 14:37 BP 123 / 83; Pulse 84; Resp 16; Temp 98.8(O); Pulse Ox 93% ; jh5 12:35 Body Mass Index 41.15 (102.06 kg, 157.48 cm) aa5 ED Course: 12:22 Patient arrived in ED. am2 12:34 Maura Malik FNP is [facility] jh7 12:34 Zenon Ojeda MD is Attending Physician. 7 12:35 Arm band placed on. aa5 12:37 Triage completed. aa5 12:54 Jossy Moncada, RN is Primary Nurse. 5 13:14 Initial lab(s) drawn, by me, sent to lab. EKG done, COVID swab sent to lab. Flu and/or tm3 RSV swab sent to lab. Inserted saline lock: 20 gauge in right antecubital area, using aseptic technique. 13:49 Urine collected: clean catch specimen, clear. tm3 13:59 XRAY Chest (1 view) In Process Unspecified. EDMS 15:49 Chest For Pe Angio In Process Unspecified. EDMS Administered Medications: 13:14 Drug: NS 0.9% 1000 ml Route: IV; Rate: 1 bolus; Site: right antecubital; 5 13:14 Drug: Zofran (Ondansetron) 4 mg Route: IVP; Site: right antecubital; [facility] 13:14 Drug: Tylenol 650 mg Route: PO; [facility] Outcome: 16:17 Discharge ordered by . 7 16:36 Patient left the ED. [facility] Signatures: Dispatcher [employer] EDMS Husam Adams tm3 Emily Vilalr, RN RN aa5 [place] [place] am2 Jossy Moncada, RN RN 5 Maura Malik FNP [employer] 7 Corrections: (The following items were deleted from the chart) 12:37 12:35 Initial Sepsis Screen: Does the patient meet any 2 criteria? HR > 90 bpm. Does aa5 the patient have a suspected source of infection? Yes: aa5
--- NOTE | 2022-04-20 16:18 | EDPHYS ---
Physician Documentation [facility] Name: Jenn Cronin Age: 26 yrs Sex: Female : 1995 Arrival Date: 04/20/2022 Time: 12:22 Bed 24 Private MD: ED Physician Zenon Ojeda HPI: 04/20 12:30 This 26 yrs old Female presents to ER via Ambulatory with complaints of Chest Pain, jh7 General Weakness. 12:30 Onset: The symptoms/episode began/occurred last night. Associated signs and symptoms: jh7 Pertinent positives: chest pain, shortness of breath, dizziness. 26 y/o f presents for chest pain, dizziness, SOB, and weakness starting last night. Reports that she has been coughing for the past several days.. Historical: - Allergies: 12:35 Ibuprofen; aa5 12:35 NSAIDS; aa5 - PMHx: 12:35 Anxiety; Depression; PCOS; aa5 - PSHx: 12:35 Adenoid excision; Cholecystectomy; ear tubes; Tonsillectomy; aa5 - Immunization history:: Adult Immunizations unknown. - Social history:: Smoking status: Patient denies any tobacco usage or history of. ROS: 12:30 Eyes: Negative for injury, pain, redness, and discharge, ENT: Negative for injury, jh7 pain, and discharge, Neck: Negative for injury, pain, and swelling, Abdomen/GI: Negative for abdominal pain, nausea, vomiting, diarrhea, and constipation, Back: Negative for injury and pain, MS/Extremity: Negative for injury and deformity, Skin: Negative for injury, rash, and discoloration. 12:30 Constitutional: Positive for fatigue, fever. 12:30 Cardiovascular: Positive for chest pain, Negative for palpitations. 12:30 Respiratory: Positive for shortness of breath, Negative for cough, wheezing. 12:30 Neuro: Positive for dizziness, weakness, Negative for altered mental status, loss of consciousness, syncope. 12:30 All other systems are negative. Exam: 12:30 Constitutional: This is a well developed, well nourished patient who is awake, alert, jh7 and in no acute distress. Head/Face: Normocephalic, atraumatic. Eyes: Pupils equal round and reactive to light, extra-ocular motions intact. Lids and lashes normal. Conjunctiva and sclera are non-icteric and not injected. Cornea within normal limits. Periorbital areas with no swelling, redness, or edema. ENT: Nares patent. No nasal discharge, no septal abnormalities noted. Tympanic membranes are normal and external auditory canals are clear. Oropharynx with no redness, swelling, or masses, exudates, or evidence of obstruction, uvula midline. Mucous membranes moist. Cardiovascular: Regular rate and rhythm with a normal S1 and S2. No gallops, murmurs, or rubs. Normal PMI, no JVD. No pulse deficits. Respiratory: Lungs have equal breath sounds bilaterally, clear to auscultation and percussion. No rales, rhonchi or wheezes noted. No increased work of breathing, no retractions or nasal flaring. Abdomen/GI: Soft, non-tender, with normal bowel sounds. No distension or tympany. No guarding or rebound. No evidence of tenderness throughout. Back: No spinal tenderness. No costovertebral tenderness. Full range of motion. Skin: Warm, dry with normal turgor. Normal color with no rashes, no lesions, and no evidence of cellulitis. MS/ Extremity: Pulses equal, no cyanosis. Neurovascular intact. Full, normal range of motion. Neuro: Awake and alert, GCS 15, oriented to person, place, time, and situation. Motor strength 5/5 in all extremities. Sensory grossly intact. Normal gait. Vital Signs: 12:35 BP 139 / 78; Pulse 114; Resp 20 S; Temp 100.5(O); Pulse Ox 94% on R/A; Weight 102.06 kg 5 (R); Height 5 ft. 2 in. (157.48 cm) (R); 13:36 BP 125 / 78; Pulse 110; Resp 18; Pulse Ox 96% ; jh5 14:37 BP 123 / 83; Pulse 84; Resp 16; Temp 98.8(O); Pulse Ox 93% ; jh5 12:35 Body Mass Index 41.15 (102.06 kg, 157.48 cm) [facility] MDM: 12:34 Patient medically screened. [facility] 16:15 Differential diagnosis: viral Infection, bacterial infection, URI, bronchitis, 7 pneumonia PE. Data reviewed: vital signs, nurses notes, lab test result(s), EKG, radiologic studies, CT scan, plain films. Data interpreted: Pulse oximetry: is 99 %. Interpretation: normal. Counseling: I had a detailed discussion with the patient and/or guardian regarding: the historical points, exam findings, and any diagnostic results supporting the discharge/admit diagnosis, to return to the emergency department if symptoms worsen or persist or if there are any questions or concerns that arise at home. Response to treatment: the patient's symptoms have markedly improved after treatment. ED course: The patient remained stable throughout her ER visit. Reviewed all labs and imaging. The patient stated that she believed the coughing was hurting her chest. Discussed all medications and when to return to the ER.. 04/20 12:51 Order name: Basic Metabolic Panel; Complete Time: 14:25 [facility] 04/20 12:51 Order name: CBC with Diff; Complete Time: 13:51 [facility] 04/20 12:51 Order name: LFT's; Complete Time: 14:25 [facility] 04/20 12:51 Order name: Magnesium; Complete Time: 14:25 [facility] 04/20 12:51 Order name: Troponin HS; Complete Time: 14:25 [facility] 04/20 12:51 Order name: Urine Microscopic Only; Complete Time: 14:21 [facility] 04/20 12:51 Order name: XRAY Chest (1 view); Complete Time: 14:21 [facility] 04/20 12:51 Order name: Flu; Complete Time: 13:51 [facility] 04/20 12:51 Order name: COVID-19 SARS RT PCR (Document "Date of Onset" if Symptomatic); Complete [facility] Time: 14:39 04/20 13:21 Order name: Urine Dipstick-Ancillary; Complete Time: 13:51 [facility] 04/20 13:57 Order name: Urine Culture [facility] 04/20 14:40 Order name: D-Dimer; Complete Time: 15:30 [facility] 04/20 14:43 Order name: Urine --Ancillary (enter results); Complete Time: 15:25 04/20 15:30 Order name: Chest For Pe Angio; Complete Time: 16:11 [facility] 04/20 12:51 Order name: EKG; Complete Time: 12:52 [facility] 04/20 12:51 Order name: Cardiac monitoring; Complete Time: 12:55 [facility] 04/20 12:51 Order name: EKG - Nurse/Tech; Complete Time: 13:13 [facility] 04/20 12:51 Order name: IV Saline Lock; Complete Time: 13:13 [facility] 04/20 12:51 Order name: Labs collected and sent; Complete Time: 13:13 [facility] 04/20 12:51 Order name: O2 Per Protocol; Complete Time: 12:55 [facility] 04/20 12:51 Order name: O2 Sat Monitoring; Complete Time: 12:55 [facility] 04/20 12:51 Order name: Urine Dipstick-Ancillary (obtain specimen); Complete Time: 14:08 [facility] 04/20 12:51 Order name: Urine Test (obtain specimen); Complete Time: 14:07 [facility] 04/20 13:26 Order name: Labs - recollect needed: green and lavender hemolyzed; Complete Time: 14:07 iw Administered Medications: 13:14 Drug: NS 0.9% 1000 ml Route: IV; Rate: 1 bolus; Site: right antecubital; [facility] 13:14 Drug: Zofran (Ondansetron) 4 mg Route: IVP; Site: right antecubital; [facility] 13:14 Drug: Tylenol 650 mg Route: PO; [facility] Disposition Summary: 04/20/22 16:17 Discharge Ordered Location: Home [facility] Problem: new [facility] Symptoms: have improved [facility] Condition: Stable [facility] Diagnosis - Acute bronchitis, unspecified [facility] Followup: [facility] - With: Private Physician - When: 2 - 3 days - Reason: Recheck today's complaints Discharge Instructions: - Discharge Summary Sheet [facility] - Acute Bronchitis, Adult [facility] Forms: - Medication Reconciliation Form [facility] - Thank You Letter [facility] Prescriptions: - Bromfed DM 2-30-10 mg/5 mL Oral syrup - take 10 milliliter by ORAL route every 4 hours As needed; 240 milliliter; [facility] Refills: 0, Product Selection Permitted - ProAir HFA 90 mcg/actuation Inhalation HFA aerosol inhaler - inhale 2 puff by INHALATION route every 4-6 hours As needed; 1 Inhaler; [facility] Refills: 0, Product Selection Permitted - Zithromax Z-Bakari 250 mg Oral Tablet - take 1 tablet by ORAL route as directed for 5 days Day 1 - take two (2) tablets [facility] one time. Day 2, 3, 4 , 5 take one (1) tablet once daily.; 6 tablet; Refills: 0, Product Selection Permitted Signatures: Dispatcher [employer] Tayler Wharton, RN RN Emily Caldwell RN RN aa5 Jossy Moncada RN RN jh5 Maura Malik, CLEAN UP HELPER BANQUET CLEAN UP HELPER BANQUET jh7
--- NOTE | 2022-04-21 13:08 | EKG ---
Test Date: 2022-04-20 Test Time: 12:58:44 [employer] Helper: TM MEASUREMENT RESULTS: Intervals: Rate: 102 CA: 138 QRSD: 76 QT: 340 QTc: 443 Fleming: P: 20 CA: 138 QRS: 13 T: -9 INTERPRETIVE STATEMENTS: Sinus tachycardia ST & T wave abnormality, consider anterior ischemia Abnormal ECG Compared to ECG 02/06/2021 22:37:29 ST (T wave) deviation now present Possible ischemia now present Sinus rhythm no longer present T-wave abnormality no longer present Electronically Signed On 04-21-22 13:05:28 CDT by Javier Mathews
[2022-04-22 21:08] VITALS: BP 123/83; TEMP 98.8; O2SAT 93
== END 2022-04-20 16:36 | disposition home or self-care (01) ==
LOC: ER 12:19
DX: J20.9 Acute bronchitis, unspecified (principal); Z20.822 Contact with and (suspected) exposure to COVID-19
CPT/HCPCS: 36415; 71045; 71275; 80048; 80076; 81003; 81015; 81025; 83735; 84484; 85025; 85379; 87086; 87088; 87804; 93005; 96374; 99284; J2405; J7030; Q9967; U0003

== ENCOUNTER 2022-06-25 23:40 | Emergency (ER) | payer SELFPAY ==
--- OUTSIDE RECORDS SUMMARY | 2022-06-25 23:44 | XMS REPORT | Continuity of Care Document ---
:1995 Author Organization [facility] t Address [address] [place] [address] Care Team Providers Name Role Phone Anel Flynn Primary Care Physician EZRA WHEELER Attending Clinician Unavailable JOELLEN HART Attending Clinician Unavailable PASCALE BRITO Attending Clinician Unavailable Doctor Unassigned, [place] Attending Clinician Unavailable Pascale Arceo Attending Clinician Joellen Hart MD Attending Clinician LAURA GEE Attending Clinician Unavailable Laura Gee DO Attending Clinician Anel Flynn Attending Clinician RADHA BRYSON Attending Clinician Unavailable Joleen Vilchis Attending Clinician Radha Rajput Attending Clinician Pob, [facility] Main Attending Clinician Unavailable GAETANO ORTEGA Attending Clinician Unavailable Gaetano Victoria Attending Clinician [facility] Attending Clinician Unavailable RANDY CHRISTINA Attending Clinician Unavailable Randy Angel Attending Clinician ANEL RAMIREZ Attending Clinician Unavailable BJORN LOPEZ Attending Clinician Unavailable Bjorn George Attending Clinician Manjula ASENCIO Attending Clinician Unavailable Manjula Lakhani Attending Clinician LEDY BUTLER Attending Clinician Unavailable Kenya Arguello RN Attending Clinician Unavailable Manuelito ORTIZ, Chely L Attending Clinician Unavailable Shanti King MD Attending Clinician SHANTI KING Attending Clinician Unavailable Everett Esqueda PT, Safia Attending Clinician Unavailable SRIKANTH MORA Attending Clinician Unavailable SRIKANTH MORA Attending Clinician Unavailable Ezra Wheeler MD Attending Clinician [phone] Srikanth Mora MD Attending Clinician LALA GRIFFIN Attending Clinician Unavailable Lala Griffin MD Attending Clinician Lab, Adc Fam Pob I Attending Clinician Unavailable Yudy Attending Clinician Unavailable Chely Johns Attending Clinician [phone] CHELY WARE Attending Clinician Unavailable PRATIK Attending Clinician Unavailable Vivien Attending Clinician Unavailable EZRA WHEELER Admitting Clinician Unavailable RANDY CHRISTINA Admitting Clinician Unavailable BJORN LOPEZ Admitting Clinician Unavailable Manjula ASENCIO Admitting Clinician Unavailable Ezra Wheeler MD Admitting Clinician [phone] Yudy Admitting Clinician Unavailable AMBREENKAREN Admitting Clinician Unavailable VRadha Admitting Clinician Unavailable Payers Payer Name Policy Type Policy Number Effective Date Expiration Date S quentin [facility] [id number] 2020 EMPLOYEE PLAN 00:00:00 [place] [id number] WOM[facility]'S HE[facility] PROGRAM (MEDICAID) Problems Condition Condition [...] Branch Numbness Numbness Disease Active Unive rs 7- ity of 00:00: [place] 00 Medical Branch Acute non Acute non Disease Active Uni vers intractabl intractabl 02-07 it y of e e 00:00: [place] tension-ty tension-ty 00 Me dical pe pe Branch headache headache Obesity Obesity Disease Active Univers (BMI (BMI 7- ity of 30-39.9) 30-39.9) 00:00: [place] Medical Branch Primary Primary Disease Active Univers female female 9 ity of infertilit infertilit 00:[place] y y 00 Medical [place] Oligomenor Oligomenor Disease Active 2019- U nivers lorrie lorrie 9 ity of 00:00: Medical Branch Polycystic Polycystic Disease Active 2019-0 U nivers ovary ovary 04-22 ity of syndrome syndrome 00:00: Medical Branch Gynecologi Gynecologi Problem Active 2019-0 M atagor c c 04-22 da examinatio [...] Active Anaphylaxis 2016-07 Unive rs (Non-Micheal Allergy 07-26 ity of roidal 00:00: [place] Anti-Inf 00 Medical lammator Branch y Drug) Ibuprofe Drug Active Anaphylaxis 2016-07 Uni vers n Allergy 07-26 ity of 00:00: [place] 00 Medical Branch Nsaids Drug Active Anaphylaxis 2016-07 Unive rs (Non-Micheal Allergy 07-26 ity of roidal 00:00: [place] Anti-Inf 00 Medical lammator Branch y Drug) Motrin Allergy Active Anaphylaxis Yao gor to da substanc Medical e Group NSAIDS Allergy Active Moderate Anaphylaxis [place] tag[place] (NON-MICHEAL to to severe da ROIDAL substanc Medical ANTI-INF e Group LAMMATOR Y DRUG) Social History Social Habit Start Date Stop Date Quantity Comments Source History [facility] o f Alcohol Frequency [place] M edical Branch History [facility] o f Alcohol Std [place] Medical Drinks Branch History [facility] o f Alcohol Binge [place] Medic al Branch Alcohol intake 2022-04-29 2022-04-29 Current drinker Unive rsity of 00:00:00 00:00:00 of alcohol [place] Medical (finding) Branch Exposure to 2022-03-18 2022-03-28 Not sure University of SARS-CoV-2 00:00:00 11:27:00 [facility] [place] (event) Branch Tobacco use and 2022-02-19 2022-02-19 Smokeless tobacco Un iversity of exposure 00:00:00 00:00:[address] non-[address] [facility] Alcohol Comment 2021-03-24 2021-03-24 Socially Universit y of 00:00:00 00:00:[address] [facility] Sex Assigned At [birth year] Universit y of 00:00:00 00:00:[address] [facility] Smoking Status Start Date Stop Date Source Former Smoker [facility] Never smoked tobacco [facility] Medications Ordered Filled Start Stop Current Ordering Indication Dosage Frequency Signature Comments Components Source Medication Medication Date Date Medication? Clinician (SIG) Name Name plecanatide 2021-07- Yes [id number] 3mg Take 1 Univers (TRULANCE) 0-06 -05 tablet by ity of 3 mg Tab 00:00[place] 05:59 [place]00 [facility] for 90 days. plecanatide 2021-07- Yes [id number] 3mg Take 1 Univers (TRULANCE) 0-06 -05 tablet by ity of 3 mg Tab 00:00: 05:59 [place] :00 [facility] for 90 days. ondansetron 2021- No 4mg 4 mg, Univ ers (ZOFRAN-ODT 03-28 Oral, ity of ) 17:30: 16:26 ONCE, 1 [place] disintegrat 00 :00 dose, On Medi chavo ing tablet [place] 03/28/22 Bra nch 4 mg at 1230, Routine maalox:diph No 15mL 15 mL, Uni vers enhydrAMINE 03-28 Oral, ity of :lidocaine 17:00: 17:04 ONCE, 1 [place] as 2 % viscous 00 :00 dose, On Medi chavo 1:1:1 [place] 03/28/22 Branch (FIRST-MOUT at 1200, [facility]) Routine oral suspension 15 mL ondansetron Yes [id number] 4mg Take 1 Univers 4 mg 9-04 tablet by ity of disintegrat 00:00: mouth [place] ing tablet 00 every 8 Medica l (eight) Branch hours as needed for Nausea and Vomiting (N/V). ondansetron Yes [id number] 4mg Take 1 Univers 4 mg 9-04 tablet by ity of disintegrat 00:00: mouth [place] ing tablet 00 every 8 Medica l (eight) Branch hours as needed for Nausea and Vomiting (N/V). ondansetron 2021-0 Yes [id number] 4mg Take 1 Univers 4 mg 9-04 tablet by ity of disintegrat 00:00: mouth [place] ing tablet 00 every 8 Medica l (eight) Branch hours as needed for Nausea and Vomiting (N/V). ondansetron 2021-0 Yes [id number] 4mg Take 1 Univers 4 mg 9-04 tablet by ity of disintegrat 00:00: mouth [place] ing tablet 00 every 8 Medica l (eight) Branch hours as needed for Nausea and Vomiting (N/V). codeine-gua 2021-2021- No [id number] 5mL Take 5 mL Univers ifenesin 02-19 08-06 by mouth ity of 10-100 mg/5 00:00: 04:59 every 6 [place] mL oral 00 :00 (six) Medical solution hours as Branch needed for Cough for up to 7 days. Indication s: acute pain codeine-gua 2021-2021- No [id number] 5mL Take 5 mL Univers ifenesin 02-19-06 by mouth ity of 10-100 mg/5 00:00: 04:59 every 6 [place] mL oral 00 :00 (six) Medical solution hours as Branch needed for Cough for up to 7 days. Indication s: acute pain multivit-mi 2021-0 Yes Take by Uni vers [...] NATURAL Branch ENERGY ORAL) omeprazole 0 Yes [id number] 40mg Take 1 Univers 40 mg 6-30 capsule by ity of capsule 00:00: mouth [place] 00 daily. Medical Branch omeprazole 2021-0 Yes [id number] 40mg Take 1 Univers 40 mg 6-30 capsule by ity of capsule 00:00: mouth [place] 00 daily. Medical Branch omeprazole 2021-0 Yes [id number] 40mg Take 1 Univers 40 mg 6-30 capsule by ity of capsule 00:00: mouth [place] 00 daily. Medical Branch omeprazole 2021-0 Yes [id number] 40mg Take 1 Univers 40 mg 6-30 capsule by ity of capsule 00:00: mouth [place] 00 daily. Medical Branch omeprazole 2021-0 Yes [id number] 40mg Take 1 Univers 40 mg 6-30 capsule by ity of capsule 00:00: mouth [place] 00 daily. Medical Branch omeprazole 2021-0 Yes [id number] 40mg Take 1 Univers 40 mg 6-30 capsule by ity of capsule 00:00: mouth [place] 00 daily. Medical Branch omeprazole 2021-0 Yes [id number] 40mg Take 1 Univers 40 mg 6-30 capsule by ity of capsule 00:00: mouth [place] 00 daily. Medical Branch omeprazole 2021-0 Yes [id number] 40mg Take 1 Univers 40 mg 6-30 capsule by ity of capsule 00:00: mouth [place] 00 daily. Medical Branch omeprazole 2021-0 Yes [id number] 40mg Take 1 Univers 40 mg 6-30 capsule by ity of capsule 00:00: mouth [place] 00 daily. Medical Branch linaCLOtide 2021- No [id number] 72ug Take 1 Univers (LINZESS) 01-21 capsule by ity of 72 mcg Cap 00:00: 04:59 mouth [place] 00 :00 daily for Medical 90 days. Branch linaCLOtide 2021- No [id number] 72ug Take 1 Univers (LINZESS) 01-21 capsule by ity of 72 mcg Cap 00:00: 04:59 mouth [place] 00 :00 daily for Medical 90 days. Branch linaCLOtide 2021- No [id number] 72ug Take 1 Univers (LINZESS) 01-21 capsule by ity of 72 mcg Cap 00:00: 04:59 mouth [place] 00 :00 daily for Medical 90 days. Branch linaCLOtide 2021- No [id number] 72ug Take 1 Univers (LINZESS) 01-21 capsule by ity of 72 mcg Cap 00:00: 04:59 mouth [place] 00 :00 daily for Medical 90 days. [place] linaCLOtide 2021- No [id number] 72ug Take 1 Univers (LINZESS) 01-21 capsule by ity of 72 mcg Cap 00:00: 04:59 mouth [place] 00 :00 daily for Medical 90 days. [place] linaCLOtide 2021- No [id number] 72ug Take 1 Univers (LINZESS) 01-21 capsule by ity of 72 mcg Cap 00:00: 04:59 mouth [place] 00 :00 daily for Medical 90 days. [place] linaCLOtide 2021- No [id number] 72ug Take 1 Univers (LINZESS) 01-21 capsule by ity of 72 mcg Cap 00:00: 04:59 mouth [place] 00 :00 daily for Medical 90 days. Branch PNV WITH Yes Take by [facility] s CA8/IRON/FA 5-21 mouth. ity of /LMEFOLATE 13:03: [place] (PNV-IRON 07 Medical ORAL) Branch PNV WITH Yes Take by [employer] s CA8/IRON/FA 5-21 mouth. ity of /LMEFOLATE 13:03: [place] (PNV-IRON 07 Medical ORAL) Branch PNV WITH 2022-0 Yes Take by Univer s CA8/IRON/FA 5-21 mouth. ity of /LMEFOLATE 13:03: [place] (PNV-IRON 07 Medical ORAL) Branch PNV WITH 2021-0 Yes Take by Univer s CA8/IRON/FA 5-21 mouth. ity of /LMEFOLATE 13:03: [place] (PNV-IRON 07 Medical ORAL) Branch PNV WITH 2022-0 Yes Take by Univer s CA8/IRON/FA 5-21 mouth. ity of /LMEFOLATE 13:03: [place] (PNV-IRON 07 Medical ORAL) Branch PNV WITH 2021-0 Yes Take by Univer s CA8/IRON/FA 5-21 mouth. ity of /LMEFOLATE 13:03: [place] (PNV-IRON 07 Medical ORAL) Branch [facility] WITH 2021-0 Yes Take by Univer s CA8/IRON/FA 5-21 mouth. ity of /LMEFOLATE 13:03: [place] (PNV-IRON 07 Medical ORAL) Branch [facility] WITH 2021-0 Yes Take by [facility] s CA8/IRON/FA 5-21 mouth. ity of /LMEFOLATE 13:03: [place] (PNV-IRON 07 Medical ORAL) Branch [facility] WITH 2021-0 Yes Take by [facility] s CA8/IRON/FA 5-21 mouth. ity of /LMEFOLATE 13:03: [place] (PNV-IRON 07 Medical ORAL) Branch metFORMIN Yes metformin Uni vers 500 mg 5-05 500 mg ity of tablet 12:34: tablet [place] [id number] Take 1 Medical tablet Branch twice a day by oral route. metFORMIN Yes metformin Uni vers 500 mg 5-05 500 mg ity of tablet 12:34: tablet [place] 58 Take 1 Medical tablet Branch twice a day by oral route. metFORMIN Yes metformin Uni vers 500 mg 5-05 500 mg ity of tablet 12:34: tablet [place] 58 Take 1 Medical tablet Branch twice a day by oral route. metFORMIN 2021-0 Yes metformin Uni vers 500 mg 5-05 500 mg ity of tablet 12:34: tablet [place] 58 Take 1 Medical tablet Branch twice a day by oral route. metFORMIN Yes metformin Uni vers 500 mg 5-05 500 mg ity of tablet 12:34: tablet [place] 58 Take 1 Medical tablet Branch twice a day by oral route. metFORMIN 0 Yes metformin Uni vers 500 mg 5-05 500 mg ity of tablet 12:34: tablet 58 Take 1 Medical tablet Branch twice a day by oral route. metFORMIN 2021-0 Yes metformin Uni vers 500 mg 5-05 500 mg ity of tablet 12:34: tablet 58 Take 1 Medical tablet Branch twice a day by oral route. metFORMIN 2021-0 Yes metformin Uni vers 500 mg 5-05 500 mg ity of tablet 12:34: tablet 58 Take 1 Medical tablet Branch twice a day by oral route. metFORMIN 2021-0 Yes metformin Uni vers 500 mg 5-05 500 mg ity of tablet 12:34: tablet 58 Take 1 Medical tablet Branch twice a day by oral route. peg-electro 0 Yes [id number] Take as Univers lyte soln 5-05 directed ity of 236-22.74-6 00:00: [place] .74 -5.86 00 colonoscop Medi chavo gram y Branch solution peg-electro 2021-0 Yes [id number] Take as Univers lyte soln 5-05 directed ity of 236-22.74-6 00:00: [place] .74 -5.86 00 colonoscop Medi chavo gram y Branch solution peg-electro 2021-0 Yes [id number] Take as Univers lyte soln 5-05 directed ity of 236-22.74-6 00:00: before [place] .74 -5.86 00 colonoscop Medi chavo gram y Branch solution peg-electro 2021-0 Yes [id number] Take as Univers lyte soln 5-05 directed ity of 236-22.74-6 00:00: before [place] .74 -5.86 00 colonoscop Medi chavo gram y Branch solution peg-electro 2021-0 Yes [id number] Take as Univers lyte soln 5-05 directed ity of 236-22.74-6 00:00: before [place] .74 -5.86 00 colonoscop Medi chavo gram y Branch solution peg-electro 2021-0 Yes [id number] Take as Univers lyte soln 5-05 directed ity of 236-22.74-6 00:00: before [place] .74 -5.86 00 colonoscop Medi chavo gram y Branch solution peg-electro Yes [id number] Take as Univers lyte soln 11-26 directed ity of 236-22.74-6 00:00: before [place] .74 -5.86 00 colonoscop Medi chavo gram y Branch solution peg-electro 2021- No [id number] Take as Univers lyte soln 11-26 directed ity o f 236-22.74-6 00:00: 00:00 before [place] as .74 -5.86 00 :00 colonoscop Medi chavo gram y Branch solution omeprazole 2021- No [id number] 40mg Take 1 Univers 40 mg 5-05 -30 capsule by ity of capsule 00:00: 00:00 mouth [place] 00 :00 daily for Medical 90 days. Branch omeprazole 2021- No [id number] 40mg Take 1 Univers 40 mg 5-05 06-30 capsule by ity of capsule 00:00: 00:00 mouth [place] 00 :00 daily for Medical 90 days. Branch dicyclomine 2021-0 Yes [id number] 20mg Take 1 Univers 20 mg 3-12 tablet by ity of tablet 00:00: mouth ([facility]) Medical times Branch daily. dicyclomine 2021-0 Yes [id number] 20mg Take 1 Univers 20 mg 3-12 tablet by ity of tablet 00:00: mouth [place] ([facility]) Medical times Branch daily. dicyclomine 2021-0 Yes [id number] 20mg Take 1 Univers 20 mg 3-12 tablet by ity of tablet 00:00: mouth [place] ([facility]) Medical times Branch daily. dicyclomine 2021-0 Yes [id number] 20mg Take 1 Univers 20 mg 3-12 tablet by ity of tablet 00:00: mouth [place] ([facility]) Medical times Branch daily. dicyclomine 2021-0 Yes [id number] 20mg Take 1 Univers 20 mg 3-12 tablet by ity of tablet 00:00: mouth [place] ([facility]) Medical times Branch daily. dicyclomine 2021-0 Yes [id number] 20mg Take 1 Univers 20 mg 3-12 tablet by ity of tablet 00:00: mouth 4 ([facility]) Medical times Branch daily. dicyclomine 2021-0 Yes [id number] 20mg Take 1 Univers 20 mg 3-12 tablet by ity of tablet 00:00: mouth 4 [place] 00 (four) Medical times Branch daily. dicyclomine 2022-0 Yes [id number] 20mg Take 1 Univers 20 mg 3-12 tablet by ity of tablet 00:00: mouth 4 [place] 00 (four) Medical times Branch daily. dicyclomine 2022-0 Yes [id number] 20mg Take 1 Univers 20 mg 3-12 tablet by ity of tablet 00:00: mouth 4 [place] 00 (four) Medical times Branch daily. medroxyPROG 2022-0 Yes [id number] 10mg Take 1 Univers ESTERone 2-08 tablet by ity of (PROVERA) 00:00: mouth [place] 10 mg 00 daily. Medical tablet Branch medroxyPROG 2022-0 Yes [id number] 10mg Take 1 Univers ESTERone 2-08 tablet by ity of (PROVERA) 00:00: mouth [place] 10 mg 00 daily. Medical tablet Branch medroxyPROG 2022-0 Yes [id number] 10mg Take 1 Univers ESTERone 2-08 tablet by ity of (PROVERA) 00:00: mouth [place] 10 mg 00 daily. Medical tablet Branch medroxyPROG 2022-0 Yes [id number] 10mg Take 1 Univers ESTERone 2-08 tablet by ity of (PROVERA) 00:00: mouth [place] 10 mg 00 daily. Medical tablet Branch medroxyPROG 2022-0 Yes [id number] 10mg Take 1 Univers ESTERone 2-08 tablet by ity of (PROVERA) 00:00: mouth [place] 10 mg 00 daily. Medical tablet Branch medroxyPROG 2022-0 Yes [id number] 10mg Take 1 Univers ESTERone 2-08 tablet by ity of (PROVERA) 00:00: mouth [place] 10 mg 00 daily. Medical tablet Branch medroxyPROG 2022-0 Yes [id number] 10mg Take 1 Univers ESTERone 2-08 tablet by ity of (PROVERA) 00:00: mouth [place] 10 mg 00 daily. Medical tablet Branch medroxyPROG 2022-0 Yes [id number] 10mg Take 1 Univers ESTERone 2-08 tablet by ity of (PROVERA) 00:00: mouth [place] 10 mg 00 daily. Medical tablet Branch medroxyPROG 2022-0 Yes [id number] 10mg Take 1 Univers ESTERone 2-08 tablet by ity of (PROVERA) 00:00: mouth [place] 10 mg 00 daily. Medical tablet Branch amitriptyli Yes [id number] 25mg Take 1 Univers ne 25 mg 8-27 tablet by ity of tablet 00:00: mouth at [place] [address] bedtime. Medical Branch amitriptyli Yes [id number] 25mg Take 1 Univers ne 25 mg 8-27 tablet by ity of tablet 00:00: mouth at [place] [address] bedtime. Medical Branch amitriptyli Yes [id number] 25mg Take 1 Univers ne 25 mg 8-27 tablet by ity of tablet 00:00: mouth at [place] [address] bedtime. Medical Branch amitriptyli Yes [id number] 25mg Take 1 Univers ne 25 mg 8-27 tablet by ity of tablet 00:00: mouth at [place] [address] bedtime. Medical Branch amitriptyli Yes [id number] 25mg Take 1 Univers ne 25 mg 8-27 tablet by ity of tablet 00:00: mouth at [place] [address] bedtime. Medical Branch amitriptyli Yes [id number] 25mg Take 1 Univers ne 25 mg 8-27 tablet by ity of tablet 00:00: mouth at [place] [address] bedtime. Medical Branch amitriptyli Yes [id number] 25mg Take 1 Univers ne 25 mg 8-27 tablet by ity of tablet 00:00: mouth at [place] [address] bedtime. Medical Branch amitriptyli Yes [id number] 25mg Take 1 Univers ne 25 mg 8-27 tablet by ity of tablet 00:00: mouth at [place] [address] bedtime. Medical Branch amitriptyli Yes [id number] 25mg Take 1 Univers ne 25 mg 8-27 tablet by ity of tablet 00:00: mouth at [place] [address] bedtime. Medical Branch cyanocobala 2020- No 1000ug 1,000 mcg, Univers min 02-08 Intramuscu ity of (VITAMIN 18:43: 19:46 [place], ONCE, [place] B12) 00 :00 1 dose, Medical injection Sun Branch 1,000 mcg 02/08/21 at 1345, Routine acetaminoph 2021-0 Yes 650mg 650 mg, Un celestino en 02-08 Oral, ity of (TYLENOL) 12:44: Q6HPRN, [place] tablet 650 15 Starting Medic al mg [facility] 02/08/21 at 0744, Until Discontinu ed, Routine, Pain (scale 1-3), Pain (scale 4-6), pain 1-10 gadobenate 2020- No [id number] .2mL/kg 19.8 mL Univers dimeglumine 02-08 (0.2 mL/kg i ty of (MULTIHANCE 10:33: 10:45 ?99 kg), [place] -20 mL) 00 :00 Intravenou Medica l injection s, ONCE, 1 Bran ch 19.8 mL dose, [place] 02/08/21 at 0545, Routine LORazepam 2020- No 1mg 1 mg, Univer s (ATIVAN) 02-08 Oral, ity of tablet 1 mg 06:00: 09:11 ONCE, 1 [place] 00 :00 dose, [facility] 02/08/21 at Branch 0100, Routine glucagon Yes 1mg 1 mg, Univers (GLUCAGEN 02-08 Intramuscu ity of DIAGNOSTIC 01:45: [place], PRN, [place] KIT) 14 Starting Medical injection 1 [facility] 02/07/21 at 2044, Until Discontinu ed, MIRANDA, Blood Glucose < or = 70 mg/dL and patient is unable to swallow or has mental changes. dextrose 50 Yes 25mL 25 mL, Univ ers % in water 02-08 Slow IV ity of (D50W) 01:45: Push, PRN, [place] injection 14 Starting Medica l 25 mL [facility] 02/07/21 at 2044, Until Discontinu ed, MIRANDA, Blood Glucose < or = 70 mg/dL and patient is unable to swallow or has mental status changes. magnesium Yes [id number] 400mg Take 1 U nivers oxide 400 -18 tablet by ity o f mg (241.3 00:00: mouth [place] mg 00 daily. Medical magnesium) Branch tablet vitamin 0 Yes [id number] 1000ug Take 1 Un celestino B-12 1,000 -18 tablet by ity of mcg tablet 00:00: mouth [place] 00 daily. Medical Branch magnesium 2020-0 Yes [id number] 400mg Take 1 U nivers oxide 400 7-18 tablet by ity o f mg (241.3 00:00: mouth [place] mg 00 daily. Medical magnesium) Branch tablet vitamin 2020-0 Yes [id number] 1000ug Take 1 Un celestino B-12 1,000 7-18 tablet by ity of mcg tablet 00:00: mouth [place] 00 daily. Medical Branch magnesium 2020-0 Yes [id number] 400mg Take 1 U nivers oxide 400 7-18 tablet by ity o f mg (241.3 00:00: mouth [place] mg 00 daily. Medical magnesium) Branch tablet vitamin 2020-0 Yes [id number] 1000ug Take 1 Un celestino B-12 1,000 7-18 tablet by ity of mcg tablet 00:00: mouth [place] 00 daily. Medical Branch magnesium 2020-0 Yes [id number] 400mg Take 1 U nivers oxide 400 7-18 tablet by ity o f mg (241.3 00:00: mouth [place] mg 00 daily. Medical magnesium) Branch tablet vitamin 2020-0 Yes [id number] 1000ug Take 1 Un celestino B-12 1,000 7-18 tablet by ity of mcg tablet 00:00: mouth [place] 00 daily. Medical Branch magnesium 2020-2020- No 2g 2 g, IV Univ ers sulfate in 02-07 Piggyback, it y of water 2 16:51: 17:00 ONCE, 1 [place] gram/50 mL 00 :00 dose, Sat Medi chavo (4 %) 02/07/21 at [place] infusion 2 1200, g Routine famotidine Yes 20mg 20 mg, Unive rs (PEPCID AC) 02-07 Oral, BID, it y of tablet 20 13:00: First dose [place] mg 00 on [facility] 02/07/21 at Branch 0800, Until Discontinu ed, Routine heparin 2020-0 Yes 5000U 5,000 Univers (porcine) 02-07 Units, ity of injection 13:00: Subcutaneo [place] 5,000 Units 00 us, Q12H, Med ical First dose Branch on [facility] 02/07/21 at 0800, Until Discontinu ed, Routine ondansetron 2021-0 Yes 4mg 4 mg, Slow Univers (ZOFRAN 02-07 IV Push, ity of (PF)) 10:47: Q6HPRN, [place] injection 4 30 Starting Medi chavo mg [facility] 02/07/21 at 0547, Until Discontinu ed, Routine, Nausea and Vomiting (N/V) acetaminoph 2020- No 500mg 500 mg, U nivers en 02-07 Oral, ity of (TYLENOL) 10:47: 12:45 Q6HPRN, [place] tablet 500 00 :19 Starting Medic al mg [facility] 02/07/21 at 0547, Until 02/08/21 at [...] Immunizations Ordered Filled Immunization Date Status Comments [facility] e Immunization Name Name Influenza Virus 2020 Completed Universit y of Vaccine 00:00:[address] [facility] Influenza Virus 2020 Completed Universit y of Vaccine 00:00:[address] [facility] Influenza Virus 2020 Completed Universit y of Vaccine 00:00:[address] [facility] Influenza Virus 2020 Completed Universit y of Vaccine 00:00:[address] [facility] Influenza Virus 2020 Completed Universit y of Vaccine 00:00:[address] [facility] Influenza Virus 2020 Completed Universit y of Vaccine 00:00:[address] [facility] Influenza Virus 2020 Completed Universit y of Vaccine 00:00:[address] [facility] Influenza Virus 2020 Completed Universit y of Vaccine 00:00:[address] [facility] Influenza Virus 2020 Completed Universit y of Vaccine 00:00:[address] [facility] TDAP 2017-12-23 Completed University of 00:00:00 [place] [...] Branch TDAP 2017-12-23 Completed University of 00:00:[address] [facility] Vital Signs Vital Name Observation Time Observation Value Comments Source Body weight 2022-04-29 13:49:00 102.059 kg Universi [facility] BMI 2022-04-29 13:49:00 41.15 kg[facility] Systolic blood 2022-03-28 17:30:00 138 mm[Hg] Univer sity of pressure [facility] Diastolic blood 2022-03-28 17:30:00 85 mm[Hg] Unive rsity of [facility] Heart rate 2022-03-28 17:30:00 85 /min General acute hospital Respiratory rate 2022-03-28 17:30:00 14 /min [facility] Oxygen saturation in 2022-03-28 17:30:00 99 /min [facility] Arterial blood by [facility] Pulse oximetry [place] Body temperature 2022-03-28 16:20:00 36.39 Bre [facility] Body weight 2022-03-28 16:20:00 102.059 kg Universi ty [facility] BMI 2022-03-28 16:20:00 41.15 kg/m2 Universi [facility] Systolic blood 2022-02-20 01:15:00 129 mm[Hg] Univer sity of pressure [facility] Diastolic blood 2022-02-20 01:15:00 89 mm[Hg] Unive rsity of [facility] Heart rate 2022-02-20 01:15:00 78 /min General acute hospital Body temperature 2022-02-20 01:15:00 36.5 Bre Univ [facility] Respiratory rate 2022-02-20 01:15:00 16 /min Univ [facility] Body height 2022-02-20 01:15:00 157.5 cm [facility] Body weight 2022-02-20 01:15:00 105.461 kg [facility] BMI 2022-02-20 01:15:00 42.52 kg/m2 [facility] Oxygen saturation in 2022-02-20 01:15:00 97 /min University of Arterial blood by [employer] chavo Pulse oximetry Branch Systolic blood 2022-01-21 14:27:00 119 mm[Hg] Univer sity of pressure [facility] Diastolic blood 2022-01-21 14:27:00 89 mm[Hg] Unive rsity of pressure [facility] Heart rate 2022-01-21 14:27:00 90 /min [facility] Body temperature 2022-01-21 14:27:00 36.56 Bre [facility] Respiratory rate 2022-01-21 14:27:00 16 /min Univ [facility] Body height 2022-01-21 14:27:00 157.5 cm [facility] Body weight 2022-01-21 14:27:00 104.418 kg [facility] BMI 2022-01-21 14:27:00 42.10 kg/m2 [facility] Systolic blood 2021-02-08 16:18:00 103 mm[Hg] Univer sity of pressure [facility] Diastolic blood 2021-02-08 16:18:00 50 mm[Hg] Unive rsity of pressure [facility] Heart rate 2021-02-08 16:18:00 63 /min [facility] Body temperature 2021-02-08 16:18:00 36.22 Bre Univ [facility] Respiratory rate 2021-02-08 16:18:00 18 /min Univ [facility] Oxygen saturation in 2021-02-08 16:18:00 100 /min University of Arterial blood by [employer] chavo Pulse oximetry Branch Body weight 2021-02-07 09:25:00 99.02 kg [facility] [place] BP Diastolic 2020-04-22 00:00:00 93 mm[Hg] [facility] Height 2020-04-22 00:00:00 62 [in_i] [facility] BMI (Body Mass 2020-04-22 00:00:00 41 kg/m2 [facility]) Group BP Systolic 2020-04-22 00:00:00 133 mm[Hg] [facility] Body Weight 2020-04-22 00:00:00 224.1 [lb_av] [facility] Procedures Procedure Date / Time Performing Clinician Source Performed EXTERNAL PROVIDER RECORDS 2022-05-27 05:01:00 Doctor Deshawn, [facility] Name [facility] POCT TEST 2022-03-28 16:29:00 Laura Gee [facility] CONSENT/REFUSAL FOR 2022-03-28 16:12:09 Doctor Hess [facility] DIAGNOSIS AND TREATMENT [place] [facility] ASSIGNMENT OF BENEFITS 2021-03-17 13:09:25 Doctor Deshawn, [facility] Name [facility] EXTERNAL PROVIDER RECORDS 2021-02-17 05:01:00 Doctor Hess, [facility] Name [facility] MR ANGIOGRAM NECK W WO 2021-02-08 10:56:14 Viv cayetano [facility] [place] MR VENOGRAM HEAD WO 2021-02-08 10:27:46 Viv cayetano [facility] CONTRAST Medical Branch MR ANGIOGRAM HEAD WO 2021-02-08 10:26:56 Viv [facility] CONTRAST Medical Branch MR CERVICAL SPINE WO 2021-02-08 09:53:23 Luis Vega [facility] CONTRAST [facility] Branch MR STROKE BRAIN WO 2021-02-07 12:40:45 Patricia Panda [facility] CONTRAST Elain[facility] Branch MAGNESIUM 2021-02-07 11:17:00 Gen Bruno [facility] Miller [facility] VITAMIN B12, LEVEL 2021-02-07 11:17:00 Gen Bruno [facility] THYROID STIMULATING 2021-02-07 11:17:00 Patricia Panda [facility] HORMONE [facility] BASIC METABOLIC PANEL (NA, 2021-02-07 11:17:00 Patricia Panda [facility] K, CL, CO2, GLUCOSE, BUN, [facility] Branch CREATININE, CA) CBC WITH DIFF 2021-02-07 11:17:00 Patricia Panda [facility] Cholecystectomy 2019-01-31 00:00:00 [facility] Extraction of [facility] Tooth [facility] Remove Tonsils and [facility] Aden[facility] Plan of Care Planned Activity Planned Date Details Comments Source Diagnostic Test 2020-04-22 urinalysis, [facility] Pending 00:00:00 dipstick [code = Group urinalysis, dipstick] Diagnostic Test 2020-04-22 pap, LB + CT/NG/TV [facility] Pending 00:00:00 + reflex HR HPV Group [code = pap, LB + CT/NG/TV + reflex HR HPV] Diagnostic Test 2020-04-22 test, [facility] Pending 00:00:00 urine [code = Group test, urine] Diagnostic Test 2020-04-22 beta-HCG, [facility] Pending 00:00:00 quantitative, serum Group or plasma [code = beta-HCG, quantitative, serum or plasma] Encounters Start End Encounter Admission Attending Care Care Encounter Source Date/Time Date/Time Type Type Clinicians Facility Department ID 2021-02-07 [facility] [id number] Univers 04:14:00 EZRA ity of [facility] 2022-05-27 2022-05-27 Orders Doctor MONTEMAYOR 1.2.840.114 [id number] Univers 00:00:00 00:00:00 Only Unassigned, MATT 350.1.13.10 ity of [place] [facility] 4.2.7.2.686 Renaldo as [phone] [address] 2022-04-29 2022-04-29 Telemedici KODY Brito 1.2.840.114 [id number] Univers 09:00:00 09:30:00 ne Visit Pascale Y HEALTH 350.1.13.10 ity of [place] [phone] [address] 2022-04-29 2022-04-29 Outpatient Korina BRITO [facility] [id number] Univers 09:00:00 09:00:00 PASCALE itluís [facility] 2022-04-29 2022-04-29 [facility]patient [facility] [id number] Univers 09:00:00 09:00:[facility]-14 2022-04-14 [facility] 1.2.090.889 [id number] Univers 00:00:00 00:00:00 Joellen ARCE 350.1.13.10 ity of [place] [facility] [phone] Ok cirilo SILVER [address] [place] [address] 2022-03-28 2022-03-28 Emergency X [facility] ERT [id number] Univers 11:21:00 12:35:00 LAURA alvarez [facility] 2022-03-28 2022-03-28 Emergency [facility] 1.2.840.114 [id number] Univers 11:21:00 12:35:00 Laura ARCE 350.1.13.10 ity of [place].2.7.2.[place] [id number] [address] 2022-02-24 2022-02-24 Patient [facility] 1.2.840.114 [id number] Univers 00:00:00 00:00:00 Secure Ms Anel A HEALTH 350.1.13.10 ity of [place] 4.2.7.2.686 Renaldo as GURJIT?BLEA [phone] Ok cirilo ELIZALDE [address] MEDICAL OFFICE BUILDING 2022-02-19 2022-02-19 [facility] [id number] Univers 20:00:00 20:51:59 RADHA alvarez o f [facility] 2022-02-19 2022-02-19 Urgent Green, Joleen [facility] 1.2.840.114 [id number] Univers 20:00:00 20:20:00 Care BraydonVickie moffettselene Keyes [facility] 350.1.13.10 ity of [place] 4.2.7.2.686 Renaldo as GURJIT?BLEA [phone] Ok dical CLAUDE [address] MEDICAL OFFICE BUILDING 2022-02-09 2022-02-09 Patient Hailey, [facility] 1.2.840.114 [id number] Univers 00:00:00 00:00:00 Secure Msg Joellen ARCE 350.1.13.10 ity of [place].2.[place] [phone] Ok dical NAL [address] [facility] 2022-01-21 2022-01-21 Office KODY Brito 1.2.292.030 [id number] Univers 09:00:00 09:30:00 Visit Pascale [facility] 350.1.13.10 i ty of [facility] 4.2.7.2.[place] [phone] [address] 2022-01-21 2022-01-21 Outpatient R SALVADOR [facility] [id number] Univers 09:00:00 09:00:00 PASCALE [facility] 2022-01-20 2022-01-20 Assistant Manager Quality Management Mikhail, [facility] 1.2.8 40.114 [id number] Univers 12:00:00 12:15:00 Visit Pascale Brito 350.1.13.10 ity of [facility] 4.2.7.2.686 [place] [phone] Ok dical NAL 353 [facility] 2022-01-20 2022-01-20 Outpatient R SALVADOR [facility] [id number] Univers 12:00:00 12:00:00 PASCALE luís [facility] 2022-01-07 2022-01-07 Outpatient Korina BRITO [facility] [id number] Univers 14:30:00 14:30:00 PASCALE [facility] 2021-12-12 2021-12-12 Outpatient Korina ORTEGA [facility] [id number] Univers 13:00:00 13:39:44 GAETANO ity [facility] 2021-12-12 2021-12-12 Urgent Mendoza [facility] 1.2.840.114 [id number] Univers 13:00:00 13:20:00 Care Gaetano HEALTH 350.1.13.10 it y [facility] 4.2.7.2.686 Renaldo as GURJIT?BLEA [phone] [address] MEDICAL OFFICE BUILDING 2021-11-27 2021-11-27 Patient Salvador, [facility] 1.2.018.309 [id number] Univers 00:00:00 00:00:00 Secure Msg Pascale Y HEALTH 350.1.13.10 ity of [place] [id number] [address] 2021-11-26 2021-11-26 Assistant Manager Quality Management [facility] 1.2.840.114 [id number] Univers 13:15:00 13:30:00 Visit Pascale Brito HEALTH 350.1.13.10 ity of [place] [id number] [address] 2021-11-26 2021-11-26 [facility] [id number] Univers 13:15:00 13:15:00 [facility] 2021-11-26 2021-11-26 Office LEON Brito 1.2.442.352 [id number] Univers 12:30:00 13:00:00 Visit Pascale Y HEALTH 350.1.13.10 i ty of [place] [phone] [address] 2021-11-26 2021-11-26 Outpatient [facility] [id number] Univers 12:30:00 12:30:00 [facility]ALE [facility] 2021-11-16 2021-11-16 Patient [facility] 1.2.840.114 [id number] Univers 00:00:00 00:00:00 Secure Msg Anel A HEALTH 350.1.13.10 ity of [place] 4.2.7.2.686 Renaldo as GURJIT?BLEA [phone] Me cirilo ELIZALDE [address] MEDICAL OFFICE [facility] 2021-11-12 2021-11-12 Emergency X CHRISTINA, [facility] ERT [id number] Univers 17:16:00 22:02:00 RANDY alvarez [facility] 2021-11-12 2021-11-12 Emergency Christina, [facility] 1.2.840.114 [id number] Univers 17:16:00 22:02:00 Randy ARCE 350.1.13.10 i ty of [place].2.[place] [phone] [address] 2021-11-12 2021-11-12 Emergency X CHRISTINA, [facility] ERT [id number] Univers 17:16:00 22:02:00 RANDY [facility] 2021-11-12 2021-11-12 Office Grazyna, [facility] 1.2.840.114 [id number] Univers 15:00:00 15:41:39 Visit Goldonna Jade [facility] 350.1.13.10 i ty of [place] 4.2.7.2.686 Renaldo as GURJIT?BLEA [id number] [address] MEDICAL OFFICE [facility] 2021-11-12 2021-11-12 Outpatient R GRAZYNA, [facility] [id number] Univers 15:00:00 15:41:39 ANEL [facility] 2021-11-12 2021-11-12 Office Grazyan, [facility] 1.2.840.114 [id number] Univers 15:00:00 15:30:00 Visit Anel Jade [facility] 350.1.13.10 i ty of [place] 4.2.7.2.686 Renaldo as GURJIT?BLEA [phone] [address] MEDICAL OFFICE [facility] 2021-11-12 2021-11-12 Outpatient R GRAZYNA, [facility] [id number] Univers 15:00:00 15:00:00 [facility] 2021-11-12 2021-11-12 Outpatient R GRAZYNA, [facility] [id number] Univers 15:00:00 15:00:00 ANEL mcdaniely [facility] 2021-11-12 2021-11-12 Outpatient R GRAZYNA, [facility] [id number] Univers 15:00:00 15:00:00 ANEL alvarez [facility] 2021-11-10 2021-11-10 Emergency X JESSICA, [facility] ERT [id number] Univers 13:54:00 17:28:00 BJORN ity of [facility] 2021-11-10 2021-11-10 Emergency Chase, [facility] 1.2.840.114 [id number] Univers 13:54:00 17:28:00 Bjorn Rajani ARCE 350.1.13.10 i ty of [place] 4.2.7.2.686 [facility] [phone] [place] 605774 [place] 2021-11-10 2021-11-10 Emergency X JESSICA, [facility] ERT [id number] Univers 13:54:00 17:28:00 BJORN ity [facility] 2021-10-09 2021-10-09 Outpatient R HAILEY, [facility] [id number] Univers 09:00:00 09:00:00 JOELLEN kim [facility] 2021-10-03 2021-10-03 Emergency X Manjula ASENCIO [facility] ERT [id number] Univers 19:34:00 23:27:[address] [facility] 2021-10-03 2021-10-03 Emergency Manjula Asencio [facility] 1.2.840.114 [id number] Univers 19:34:00 23:27:00 Susie ARCE 350.1.13.10 i ty of Á[facility] 4.2.7.2.686 [facility] [id number] [facility] 084 Branch 2021-10-03 2021-10-03 Orders Doctor MONTEMAYOR 1.2.840.114 [id number] Univers 00:00:00 00:00:00 Only Unassigned, MATT 350.1.13.10 ity of [place] [facility] 4.2.7.2.686 Renaldo as [phone] [facility] 009 Branch 2021-10-02 2021-10-02 Outpatient R ADUM, [facility] [id number] Univers 10:00:00 10:00:00 JOELLEN alvarez [facility] 2021-10-01 2021-10-01 Outpatient R ADUM, [facility] [id number] Univers 13:30:00 13:30:00 JOELLEN alvarez [facility] 2021-09-03 2021-09-03 [facility] 1.2.153.111 [id number] Univers 00:00:00 00:00:00 Joellen ARCE 350.1.13.10 ity [facility] [place].2.[place] [phone] Ok dic[address] 2021-09-01 2021-09-01 Outpatient R ADUM, [facility] [id number] Univers 13:30:00 15:05:26 JOELLEN alvarez [facility] 2021-09-01 2021-09-01 [facility] 1.2.840.114 [id number] Univers 13:30:00 15:05:26 Visit Joellen ARCE 350.1.13.10 ity [facility] 4.2.7.2.[place] [phone] Ok dic[address] 2021-09-01 2021-09-01 Outpatient R ADUM, [facility] [id number] Univers 13:30:00 15:05:26 JOELLEN alvarez [facility] 2021-06-02 2021-06-02 Outpatient R LUKE, [facility] [id number] Univers 14:00:00 14:00:00 LEDY alvarez [facility] 2021-05-28 2021-05-28 Outpatient R ADUM, [facility] [id number] Univers 14:30:00 14:30:00 JOELLEN alvarez [facility] 2021-04-18 2021-04-18 Telephone ALBINA Arguello 1.2.974.130 [id number] Univers 00:00:00 00:00:00 Kenya GUTIERREZ 350.1.13.10 i ty [facility] 4.2.7.2.686 Renaldo as [phone] [address] 2021-04-17 2021-04-17 Urgent Jean-Pierre [facility] 1.2.840.114 [id number] Univers 10:26:23 11:05:15 Care Joleen Health 350.1.13.10 it y of [place] 4.2.7.2.686 Renaldo as Gurjit?Blea [phone] Ok diceleuterio kney [address] Medical Office Building 2021-04-17 2021-04-17 Outpatient R [facility] [id number] Univers 10:20:00 10:20:00 ity [facility] 2021-04-13 2021-04-13 Ancillary Chely Billings [facility] 1.2.8 40.114 [id number] Univers 09:53:32 11:15:31 Visit Shanti [place] 350.1.13.10 ity of [place].2.[place] [phone] Ok dical [facility] 179 [facility] 2021-04-10 2021-04-10 Office [facility] 1.2.840.114 [id number] Univers 15:47:31 16:22:11 Visit Anel A Health 350.1.13.10 i ty of [place] 4.2.7.2.686 Renaldo as Gurjit?Blea [phone] Ok diceleuterio elizalde [address] Medical Office Building 2021-04-10 2021-04-10 [facility] [id number] Univers 16:00:00 16:00:00 ANEL kim [facility] 2021-04-09 2021-04-09 Outpatient R FERNANDO [facility] [id number] Univers 08:00:00 11:22:37 SHANTI alvarez [facility] 2021-04-09 2021-04-09 Outpatient R FERNANDO [facility] [id number] Univers 08:00:00 11:22:37 [facility]ANTI [facility] 2021-04-09 2021-04-09 Ancillary Safia Aguirre [facility] 1 .2.840.114 [id number] Univers 07:54:21 11:22:37 Visit Shanti King Marla Arce 350.1.13.10 ity of [place].2.7.2.[place] [phone] Ok dical nal [address] [facility] 2021-04-09 2021-04-09 Ancillary Safia Aguirre [facility] 1 .2.840.114 [id number] Univers 07:54:21 11:22:37 Visit Shanti King [place] 350.1.13.10 ity of [place] 4.2.7.2.[place] Profess[place] [phone] Ok dical nal 179 [facility] 2021-04-01 2021-04-01 Outpatient R SRIKANTH MORA [facility] [id number] Univers 08:20:00 08:20:00 SRIKANTH MORA [facility] 2021-03-24 2021-03-24 Office KODY Wheeler 1.2.006.016 [id number] Univers 11:19:00 12:19:00 Visit Ezra [facility] 350.1.13.10 i ty of [facility] 4.2.7.2.686 [place] a [phone] [address] 2021-03-24 2021-03-24 Outpatient Korina WHEELER [facility] [id number] Univers 11:30:00 11:30:00 EZRA [facility] 2021-03-20 2021-03-20 Outpatient SRIKANTH PARKINSON [facility] [id number] Univers 16:20:00 16:20:00 SRIKANTH MORA [facility] 2021-03-20 2021-03-20 Office Abby [facility] 1.2.840.114 [id number] Univers 09:46:15 10:18:44 Visit Srikanth [facility] 350.1.13.10 ity of [place] 4.2.7.2.686 Renaldo as Gurjit?Blea [phone] Ok dical [address] Medical Office Building 2021-03-17 2021-03-17 Outpatient R ANGEL [facility] [id number] Univers 08:00:00 23:59:00 LALA luís [facility] 2021-03-17 2021-03-17 Hospital [facility] 1.2.750.054 [id number] Univers 08:00:00 23:59:00 Encounter Lala [facility] 350.1.13.10 ity of [place] [id number] [address] Office Building 2021-03-17 2021-03-17 Outpatient R ANGEL [facility] [id number] Univers 08:00:00 08:00:00 LALA ity of [facility] 2021-03-17 2021-03-17 Telephone [facility] 1.2.603.459 [id number] Univers 00:00:00 00:00:00 Ezra Health 350.1.13.10 it y of [place] 4.2.7.2.686 [place] [phone] [address] Office Building 2021-03-17 2021-03-17 Telephone [facility] 1.2.080.476 [id number] Univers 00:00:00 00:00:00 Ezra Health 350.1.13.10 it y of [place] 4.2.7.2.686 [place] a [place] [phone] [address] Office Building 2021-03-17 2021-03-17 Orders Doctor ALBINA 1.2.840.114 [id number] Univers 00:00:00 00:00:00 Only Unassigned, MATT 350.1.13.10 ity of [place] [facility] 4.2.7.2.686 Renaldo as [phone] [address] 2021-03-06 2021-03-06 Office [facility] 1.2.840.114 [id number] Univers 08:53:54 09:55:39 Visit Anel A Health 350.1.13.10 i ty of [place] 4.2.7.2.686 Renaldo as Professio [phone] Ok dical [facility] 0[address] Office Building One 2021-03-06 2021-03-06 Outpatient R GRAZYNA [facility] [id number] Univers 09:30:00 09:30:00 ANEL alvarez [facility] 2021-03-06 2021-03-06 Telephone Abby [facility] 1.2.840.114 [id number] Univers 00:00:00 00:00:00 Srikanth Arce 350.1.13.10 ity of [place] 4.2.[place].2.[place] [phone] [address] 2021-03-06 2021-03-06 Telephone Abby [facility] 1.2.840.114 [id number] Univers 00:00:00 00:00:00 Srikanth Arce 350.1.13.10 ity of [place] 4.2.7.2.[place] [phone] [address] 2021-02-25 2021-02-25 Outpatient Korina RAMIREZ [facility] [id number] Univers 11:30:00 11:30:00 ANEL alvarez [facility] 2021-02-23 2021-02-23 Orders Doctor ALBINA 1.2.840.114 [id number] Univers 00:00:00 00:00:00 Only Unassigned, MATT 350.1.13.10 ity of [facility] 4.2.7.2.686 Renaldo as [phone] [address] 2021-02-20 2021-02-20 Office Abby [facility] 1.2.840.114 [id number] Univers 08:34:34 10:15:20 Visit Srikanth Arce 350.1.13.10 ity of [place] 4.[place].2.[place] [id number] [address] 2021-02-20 2021-02-20 Outpatient R SRIKANTH MORA [facility] [id number] Univers 08:40:00 08:40:00 SRIKANTH MORA [facility] 2021-02-17 2021-02-17 Orders Doctor ALBINA 1Angel2.840.114 [id number] Univers 00:00:00 00:00:00 Only Unassigned, MATT 350.1.13.10 ity of [facility] 4.2.7.2.686 Renaldo as [phone] [facility] 009 Branch 2021-02-11 2021-02-11 Office [facility] 1.2.840.114 [id number] Univers 15:37:09 16:50:15 Visit Anel Hansen [facility] 350.1.13.10 i ty of [place] 4.2.7.2.686 Renaldo as Brian [phone] Ok dical [facility] 044 [address] Office Building One 2021-02-11 2021-02-11 [facility] [id number] Univers 16:00:00 16:00:00 ANEL alvarez [facility] 2021-02-07 2021-02-08 [facility] Wheeler [place] 1.2.840.114 [id number] Univers 04:14:00 17:51:00 Encounter Ezrapro Gutierrez 350.1.13.10 ity of [facility] 4.2.7.2.686 [facility] [phone] [facility] 098 Branch 2021-01-29 2021-01-29 [facility] 1.2.840.114 [id number] Univers 15:58:54 23:59:00 Encounter Joellen Arce 350.1.13.10 ity of [place] 4.2.7.2.686 [facility] [phone] [facility] [address] 2021-01-29 2021-01-29 [facility] 1.2.840.114 [id number] 15:58:54 23:59:00 Encounter Joellen Arce 350.1.13.10 [place] 4.2.7.2.686 [place] [id number] 2021-01-29 2021-01-29 Outpatient R [facility] [id number] Univers 00:00:00 00:00:00 JOELLEN alvarez [facility] 2021-01-29 2021-01-29 Orders Doctor MONTEMAYOR 1.2.840.114 [id number] Univers 00:00:00 00:00:00 Only Unassigned, MATT 350.1.13.10 ity of [place] [facility] 4.2.7.2.686 Renaldo as [phone] [facility] [address] 2021-01-29 2021-01-29 Orders Doctor ALBINA [id number] 00:00:00 00:00:00 Only Unassigned, MATT 350.1.13.10 [place] [facility] 4.2.7.2.686 [phone] [facility] 2021-01-23 2021-01-23 Telephone Adum, [facility] [id number] 00:00:00 00:00:00 Joellen Arce 350.1.13.10 [place] 4.2.7.2.686 Professio [phone] [address] 2021-01-23 2021-01-23 Telephone Ad, [facility] [id number] [facility] 00:00:00 00:00:00 Joellen Gutiérrez [place] 350.1.13.10 ity of [place] [phone] [address] 2021-01-22 2021-01-22 Assistant Manager Quality Management Mikhail, Adc Lab Main [facility] [id number] Univers 16:38:34 16:53:34 Visit Adzelda, Joellen Arce 350.1.13.10 ity of [place] [phone] [address] 2021-01-22 2021-01-22 Office Ad, [facility] [id number] Univers 14:41:29 16:15:20 Visit Joellen Arce 350.1.13.10 ity of [place] [phone] [place] dic[address] 2021-01-22 2021-01-22 [facility] [id number] Univers 16:15:00 16:15:00 JOELLEN itluís of [facility] 2021-01-22 2021-01-22 Outpatient R ADUM, [facility] [id number] Univers 15:00:00 15:00:00 JOELLEN alvarez [facility] 2021-01-22 2021-01-22 Outpatient R HAILEY, [facility] [id number] Univers 15:00:00 15:00:00 JOELLEN alvarez [facility] 2021-01-16 2021-01-16 Assistant Manager Quality Management Lab, Adc Fam Pob I [facility] 1.2. [id number] Univers 11:22:23 11:42:23 Visit Anel Ramirez [facility] 350.1.13.10 ity of [place] 4.2.7.2.686 [place] as Professio [phone] [address] Office [facility] 2021-01-16 2021-01-16 Office [facility] 1.2.840.114 [id number] Univers 10:16:56 11:20:58 Visit Anel Hansen [facility] 350.1.13.10 i ty of [place] 4.2.7.2.686 [place] as Professio [phone] [address] Office [facility] 2021-01-16 2021-01-16 [facility] [id number] Univers 10:30:00 10:30:00 ANEL alvarez [facility] 2021-01-16 2021-01-16 Orders Doctor ALBINA [id number] Univers 00:00:00 00:00:00 Only Unassigned, MATT 350.1.13.10 ity of [place] [facility] 4.2.7.2.686 Renaldo as [phone] [address] 2020-11-24 2020-11-24 Outpatient G_Pappas MMG MMG [id number] [place] 04:18:00 04:18:00 [facility] 2020-10-31 2020-10-31 [facility] 1.2.840.114 [id number] Univers 10:47:00 23:59:00 Encounter ricardo, PRIMARY 350.1.13.10 [facility] 4.2.7.2.[place] [phone] [facility] 2020-10-31 2020-10-31 Outpatient R [facility] [id number] Univers 10:47:00 10:47:00 kim LESLIE of [facility] 2020-10-16 2020-10-16 Orders Doctor ALBINA 1.2.840.114 [id number] Univers 00:00:00 00:00:00 Only Unassigned, MATT 350.1.13.10 ity of [place] [facility] 4.2.7.2.686 Renaldo as [phone] [address] 2020-07-10 2020-07-10 Outpatient [facility] [id number] [place] 02:18:00 02:18:00 [facility]17 [facility] 2020-06-27 2020-06-27 Outpatient [facility] 112 - [place] 06:16:00 06:16:00 HANJade [address] da [facility] 2020-06-11 2020-06-11 Outpatient V[facility]Landis [facility] [id number] [place] 02:25:00 02:25:00 1118 [facility] 2020-04-22 2020-04-22 Outpatient V[facility] [id number] [place] 07:01:00 07:01:00 0929 [facility] 2020-04-22 2020-04-22 Debbie Oseguera [facility] [place] - [id number] [place] 00:00:00 00:00:00 Discovery Rick da WHNP: [address] [address] , Ph. [phone] 2020-04-21 2020-04-21 Outpatient V_Landis [facility] [id number] [place] 03:52:00 03:52:00 0928 [facility] Results Test Description Test Time Test Comments Results Result Comments Source POCT TEST 2022-03-28 16:29:00 Test Item Value Reference Range Interpretation Comme nts POCT PREG (test code = 1605) negative On board controls acceptable with C Line (test code = 3574) present POCT PREG LOT # (test code = 3575) [id number] POCT PREG TEST DATE (test code = 3576) 06/23/2023 Lab Interpretation (test code = 38354-8) Normal [facility] [id number] 18:13:43 Test Item Value Reference Range Interpretation Comments VIT B12 (test code = 239 pg/mL 240-930 L [id number]) RABIA (test code = RABIA) Biotin has been reported to cause a positive bias, interpret results relative to patient's use of biotin. Lab Interpretation (test Abnormal code = 65077-5) [facility]21-[facility]-18 15:05:18 Test Item Value Reference Range Interpretation Comments MAGNESIUM (test code = 7974227800) 2.1 mg/dL 1.7-2.4 Lab Interpretation (test code = Normal 27047-3) [facility] C[facility] SPINE WO [id number] 15:01:17 Unremarkable MRA head. No significant abnormalities [...] spinal canal stenosis. MR ANGIOGRAPHY OF THE [place] of [place]: The PICA origin is visualized [...] spinal canal s tenosis.MR ANGIOGRAPHY OF THE [place] of [place]:The PICA origin is visualized on [...] is otherwise unremarkable.No evidence of venous sinus thrombosis.[facility] HEAD WO CONTRAST 2021-02-08 15:01:17 Unremarkable [...] spinal canal stenosis. MR ANGIOGRAPHY OF THE [place] of [place]: The PICA origin is visualized [...] spinal canal s tenosis.MR ANGIOGRAPHY OF THE [place] of [place]:The PICA origin is visualized on [...] is otherwise unremarkable.No evidence of venous sinus thrombosis.[facility] VENOGRAM HEAD WO CONTRAST 2021-02-08 15:01:17 Unremarkable [...] spinal canal stenosis. MR ANGIOGRAPHY OF THE [place] of [place]: The PICA origin is visualized [...] are otherwise patent without evidence of venousthrombosis. [facility], Radiant Results Inft User - 02/08/2021 10:02 [...] spinal canal s tenosis.MR ANGIOGRAPHY OF [place] of [place]:The PICA origin is visualized on [...] is otherwise unremarkable.No evidence of venous sinus thrombosis.[facility] AN[facility]GRAM NECK W WO [id number] 15:01:17 Unremarkable MRA head. No significant abnormalities [...] spinal canal stenosis. MR ANGIOGRAPHY OF THE [place] of [place]: The PICA origin is visualized [...] spinal canal s tenosis.MR ANGIOGRAPHY OF THE [place] of [place]:The PICA origin is visualized on [...] is otherwise unremarkable.No evidence of venous sinus thrombosis.[facility] CenterThyroid Stimulating Hormone 2021-02-07 22:45:37 Test Item Value Reference Range Interpretation Comments TSH (test code = See_Comment [Automated message] [id number]) The system [employer] generated this result transmitted ref erence range: 0.45 - 4 .70 mIU/L. The refe rence range was not u sed to interpret this result as normal/abnor mal. Lab Interpretation (test Normal code = 16974-5) [facility] (NA, K, CL, CO2, GLUCOSE, BUN, CREATININE, CA)2021-02-07 22:28:15 Test Item Value Reference Range Interpretation Comments NA (test code = 142 mmol/L 135-145 8807563074) K (test code = 3.7 mmol/L 3.5-5.0 4129663922) CL (test code = 111 mmol/L 98-108 H 6174338145) CO2 TOTAL (test code = 19 mmol/L 23-31 L 4149866447) AGAP (test code = 2-16 3728396909) BUN (test code = 11 mg/dL 7-23 5941827233) GLUCOSE (test code = 47 mg/dL 70-110 LL 6051135324) CREATININE (test code = 0.50 mg/dL 0.50-1.04 1906817161) CALCIUM (test code = 8.8 mg/dL 8.6-10.6 1817579797) eGFR (test code = mL/min/1.73m2 3031961110) RABIA (test code = RABIA) Association of [...] tests). Lab Interpretation Abnormal (test code = 16906-3) [facility] WITH [id number] 21:56:18 Test Item Value Reference Range Interpretation Comments WBC (test code = See_Comment [Automated message] 6690-2) The system [employer] generated this result transmitted ref erence range: 4.30 - 1 1.10 10*3/?L. The re ference range was not u sed to interpret this result as normal/abnor mal. RBC (test code = See_Comment [Automated message] 469-8) The system [employer] generated this result transmitted ref erence range: [...] RDW-SD (test code 42.5 fL 39.0-49.9 = 58203-8) RDW-CV (test code 13.0 % 12.0-15.5 = 788-0) PLT (test code = See_Comment [Automated message] 777-3) The system [employer] generated this result transmitted ref erence range: 166 - 35 8 10*3/?L. The re ference range was not u sed to interpret this result as normal/abnor mal. MPV (test code = 11.1 fL 9.5-12.9 25756-0) NRBC/100 WBC (test See_Comment [Automat ed message] code = 2009497416) The syste [employer] which generated this result transmitted ref erence range: 0.0 - 10 .0 /100 WBCs. The refer ence range was not u sed to interpret this result as normal/abnor mal. NRBC x10^3 (test <0.01 See_Comment [Automated message] code = 2251226738) The syste m which generated this result transmitted ref erence range: 10*3/?L. The reference range was not used to interpr et this result as normal/abnormal . GRAN MAT (NEUT) % 56.9 % (test code = 770-8) IMM GRAN % (test 0.20 % code = 8162995721) LYMPH % (test code 34.2 % = 736-9) MONO % (test code 7.0 % = 5905-5) EOS % (test code = 0.9 % 713-8) BASO % (test code 0.8 % = 706-2) GRAN MAT 5.06 10*3/uL 1.88-7.09 x10^3(ANC) (test code = 3203965516) IMM GRAN x10^3 <0.03 0.00-0.06 (test code = 2750513872) LYMPH x10^3 (test 3.04 10*3/uL 1.32-3.29 code = 731-0) MONO x10^3 (test 0.62 10*3/uL 0.33-0.92 code = 742-7) EOS x10^3 (test 0.08 10*3/uL 0.03-0.39 code = 711-2) BASO x10^3 (test 0.07 10*3/uL 0.01-0.07 code = 704-7) [facility] STROKE BRAIN WO [id number] 14:15:04 Unremarkable brain MRI.HISTORY:Neuro deficit, acute, stroke [...] No abnormal foci ofgradient blooming is identified. [facility], Radiant Results Inft User - 19:16 AM [...] ofgradient blooming is identified. I MPRESSIONUnremarkable brain MRI.[facility]"
[2022-06-26] MEDS ORDERED: AMOX/K CLAV 875 MG TAB ONE (00:37)
--- NOTE | 2022-06-26 00:37 | EDPHYS ---
Physician Documentation [facility] Name: Jenn Cronin Age: 26 yrs Sex: Female : 1995 Arrival Date: 06/25/2022 Time: 23:45 Bed IW1 Private MD: ED Physician Carlos Goncalves HPI: 06/26 00:22 This 26 yrs old Female presents to ER via Unassigned with complaints of Ear Pain, cp Numbness Of Face. 00:22 The patient presents with pain, that is acute, tenderness. The complaints affect the cp left ear. Onset: The symptoms/episode began/occurred today. Associated signs and symptoms: Pertinent positives: decreased hearing left ear, radiating pain to left side of neck and jaw, numbness of left side of face, Pertinent negatives: rhinorrhea, sinus trouble, sore throat. Severity of symptoms: in the emergency department the symptoms are unchanged. 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 - Social history:: Smoking status: Patient denies any tobacco usage or history of. ROS: 00:25 Constitutional: Negative for body aches, chills, fever, poor PO intake. cp 00:25 ENT: Positive for ear pain, Negative for drainage from ear(s), rhinorrhea, sinus cp congestion, sore throat, difficulty swallowing, difficulty handling secretions. 00:25 Respiratory: Negative for cough, shortness of breath, wheezing. 00:25 Abdomen/GI: Negative for abdominal pain, nausea, vomiting, and diarrhea. 00:25 Skin: Negative for rash. 00:25 Neuro: Negative for altered mental status, dizziness, headache, syncope, weakness. 00:25 All other systems are negative. Exam: 00:33 Constitutional: The patient appears in no acute distress, alert, awake, well developed, cp well nourished, uncomfortable. 00:33 Head/Face: Normocephalic, atraumatic. cp 00:33 Eyes: Periorbital structures: appear normal, Conjunctiva: normal, no exudate, no injection, Sclera: no appreciated abnormality, Lids and lashes: appear normal, bilaterally. 00:33 ENT: External ear(s): are unremarkable, Ear canal(s): erythema, that is moderate, of the left canal, swelling, is not appreciated, TM's: erythema, that is marked, on the left, Examination of the other ear shows no obvious abnormality, Nose: is normal, Mouth: Lips: moist, Oral mucosa: moist, Posterior pharynx: Airway: no evidence of obstruction, patent. 00:33 Neck: ROM/movement: is normal, is supple, no meningismus, no nuchal rigidity, Lymph nodes: no appreciated lymphadenopathy. 00:33 Chest/axilla: Inspection: normal. 00:33 Cardiovascular: Rate: normal, Rhythm: regular. 00:33 Respiratory: the patient does not display signs of respiratory distress, Respirations: normal, no use of accessory muscles, no retractions, labored breathing, is not present, Breath sounds: are clear throughout, no decreased breath sounds, no stridor, no wheezing. 00:33 Skin: cellulitis, is not appreciated, no rash present. Vital Signs: 00:21 BP 122 / 70; Pulse 92; Resp 18; Temp 98.7; Pulse Ox 97% on R/A; Weight 99.79 kg; Height tw5 5 ft. 4 in. (162.56 cm); Pain 9/10; 00:21 Body Mass Index 37.76 (99.79 kg, 162.56 cm) tw5 MDM: 00:34 Patient medically screened. cp 00:36 Data reviewed: vital signs, nurses notes. cp 00:36 Differential diagnosis: otitis media, otitis externa, ruptured TM, barotrauma . cp Counseling: I had a detailed discussion with the patient and/or guardian regarding: the historical points, exam findings, and any diagnostic results supporting the discharge/admit diagnosis, to return to the emergency department if symptoms worsen or persist or if there are any questions or concerns that arise at home. Response to treatment: the patient's symptoms have markedly improved after treatment, and as a result, I will discharge patient. Administered Medications: 00:41 Drug: Augmentin (Amoxicillin-Clavulanate) 875 mg Route: PO; 00:42 Follow up: Response: No adverse reaction; Medication administered at discharge. 00:42 Drug: predniSONE 40 mg Route: PO; 00:42 Follow up: Response: No adverse reaction; Medication administered at discharge. 00:43 Drug: Tylenol #3 (300 mg-30 mg) 2 tabs Route: PO; 00:43 Follow up: Response: No adverse reaction; Medication administered at discharge.; RASS: Alert and Calm (0) Disposition: 02:30 Co-signature as Attending Physician, Carlos Goncalves DO I was immediately available onsite ms3 in the emergency department for consultation in the care of the patient. Disposition Summary: 06/26/22 00:37 Discharge Ordered Location: Home cp Problem: new cp Symptoms: have improved cp Condition: Stable cp Diagnosis - Otitis media, unspecified, left ear cp Followup: cp - With: Private Physician - When: 2 - 3 days - Reason: Worsening of condition Discharge Instructions: - Discharge Summary Sheet cp - Otitis Media, Adult cp Forms: - Medication Reconciliation Form cp - Thank You Letter cp - Antibiotic Education cp - Prescription Opioid Use cp Prescriptions: - Augmentin 875-125 mg Oral Tablet - take 1 tablet by ORAL route every 12 hours for 10 days; 20 tablet; Refills: 0, cp Product Selection Permitted - Medrol (Bakari) 4 mg Oral Tablets, Dose Pack - take 1 tablet by ORAL route as directed - follow package instructions; 1 cp packet; Refills: 0, Product Selection Permitted Signatures: Zenon Diego PA PA cp Carlos Goncalves DO DO ms3 Marli Fields 5 Corrections: (The following items were deleted from the chart) 00:23 00:23 PMHx: PCOS; tw5 tw5
--- NOTE | 2022-06-26 00:37 | ER ---
Nurse's Notes [facility] Name: Jenn Cronin Age: 26 yrs Sex: Female : 1995 Arrival Date: 06/25/2022 Time: 23:45 Bed IW1 Private MD: Diagnosis: Otitis media, unspecified, left ear Presentation: 06/26 00:21 Chief complaint: Patient states: "I started to feel a little bit of pain in my left tw5 ear, but then out of nowhere it hit me hard. I cannot hear anything, and my face feels numb from the pain.". Coronavirus screen: Vaccine status: Patient reports being unvaccinated. Ebola Screen: Patient negative for fever greater than or equal to 101.5 degrees Fahrenheit, and additional compatible Ebola Virus Disease symptoms Patient denies exposure to infectious person. Patient denies travel to an Ebola-affected area in the 21 days before illness onset. Initial Sepsis Screen: Does the patient meet any 2 criteria? HR > 90 bpm. Does the patient have a suspected source of infection? No. Patient's initial sepsis screen is negative. Risk Assessment: Do you want to hurt yourself or someone else? Patient reports no desire to harm self or others. Onset of symptoms was June 25, 2022. 00:21 Method Of Arrival: Ambulatory tw 00:21 Acuity: CARLOS 5 tw5 Triage Assessment: 00:23 General: Appears uncomfortable, Behavior is calm, cooperative, appropriate for age. tw5 Pain: Pain currently is 9 out of 10 on a pain scale. EENT: Tympanic membrane reddened on left ear. 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 - Social history:: Smoking status: Patient denies any tobacco usage or history of. Screenin:24 Abuse screen: Denies threats or abuse. Denies injuries from another. Nutritional tw5 screening: No deficits noted. Tuberculosis screening: No symptoms or risk factors identified. Fall Risk None identified. Assessment: 00:40 General: Appears in no apparent distress. uncomfortable, Behavior is calm, cooperative, tw5 appropriate for age. Neuro: No deficits noted. Respiratory: No deficits noted. Vital Signs: 00:21 BP 122 / 70; Pulse 92; Resp 18; Temp 98.7; Pulse Ox 97% on R/A; Weight 99.79 kg; Height tw5 5 ft. 4 in. (162.56 cm); Pain 9/10; 00:21 Body Mass Index 37.76 (99.79 kg, 162.56 cm) tw5 ED Course: 06/25 23:45 Patient arrived in ED. ja2 23:57 Zenon Diego PA is PHCP. cp 23:57 Carlos Goncalves DO is Attending Physician. cp 06/26 00:23 Triage completed. tw5 00:23 Arm band placed on. tw5 00:24 Placed in gown. tw5 00:24 No provider procedures requiring assistance completed. Patient did not have IV access tw5 during this emergency room visit. 00:26 Marli Fields is Primary Nurse. tw5 Administered Medications: 00:41 Drug: Augmentin (Amoxicillin-Clavulanate) 875 mg Route: PO; tw5 00:42 Follow up: Response: No adverse reaction; Medication administered at discharge. tw5 00:42 Drug: predniSONE 40 mg Route: PO; tw5 00:42 Follow up: Response: No adverse reaction; Medication administered at discharge. tw5 00:43 Drug: Tylenol #3 (300 mg-30 mg) 2 tabs Route: PO; tw5 00:43 Follow up: Response: No adverse reaction; Medication administered at discharge.; RASS: tw5 Alert and Calm (0) Medication: 00:24 VIS not applicable for this client. tw5 Outcome: 00:37 Discharge ordered by MD. cp 00:44 Discharged to home ambulatory, with family. tw5 00:44 Condition: good 00:44 Discharge instructions given to patient, Instructed on discharge instructions, follow up and referral plans. medication usage, Demonstrated understanding of instructions, follow-up care, medications. 00:45 Patient left the ED. tw5 Signatures: Zenon Diego PA PA cp Alexander, Jessica ja2 Wood, Tiffany tw5 Corrections: (The following items were deleted from the chart) 00:23 00:23 PMHx: PCOS; tw5 tw5
[2022-06-26] MEDS ORDERED: CODEINE 30MG/APAP 300MG TAB ONE (00:38)
[2022-06-26] MEDS ORDERED: predniSONE 20 MG TAB ONE (00:38)
[2022-06-26 00:49] VITALS: BP 122/70; TEMP 98.7; O2SAT 97
== END 2022-06-26 00:45 | disposition home or self-care (01) ==
LOC: ER 23:40
DX: H66.92 Otitis media, unspecified, left ear (principal)
CPT/HCPCS: 99283; J7512

== ENCOUNTER 2023-06-03 09:45 | Emergency (ER) | payer OTHER, SELFPAY ==
--- OUTSIDE RECORDS SUMMARY | 2023-06-03 09:50 | XMS REPORT | Continuity of Care Document ---
:1995 Author Organization [facility] t Address [address] [place] [address] Care Team Providers Name Role Phone PCP, PATIENT DOES NOT HAVE A Primary Care Physician UnavailEZRA Plasencia Attending Clinician Unavailable LAURA GEE Attending Clinician Unavailable Laura Gee DO Attending Clinician AMBREEN_FARHANA Attending Clinician Unavailable Manjula ASENCIO Attending Clinician Unavailable Manjula Lakhani Attending Clinician JOELLEN HART Attending Clinician Unavailable Pascale Arceo Attending Clinician PASCALE BRITO Attending Clinician Unavailable Colin BASHIR, Eliana Vogt Attending Clinician Unavailable Joellen Hart MD Attending Clinician TYRA LEONG Attending Clinician Unavailable Tyra Leong MD Attending Clinician Doctor Unassigned, [place] Attending Clinician Unavailable Anel Flynn Attending Clinician RADHA FRANKLIN Attending Clinician Unavailable Joleen Vilchis Attending Clinician Radha Rajput Attending Clinician [facility] Attending Clinician Unavailable GAETANO ORTEGA Attending Clinician Unavailable Ebashley SHOE FOLDER, Gaetano Attending Clinician [facility] Attending Clinician Unavailable RANDY CHRISTINA Attending Clinician Unavailable Randy Angel Attending Clinician ANEL RAMIREZ Attending Clinician Unavailable BJORN LOPEZ B Attending Clinician Unavailable Jessica ROBERTSON, Bjorn B Attending Clinician LEDY BUTLER Attending Clinician Unavailable Jos BASHIR, Kenya Mejia Attending Clinician Unavailable Chely Billings PT Attending Clinician Unavailable Shanti King MD Attending Clinician SHANTI KING Attending Clinician Unavailable Safia Aguirre PT Attending Clinician Unavailable SRIKANTH MORA Attending Clinician Unavailable SRIKANTH MORA Attending Clinician Unavailable Ezra Wheeler MD Attending Clinician [phone] Srikanth Mora MD Attending Clinician LALA GRIFFIN Attending Clinician Unavailable Lala Griffin MD Attending Clinician Lab, [facility] Pob I Attending Clinician Unavailable Yudy Attending Clinician Unavailable Chely Johns Attending Clinician [phone] CHELY WARE Attending Clinician Unavailable Vivien Attending Clinician Unavailable EZRA WHEELER Admitting Clinician Unavailable LAURA GEE Admitting Clinician Unavailable PRATIK Admitting Clinician Unavailable TYRA LEONG Admitting Clinician Unavailable RANDY CHRISTINA Admitting Clinician Unavailable BJORN LOPEZ Admitting Clinician Unavailable Manjula ASENCIO Admitting Clinician Unavailable Ezra Wheeler MD Admitting Clinician [phone] Yudy Admitting Clinician Unavailable V_Landis Admitting Clinician Unavailable Payers Payer Name Policy Type Policy Number Effective Date Expiration Date S [place] [employer] [place] [id number] 2020 EMPLOYEE PLAN 00:00:00 [place] [id number] [facility]OM[facility]'S [facility] [place]MEDICAID[place] [id number] 2022 WOMEN 00:00:00 Problems Condition Condition Condition Status Onset Resolution Last Treating Co mments Source Name Details Category Date Date Treatment Clinician Date Prediabete Prediabete Problem Active [facility] Polycystic Polycystic Problem Active M atagor ovary Ovary 4-06 da syndrome Syndrome 00:00: [facility] Morbid Morbid Disease Active Univers obesity obesity 2-08 it[place] of with [place] mass [place] mass index 00 Me dical of of Branch 40.0-49.9 40.0-49.9 Disturbanc Disturbanc Disease Active U nivers e of skin e of skin 02-07 ity of sensation sensation 00:[place] Numbness Numbness Disease Active Unive rs 7 ity of 00:00: [place] 00 Medical Branch Acute non Acute non Disease Active Uni vers intractabl intractabl 02-07 it y of e e 00:00: [place] tension-ty tension-ty 00 Me dical pe pe Branch headache headache Obesity Obesity Disease Active Univers (BMI (BMI 7- ity of 30-39.9) 30-39.9) 00:00: [place] 00 Medical Branch Primary Primary Disease Active Univers female female 9 ity of infertilit infertilit 00:[place] 00 [place] Oligomenor Oligomenor Disease Active U nivers lorrie lorrie 04-22 ity of 00:00: [place] [facility] Polycystic Polycystic Disease Active 2020- U nivers ovary ovary 04-22 ity of syndrome syndrome 00:00: 00 Medical Branch Gynecologi Gynecologi Problem Active M atagor c c 9 da examinatio Examinatio 00:00: Me dical n n 00 Group Anxiety Anxiety Disease Active Univers 1-13 ity of 00:00: [place] 00 Medical Branch Iron Iron Disease Active Univers deficiency deficiency 4-30 it y of anemia due [place] due [place] to chronic to chronic 00 Me dical blood loss blood loss Br anch Porokerato Porokerato Disease Active 2014-07 U nivers sis sis 0-05 ity of 00:00: [place] 00 Medical Branch Absence of Absence of Disease Active 2011-07 U nivers menstruati menstruati 02 it y of on on 00:00: [place] 00 [facility] Branch Allergies, Adverse Reactions, Alerts Allergy Allergy Status Severity Reaction(s) Onset Inactive Treating Comm ents Source Name Type Date Date Clinician IBUPROFE DRUG Active Anaphylaxis Uni vers N INGREDI 7-17 ity of 00:00: [place] 00 [facility] NSAIDS Drug Active Anaphylaxis Unive rs (NON-MICHEAL [...] of adverse 00:00: [place] reaction 00 Medical Branch Nsaids Propensi Active Anaphylaxis Uni vers [...] INGREDI 07-26 ity of 00:00: [place] 00 [facility] Branch Nsaids Drug Active Anaphylaxis 2016-07 Unive rs (Non-Micheal Allergy 02 ity of roidal 00:00: [place] Anti-Inf 00 Medical lammator Branch y Drug) Ibuprofe Drug Active Anaphylaxis 2016-07 Uni vers n Allergy 07-26 ity of 00:00: [place] 00 Medical Branch Nsaids Drug Active Anaphylaxis 2016-07 Unive rs (Non-Micheal Allergy 07-26 ity of roidal 00:00: [place] Anti-Inf 00 Medical lammator Branch y Drug) NSAIDS Allergy Active Severe Respiratory Yao gor (NON-MICHEAL to distress da ROIDAL substanc [facility] al [facility] Y DRUG) Outre[facility] Program Motrin Allergy Active Anaphylaxis Yao gor to da substan Medical e Group Social History Social Habit Start Date Stop Date Quantity Comments Source History SDOH University o f Alcohol Frequency [place] [facility] ed[facility] History SDOH University o f Alcohol Std Drinks [place] [facility] [place] History [facility] University o f Alcohol Binge [place] Medic al [place] Sexual orientation Univer sity of [facility] Alcohol intake 2023-04-24 2023-04-24 Current drinker Unive rsity of 00:00:00 00:00:00 of alcohol [place] [facility] (finding) Branch Exposure to 2022-12-01 2022-12-11 Not sure [facility] SARS-CoV-2 (event) 00:00:00 10:23:00 [facility] Tobacco use and 2022-02-19 2022-02-19 Smokeless Universit y of exposure 00:00:00 00:00:[address] tobacco non-user [facility] dical [place] History of Social 2021-11-12 2021-11-12 Univers ity of function 00:00:00 00:00:00 [facility] Alcohol Comment 2021-03-24 2021-03-24 Socially Universit y of 00:00:00 00:00:00 [facility] Sex Ass[birth year] At [birth year] Universit y of 00:00:00 00:00:00 [facility] Smoking Status Start Date Stop Date Source Former Smoker [facility] Never smoked tobacco [facility] Medications Ordered Filled Start Stop Current Ordering Indication Dosage Frequency Signature Comments Components Source Medication Medication Date Date Medication? Clinician (SIG) Name Name sulfamethox 2022-07- No 1{tbl} 1 tablet, Univers azole-trime 0-02 10-02 Oral, ity of thoprim 04:00: 03:10 ONCE, 1 [place] (BACTRIM 00 :00 dose, On Medical DS) 800-160 Sun Branch mg per 04/24/23 at tablet 1 2300, tablet MIRANDA
Re ason for Anti-Infec tive: Documented Infection< br>Documen justice Infection Site: Urine
D uration of Therapy: 7 days iopamidol 2022-07- No [id number] 85mL 85 mL, Univers (ISOVUE 004-25 Intravenou ity o f 370-500 mL) 03:30: 03:30 s, ONCE, 1 [place] injection 00 :00 dose, On Medica l 85 mL [facility] 04/24/23 at 2230, Routine ondansetron 2022-07 No 4mg 4 mg, Slow Univers (ZOFRAN 004-25 IV Push, ity of (PF)) 02:00: 02:06 ONCE, 1 [place] injection 4 00 :00 dose, On Medi chavo mg [facility] 04/24/23 at 2100, MIRANDA morpHINE (4 2022-07 No 4mg 4 mg, Slow Univers mg/mL) 004-25 IV Push, ity of injection 4 02:00: 02:06 ONCE, 1 [place] mg 00 :00 dose, On Medical [facility] 04/24/23 at 2100, STAT ondansetron 2022-07 No 4mg 4 mg, Slow Univers (ZOFRAN 004-25 IV Push, ity of (PF)) 00:45: 01:00 ONCE, 1 [place] injection 4 00 :00 dose, On Medi chavo mg [facility] 04/24/23 at 1945, MIRANDA famotidine 2022-07- No 20mg 20 mg, Univ ers (PEPCID 004-25 Slow IV ity of (PF)) 00:45: 01:00 Push, [place] injection 00 :00 ONCE, 1 Medical 20 mg dose, On Branch [place] 04/24/23 at 1945, MIRANDA sulfamethox 2022-07- Yes [id number] 1{tbl} Take 1 Univers azole-trime 004-30 tablet by it y of thoprim 00:00: 04:59 mouth [place] 800-160 mg 00 :00 every 12 Medic al per tablet (twelve) Branc h hours for 5 days. cefdinir No 300mg 300 mg, Univ ers (OMNICEF) 5-20 05-20 Oral, ity of capsule 300 16:30: 16:30 ONCE, 1 [place] mg 00 :00 dose, On Medical [facility] Branch 12/11/22 at 1130, MIRANDA
Re ason for Anti-Infec tive: Documented Infection< br>Documen justice Infection Site: Urine
D uration of Therapy: 10 days phenazopyri No 200mg 200 mg, U nivers dine -20 -20 Oral, ity of (PYRIDIUM) 16:00: 16:20 ONCE, 1 [place] as tablet 200 00 :00 dose, On Medic al mg Sat Branch 12/11/22 at 1100, MIRANDA phenazopyri Yes [id number] 200mg Take 1 Univers dine 200 mg 5-20 tablet by ity of tablet 00:00: mouth in [place] 00 the Medical morning Branch and 1 tablet at noon and 1 tablet in the evening. phenazopyri Yes [id number] 200mg Take 1 Univers dine 200 mg 5-20 tablet by ity of tablet 00:00: mouth in [place] 00 the Medical morning Branch and 1 tablet at noon and 1 tablet in the evening. cefdinir 2022- No [id number] 300mg Take 1 U nivers 300 mg -20 -31 capsule by ity of capsule 00:00: 04:59 mouth [place] 00 :00 every 12 Medical (twelve) Branch hours for 10 days. dicyclomine No 20mg 20 mg, Uni vers (BENTYL) 09-15 Intramuscu ity of injection 06:00: 05:28 [place], ONCE, [place] 20 mg 00 :00 1 dose, On Medical Wed Branch 09/15/22 at 0000, Routine iopamidol 2022- No [id number] 84mL 84 mL, U nivers (ISOVUE 09-15 Intravenou ity o f 370-500 mL) 04:30: 04:30 s, ONCE, 1 [place] injection 00 :00 dose, On Medica l 84 mL Tue Branch 09/14/22 at 2230, Routine FENTanyl PF 2023-0 2023- No 50ug 50 mcg, Un celestino (SUBLIMAZE 09-15 Slow IV ity o f (PF)) 04:00: 03:04 Push, [place] injection 00 :00 ONCE, 1 Medical 50 mcg dose, On Branch 09/14/22 at 2200, Routine maalox:diph 2022-2022- No 15mL 15 mL, Uni vers enhydrAMINE 09-15 Oral, ity of :lidocaine 03:00: 03:05 ONCE, 1 [place] as 2 % viscous 00 :00 dose, On Medi chavo 1:1:1 Tue Branch (FIRST-MOUT 09/14/22 at [facility]) 2100, oral Routine suspension 15 mL ondansetron 0 2022- No 4mg 4 mg, Slow Univers (ZOFRAN 09-15 IV Push, ity of (PF)) 03:00: 03:02 ONCE, 1 [place] injection 4 00 :00 dose, On Medi chavo mg Tue Branch 09/14/22 at 2100, MIRANDA ondansetron 2022-0 Yes [id number] 4mg Take 1 U nivers (ZOFRAN) 4 2-21 tablet by ity of mg tablet 00:00: mouth [place] 00 every 8 Medical (eight) Branch hours as needed for Nausea and Vomiting (N/V). dicyclomine 3-0 Yes [id number] 20mg Take 1 Univers 20 mg 2-21 tablet by ity of tablet 00:00: mouth [place] 00 every 6 Medical (six) Branch hours as needed for Abdominal pain. ondansetron 3-0 Yes [id number] 4mg Take 1 U nivers (ZOFRAN) 4 2-21 tablet by ity of mg tablet 00:00: mouth [place] 00 every 8 Medical (eight) Branch hours as needed for Nausea and Vomiting (N/V). dicyclomine 2023-0 Yes [id number] 20mg Take 1 Univers 20 mg 2-21 tablet by ity of tablet 00:00: mouth [place] 00 every 6 Medical (six) Branch hours as needed for Abdominal pain. ondansetron 2023-0 Yes [id number] 4mg Take 1 U nivers (ZOFRAN) 4 2-21 tablet by ity of mg tablet 00:00: mouth [place] 00 every 8 Medical (eight) Branch hours as needed for Nausea and Vomiting (N/V). dicyclomine 2023-0 Yes [id number] 20mg Take 1 Univers 20 mg 2-21 tablet by ity of tablet 00:00: mouth [place] 00 every 6 Medical (six) Branch hours as needed for Abdominal pain. ondansetron 2023-0 Yes [id number] 4mg Take 1 U nivers (ZOFRAN) 4 2-21 tablet by ity of mg tablet 00:00: mouth [place] 00 every 8 Medical (eight) Branch hours as needed for Nausea and Vomiting (N/V). dicyclomine 2023-0 Yes [id number] 20mg Take 1 Univers 20 mg 2-21 tablet by ity of tablet 00:00: mouth [place] 00 every 6 Medical (six) Branch hours as needed for Abdominal pain. ondansetron 2023-0 Yes [id number] 4mg Take 1 U nivers (ZOFRAN) 4 2-21 tablet by ity of mg tablet 00:00: mouth [place] 00 every 8 Medical (eight) Branch hours as needed for Nausea and Vomiting (N/V). dicyclomine 2023-0 Yes [id number] 20mg Take 1 Univers 20 mg 2-21 tablet by ity of tablet 00:00: mouth [place] 00 every 6 Medical (six) Branch hours as needed for Abdominal pain. ondansetron 2023-0 Yes [id number] 4mg Take 1 U nivers (ZOFRAN) 4 2-21 tablet by ity of mg tablet 00:00: mouth [place] 00 every 8 Medical (eight) Branch hours as needed for Nausea and Vomiting (N/V). dicyclomine 2023-0 Yes [id number] 20mg Take 1 Univers 20 mg 2-21 tablet by ity of tablet 00:00: mouth [place] 00 every 6 Medical (six) Branch hours as needed for Abdominal pain. linaCLOtide 2023-0 2023- No [id number] 72ug Take 1 Univers (LINZESS) 08-05 capsule by ity of 72 mcg Cap 00:00: 04:59 mouth [place] 00 :00 the Medical morning Branch for 90 days. linaCLOtide 2023-0 2023- No [id number] 72ug Take 1 Univers (LINZESS) 08-05 capsule by ity of 72 mcg Cap 00:00: 04:59 mouth [place] 00 :00 the Medical morning Branch for 90 days. linaCLOtide 2022- No [id number] 72ug Take 1 Univers (LINZESS) 08-05 capsule by ity of 72 mcg Cap 00:00: 04:59 mouth [place] 00 :00 the Medical morning Branch for 90 days. linaCLOtide 2022- No [id number] 72ug Take 1 Univers (LINZESS) 08-05 capsule by ity of 72 mcg Cap 00:00: 04:59 mouth [place] 00 :00 the Medical morning Branch for 90 days. linaCLOtide 2022- No [id number] 72ug Take 1 Univers (LINZESS) 08-05 capsule by ity of 72 mcg Cap 00:00: 04:59 mouth [place] 00 :00 the Medical morning Branch for 90 days. plecanatide 2021-07- No [id number] 3mg Take 1 Univers (TRULANCE) 0-06 01-05 tablet by ity of 3 mg Tab 00:00: 05:59 [place] :[place] the Medical morning Branch for 90 days. plecanatide 2021-07- No [id number] 3mg Take 1 Univers (TRULANCE) 0-06 01-05 tablet by ity of 3 mg Tab 00:00: 05:59 [place] 00 :00 the Medical morning Branch for 90 days. ondansetron 2021- No 4mg 4 mg, Univ ers (ZOFRAN-ODT 03-28 Oral, ity of ) 17:30: 16:26 ONCE, 1 [place] disintegrat 00 :00 dose, On Medi chavo ing tablet [place] 03/28/22 Bra nch 4 mg at 1230, Routine maalox:diph 2021- No 15mL 15 mL, Uni vers enhydrAMINE 03-28 Oral, ity of :lidocaine 17:00: 17:04 ONCE, 1 [place] as 2 % viscous 00 :00 dose, On Medi chavo 1:1:1 [place] 03/28/22 Branch (FIRST-MOUT at 1200, [facility]) Routine oral suspension 15 mL ondansetron 2021-0 Yes [id number] 4mg Take 1 Univers 4 mg 9-04 tablet by ity of disintegrat 00:00: mouth [place] ing tablet 00 every 8 Medica l (eight) Branch hours as needed for Nausea and Vomiting (N/V). ondansetron 2021-0 Yes [id number] 4mg Take 1 Univers 4 mg 9-04 tablet by ity of disintegrat 00:00: mouth [place] ing tablet 00 every 8 Medica l (eight) Branch hours as needed for Nausea and Vomiting (N/V). ondansetron 2021-0 Yes [id number] 4mg Take 1 Univers 4 mg 9-04 tablet by ity of disintegrat 00:00: mouth [place] ing tablet 00 every 8 Medica l (eight) Branch hours as needed for Nausea and Vomiting (N/V). ondansetron 2021-0 Yes [id number] 4mg Take 1 Univers 4 mg 9-04 tablet by ity of disintegrat 00:00: mouth [place] ing tablet 00 every 8 Medica l (eight) Branch hours as needed for Nausea and Vomiting (N/V). ondansetron 2021-0 Yes [id number] 4mg Take 1 Univers 4 mg 9-04 tablet by ity of disintegrat 00:00: mouth [place] ing tablet 00 every 8 Medica l (eight) Branch hours as needed for Nausea and Vomiting (N/V). ondansetron 2021-0 Yes [id number] 4mg Take 1 Univers 4 mg 9-04 tablet by ity of disintegrat 00:00: mouth [place] ing tablet 00 every 8 Medica l (eight) Branch hours as needed for Nausea and Vomiting (N/V). ondansetron 2021-0 Yes [id number] 4mg Take 1 Univers 4 mg 9-04 tablet by ity of disintegrat 00:00: mouth [place] ing tablet 00 every 8 Medica l (eight) Branch hours as needed for Nausea and Vomiting (N/V). ondansetron 2-0 Yes [id number] 4mg Take 1 Univers 4 mg 9-04 tablet by ity of disintegrat 00:00: mouth [place] ing tablet 00 every 8 Medica l (eight) Branch hours as needed for Nausea and Vomiting (N/V). ondansetron 2-0 Yes [id number] 4mg Take 1 Univers 4 mg 9-04 tablet by ity of disintegrat 00:00: mouth [place] ing tablet 00 every 8 Medica l (eight) Branch hours as needed for Nausea and Vomiting (N/V). ondansetron Yes [id number] 4mg Take 1 Univers 4 mg 9-04 tablet by ity of disintegrat 00:00: mouth [place] ing tablet 00 every 8 Medica l (eight) Branch hours as needed for Nausea and Vomiting (N/V). ondansetron Yes [id number] 4mg Take 1 Univers 4 mg 9-04 tablet by ity of disintegrat 00:00: mouth [place] ing tablet 00 every 8 Medica l (eight) Branch hours as needed for Nausea and Vomiting (N/V). codeine-gua 2021- No [id number] 5mL Take 5 mL Univers [...] 6-30 mouth. ity of herb 124 09:28: [place] ([place] 20 Medical NATURAL Branch ENERGY ORAL) multivit-nc 0 Yes Take by Uni vers n/ascorbic/ 6-30 mouth. ity of herb 124 09:28: [place] ([place] 20 Medical NATURAL Branch ENERGY ORAL) multivit-nc 2021-0 Yes Take by Uni vers n/ascorbic/ 6-30 mouth. ity of herb 124 09:28: [place] ([place] 20 Medical NATURAL Branch ENERGY ORAL) multivit-nc 2021-0 Yes Take by Uni vers n/ascorbic/ 6-30 mouth. ity of herb 124 09:28: [place] ([place] 20 Medical NATURAL Branch ENERGY ORAL) multivit-nc 0 Yes Take by Uni vers n/ascorbic/ 6-30 mouth. ity of herb 124 09:28: [place] ([place] 20 Medical NATURAL Branch [facility] Take by [facility] vers n/ascorbic/ 6-30 mouth. ity of herb 124 09:28: [place] ([place] 20 Medical NATURAL Branch ENERGY ORAL) [facility] Take by Uni vers n/ascorbic/ 6-30 mouth. ity of herb 124 09:28: [place] ([place] 20 Medical NATURAL Branch ENERGY ORAL) [facility] Take by Uni vers n/ascorbic/ 6-30 mouth. ity of herb 124 09:28: [place] ([place] 20 Medical NATURAL Branch ENERGY ORAL) [facility] Yes Take by Uni vers n/ascorbic/ 6-30 mouth. ity of herb 124 09:28: [place] ([place] 20 Medical NATURAL Branch ENERGY ORAL) multivit-nc 0 Yes Take by Uni vers n/ascorbic/ 6-30 mouth. ity of herb 124 09:28: [place] ([place] 20 Medical NATURAL Branch ENERGY ORAL) multivit-nc 0 Yes Take by Uni vers n/ascorbic/ 6-30 mouth. ity of herb 124 09:28: [place] ([place] 20 Medical NATURAL Branch ENERGY ORAL) multivit-nc 0 Yes Take by Uni vers n/ascorbic/ 6-30 mouth. ity of herb 124 09:28: [place] ([place] 20 Medical NATURAL Branch ENERGY ORAL) multivit-nc 0 Yes Take by Un celestino n/ascorbic/ 6-30 mouth. ity of herb 124 09:28: [place] (AIR[place]NE 20 Medical NATURAL Branch ENERGY ORAL) omeprazole 2021-0 Yes [id number] 40mg Take 1 Univers 40 mg 6-30 capsule by ity of capsule 00:00: mouth [place] 00 daily. Medical Branch omeprazole 2021-0 Yes [id number] 40mg Take 1 Univers 40 mg 6-30 capsule by ity of capsule 00:00: mouth [place] 00 daily. Medical Branch omeprazole 2021-0 Yes [id number] 40mg Take 1 Univers 40 mg 6-30 capsule by ity of capsule 00:00: mouth [place] 00 daily. Medical Branch omeprazole 2021-0 Yes [id number] 40mg Take 1 Univers 40 mg 6-30 capsule by ity of capsule 00:00: mouth [place] 00 daily. Medical Branch omeprazole 2021-0 Yes [id number] 40mg Take 1 Univers 40 mg 6-30 capsule by ity of capsule 00:00: mouth [place] 00 daily. Medical Branch omeprazole 2021-0 Yes [id number] 40mg Take 1 Univers 40 mg 6-30 capsule by ity of capsule 00:00: mouth [place] 00 daily. Medical Branch omeprazole 2021-0 Yes [id number] 40mg Take 1 Univers 40 mg 6-30 capsule by ity of capsule 00:00: mouth [place] 00 daily. Medical Branch omeprazole 2021-0 Yes [id number] 40mg Take 1 Univers 40 mg 6-30 capsule by ity of capsule 00:00: mouth [place] 00 daily. Medical Branch omeprazole 2021-0 Yes [id number] 40mg Take 1 Univers 40 mg 6-30 capsule by ity of capsule 00:00: mouth [place] 00 daily. Medical Branch omeprazole 2021-0 Yes [id number] 40mg Take 1 Univers 40 mg 6-30 capsule by ity of capsule 00:00: mouth [place] 00 daily. Medical Branch omeprazole 2021-0 Yes [id number] 40mg Take 1 Univers 40 mg 6-30 capsule by ity of capsule 00:00: mouth [place] 00 daily. Medical Branch omeprazole 2021-0 Yes [id number] 40mg Take 1 Univers 40 mg 6-30 capsule by ity of capsule 00:00: mouth [place] 00 daily. Medical Branch omeprazole 2021-0 Yes [id number] 40mg Take 1 Univers 40 mg 6-30 capsule by ity of capsule 00:00: mouth [place] 00 daily. Medical Branch omeprazole 2021-0 Yes [id number] 40mg Take 1 Univers 40 mg 6-30 capsule by ity of capsule 00:00: mouth [place] 00 daily. Medical Branch omeprazole 0 Yes [id number] 40mg Take 1 Univers 40 mg 6-30 capsule by ity of capsule 00:00: mouth [place] 00 daily. Medical Branch omeprazole 2021-0 Yes [id number] 40mg Take 1 Univers 40 mg 6-30 capsule by ity of capsule 00:00: mouth [place] 00 daily. Medical Branch linaCLOtide 2021- No [id number] 72ug Take 1 Univers (LINZESS) 01-21- capsule by ity of 72 mcg Cap 00:00: 04:59 mouth [place] 00 :00 daily for Medical 90 days. [place] linaCLOtide 2021- No [id number] 72ug Take 1 Univers (LINZESS) 01-21 capsule by ity of 72 mcg Cap 00:00: 04:59 mouth [place] 00 :00 daily for Medical 90 days. Branch linaCLOtide 2021- No [id number] 72ug Take 1 Univers (LINZESS) 01-21 capsule by ity of 72 mcg Cap 00:00: 04:59 mouth [place] 00 :00 daily for Medical 90 days. [place] linaCLOtide 2021- No [id number] 72ug Take 1 Univers (LINZESS) 01-21 capsule by ity of 72 mcg Cap 00:00: 04:59 mouth [place] 00 :00 daily for Medical 90 days. Branch linaCLOtide 2021- No [id number] 72ug Take 1 Univers (LINZESS) 01-21- capsule by ity of 72 mcg Cap 00:00: 04:59 mouth [place] 00 :00 daily for Medical 90 days. Branch linaCLOtide 2021- No [id number] 72ug Take 1 Univers (LINZESS) 01-21 capsule by ity of 72 mcg Cap 00:00: 04:59 mouth [place] 00 :00 daily for Medical 90 days. Branch linaCLOtide 2021- No [id number] 72ug Take 1 Univers (LINZESS) 01-21 capsule by ity of 72 mcg Cap 00:00: 04:59 mouth [place] 00 :00 daily for Medical 90 days. Branch PNV WITH 2022-0 Yes Take by Univer s CA8/IRON/FA 5-21 mouth. ity of /LMEFOLATE 13:03: [place] (PNV-IRON 07 Medical ORAL) Branch PNV WITH 2022-0 Yes Take by Univer s CA8/IRON/FA 5-21 mouth. ity of /LMEFOLATE 13:03: [place] (PNV-IRON 07 Medical ORAL) Branch PNV WITH 2022-0 Yes Take by Univer s CA8/IRON/FA 5-21 mouth. ity of /LMEFOLATE 13:03: [place] (PNV-IRON 07 Medical ORAL) Branch PNV WITH 2022-0 Yes Take by Univer s CA8/IRON/FA 5-21 mouth. ity of /LMEFOLATE 13:03: [place] (PNV-IRON 07 Medical ORAL) Branch PNV WITH 2022-0 Yes Take by Univer s CA8/IRON/FA 5-21 mouth. ity of /LMEFOLATE 13:03: [place] (PNV-IRON 07 Medical ORAL) Branch PNV WITH 2022-0 Yes Take by Univer s CA8/IRON/FA 5-21 mouth. ity of /LMEFOLATE 13:03: [place] (PNV-IRON 07 Medical ORAL) Branch PNV WITH 2022-0 Yes Take by Univer s CA8/IRON/FA 5-21 mouth. ity of /LMEFOLATE 13:03: [place] (PNV-IRON 07 Medical ORAL) Branch PNV WITH 2022-0 Yes Take by Univer s CA8/IRON/FA 5-21 mouth. ity of /LMEFOLATE 13:03: [place] (PNV-IRON 07 Medical ORAL) Branch PNV WITH 2022-0 Yes Take by Univer s CA8/IRON/FA 5-21 mouth. ity of /LMEFOLATE 13:03: [place] (PNV-IRON 07 Medical ORAL) Branch PNV WITH 2022-0 Yes Take by Univer s CA8/IRON/FA 5-21 mouth. ity of /LMEFOLATE 13:03: [place] (PNV-IRON 07 Medical ORAL) Branch PNV WITH 2022-0 Yes Take by Univer s CA8/IRON/FA 5-21 mouth. ity of /LMEFOLATE 13:03: [place] (PNV-IRON 07 Medical ORAL) Branch PNV WITH 2021-0 Yes Take by Univer s CA8/IRON/FA 5-21 mouth. ity of /LMEFOLATE 13:03: [place] (PNV-IRON 07 Medical ORAL) Branch PNV WITH 202-0 Yes Take by Univer s CA8/IRON/FA 5-21 mouth. ity of /LMEFOLATE 13:03: [place] (PNV-IRON 07 Medical ORAL) Branch PNV WITH 2021-0 Yes Take by Univer s CA8/IRON/FA 5-21 mouth. ity of /LMEFOLATE 13:03: [place] (PNV-IRON 07 Medical ORAL) Branch PNV WITH 2021-0 Yes Take by Univer s CA8/IRON/FA 5-21 mouth. ity of /LMEFOLATE 13:03: [place] (PNV-IRON 07 Medical ORAL) Branch PNV WITH 2021-0 Yes Take by Univer s CA8/IRON/FA 5-21 mouth. ity of /LMEFOLATE 13:03: [place] (PNV-IRON 07 Medical ORAL) Branch PNV WITH 2021-0 Yes Take by Univer s CA8/IRON/FA 5-21 mouth. ity of /LMEFOLATE 13:03: [place] (PNV-IRON 07 Medical ORAL) Branch PNV WITH 2021-0 Yes Take by Univer s CA8/IRON/FA 5-21 mouth. ity of /LMEFOLATE 13:03: [place] (PNV-IRON 07 Medical ORAL) Branch PNV WITH 2021-0 Yes Take by Univer s CA8/IRON/FA 5-21 mouth. ity of /LMEFOLATE 13:03: [place] (PNV-IRON 07 Medical ORAL) Branch PNV WITH 2021-0 Yes Take by Univer s CA8/IRON/FA 5-21 mouth. ity of /LMEFOLATE 13:03: [place] (PNV-IRON 07 Medical ORAL) Branch metFORMIN Yes metformin Uni vers 500 mg 5-05 500 mg ity of tablet 12:34: tablet [place] 58 Take 1 Medical tablet Branch twice a day by oral route. metFORMIN 2022-0 Yes metformin Uni vers 500 mg 5-05 500 mg ity of tablet 12:34: tablet [place] 58 Take 1 Medical tablet Branch twice a day by oral route. metFORMIN 2-0 Yes metformin Uni vers 500 mg 5-05 500 mg ity of tablet 12:34: tablet [place] 58 Take 1 Medical tablet Branch twice a day by oral route. metFORMIN 2021-0 Yes metformin Uni vers 500 mg 5-05 500 mg ity of tablet 12:34: tablet [place] 58 Take 1 Medical tablet Branch twice [...] 500 mg ity of tablet 12:34: tablet [place] 58 Take 1 Medical tablet Branch twice a day by oral route. metFORMIN 2021-0 Yes metformin Uni vers 500 mg 5-05 500 mg ity of tablet 12:34: tablet [place] 58 Take 1 Medical tablet Branch twice a day by oral route. metFORMIN 2021-0 Yes metformin Uni vers 500 mg 5-05 500 mg ity of tablet 12:34: tablet [place] 58 Take 1 Medical tablet Branch twice a day by oral route. metFORMIN 2021-0 Yes metformin Uni vers 500 mg 5-05 500 mg ity of tablet 12:34: tablet [place] 58 Take 1 Medical tablet Branch twice a day by oral route. metFORMIN 2021-0 Yes metformin Uni vers 500 mg 5-05 500 mg ity of tablet 12:34: tablet [place] 58 Take 1 Medical tablet Branch twice a day by oral route. metFORMIN 2021-0 Yes metformin Uni vers 500 mg 5-05 500 mg ity of tablet 12:34: tablet [place] 58 Take 1 Medical tablet Branch twice a day by oral route. metFORMIN 2021-0 Yes metformin Uni vers 500 mg 5-05 500 mg ity of tablet 12:34: tablet [place] 58 Take 1 Medical tablet Branch twice a day by oral route. metFORMIN 2-0 Yes metformin Uni vers 500 mg 5-05 500 mg ity of tablet 12:34: tablet [place] 58 Take 1 Medical tablet Branch twice [...] day by oral route. peg-electro 0 Yes [id number] Take as Univers lyte soln 5-05 directed ity of 236-22.74-6 00:00: [place] .74 -5.86 00 colonoscop Medi chavo gram y Branch solution peg-electro 2021-0 Yes [id number] Take as Univers lyte soln 5-05 directed ity of 236-22.74-6 00:00: before [place] .74 -5.86 00 colonoscop Medi chavo gram y Branch solution peg-electro 2021-0 Yes [id number] Take as Univers lyte soln 5-05 directed ity of 236-22.74-6 00:00: before [place] .74 -5.86 00 colonoscop Medi chavo gram y Branch solution peg-electro 2021-0 Yes [id number] Take as Univers lyte soln 5-05 directed ity of 236-22.74-6 00:00: before [place] .74 -5.86 00 colonoscop Medi chavo gram y Branch solution peg-electro 2021-0 Yes [id number] Take as Univers lyte soln 5-05 directed ity of 236-22.74-6 00:00: before [place] .74 -5.86 00 colonoscop Medi chavo gram y Branch solution peg-electro 2021-0 Yes [id number] Take as Univers lyte soln 5-05 directed ity of 236-22.74-6 00:00: [place] .74 -5.86 00 colonoscop Medi chavo gram y Branch solution peg-electro 2021-0 Yes [id number] Take as Univers lyte soln 5-05 directed ity of 236-22.74-6 00:00: [place] .74 -5.86 00 colonoscop Medi chavo gram y Branch solution peg-electro 2021- No [id number] Take as Univers lyte soln 11-26 directed ity o f 236-22.74-6 00:00: 00:00 before [place] .74 -5.86 00 :00 colonoscop Medi chavo gram y Branch solution omeprazole 2021- No [id number] 40mg Take 1 Univers 40 mg 5-05 06-30 capsule by ity of capsule 00:00: 00:00 mouth [place] 00 :00 daily for Medical 90 days. Branch omeprazole 2021- No [id number] 40mg Take 1 Univers 40 mg 5-05 06-30 capsule by ity of capsule 00:00: 00:00 mouth [place] 00 :00 daily for Medical 90 days. Branch dicyclomine 2021-0 Yes [id number] 20mg Take 1 Univers 20 mg 3-12 tablet by ity of tablet 00:00: mouth [address] [place] [address] ([facility]) Medical times Branch daily. dicyclomine 2021-0 Yes [id number] 20mg Take 1 Univers 20 mg 3-12 tablet by ity of tablet 00:00: mouth [place] ([facility]) Medical times Branch daily. dicyclomine 2021-0 Yes [id number] 20mg Take 1 Univers 20 mg 3-12 tablet by ity of tablet 00:00: mouth [address] [place] [address] ([facility]) Medical times Branch daily. dicyclomine 2021-0 Yes [id number] 20mg Take 1 Univers 20 mg 3-12 tablet by ity of tablet 00:00: [address] ([facility]) Medical times Branch daily. dicyclomine 2021-0 Yes [id number] 20mg Take 1 Univers 20 mg 3-12 tablet by ity of tablet 00:00: mouth [address] [place] [address] ([facility]) Medical times Branch daily. dicyclomine 2-0 Yes [id number] 20mg Take 1 Univers 20 mg 3-12 tablet by ity of tablet 00:00: mouth [address] [place] [address] ([facility]) Medical times Branch daily. dicyclomine 2-0 Yes [id number] 20mg Take 1 Univers 20 mg 3-12 tablet by ity of tablet 00:00: mouth [address] [place] [address] ([facility]) Medical times Branch daily. dicyclomine 2021-0 Yes [id number] 20mg Take 1 Univers 20 mg 3-12 tablet by ity of tablet 00:00: mouth ([facility]) Medical times Branch daily. dicyclomine 2022-0 Yes [id number] 20mg Take 1 Univers 20 mg 3-12 tablet by ity of tablet 00:00: [facility] [place] ([facility]) Medical times Branch daily. dicyclomine 2022-0 Yes [id number] 20mg Take 1 Univers 20 mg 3-12 tablet by ity of tablet 00:00: [facility] [place] ([facility]) Medical times Branch daily. dicyclomine 2022-0 Yes [id number] 20mg Take 1 Univers 20 mg 3-12 tablet by ity of tablet 00:00: mouth ([facility]) Medical times Branch daily. dicyclomine 2022-0 Yes [id number] 20mg Take 1 Univers 20 mg 3-12 tablet by ity of tablet 00:00: [facility] [place] ([facility]) Medical times Branch daily. dicyclomine 2022-0 Yes [id number] 20mg Take 1 Univers 20 mg 3-12 tablet by ity of tablet 00:00: [facility] [place] ([facility]) Medical times Branch daily. dicyclomine 2022-0 Yes [id number] 20mg Take 1 Univers 20 mg 3-12 tablet by ity of tablet 00:00: [facility] [place] ([facility]) Medical times Branch daily. dicyclomine 2022-0 Yes [id number] 20mg Take 1 Univers 20 mg 3-12 tablet by ity of tablet 00:00: [facility] [place] ([facility]) Medical times Branch daily. dicyclomine 2022-0 Yes [id number] 20mg Take 1 Univers 20 mg 3-12 tablet by ity of tablet 00:00: [address] ([facility]) Medical times Branch daily. dicyclomine 2022-0 Yes [id number] 20mg Take 1 Univers 20 mg 3-12 tablet by ity of tablet 00:00: mouth [address] [place] [address] ([facility]) Medical times Branch daily. medroxyPROG 2022-0 Yes [id number] 10mg Take 1 Univers ESTERone 2-08 tablet by ity of (PROVERA) 00:00: mouth [place] 10 mg 00 daily. Medical tablet Branch medroxyPROG 2022-0 Yes [id number] 10mg Take 1 Univers ESTERone 2-08 tablet by ity of (PROVERA) 00:00: mouth [place] 10 mg 00 daily. Medical tablet Branch medroxyPROG 2022-0 Yes [id number] 10mg Take 1 Univers ESTERone 2-08 tablet by ity of (PROVERA) 00:00: mouth [place] 10 mg 00 daily. Medical tablet Branch medroxyPROG 2022-0 Yes [id number] 10mg Take 1 Univers ESTERone 2-08 tablet by ity of (PROVERA) 00:00: mouth [place] 10 mg 00 daily. Medical tablet Branch medroxyPROG 2022-0 Yes [id number] 10mg Take 1 Univers ESTERone 2-08 tablet by ity of (PROVERA) 00:00: mouth [place] 10 mg 00 daily. Medical tablet Branch medroxyPROG 2022-0 Yes [id number] 10mg Take 1 Univers ESTERone 2-08 tablet by ity of (PROVERA) 00:00: mouth [place] 10 mg 00 daily. Medical tablet Branch medroxyPROG 2022-0 Yes [id number] 10mg Take 1 Univers ESTERone 2-08 tablet by ity of (PROVERA) 00:00: mouth [place] 10 mg 00 daily. Medical tablet Branch medroxyPROG 2022-0 Yes [id number] 10mg Take 1 Univers ESTERone 2-08 tablet by ity of (PROVERA) 00:00: mouth [place] 10 mg 00 daily. Medical tablet Branch medroxyPROG 2022-0 Yes [id number] 10mg Take 1 Univers ESTERone 2-08 tablet by ity of (PROVERA) 00:00: mouth [place] 10 mg 00 daily. Medical tablet Branch medroxyPROG 2022-0 Yes [id number] 10mg Take 1 Univers ESTERone 2-08 tablet by ity of (PROVERA) 00:00: mouth [place] 10 mg 00 daily. Medical tablet Branch medroxyPROG 2022-0 Yes [id number] 10mg Take 1 Univers ESTERone 2-08 tablet by ity of (PROVERA) 00:00: mouth [place] 10 mg 00 daily. Medical tablet Branch medroxyPROG 2022-0 Yes [id number] 10mg Take 1 Univers ESTERone 2-08 tablet by ity of (PROVERA) 00:00: mouth [place] 10 mg 00 daily. Medical tablet Branch medroxyPROG 2022-0 Yes [id number] 10mg Take 1 Univers ESTERone 2-08 tablet by ity of (PROVERA) 00:00: mouth [place] 10 mg 00 daily. Medical tablet Branch medroxyPROG 2-0 Yes [id number] 10mg Take 1 Univers ESTERone 2-08 tablet by ity of (PROVERA) 00:00: mouth [place] 10 mg 00 daily. Medical tablet Branch medroxyPROG 2-0 Yes [id number] 10mg Take 1 Univers ESTERone 2-08 tablet by ity of (PROVERA) 00:00: mouth [place] 10 mg 00 daily. Medical tablet Branch medroxyPROG 2-0 Yes [id number] 10mg Take 1 Univers ESTERone 2-08 tablet by ity of (PROVERA) 00:00: mouth [place] 10 mg 00 daily. Medical tablet Branch medroxyPROG 2-0 Yes [id number] 10mg Take 1 Univers ESTERone 2-08 tablet by ity of (PROVERA) 00:00: mouth [place] 10 mg 00 daily. Medical tablet Branch amitriptyli 0 Yes [id number] 25mg Take 1 Univers ne 25 mg 8-27 tablet by ity of tablet 00:00: mouth at [place] [address] bedtime. Medical Branch amitriptyli 2020-0 Yes [id number] 25mg Take 1 Univers ne 25 mg 8-27 tablet by ity of tablet 00:00: mouth at [place] [address] bedtime. Medical Branch amitriptyli 0 Yes [id number] 25mg Take 1 Univers ne 25 mg 8-27 tablet by ity of tablet 00:00: mouth at [place] [address] bedtime. Medical Branch amitriptyli 2020-0 Yes [id number] 25mg Take 1 Univers ne 25 mg 8-27 tablet by ity of tablet 00:00: mouth at [place] [address] bedtime. Medical Branch amitriptyli 2020-0 Yes [id number] 25mg Take 1 Univers ne 25 mg 8-27 tablet by ity of tablet 00:00: mouth at [place] 00 bedtime. Medical Branch amitriptyli 2020-0 Yes [id number] 25mg Take 1 Univers ne 25 mg 8-27 tablet by ity of tablet 00:00: mouth at [place] [address] bedtime. Medical Branch amitriptyli 2020-0 Yes [id number] 25mg Take 1 Univers ne 25 mg 8-27 tablet by ity of tablet 00:00: mouth at [place] [address] bedtime. Medical Branch amitriptyli 2021-0 Yes [id number] 25mg Take 1 Univers ne 25 mg 8-27 tablet by ity of tablet 00:00: mouth at [place] [address] bedtime. Medical Branch amitriptyli 0 Yes [id number] 25mg Take 1 Univers ne 25 mg 8-27 tablet by ity of tablet 00:00: mouth at [place] [address] bedtime. Medical Branch amitriptyli 0 Yes [id number] 25mg Take 1 Univers ne 25 mg 8-27 tablet by ity of tablet 00:00: mouth at [place] 00 bedtime. Medical Branch amitriptyli Yes [id number] 25mg Take 1 Univers ne 25 mg 8-27 tablet by ity of tablet 00:00: mouth at [place] [address] bedtime. Medical Branch amitriptyli Yes [id number] 25mg Take 1 Univers ne 25 mg 8-27 tablet by ity of tablet 00:00: mouth at [place] [address] bedtime. Medical Branch amitriptyli Yes [id number] 25mg Take 1 Univers ne 25 mg 8-27 tablet by ity of tablet 00:00: mouth at [place] [address] bedtime. Medical Branch amitriptyli Yes [id number] 25mg Take 1 Univers ne 25 mg 8-27 tablet by ity of tablet 00:00: mouth at [place] [address] bedtime. Medical Branch amitriptyli 0 Yes [id number] 25mg Take 1 Univers ne 25 mg 8-27 tablet by ity of tablet 00:00: mouth at [place] [address] bedtime. Medical Branch amitriptyli 0 Yes [id number] 25mg Take 1 Univers ne 25 mg 8-27 tablet by ity of tablet 00:00: mouth at [place] [address] bedtime. Medical Branch amitriptyli Yes [id number] 25mg Take 1 Univers ne 25 mg 8-27 tablet by ity of tablet 00:00: mouth at [place] [address] bedtime. Medical Branch amitriptyli Yes [id number] 25mg Take 1 Univers ne 25 mg 8-27 tablet by ity of tablet 00:00: mouth at [place] [address] bedtime. Medical Branch cyanocobala 0 2020- No 1000ug 1,000 mcg, Univers min 7-18 07-18 Intramuscu ity of (VITAMIN 18:43: 19:46 [place], ONCE, [place] B12) 00 :00 1 dose, Medical injection [facility] 1,000 mcg 02/08/21 at 1345, Routine acetaminoph Yes 650mg 650 mg, [place] en 02-08 Oral, ity of (TYLENOL) 12:44: Q6HPRN, [place] tablet 650 15 Starting Medic al mg [facility] 02/08/21 at 0744, Until Discontinu ed, Routine, Pain (scale 1-3), Pain (scale 4-6), pain 1-10 gadobenate 202- No [id number] .2mL/kg 19.8 mL Univers dimeglumine 02-08 (0.2 mL/kg i ty of (MULTIHANCE 10:33: 10:45 ?99 kg), [place] -20 mL) 00 :00 Intravenou Medica l injection s, ONCE, 1 Bran ch 19.8 mL dose, [place] 02/08/21 at 0545, Routine LORazepam 2020- No 1mg 1 mg, Univer s (ATIVAN) 02-08 Oral, ity of tablet 1 mg 06:00: 09:11 ONCE, 1 [place] 00 :00 dose, [facility] 02/08/21 at Branch 0100, Routine glucagon Yes 1mg 1 mg, Univers (GLUCAGEN 02-08 Intramuscu ity of DIAGNOSTIC 01:45: lar, PRN, [place] KIT) 14 Starting Medical injection 1 Sat [place] mg 02/07/21 at 204, Until Discontinu ed, MIRANDA, Blood Glucose < or = 70 mg/dL and patient is unable to swallow or has mental changes. dextrose 50 2020-0 Yes 25mL 25 mL, Univ ers % in water 02-08 Slow IV ity of (D50W) 01:45: Push, PRN, [place] injection 14 Starting Medica l 25 mL [facility] 02/07/21 at 204, Until Discontinu ed, MIRANDA, Blood Glucose < or = 70 mg/dL and patient is unable to swallow or has mental status changes. magnesium Yes [id number] 400mg Take 1 U nivers oxide 400 7-18 tablet by ity o f mg (241.3 00:00: mouth [place] mg 00 daily. Medical magnesium) Branch tablet vitamin 2020-0 Yes [id number] 1000ug Take 1 Un [place] B-12 1,000 7-18 tablet by ity of mcg tablet 00:00: mouth [place] 00 daily. Medical Branch magnesium 2020-0 Yes [id number] 400mg Take 1 U nivers oxide 400 7-18 tablet by ity o f mg (241.3 00:00: mouth [place] mg 00 daily. Medical magnesium) Branch tablet vitamin 2020-0 Yes [id number] 1000ug Take 1 Un [place] B-12 1,000 7-18 tablet by ity of mcg tablet 00:00: mouth [place] 00 daily. Medical Branch magnesium 0 Yes [id number] 400mg Take 1 U nivers oxide 400 7-18 tablet by ity o f mg (241.3 00:00: mouth [place] mg 00 daily. Medical magnesium) Branch tablet vitamin 0 Yes [id number] 1000ug Take 1 [facility] [place] B-12 1,000 7-18 tablet by ity of mcg tablet 00:00: mouth [place] 00 daily. Medical Branch magnesium 0 Yes [id number] 400mg Take 1 U nivers oxide 400 7-18 tablet by ity o f mg (241.3 00:00: mouth [place] mg 00 daily. Medical magnesium) Branch tablet vitamin 0 Yes [id number] 1000ug Take 1 [facility] [place] B-12 1,000 7-18 tablet by ity of mcg tablet 00:00: mouth [place] 00 daily. Medical Branch magnesium 2021- No [id number] 400mg Take 1 Univers oxide 400 7-18 04-21 tablet by ity of mg (241.3 00:00: 00:00 mouth [place] mg 00 :00 daily. Medical magnesium) Branch tablet vitamin 2020-0 2021- No [id number] 1000ug Take 1 U nivers B-12 1,000 7-18 04-21 tablet by ity of mcg tablet 00:00: 00:00 mouth [place] 00 :00 daily. Medical Branch magnesium 2020-2020- No 2g [...] First dose [place] mg 00 on [facility] Medical 02/07/21 at Branch 0800, Until Discontinu ed, Routine heparin Yes 5000U 5,000 Univers (porcine) 02-07 Units, ity of injection 13:00: Subcutaneo [place] 5,000 Units 00 us, Q12H, Med ical First dose Branch on [facility] 02/07/21 at 0800, Until Discontinu ed, Routine ondansetron Yes 4mg 4 mg, Slow Univers (ZOFRAN 02-07 IV Push, ity of (PF)) 10:47: Q6HPRN, [place] injection 4 30 Starting Medi chavo mg [facility] 02/07/21 at 0547, Until Discontinu ed, Routine, Nausea and Vomiting (N/V) acetaminoph No 500mg 500 mg, U nivers en 02-07 07-18 Oral, ity of (TYLENOL) 10:47: 12:45 Q6HPRN, [place] tablet 500 00 :19 Starting Medic al mg [facility] 02/07/21 at 0547, Until 02/08/21 at 0745, Routine, Pain (scale 1-3), Pain (scale 4-6) medroxyPROG 2021- No [id number] 10mg Take 1 Univers ESTERone 01-22 tablet by ity o f (PROVERA) 00:00: 00:00 mouth [place] 10 mg 00 :00 daily. Medical tablet Branch medroxyPROG 2020-2021- No [id number] 10mg Take 1 Univers ESTERone 01-22 tablet by ity o f (PROVERA) 00:00: 00:00 mouth [place] 10 mg 00 :00 daily. Medical tablet Branch Provera 10 Provera 10 No 1 Q1D Provera 10 [place] mg tablet mg tablet mg tablet da Take 1 Take 1 Take 1 [facility] tablet tablet tablet al every day every day every day Health by oral by oral by oral Outrea c route for route for route for h 10 days. 10 days. 10 days. Pro gram metformin metformin No 1 BID metformin [place] [...] days. days. 7 days. Immunizations Ordered Filled Date Status Comments Source Immunization Name Immunization Name Influenza Virus 2020 Completed Universit y of Vaccine 00:00:00 [facility] Influenza Virus 2020 Completed Universit y of Vaccine 00:00:00 [facility] Influenza Virus 2020 Completed Universit y of Vaccine 00:00:00 [facility] Influenza Virus 2020 Completed Universit y of Vaccine 00:00:00 [facility] Influenza Virus 2020 Completed Universit y of Vaccine 00:00:00 [facility] Influenza Virus 2020 Completed Universit y of Vaccine 00:00:00 [facility] Influenza Virus 2020 Completed Universit y of Vaccine 00:00:00 [facility] Influenza Virus 2020 Completed Universit y of Vaccine 00:00:00 [facility] Influenza Virus 2020 Completed Universit y of Vaccine 00:00:00 [facility] Influenza Virus 2020 Completed Universit y of Vaccine 00:00:00 [facility] Influenza Virus 2020 Completed Universit y of Vaccine 00:00:00 [facility] Influenza Virus 2020 Completed Universit y of Vaccine 00:00:00 [facility] Influenza Virus 2020 Completed Universit y of Vaccine 00:00:00 [facility] Influenza Virus 2020 Completed Universit y of Vaccine 00:00:00 [facility] Influenza Virus 2020 Completed Universit y of Vaccine 00:00:00 [facility] Influenza Virus 2019-06-11 Completed Universit y of Vaccine (3+ yrs) 00:00:00 [facility] Influenza Virus 2019-06-11 Completed Universit y of Vaccine (3+ yrs) 00:00:00 [facility] Influenza Virus 2019-06-11 Completed Universit y of Vaccine (3+ yrs) 00:00:00 [facility] Influenza Virus 2019-06-11 Completed Universit y of Vaccine (3+ yrs) 00:00:00 [facility] Influenza Virus 2019-06-11 Completed Universit y of Vaccine (3+ yrs) 00:00:00 [facility] Influenza Virus 2019-04-30 Completed Universit y of Vaccine (3+ yrs) 00:00:00 [facility] Influenza Virus 2019-04-30 Completed Universit y of Vaccine (3+ yrs) 00:00:00 [facility] Influenza Virus 2019-04-30 Completed Universit y of Vaccine (3+ yrs) 00:00:00 [facility] Influenza Virus 2019-04-30 Completed Universit y of Vaccine (3+ yrs) 00:00:00 [facility] Influenza Virus 2019-04-30 Completed Universit y of Vaccine (3+ yrs) 00:00:00 [facility] Tdap - ML Tdap - ML 2017-12-23 Completed [place] 00:00:00 [facility] TDAP 2017-12-23 Completed University of 00:00:00 [facility] TDAP 2017-12-23 Completed University of 00:00:00 [facility] TDAP 2017-12-23 Completed University of 00:00:00 [facility] TDAP 2017-12-23 Completed University of 00:00:00 [facility] TDAP 2017-12-23 Completed University of 00:00:00 [facility] TDAP 2017-12-23 Completed University of 00:00:00 [facility] TDAP 2017-12-23 Completed University of 00:00:00 [facility] TDAP 2017-12-23 Completed University of 00:00:00 [facility] TDAP 2017-12-23 Completed University of 00:00:00 [facility] TDAP 2017-12-23 Completed University of 00:00:00 [facility] TDAP 2017-12-23 Completed University of 00:00:00 [facility] TDAP 2017-12-23 Completed University of 00:00:00 [facility] TDAP 2017-12-23 Completed University of 00:00:00 [facility] TDAP 2017-12-23 Completed University 00:00: [facility] TDAP 2017-12-23 Completed University 00:00:00 [facility] Hep A, ped/adol, 2 Hep A, ped/adol, 2 2009-02-17 Completed [place] dose - ML dose - ML 00:00:00 [facility] Tdap - ML Tdap - ML 2009-02-17 Completed [place] 00:00:00 [facility] Hep A, ped/adol, 2 Hep A, ped/adol, 2 2005-03-17 Completed [place] dose - ML dose - ML 00:00:00 [facility] DTaP, unspecified DTaP, unspecified 1998-12-30 Completed [place] formulation - ML formulation - ML 00:00:00 [facility] MMR - ML MMR - ML 1998-12-30 Completed [place] 00:00:00 [facility] IPV - ML IPV - ML 1998-12-30 Completed [place] [facility] 00:00:00 [facility] varicella - ML varicella - ML 1998-11-22 Completed [place] [employer] 00:00:00 [facility] DTaP, unspecified DTaP, unspecified 1996-05-31 Completed [place] formulation - ML formulation - ML 00:00:00 [facility] MMR - ML MMR - ML 1996-05-31 Completed [place] 00:00:00 [facility] Hib, unspecified Hib, unspecified 1996-05-31 Completed [place] formulation - ML formulation - ML 00:00:00 [facility] DTaP, unspecified DTaP, unspecified 1995-08-02 Completed [place] formulation - ML formulation - ML 00:00:00 [facility] Hep B, unspecified Hep B, unspecified 1995-08-01 Completed [place] formulation - ML formulation - ML 00:00:00 [facility] IPV - ML IPV - ML 1995-08-01 Completed [place] 00:00:00 [facility] Hib, unspecified Hib, unspecified 1995-08-01 Completed [place] formulation - ML formulation - ML 00:00:00 [facility] DTP-Hib - ML DTP-Hib - ML 1995-04-21 Completed [place] 00:00:00 [facility] IPV - ML IPV - ML 1995-04-21 Completed [place] 00:00:00 [facility] DTaP, unspecified DTaP, unspecified 1995-02-04 Completed [place] formulation - ML formulation - ML 00:00:00 [facility] Hep B, unspecified Hep B, unspecified 1995-02-04 Completed [place] formulation - ML formulation - ML 00:00:00 [facility] IPV - ML IPV - ML 1995-02-04 Completed [place] 00:00:00 [facility] Hib, unspecified Hib, unspecified 1995-02-04 Completed [place] formulation - ML formulation - ML 00:00:00 [facility] Hep B, unspecified Hep B, unspecified 1994 Completed [place] formulation - ML formulation - ML 00:00:00 [facility] TDAP Unknown Completed [facility] Influenza Virus Unknown Completed Universit y of Vaccine [facility] [facility] Influenza Virus Unknown Completed Universit y of Vaccine (3+ yrs) [facility] dical [place] Influenza Virus Unknown Completed Universit y of Vaccine (3+ yrs) [facility] dical Branch TDAP Unknown Completed [facility] Influenza Virus Unknown Completed Universit y of Vaccine [facility] Influenza Virus Unknown Completed Universit y of Vaccine (3+ yrs) [facility] dical [place] Influenza Virus Unknown Completed Universit y of Vaccine (3+ yrs) [facility] dical [place] TDAP Unknown Completed [facility] Influenza Virus Unknown Completed Universit y of Vaccine [facility] Influenza Virus Unknown Completed Universit y of Vaccine (3+ yrs) [facility] dical [place] Influenza Virus Unknown Completed Universit y of Vaccine (3+ yrs) [facility] dical Branch TDAP Unknown Completed [facility] Influenza Virus Unknown Completed Universit y of Vaccine [facility] Influenza Virus Unknown Completed Universit y of Vaccine (3+ yrs) [facility] dical Branch Influenza Virus Unknown Completed Universit y of Vaccine (3+ yrs) [facility] dical Branch TDAP Unknown Completed [facility] Influenza Virus Unknown Completed Universit y of Vaccine [facility] Influenza Virus Unknown Completed Universit y of Vaccine (3+ yrs) [facility] dical Branch Influenza Virus Unknown Completed Universit y of Vaccine (3+ yrs) [facility] dical [place] Vital Signs Vital Name Observation Time Observation Value Comments Source Systolic blood 2023-04-25 02:30:00 122 mm[Hg] Univer sity of pressure [facility] Diastolic blood 2023-04-25 02:30:00 88 mm[Hg] Unive rsity of [facility] Heart rate 2023-04-25 02:30:00 69 /min Universi ty of [facility] Respiratory rate 2023-04-25 02:30:00 16 /min Univ ersity of [facility] Oxygen saturation in 2023-04-25 02:30:00 98 /min University of Arterial blood by [place] [employer] Pulse oximetry Branch Body temperature 2023-04-25 00:09:00 36.72 Bre Univ ersity of [facility] Body height 2023-04-25 00:09:00 157.5 cm [facility] Body weight 2023-04-25 00:09:00 104.327 kg [facility] BMI 2023-04-25 00:09:00 42.07 kg/m2 Universi [facility] Systolic blood 2022-12-11 16:31:43 115 mm[Hg] Univer sity of [facility] Branch Diastolic blood 2022-12-11 16:31:43 74 mm[Hg] Unive rsity of pressure [facility] Heart rate 2022-12-11 16:31:43 65 /min Universi ty of [facility] Body temperature 2022-12-11 16:31:43 36.39 Bre Univ ersity of [facility] Branch Respiratory rate 2022-12-11 16:31:43 16 /min Univ ersity of [facility] Oxygen saturation in 2022-12-11 16:31:43 98 /min University of Arterial blood by [employer] Pulse oximetry Branch Body height 2022-12-11 15:24:00 157.5 cm Universi ty of [facility] Body weight 2022-12-11 15:24:00 103.602 kg Universi ty of [facility] BMI 2022-12-11 15:24:00 41.77 kg/m2 Universi ty [facility] BP Diastolic 2022-10-28 00:00:00 87 mm[Hg] [facility] Height 2022-10-28 00:00:00 62 [in_i] [facility] BMI (Body Mass 2022-10-28 00:00:00 41.5 kg/m2 [facility] [employer] Index) [facility] BP Systolic 2022-10-28 00:00:00 139 mm[Hg] [facility] Body Weight 2022-10-28 00:00:00 227 [lb_av] [facility] Heart rate 2022-09-15 05:30:00 75 /min [facility] Respiratory rate 2022-09-15 05:30:00 18 /min [facility] Oxygen saturation in 2022-09-15 05:30:00 97 /min [facility] Arterial blood by [facility] Pulse oximetry [place] Systolic blood 2022-09-15 05:00:00 119 mm[Hg] Univer sity of pressure [facility] Diastolic blood 2022-09-15 05:00:00 54 mm[Hg] [facility] Body temperature 2022-09-15 02:18:00 36.72 Bre [facility] Body height 2022-09-15 02:13:00 157.5 cm Universi ty of [facility] Body weight 2022-09-15 02:13:00 103.42 kg Universi [facility] BMI 2022-09-15 02:13:00 41.70 kg/m2 Universi [facility] Body weight 2022-04-29 13:49:00 102.059 kg Universi ty of [facility] BMI 2022-04-29 13:49:00 41.15 kg/m2 Universi [facility] of [facility] Systolic blood 2022-03-28 17:30:00 138 mm[Hg] Univer sity of pressure [facility] Diastolic blood 2022-03-28 17:30:00 85 mm[Hg] Unive rsity of pressure [facility] Heart rate 2022-03-28 17:30:00 85 /min Universi ty of [facility] Respiratory rate 2022-03-28 17:30:00 14 /min Univ ersity of [facility] Oxygen saturation in 2022-03-28 17:30:00 99 /min University of [place]terial blood by [place] Pulse oximetry Branch Body temperature 2022-03-28 16:20:00 36.39 Bre Univ ersity of [facility] Body weight 2022-03-28 16:20:00 102.059 kg Universi ty [facility] BMI 2022-03-28 16:20:00 41.15 kg/m2 Universi ty [facility] Systolic blood 2022-02-20 01:15:00 129 mm[Hg] Univer sity of pressure [facility] Diastolic blood 2022-02-20 01:15:00 89 mm[Hg] Unive rsity of pressure [facility] Heart rate 2022-02-20 01:15:00 78 /min Universi ty [facility] Body temperature 2022-02-20 01:15:00 36.5 Bre Univ ersity of [facility] Respiratory rate 2022-02-20 01:15:00 16 /min Univ ersity of [facility] Body height 2022-02-20 01:15:00 157.5 cm Universi ty [facility] Body weight 2022-02-20 01:15:00 105.461 kg [facility]i ty [facility] BMI 2022-02-20 01:15:00 42.52 kg/m2 Universi ty [facility] Oxygen saturation in 2022-02-20 01:15:00 97 /min University of [facility]ial blood by [place] [facility] Pulse oximetry Branch Systolic blood 2022-01-21 14:27:00 119 mm[Hg] Univer sity of pressure [facility] Diastolic blood 2022-01-21 14:27:00 89 mm[Hg] Unive rsity of pressure [facility] Heart rate 2022-01-21 14:27:00 90 /min Universi [facility] Body temperature 2022-01-21 14:27:00 36.56 Bre [facility] Respiratory rate 2022-01-21 14:27:00 16 /min [facility] Body height 2022-01-21 14:27:00 157.5 cm Universi ty [facility] Body weight 2022-01-21 14:27:00 104.418 kg Universi [facility] BMI 2022-01-21 14:27:00 42.10 kg[facility] Sy[facility]olic blood 2021-02-08 16:18:00 103 mm[Hg] Univer sity of [facility] Diastolic blood 2021-02-08 16:18:00 50 mm[Hg] [facility] Heart rate 2021-02-08 16:18:00 63 /min [facility] Body temperature 2021-02-08 16:18:00 36.22 Bre [facility] Respiratory rate 2021-02-08 16:18:00 18 /min [facility] Oxygen saturation in 2021-02-08 16:18:00 100 /min [facility] Arterial blood by [facility] Pulse oximetry Branch Body weight 2021-02-07 09:25:00 99.02 kg [facility] BP Diastolic 2020-04-22 00:00:00 93 mm[Hg] [facility] Height 2020-04-22 00:00:00 62 [in_i] [facility] BMI (Body Mass 2020-04-22 00:00:00 41 kg/m2 [facility] [employer] Medical Index) Group BP Systolic 2020-04-22 00:00:00 133 mm[Hg] [facility] Body Weight 2020-04-22 00:00:00 224.1 [lb_av] [facility] Procedures Procedure Date / Time Performing Clinician Source Performed CT ABDOMEN PELVIS W 2023-04-25 02:40:30 [facility]ee [facility] 2023-04-25 01:00:00 Laura Gee [facility] MAGNESIUM 2023-04-25 01:00:00 Laura Gee [facility] COMP. METABOLIC PANEL 2023-04-25 01:00:00 Laura Gee [facility] ([id number]) Medical [place] CBC WITH DIFF 2023-04-25 01:00:00 Laura Gee [facility] POCT TEST 2023-04-25 00:47:00 Laura Gee [facility] URINALYSIS 2023-04-25 00:45:00 Laura Gee [facility] ASSIGNMENT OF BENEFITS 2023-04-25 00:19:39 Doctor Unajerad, [facility] CONSENT/REFUSAL FOR 2023-04-25 00:04:54 Doctor Deshawn [facility] DIAGNOSIS AND TREATMENT [facility] POCT TEST 2022-12-11 15:38:00 Manjula Asencio [facility] URINALYSIS 2022-12-11 15:36:00 Manjula Asencio [facility] CONSENT/REFUSAL FOR 2022-12-11 15:15:47 Doctor Deshawn [facility] DIAGNOSIS AND TREATMENT [facility] LIPASE 2022-09-15 02:31:00 Tyra Leong [facility] COMP. METABOLIC PANEL 2022-09-15 02:31:00 Tyra Leong [facility] ([id number]) [facility] CBC WITH DIFF 2022-09-15 02:31:00 Tyra Leong [facility] URINALYSIS 2022-09-15 02:31:00 Tyra Leong [facility] POCT TEST 2022-09-15 02:30:00 Tyra Leong [facility] CONSENT/REFUSAL FOR 2022-09-15 01:54:58 Doctor Deshawn [facility] DIAGNOSIS AND TREATMENT [facility] EXTERNAL PROVIDER RECORDS 2022-05-27 05:01:00 Doctor Deshawn [facility] POCT TEST 2022-03-28 16:29:00 Laura Gee [facility] CONSENT/REFUSAL FOR 2022-03-28 16:12:09 Doctor [facility]madalyn [facility] DIAGNOSIS AND TREATMENT [place] [place] ASSIGNMENT OF BENEFITS 2021-03-17 13:09:25 Doctor Unassigned, [facility] [place] EXTERNAL PROVIDER RECORDS 2021-02-17 05:01:00 Doctor Unassmadalyn, [facility] Name [facility] MR ANGIOGRAM NECK W WO 2021-02-08 10:56:14 Viv cayetano [facility] CONTRAST [facility] MR VENOGRAM HEAD WO 2021-02-08 10:27:46 Viv [facility] CONTRAST [facility] Branch MR ANGIOGRAM HEAD WO 2021-02-08 10:26:56 Viv [facility] CONTRAST [facility] MR CERVICAL SPINE WO 2021-02-08 09:53:23 Luis Vega [facility] MR STROKE BRAIN WO 2021-02-07 12:40:45 Patricia Panda [facility] CONTRAST [facility] MAGNESIUM 2021-02-07 11:17:00 Gen Bruno [facility] VITAMIN B12, LEVEL 2021-02-07 11:17:00 Gen Bruno [facility] THYROID STIMULATING 2021-02-07 11:17:00 Patricia Panda [facility] HORMONE [facility] BASIC METABOLIC PANEL (NA, 2021-02-07 11:17:00 Patricia Panda [facility] K, CL, CO2, GLUCOSE, BUN, [facility] Branch CREATININE, CA) CBC WITH DIFF 2021-02-07 11:17:00 Patricia Panda [facility] Extraction of [place] [facility] Tonsilectomy/adenoids [facility] Cholecystectomy [facility] Remove Tonsils and [facility] Adenoids Group Plan of Care Planned Activity Planned Date Details Comments Source Diagnostic Test 2022-10-28 cytology report, [place] [facility] Pending 00:00:00 thin prep, smear or Health O utreach scraping, cervical Program or vaginal [code = cytology report, thin prep, smear or scraping, cervical or vaginal] Diagnostic Test 2022-10-28 HIV 1 + 2, [facility] iscopal Pending 00:00:00 meaningful use set Health Ou treach [code = HIV 1 + 2, Program meaningful use set] Diagnostic Test 2022-10-28 RPR (rapid plasma [place] [facility] Pending 00:00:00 reagin), serum [code Health Outreach = RPR (rapid plasma Program reagin), serum] Diagnostic Test 2022-10-28 HBsAg (hepatitis B [facility] Pending 00:00:00 surface Ag), EIA, Health Out reach serum [code = HBsAg Program (hepatitis B surface Ag), EIA, serum] Diagnostic Test 2020-04-22 urinalysis, dipstick [facility] Pending 00:00:00 [code = urinalysis, Group dipstick] Diagnostic Test 2020-04-22 pap, LB + CT/NG/TV + [facility] Pending 00:00:00 reflex HR HPV [code Group = pap, LB + CT/NG/TV + reflex HR HPV] Diagnostic Test 2020-04-22 test, [facility] Pending 00:00:00 urine [code = Group test, urine] Diagnostic Test 2020-04-22 beta-HCG, [facility] dical Pending 00:00:00 quantitative, serum Group or plasma [code = beta-HCG, quantitative, serum or plasma] Encounters Start End Encounter Admission Attending Care Care Encounter Source Date/Time Date/Time Type Type Clinicians Facility Department ID 2021-02-07 Inpatient U CORBIN [facility] [id number] Univers 04:14:00 EZRA [facility] 2023-04-24 2023-04-24 Emergency X GERARD NMEPHRAIM ERT [id number] Univers 19:15:00 22:19:00 LAURA [facility] 2023-04-24 2023-04-24 Emergency Gerard [facility] [id number] Univers 19:15:00 22:19:00 Laura ARCE [id number] ity of [place] [id number] [facility] [id number] [address] 2023-01-06 2023-01-06 Outpatient AMBREEN_RITESH [facility] 112 [place] 00:00:00 00:00:00 HANA [id number] [facility] 2022-12-11 2022-12-11 Emergency X Manjula ASENCIO [facility] ERT [id number] Univers 10:25:00 11:41:00 ity of [facility] 2022-12-11 2022-12-11 Emergency Manjula Asencio [facility] [id number] Univers 10:25:00 11:41:00 Susie ARCE [id number] i ty [facility] [id number] [facility] [id number] [address] 2022-11-02 2022-11-02 Outpatient Korina HART, [facility] [id number] Univers 09:30:00 09:30:00 JOELLEN [facility] 2022-10-28 2022-10-28 Outpatient [facility] 112 [place] 00:00:00 00:00:00 HANA [id number] [facility] 2022-10-28 2022[facility]10-28 [facility] [place] [facility] [id number] M at[place]or 00:00:00 00:00:00 Annika Gutierrez, [facility] DIRECTOR OF DIAGNOSTIC IMAGING: [address] [facility] al Giovanye F N, [place] OFFICE INSTRUCTOR BC [facility], [place] [address] Naren beck , Ph. 2022-10-08 2022-10-08 Telemedici KODY Brito [id number] Univers 10:00:00 10:30:00 ne Visit Pascale Y HEALTH [id number] ity of [facility] [id number] [facility] [id number] [address] 2022-10-08 2022-10-08 Outpatient [facility] [id number] Univers 10:00:00 10:00:00 PASCALE ity [facility] 2022-09-29 2022-09-29 [facility] 1.2.840.114 [id number] Univers 00:00:00 00:00:00 Secure Msg Eliana Vogt YAZMIN [id number] [id number] [id number] Pr dic[address] 2022-09-28 2022-09-28 Refill [facility] 1.2.840.114 [id number] Univers 00:00:00 00:00:00 Joellen Marla ARCE [id number] ity [facility] [id number] [id number] [address] 2022-09-14 2022-09-14 Emergency X [facility] ERT [id number] Univers 20:06:00 23:51:00 [facility] 2022-09-14 2022-09-14 Emergency [facility] [id number] Univers 20:06:00 23:51:00 Tyra Gann YAZMIN [id number] [id number] [id number] [address] 2022-09-03 2022-09-03 Outpatient R [facility] [id number] Univers 09:30:00 09:30:00 JOELLEN [facility]varez [facility] 2022-08-05 2022-08-05 Telemedici KODY Brito [id number] Univers 09:00:00 09:30:00 ne Visit [facility] [id number] ity of [facility] [id number] [id number] [address] 2022-08-05 2022-08-05 Outpatient Korina [facility] [id number] Univers 09:00:00 09:00:00 PASCALE ity of [facility] 2022-05-27 2022-05-27 Orders Doctor ALBINA 1.2.840.114 [id number] Univers 00:00:00 00:00:00 Only Unassigned, MATT [id number] ity of [facility] 4.2.7.2.686 Renaldo as [id number] [facility] [address] Branch 2022-04-29 2022-04-29 Telemedici KODY Brito 1.2.840.114 [id number] Univers 09:00:00 09:30:00 ne Visit [facility] [id number] ity of [facility] [id number] [id number] [facility] 0[address] [place] 2022-04-29 2022-04-29 Outpatient Korina [facility] [id number] Univers 09:00:00 09:00:00 PASCALE [facility] 2022-04-29 2022-04-29 Outpatient Korina [facility] [id number] Univers 09:00:00 09:00:00 PASCALE [facility] 2022-04-14 2022-04-14 Telephone [facility] [id number] Univers 00:00:00 00:00:00 Joellen ARCE [id number] [id number] [facility] [id number] Pr dical [address] 2022-03-28 2022-03-28 Emergency [facility] ERT [id number] Univers 11:21:00 12:35:00 LAURA ity [facility] 2022-03-28 2022-03-28 Emergency [facility] 1.2.840.114 [id number] Univers 11:21:00 12:35:00 Laura ARCE [id number] [id number] [id number] [facility] 0[address] [place] 2022-02-24 2022-02-24 Patient Grazyna [facility] 1.2.840.114 [id number] Univers 00:00:00 00:00:00 Secure Msg Anel A HEALTH [id number] ity of [place] [id number] Renaldo as GURJIT?BLEA [id number] Pr diceleuterio ELIZALDE [address] [place] MEDICAL OFFICE [facility] 2022-02-19 2022-02-19 Outpatient R BRAYDON [facility] [id number] Univers 20:00:00 20:51:59 RADHA alvarez o f [facility] 2022-02-19 2022-02-19 Urgent GreenJoleen [facility] 1.2.840.114 [id number] Univers 20:00:00 20:20:00 Care Radha Franklin HEALTH [id number] ity [facility] 4.2.7.2.686 Renaldo as GURJIT?BLEA [id number] [facility] 370 [facility] OFFICE [facility] 2022-02-09 2022-02-09 Patient [facility] 1.2.840.114 [id number] Univers 00:00:00 00:00:00 Secure Msg Joellen Gutiérrez YAZMIN [id number] [id number] [id number] Pr cirilo [facility] 134 [facility] 2022-01-21 2022-01-21 Office Salvador KODY [id number] Univers 09:00:00 09:30:00 Visit Pascale MOSER 350.1.13.10 i ty of [id number] [id number] [facility] [address] [place] 2022-01-21 2022-01-21 Outpatient R SALVADOR [facility] [id number] Univers 09:00:00 09:00:00 PASCALE alvarez of [facility] 2022-01-20 2022-01-20 Gizzard Puller Owen [facility] Main [facility] [id number] Univers 12:00:00 12:15:00 Visit Pascale Brito [id number] ity of [facility] [id number] [place] [id number] Pr dical NAL [address] BUILDING 2022-01-20 2022-01-20 Outpatient R SALVADOR [facility] [id number] Univers 12:00:00 12:00:00 PASCALE [facility] 2022-01-07 2022-01-07 Outpatient R SALVADOR [facility] [id number] Univers 14:30:00 14:30:00 PASCALE [facility] 2021-12-12 2021-12-12 Outpatient R MENDOZA [facility] [id number] Univers 13:00:00 13:39:44 [facility] 2021-12-12 2021-12-12 Urgent Mendoza [facility] 1.2.840.114 [id number] Univers 13:00:00 13:20:00 Care [facility] HEALTH 350.1.13.10 it y of [place] [id number] Renaldo as GURJIT?BLEA [id number] Pr dical KNEY [address] [place] MEDICAL OFFICE BUILDING 2021-11-27 2021-11-27 Patient LEON BritoIT [id number] Univers 00:00:00 00:00:00 Secure Msg Pascale Y HEALTH 350.1.13.10 ity of [place] [id number] [facility] [address] [place] 2021-11-26 2021-11-26 Gizzard Puller [facility] UNIVERSIT 1.2.840.114 [id number] Univers 13:15:00 13:30:00 Visit Salvador Pascale Y HEALTH 350.1.13.10 ity of [id number] [id number] [facility] [address] [place] 2021-11-26 2021-11-26 Outpatient R SALVADOR [facility] [id number] Univers 13:15:00 13:15:00 PASCALE [facility] 2021-11-26 2021-11-26 Office LEON BritoIT [id number] Univers 12:30:00 13:00:00 Visit Pascale Y HEALTH 350.1.13.10 i ty of [facility] [id number] [facility] [address] [place] 2021-11-26 2021-11-26 Outpatient R SALVADOR [facility] [id number] Univers 12:30:00 12:30:00 PASCALE [facility] 2021-11-20 2021-11-20 Patient Doctor ALBINA 1.2.840.114 [id number] Univers 00:00:00 00:00:00 Secure Msg Unassigned, MATT 350.1.13.10 ity of [facility] 4.2.7.2.686 Renaldo as [id number] [facility] [address] [place] 2021-11-16 2021-11-16 Patient Grazyna, [facility] 1.2.840.114 [id number] Univers 00:00:00 00:00:00 Secure Msg Anel A HEALTH 350.1.13.10 ity of [place] 4.2.7.2.686 Renaldo as GURJIT?BLEA [id number] [address] MEDICAL OFFICE BUILDING 2021-11-12 2021-11-12 Emergency X CHRISTINA, [facility] ERT [id number] Univers 17:16:00 22:02:00 RANDY [facility] 2021-11-12 2021-11-12 Emergency Christina, [facility] 1.2.840.114 [id number] Univers 17:16:00 22:02:00 Randy TENORIOARIAN 350.1.13.10 i ty of [place] 4.2.7.2.686 [place] [id number] [facility] [address] [place] 2021-11-12 2021-11-12 Emergency X CHRISTINA, [facility] ERT [id number] Univers 17:16:00 22:02:00 RANDY [facility] 2021-11-12 2021-11-12 Office Grazyna, [facility] 1.2.840.114 [id number] Univers 15:00:00 15:41:39 Visit Anel A HEALTH 350.1.13.10 i ty of [place] 4.2.7.2.686 Renaldo as GURJIT?BLEA [id number] [address] MEDICAL OFFICE BUILDING 2021-11-12 2021-11-12 Outpatient R GRAZYNA, [facility] [id number] Univers 15:00:00 15:41:39 ANEL [facility] 2021-11-12 2021-11-12 Office Grazyna, [facility] 1.2.840.114 [id number] Univers 15:00:00 15:30:00 Visit Anel Hansen [facility] 350.1.13.10 i ty of [place] 4.2.7.2.686 Renaldo as GURJIT?BLEA [id number] [address] MEDICAL OFFICE [facility] 2021-11-12 2021-11-12 Outpatient R GRAZYNA, [facility] [id number] Univers 15:00:00 15:00:00 ANEL [facility] 2021-11-12 2021-11-12 Outpatient R GRAZYNA, [facility] [id number] Univers 15:00:00 15:00:00 ANEL [facility] 2021-11-12 2021-11-12 Outpatient R GRAZYNA, [facility] [id number] Univers 15:00:00 15:00:00 ANEL [facility] 2021-11-10 2021-11-10 Emergency X JESSICA, [facility] ERT [id number] Univers 13:54:00 17:28:00 BJORN [facility] 2021-11-10 2021-11-10 Emergency [facility] 1.2.840.114 [id number] Univers 13:54:00 17:28:00 Bjorn B YAZMIN 350.1.13.10 i ty of [place] 4.2.7.2.686 [place] [facility] [phone] [place] [address] [address] 2021-11-10 2021-11-10 Emergency X JESSICA, [facility] ERT [id number] Univers 13:54:00 17:28:00 BJORN [facility] 2021-10-09 2021-10-09 Outpatient R HAILEY, [facility] [id number] Univers 09:00:00 09:00:00 JOELLEN [facility] 2021-10-03 2021-10-03 Emergency X Manjula ASENCIO [facility] ERT [id number] Univers 19:34:00 23:27:00 ity of [facility] 2021-10-03 2021-10-03 Emergency Manjula Asencio [facility] 1.2.840.114 [id number] Univers 19:34:00 23:27:00 Susie ARCE 350.1.13.10 i ty of [place].7.2.[place] [phone] [facility] [address] [place] 2021-10-03 2021-10-03 Orders Doctor ALBINA 1.2.840.114 [id number] Univers 00:00:00 00:00:00 Only Unassigned, MATT 350.1.13.10 ity of [facility] 4.2.7.2.686 [place] as [phone] [facility] [address] [place] 2021-10-02 2021-10-02 Outpatient R ADUM, [facility] [id number] Univers 10:00:00 10:00:00 JOELLEN [facility] 2021-10-01 2021-10-01 Outpatient R ADUM, [facility] [id number] Univers 13:30:00 13:30:00 JOELLEN [facility] 2021-09-03 2021-09-03 Telephone Adum, [facility] 1.2.205.396 [id number] Univers 00:00:00 00:00:00 Joellen ARCE 350.1.13.10 ity [facility] 4.2.7.2.[place] [phone] Pr dical NAL 134 [facility] 2021-09-01 2021-09-01 Outpatient R ADUM, [facility] [id number] Univers 13:30:00 15:05:26 JOELLEN [facility] 2021-09-01 2021-09-01 Office Adum, [facility] 1.2.840.114 [id number] Univers 13:30:00 15:05:26 Visit Joellen ARCE 350.1.13.10 ity [facility] 4.2.7.2.[place] [phone] Pr dical NAL [address] BUILDING 2021-09-01 2021-09-01 Outpatient R AUREANHUNG, [facility] [id number] Univers 13:30:00 15:05:26 JOELLEN it[facility] 2021-06-02 2021-06-02 Outpatient R LUKETHE [facility] [id number] Univers 14:00:00 14:00:00 LEDY ity [facility] 2021-05-28 2021-05-28 Outpatient R HAILEY, [facility] [id number] Univers 14:30:00 14:30:00 [facility] 2021-04-18 2021-04-18 Telephone ALBINA Arguello 1.2.641.206 [id number] Univers 00:00:00 00:00:00 Kenya GUTIERREZ 350.1.13.10 i ty of [facility] 4.2.7.2.686 [place] as [phone] [address] 2021-04-17 2021-04-17 Urgent [facility] 1.2.840.114 [id number] Univers 10:26:23 11:05:15 Care Joleen Health 350.1.13.10 it y of [place] 4.2.7.2.686 [place] as Gurjit?Blea [phone] Pr cirilo elizalde [address] [place] Medical [facility] Building 2021-04-17 2021-04-17 Outpatient R [facility] [id number] Univers 10:20:00 10:20:00 ity of [facility] 2021-04-13 2021-04-13 Ancillary Chely Billings [facility] 1.2.8 40.114 [id number] Univers 09:53:32 11:15:31 Visit Shanti King 350.1.13.10 ity of [place].2.[place].2.[place] Profess[place] [phone] Pr dical nal 179 [facility] 2021-04-10 2021-04-10 Office [facility] 1.2.840.114 [id number] Univers 15:47:31 16:22:11 Visit Anel A Health 350.1.13.10 i ty of [place] 4.2.7.2.686 [place]do as Gurjit?Blea [phone] Pr cirilo kney [address] [place] [facility] 2021-04-10 2021-04-10 Outpatient R GRAZYNA [facility] [id number] Univers 16:00:00 16:00:00 ANEL [facility] 2021-04-09 2021-04-09 Outpatient R FERNANDO [facility] [id number] Univers 08:00:00 11:22:37 SHANTI [facility] 2021-04-09 2021-04-09 Outpatient R FERNANDO [facility] [id number] Univers 08:00:00 11:22:37 SHANTI [facility] 2021-04-09 2021-04-09 Ancillary Everett Esqueda Safia [facility] 1 .2.840.114 [id number] Univers 07:54:21 11:22:37 Visit Shanti King 350.1.13.10 it[place] of [place].2.[place].2.[place] [phone] Pr dical nal 179 [facility] 2021-04-09 2021-04-09 Ancillary Everett Esqueda Safia [facility] 1 .2.840.114 [id number] Univers 07:54:21 11:22:37 Visit Shanti King [place] 350.1.13.10 ity of [place] 4.2.7.2.[place] Profess[place] [phone] Pr dical nal 179 [facility] 2021-04-01 2021-04-01 Outpatient R SRIKANTH MORA [facility] [id number] Univers 08:20:00 08:20:00 SRIKANTH MORA [facility] 2021-03-31 2021-03-31 Patient Grazyna [facility] 1.2.840.114 [id number] Univers 00:00:00 00:00:00 Secure Msg Anel Hansen [facility] 350.1.13.10 ity [facility] 4.2.7.2.686 Renaldo as PROFESSIO [phone] Pr dical NAL [address] [place] OFFICE BUILDING ONE 2021-03-24 2021-03-24 Office WheelerLEONIT 1.2.110.823 [id number] Univers 11:19:00 12:19:00 Visit Ezra Y HEALTH 350.1.13.10 i ty of [place] [facility] 4.2.7.2.686 [place] a [phone] [address] 2021-03-24 2021-03-24 Outpatient R CORBIN [facility] [id number] Univers 11:30:00 11:30:00 EZRA [facility] 2021-03-20 2021-03-20 Outpatient R SRIKANTH MORA [facility] [id number] Univers 16:20:00 16:20:00 SRIKANTH MORA [facility] 2021-03-20 2021-03-20 Office Abby [facility] 1.2.840.114 [id number] Univers 09:46:15 10:18:44 Visit Srikanth [facility] 350.1.13.10 ity of [place] 4.2.7.2.686 Renaldo as Gurjit?Blea [phone] [address] Medical Office Building 2021-03-17 2021-03-17 Outpatient R GABY [facility] [id number] Univers 08:00:00 23:59:00 [facility] 2021-03-17 2021-03-17 [facility] 1.2.779.820 [id number] Univers 08:00:00 23:59:00 Encounter Lala Health 350.1.13.10 ity of [place].7.2.686 [place] [phone] [address] Office Building 2021-03-17 2021-03-17 Outpatient R GABY [facility] [id number] Univers 08:00:00 08:00:00 LALA ity [facility] 2021-03-17 2021-03-17 Telephone [facility] 1.2.946.481 [id number] Univers 00:00:00 00:00:00 Ezra Health 350.1.13.10 it y of [place] 4.2.7.2.686 [place] [phone] [address] Office Building 2021-03-17 2021-03-17 Telephone Corbin [facility] 1.2.742.038 [id number] Univers 00:00:00 00:00:00 Ezra Health 350.1.13.10 it y of [place] 4.2.7.2.686 [place] [phone] [address] Office Building 2021-03-17 2021-03-17 Orders Doctor ALBINA 1.2.840.114 [id number] Univers 00:00:00 00:00:00 Only Unassigned, MATT 350.1.13.10 ity of [place] [facility] 4.2.7.2.686 Renaldo as [phone] [address] 2021-03-06 2021-03-06 Office [facility] 1.2.840.114 [id number] Univers 08:53:54 09:55:39 Visit Anel Jade Health 350.1.13.10 i ty of [place] 4.2.7.2.686 Renaldo as Professio [phone] Pr dic[address] Office Building One 2021-03-06 2021-03-06 Outpatient R GRAZYNA [facility] [id number] Univers 09:30:00 09:30:00 ANEL ity of [facility] 2021-03-06 2021-03-06 Telephone Abby, [facility] 1.2.840.114 [id number] Univers 00:00:00 00:00:00 Srikanth Arce 350.1.13.10 ity of [place].2.[place].2.[place] [phone] Pr dical nal [address] [place] [address] 2021-03-06 2021-03-06 [facility]phone [facility] 1.2.840.114 [id number] Univers 00:00:00 00:00:00 Srikanth Arce 350.1.13.10 ity of [place].2.[place].2.[place] [phone] Pr dical nal 092 [facility] 2021-02-25 2021-02-25 Outpatient R GRAZYNATHE [facility] [id number] Univers 11:30:00 11:30:00 ANEL [facility] 2021-02-23 2021-02-23 Orders Doctor ALBINA 1.2.840.114 [id number] Univers 00:00:00 00:00:00 Only Unassigned, MATT 350.1.13.10 ity of [place] [facility] 4.2.7.2.686 Renaldo as [phone] [address] 2021-02-20 2021-02-20 Office [facility] 1.2.840.114 [id number] Univers 08:34:34 10:15:20 Visit Srikanth Arce 350.1.13.10 ity of [place].2.[place].2.[place] [phone] Pr dical nal [address] [place] Building 2021-02-20 2021-02-20 Outpatient R SRIKANTH MORA [facility] [id number] Univers 08:40:00 08:40:00 SRIKANTH MORA [facility] 2021-02-17 2021-02-17 Orders Doctor ALBINA 1.2.840.114 [id number] Univers 00:00:00 00:00:00 Only Unassigned, MATT 350.1.13.10 ity of [place] [facility] 4.2.7.2.686 Renaldo as [phone] [address] 2021-02-11 2021-02-11 Office [facility] 1.2.840.114 [id number] Univers 15:37:09 16:50:15 Visit Anel [facility] 350.1.13.10 i ty of [place] 4.2.7.2.686 Ren[place]do as Professio [phone] Pr dical nal [address] [place] Office Building One 2021-02-11 2021-02-11 Outpatient R GRAZYNATHE [facility] [id number] Univers 16:00:00 16:00:00 ANEL [facility] 2021-02-07 2021-02-08 Hospital Petrona Wheeler 1.2.840.114 [id number] Univers 04:14:00 17:51:00 Encounter Ezrapro Gutierrez 350.1.13.10 ity of [facility] 4.2.7.2.686 [place] a [phone] [facility] [address] 2021-01-29 2021-01-29 [facility] 1.2.840.114 [id number] [facility] 15:58:54 23:59:00 Encounter Joellen Arce 350.1.13.10 ity of [place] 4.2.7.2.686 [facility] [phone] [facility] [address] 2021-01-29 2021-01-29 [facility] 1.2.840.114 [id number] 15:58:54 23:59:00 Encounter Joellen Arce 350.1.13.10 [place] 4.2.7.2.686 [place] [phone] 806 2021-01-29 2021-01-29 Outpatient R [facility] [id number] [facility] 00:00:00 00:00:00 JOELLEN alvarez of [facility] 2021-01-29 2021-01-29 Orders Doctor ALBINA 1.2.840.114 [id number] [facility] 00:00:00 00:00:00 Only Unassigned, MATT 350.1.13.10 ity of [place] [facility] 4.2.7.2.686 Renaldo as [phone] [facility] [address] 2021-01-29 2021-01-29 Orders Doctor ALBINA 1.2.840.114 [id number] 00:00:00 00:00:00 Only Unassigned, MATT 350.1.13.10 [facility] 4.2.7.2.686 [id number] 009 2021-01-26 2021-01-26 Patient Doctor ALBINA 1.2.840.114 [id number] [facility] 00:00:00 00:00:00 Secure Msg Unassigned, MATT 350.1.13.10 ity of [place] [facility] 4.2.7.2.686 Renaldo as [phone] [facility] [address] 2021-01-23 2021-01-23 Telephone [facility] 1.2.197.880 [id number] Univers 00:00:00 00:00:00 Joellen Gutiérrez [place] 350.1.13.10 ity of [place].2.[place] [phone] [facility] 2021-01-23 2021-01-23 Telephone Ad, [facility] 1.2.647.474 [id number] 00:00:00 00:00:00 Joellen Gutiérrez [place] 350.1.13.10 [place] 4.2.7.2.686 Professio [phone] [address] 2021-01-22 2021-01-22 Gizzard Puller Mikhail, Adc Lab Main [facility] 1.2.8 40.114 [id number] Univers 16:38:34 16:53:34 Visit Adnhung, Joellen Arce 350.1.13.10 ity of [place] [phone] [facility] 353 [facility] 2021-01-22 2021-01-22 [facility] 1.2.840.114 [id number] Univers 14:41:29 16:15:20 Visit Joellen Arce 350.1.13.10 ity of [place].2.[place] [phone] [address] 2021-01-22 2021-01-22 [facility] [id number] Univers 16:15:00 16:15:00 [facility] 2021-01-22 2021-01-22 Outpatient R AD, [facility] [id number] Univers 15:00:00 15:00:00 [facility] 2021-01-22 2021-01-22 Outpatient R AD, [facility] [id number] Univers 15:00:00 15:00:00 [facility] 2021-01-19 2021-01-19 Patient Grazyna, [facility] 1.2.840.114 [id number] Univers 00:00:00 00:00:00 Secure Msg Anel A HEALTH 350.1.13.10 ity of [place] 4.2.7.2.686 Renaldo as PROFESSIO [phone] Pr dical NAL [address] [place] OFFICE [facility] ONE 2021-01-16 2021-01-16 Gizzard Puller Lab, Adc Fam Pob I [facility] 1.2. 840.114 [id number] Univers 11:22:23 11:42:23 Visit Anel Ramirez Health 350.1.13.10 ity of [place] 4.2.7.2.686 [place] as Professio [phone] Pr dical nal 0[address] [place] Office [facility] One 2021-01-16 2021-01-16 Office [facility] 1.2.840.114 [id number] Univers 10:16:56 11:20:58 Visit Anel Hansen Health 350.1.13.10 i ty of [place] 4.2.7.2.686 [place]do as Professio [phone] Pr dicak nal [address] [place] [address] One 2021-01-16 2021-01-16 Outpatient R GRAZYNATHE [facility] [id number] Univers 10:30:00 10:30:00 ANEL ity of [facility] 2021-01-16 2021-01-16 Orders Doctor ALBINA 1.2.840.114 [id number] Univers 00:00:00 00:00:00 Only Unassigned, MATT 350.1.13.10 ity of [place] [facility] 4.2.7.2.686 Ren[place] as [phone] [address] 2020-11-24 2020-11-24 Outpatient G_Pappas [facility] [id number] [place] 04:18:00 04:18:00 0[facility] 2020-10-31 2020-10-31 [facility] 1.2.840.114 [id number] Univers 10:47:00 23:59:00 Encounter mariama, PRIMARY 350.1.13.10 ity of [place].2.[place] [phone] [address] 2020-10-31 2020-10-31 [facility] [id number] Univers 10:47:00 10:47:00 MARIAMAkim Hansen of [facility] 2020-10-16 2020-10-16 Orders Doctor ALBINA 1.2.840.114 [id number] Univers 00:00:00 00:00:00 Only Unassigned, MATT 350.1.13.10 ity of [place] [facility] 4.2.7.2.686 [place] as [phone] [address] 2020-07-10 2020-07-10 [facility] [id number] [place] 02:18:00 02:18:00 1217 [facility] 2020-06-27 2020-06-27 Outpatient [facility] 112 [place] 06:16:00 06:16:00 HANJade 22917 da [facility]re [facility] 2020-06-11 2020-06-11 Outpatient V[facility] [id number] [place] 02:25:00 02:25:00 1118 [facility] 2020-04-22 2020-04-22 Outpatient V_Landis MM MM [id number] [place] 07:01:00 07:01:00 0929 [facility] 2020-04-22 2020-04-22 Debbie Oseguera [facility] [place] - [id number] [place] 00:00:00 00:00:00 Discovery Rick da NP: [address] [address] , Ph. [phone] 2020-04-21 2020-04-21 Outpatient V_Landis MM MM [id number] [place] 03:52:00 03:52:00 0928 [facility] Results Test Description Test Time Test Comments Results Result Comments Source COMP. METABOLIC PANEL (82769) 2023-04-25 01:47:31 Test Item Value Reference Range Interpretation Comme nts NA (test code = 5477162617) 141 mmol/L 135-145 K (test code = 0668304987) 3.2 mmol/L 3.5-5.0 L CL (test code = 9365917761) 103 mmol/L 98-108 CO2 TOTAL (test code = 1150395467) 29 mmol/L 23-31 AGAP (test code = 2638440365) 9 2-16 BUN (test code = 9878114882) 14 mg/dL 7-23 GLUCOSE (test code = 8021345419) 107 mg/dL 70-110 CREATININE (test code = 0.70 mg/dL 0.50-1.04 4317157854) TOTAL BILI (test code = 0.5 mg/dL 0.1-1.9 0935004553) CALCIUM (test code = 3396892707) 9.5 mg/dL 8.6-10.6 T PROTEIN (test code = 0132791502) 7.9 g/dL 6.3-8.2 ALBUMIN (test code = 2239223681) 4.2 g/dL 3.5-5.0 ALK PHOS (test code = 7418653685) 75 U/L 34-122 ALTv (test code = 1742-6) 33 U/L 5-35 AST(SGOT) (test code = 5274501816) 28 U/L 13-40 eGFR (test code = 5869337256) 99.6 mL/min/1.73m2 RABIA (test code = RABIA) Association of Glomerular Filtration Rate (GFR) and Staging of Kidney Disease* + +-------- + ------+| GFR (mL/min/1.73 m2) ?| With Kidney Damage ?| ?Without Kidney Damage+ +-- + +| ?>90 ?| ?Stage one ?| ? Normal ?+ +------- + -------+| ?60-89 ?| ?Stage two ?| ? Decreased GFR ? + +-------- + ------+| ?30-59 ?| ?Stage three ?| ? Stage three ? + +-------- + ------+| ?15-29 ?| ?Stage four ? | ? Stage four ?+ +------- + -------+| ?<15 (or dialysis) ? ?| ?Stage five ? | ? Stage five ?+ +------- + -------+ *Each stage assumes the associated GFR [...] or abnormalities in imaging tests). Lab Interpretation (test code = Abnormal 90851-1) [facility]47[facility]31 Test Item Value Reference Range Interpretation Comments MAGNESIUM (test code = 3995531337) 1.9 mg/dL 1.7-2.4 Lab Interpretation (test code = Normal 88092-0) [facility] 01:47:11 Test Item Value Reference Range Interpretation Comments LIPASE (test code = 3731331701) 69 U/L 0-220 Lab Interpretation (test code = Normal 83577-0) [facility] WITH [id number] 01:18:29 Test Item Value Reference Range Interpretation Comments WBC (test code = 10.31 See_Comment [Automated 6787-2) message] The sy stem which generated this result transmitted reference range : 4.30 - 11.10 10*3/?L. The reference range was not used to interpret this result as normal/abnormal . RBC (test code = 4.55 See_Comment [Automated 200-8) message] The sy stem which generated this result transmitted reference range : 3.93 - 5.25 10*6/?L. The reference range was not used to interpret this result as normal/abnormal . HGB (test code = 13.4 g/dL 11.6-15.0 718-7) HCT (test code = 40.0 % 35.7-45.2 4544-3) MCV (test code = 87.9 fL 80.6-95.5 787-2) MCH (test code = 29.5 pg 25.9-32.8 785-6) MCHC (test code = 33.5 g/dL 31.6-35.1 786-4) RDW-SD (test code = 41.6 fL 39.0-49.9 76781-7) RDW-CV (test code = 13.0 % 12.0-15.5 788-0) PLT (test code = 275 See_Comment [Automated 777-3) message] The sy stem which generated this result transmitted reference range : 166 - 358 10*3/ ?L. The reference r john was not used to interpret this result as normal/abnormal . MPV (test code = 10.3 fL 9.5-12.9 96699-4) NRBC/100 WBC (test 0.0 See_Comment [Automat ed code = 9484791950) message] The system which generated this result transmitted reference range : 0.0 - 10.0 /100 WBCs. The refer ence range was not u sed to interpret th is result as normal/abnormal . NRBC x10^3 (test code See_Comment [Auto mated = 1837292378) message] The s ystem which generated this result transmitted reference range : 10*3/?L. The reference range was not used to interpret this result as normal/abnormal . GRAN MAT (NEUT) % 55.0 % (test code = 770-8) IMM GRAN % (test code 0.20 % = 6982963928) LYMPH % (test code = 33.9 % 736-9) MONO % (test code = 6.7 % 5905-5) EOS % (test code = 3.4 % 713-8) BASO % (test code = 0.8 % 706-2) GRAN MAT x10^3(ANC) 5.67 10*3/uL 1.88-7.09 (test code = 4011896646) IMM GRAN x10^3 (test 0.00-0.06 code = 2070381790) LYMPH x10^3 (test code 3.50 10*3/uL 1.32-3.29 H = 731-0) MONO x10^3 (test code 0.69 10*3/uL 0.33-0.92 = 742-7) EOS x10^3 (test code = 0.35 10*3/uL 0.03-0.39 711-2) BASO x10^3 (test code 0.08 10*3/uL 0.01-0.07 H = 704-7) Lab Interpretation Abnormal (test code = 98205-5) General acute hospital [id number] 00:47:00 Test Item Value Reference Range Interpretation Comments POCT PREG (test code = 1605) Negative On board controls acceptable with Yes C Line (test code = 3574) POCT PREG LOT # (test code = 3575) [id number] POCT PREG TEST DATE (test 10/02/2024 code = 3576) Lab Interpretation (test code = Normal 11087-7) General acute hospital [id number] 15:38:00 Test Item Value Reference Range Interpretation Comments POCT PREG (test code = 1605) Negative On board controls acceptable with Yes C Line (test code = 3574) POCT PREG LOT # (test code = 3575) [id number] POCT PREG TEST DATE (test 04/29/2024 code = 3576) Lab Interpretation (test code = Normal 66847-5) [facility] with [id number] 03:32:34 Test Item Value Reference Range Interpretation Comments WBC (test code = 11.10 See_Comment [Automated 0534-2) message] The sy stem which generated this result transmitted reference range : 4.30 - 11.10 10*3/?L. The reference range was not used to interpret this result as normal/abnormal . RBC (test code = 4.64 See_Comment [Automated 797-8) message] The sy stem which generated this result transmitted reference range : 3.93 - 5.25 10*6/?L. The reference range was not used to interpret this result as normal/abnormal . HGB (test code = 13.4 g/dL 11.6-15.0 718-7) HCT (test code = 40.5 % 35.7-45.2 4544-3) MCV (test code = 87.3 fL 80.6-95.5 787-2) MCH (test code = 28.9 pg 25.9-32.8 785-6) MCHC (test code = 33.1 g/dL 31.6-35.1 786-4) RDW-SD (test code = 41.4 fL 39.0-49.9 47811-4) RDW-CV (test code = 12.9 % 12.0-15.5 788-0) PLT (test code = 306 See_Comment [Automated 777-3) message] The sy stem which generated this result transmitted reference range : 166 - 358 10*3/ ?L. The reference r john was not used to interpret this result as normal/abnormal . MPV (test code = 10.0 fL 9.5-12.9 07284-3) NRBC/100 WBC (test 0.0 See_Comment [Automat ed code = 3966510332) message] The system which generated this result transmitted reference range : 0.0 - 10.0 /100 WBCs. The refer ence range was not u sed to interpret th is result as normal/abnormal . NRBC x10^3 (test code See_Comment [Auto mated = [id number]) message] The s ystem which generated this result transmitted reference range : 10*3/?L. The reference range was not used to interpret this result as normal/abnormal . GRAN MAT (NEUT) % 43.9 % (test code = 770-8) IMM GRAN % (test code 0.30 % = 1226175032) LYMPH % (test code = 44.2 % 736-9) MONO % (test code = 8.0 % 5905-5) EOS % (test code = 2.8 % 713-8) BASO % (test code = 0.8 % 706-2) GRAN MAT x10^3(ANC) 4.87 10*3/uL 1.88-7.09 (test code = 3169864809) IMM GRAN x10^3 (test 0.03 10*3/uL 0.00-0.06 code = 8357803443) LYMPH x10^3 (test code 4.91 10*3/uL 1.32-3.29 H = 731-0) MONO x10^3 (test code 0.89 10*3/uL 0.33-0.92 = 742-7) EOS x10^3 (test code = 0.31 10*3/uL 0.03-0.39 711-2) BASO x10^3 (test code 0.09 10*3/uL 0.01-0.07 H = 704-7) Lab Interpretation Abnormal (test code = 04615-7) [id number]:02:43 Test Item Value Reference Range Interpretation Comments NA (test code = 140 mmol/L 135-145 9469602926) K (test code = 4.6 mmol/L 3.5-5.0 6312075038) CL (test code = 105 mmol/L 98-108 7266094795) CO2 TOTAL (test code = 27 mmol/L 23-31 7754392604) AGAP (test code = 8 2-16 3287589319) BUN (test code = 12 mg/dL 7-23 0048417218) GLUCOSE (test code = 85 mg/dL 70-110 8984381304) CREATININE (test code = 0.61 mg/dL 0.50-1.04 6199436637) TOTAL BILI (test code = 1.2 mg/dL 0.1-1.1 H 5441131603) CALCIUM (test code = 9.4 mg/dL 8.6-10.6 0622971095) T PROTEIN (test code = 8.1 g/dL 6.3-8.2 9012762025) ALBUMIN (test code = 4.7 g/dL 3.5-5.0 0434582693) ALK PHOS (test code = 67 U/L 34-122 2866517610) ALTv (test code = 28 U/L 5-35 2-6) AST(SGOT) (test code = 30 U/L 13-40 3725091929) eGFR (test code = 117.7 mL/min/1.73m2 8100932449) RABIA (test code = RABIA) Association of [...] tests). Lab Interpretation Abnormal (test code = 44823-0) [id number] [facility]:02:43 Test Item Value Reference Range Interpretation Comments LIPASE (test code = 3745480517) 56 U/L 0-220 Lab Interpretation (test code = Normal 44948-8) [facility] [id number] 02:30:00 Test Item Value Reference Range Interpretation Comments POCT PREG (test code = 1605) negative On board controls acceptable with present C Line (test code = 3574) POCT PREG LOT # (test code = 3575) [id number] POCT PREG TEST DATE (test 10/23/2023 code = 3576) Lab Interpretation (test code = Normal 07038-4) [facility] [id number] 16:29:00 Test Item Value Reference Range Interpretation Comments POCT PREG (test code = 1605) negative On board controls acceptable with present C Line (test code = 3574) POCT PREG LOT # (test code = 3575) [id number] POCT PREG TEST DATE (test 06/23/2023 code = 3576) Lab Interpretation (test code = Normal 01394-7) [facility], [id number] 18:13:43 Test Item Value Reference Range Interpretation Comments VIT B12 (test code = 239 pg/mL 240-930 L [id number]) RABIA (test code = RABIA) Biotin has been reported to cause a positive bias, interpret results relative to patient's use of biotin. Lab Interpretation (test Abnormal code = 20704-4) [id number] 15:05:18 Test Item Value Reference Range Interpretation Comments MAGNESIUM (test code = 6169485974) 2.1 mg/dL 1.7-2.4 Lab Interpretation (test code = Normal 35002-6) [facility] CERVICAL SPINE WO [id number] 15:01:17 Unremarkable MRA head. No significant abnormalities [...] spinal canal stenosis. MR ANGIOGRAPHY OF [place]: The PICA origin is visualized [...] spinal canal s tenosis.MR ANGIOGRAPHY OF [place]:The PICA origin is visualized on [...] is otherwise unremarkable.No evidence of venous sinus thrombosis.[facility] HEAD WO CONTRAST 2021-02-08 [...] spinal canal stenosis. MR ANGIOGRAPHY OF [place]: The PICA origin is visualized [...] are otherwise patent without evidence of venousthrombosis. [facility], Radiant Results Inft User - 02/08/2021 [...] spinal canal s tenosis.MR ANGIOGRAPHY OF [place]:The PICA origin is visualized on [...] is otherwise unremarkable.No evidence of venous sinus thrombosis.[facility] VENO[facility] HEAD WO CONTRAST 2021-02-08 [...] spinal canal stenosis. MR ANGIOGRAPHY OF [place]: The PICA origin is visualized [...] spinal canal s tenosis.MR ANGIOGRAPHY OF [place]:The PICA origin is visualized on [...] is otherwise unremarkable.No evidence of venous sinus thrombosis.[facility] NECK W WO [id number] 15:01:17 Unremarkable MRA head. No significant abnormalities [...] spinal canal stenosis. MR ANGIOGRAPHY OF [place]: The PICA origin is visualized [...] spinal canal s tenosis.MR ANGIOGRAPHY OF [place]:The PICA origin is visualized on [...] is otherwise unremarkable.No evidence of venous sinus thrombosis.[facility] Hospital[facility]yroid Stimulating Hormone 2021-02-07 22:45:37 Test Item Value Reference Range Interpretation Comments TSH (test code = See_Comment [Automated message] [id number]) The system [employer] generated this result transmitted ref erence range: 0.45 - 4 .70 mIU/L. The refe rence range was not u sed to interpret this result as normal/abnor mal. Lab Interpretation (test Normal code = 00808-1) [facility]OLIC PANEL (NA, K, CL, CO2, GLUCOSE, BUN, CREATININE, CA)2021-02-07 22:28:15 Test Item Value Reference Range Interpretation Comments NA (test code = 142 mmol/L 135-145 1984356113) K (test code = 3.7 mmol/L 3.5-5.0 3910476164) CL (test code = 111 mmol/L 98-108 H 8741685344) CO2 TOTAL (test code = 19 mmol/L 23-31 L 5275857969) AGAP (test code = 2-16 9764013822) BUN (test code = 11 mg/dL 7-23 2167010042) GLUCOSE (test code = 47 mg/dL 70-110 LL 0224677213) CREATININE (test code = 0.50 mg/dL 0.50-1.04 6958679572) CALCIUM (test code = 8.8 mg/dL 8.6-10.6 4721868680) eGFR (test code = mL/min/1.73m2 2300858343) RABIA (test code = RABIA) Association of [...] tests). Lab Interpretation Abnormal (test code = 99514-5) [facility] WITH [id number] 21:56:18 Test Item Value Reference Range Interpretation Comments WBC (test code = See_Comment [Automated message] 6690-2) The system [employer] generated this result transmitted ref erence range: 4.30 - 1 1.10 10*3/?L. The re ference range was not u sed to interpret this result as normal/abnor mal. RBC (test code = See_Comment [Automated message] 789-8) The system [employer] generated this result transmitted ref erence range: [...] RDW-SD (test code 42.5 fL 39.0-49.9 = 34875-0) RDW-CV (test code 13.0 % 12.0-15.5 = 788-0) PLT (test code = See_Comment [Automated message] 777-3) The system [employer] generated this result transmitted ref erence range: 166 - 35 8 10*3/?L. The re ference range was not u sed to interpret this result as normal/abnor mal. MPV (test code = 11.1 fL 9.5-12.9 53133-4) NRBC/100 WBC (test See_Comment [Automat ed message] code = 0214845571) The syste m which generated this result transmitted ref erence range: 0.0 - 10 .0 /100 WBCs. The refer ence range was not u sed to interpret this result as normal/abnor mal. NRBC x10^3 (test <0.01 See_Comment [Automated message] code = 8722889413) The syste m which generated this result transmitted ref erence range: 10*3/?L. The reference range was not used to interpr et this result as normal/abnormal . GRAN MAT (NEUT) % 56.9 % (test code = 770-8) IMM GRAN % (test 0.20 % code = 8783916165) LYMPH % (test code 34.2 % = 736-9) MONO % (test code 7.0 % = 5905-5) EOS % (test code = 0.9 % 713-8) BASO % (test code 0.8 % = 706-2) GRAN MAT 5.06 10*3/uL 1.88-7.09 x10^3(ANC) (test code = 3623504881) IMM GRAN x10^3 <0.03 0.00-0.06 (test code = 8269847099) LYMPH x10^3 (test 3.04 10*3/uL 1.32-3.29 code = 731-0) MONO x10^3 (test 0.62 10*3/uL 0.33-0.92 code = 742-7) EOS x10^3 (test 0.08 10*3/uL 0.03-0.39 code = 711-2) BASO x10^3 (test 0.07 10*3/uL 0.01-0.07 code = 704-7) [facility] STROKE BRAIN WO [id number] 14:15:04 Unremarkable brain MRI.HISTORY:Neuro deficit, acute, stroke [...] No abnormal foci ofgradient blooming is identified. [facility], Radiant Results Inft User - [...] ofgradient blooming is identified. I MPRESSIONUnremarkable brain MRI.[facility]"
[2023-06-03] MEDS ORDERED: HYDROCODONE/APAP 5/325 MG TAB ONE (10:50)
[2023-06-03 10:59] LABS: Urine Bacteria None Seen /HPF (<20); Urine Bilirubin NEGATIVE (Negative); Urine Blood Negative (Negative); Urine Clarity Extremely Turbid (Clear); Urine Color Light-Yellow (Yellow); Urine Glucose NEGATIVE (Negative); Urine Mucus Slight /HPF (None Seen); Urine Protein NEGATIVE (Negative); Urine RBC <5 /HPF (None Seen); Urine Urobilinogen Normal (Normal)
--- NOTE | 2023-06-03 11:17 | RAD REPORT ---
EXAM DESCRIPTION: CT - Spine Lumbar Wo Con - 06/03/2023 11:01 am CLINICAL HISTORY: Radiculopathy. left sided weaknes COMPARISON: No comparisons TECHNIQUE: Axial noncontrast CT imaging of the lumbar spine was performed with coronal and sagittal re-formatted images. All CT scans are performed using dose optimization technique as appropriate and may include automated exposure control or mA/KV adjustment according to patient size. FINDINGS: No acute lumbar spine fracture seen. No aggressive marrow pattern or malalignment. Paraspinal tissues are normal in thickness. No paraspinal abscess or hematoma seen. There is mild lower lumbar disc bulging noted. IMPRESSION: No acute lumbar spine abnormality is seen. Mild lower lumbar disc bulging is present.
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
[2023-06-03] MEDS ORDERED: HYDROCODONE/APAP 7.5/325 MG TAB ONE (12:01)
[2023-06-03 13:08] VITALS: BP 138/98; TEMP 98.1; O2SAT 98
== END 2023-06-03 13:03 | disposition home or self-care (01) ==
LOC: ER 09:45
DX: S73.192A Other sprain of left hip, initial encounter (principal); S93.492A Sprain of other ligament of left ankle, initial encounter; V49.40XA Driver injured in collision with unspecified motor vehicles in traffic accident, initial encounter; Z88.6 Allergy status to analgesic agent
CPT/HCPCS: 72131; 81001; 81025; 87077; 87086; 87088; 87186; 99283

== ENCOUNTER 2024-07-20 12:04 | Emergency (ER) | payer OTHER, SELFPAY ==
[2024-07-20] MEDS ORDERED: MORPHINE 4 MG/ML SYR ONE (12:31)
[2024-07-20] MEDS ORDERED: ONDANSETRON 4 MG/2 ML VIAL ONE (12:31)
[2024-07-20] MEDS ORDERED: ACETAMINOPHEN 500 MG TAB ONE (12:31)
[2024-07-20] MEDS ORDERED: NA CHLORIDE 0.9% 250 ML ONE (12:32)
[2024-07-20 12:33] LABS: Absolute Basophils 0.1 K/uL (0-0.5); Absolute Eosinophils 0.3 K/uL (0-0.5); Absolute Lymphocytes (CBC) 3.3 K/uL (0.7-4.9); Absolute Monocytes 0.7 K/uL (0.1-1.3); Absolute Neutrophil 4.3 K/uL (1.8-8.0); Basophils % 0.7 % (0-1.3); Eosinophils % 3.4 % (0-4.4); Hematocrit 37.7 % (36.0-45.0); Hemoglobin 12.3 g/dL (12.0-15.0); Lymphocytes % 38.7 % (15.3-44.8); MCHC 32.6 g/dL (32.0-36.0); MPV 8.3 fL (7.6-11.3); Monocytes % 7.7 % (3.3-12.3); Neutrophils % 49.5 % (41.7-73.7); Platelets 281 thou/uL (152-406); RBC Red Blood Cell Count 4.23 M/uL (3.86-4.86); Red Cell Distribution Width 13.2 % (12.1-15.2)
[2024-07-20 12:58] LABS: Albumin 2.9 g/dL (3.4-5.0); Albumin/Globulin Ratio 0.7 (1.1-1.8); Alkaline Phosphatase 54 U/L (45-117); Anion Gap 6.8 mEq/L (5.0-15.0); BUN Blood Urea Nitrogen 14 mg/dL (7-18); Bicarbonate 26 mEq/L (21-32); Bilirubin Total 0.3 mg/dL (0.2-1.0); Globulin 4.4 g/dL (2.3-3.5); Glomerular Filtration Rate 124 ml/min (=/>90); Glucose Level 75 mg/dL (74-106); Lipase 33 U/L (13-75); Potassium 3.8 mEq/L (3.5-5.1); Protein, Total 7.3 g/dL (6.4-8.2); Sodium Level 139 mEq/L (136-145)
[2024-07-20 12:59] LABS: ALT/SGPT < 14 U/L (13-56); AST/SGOT < 10 U/L (15-37)
[2024-07-20] MEDS ORDERED: FENTANYL CITR 100 MCG/2 ML ONE (13:18)
[2024-07-20 13:22] LABS: Specific Gravity 1.023 (1.005-1.030)
[2024-07-20 13:23] LABS: Specific Gravity 1.023 (1.005-1.030); Sqamous Epithelial <5 /HPF (None Seen); Urine Bacteria <20 /HPF (<20); Urine Bilirubin NEGATIVE (Negative); Urine Blood Negative (Negative); Urine Clarity Turbid (Clear); Urine Color Light-Yellow (Yellow); Urine Culture Reflex Order NOT NEEDED; Urine Glucose NEGATIVE (Negative); Urine Ketones NEGATIVE (Negative); Urine Microscopic Reflex YN ORDER UMIC; Urine Mucus Slight /HPF (None Seen); Urine Nitrite NEGATIVE (Negative); Urine Protein NEGATIVE (Negative); Urine RBC <5 /HPF (None Seen); Urine Urobilinogen Normal (Normal); Urine WBC <5 /HPF (<5); Urine Yeast (Budding) Trace /HPF (None Seen); Urine pH 6.5 (5.0-7.0)
--- NOTE | 2024-07-20 16:00 | RAD REPORT ---
EXAMINATION: CT Stone Protocol CLINICAL INDICATION: Female, 28 years old. L flank pain, hx of stones TECHNIQUE: CT abdomen and pelvis was performed, without IV contrast, as per department protocol. Axia l, sagittal and coronal reconstructions were obtained. One or more of the following dose reduction techniques were used: Automated exposure control, adjustment of the mA and kV according to the patien t size, and iterative reconstruction. Unless otherwise specified, incidental findings do not require dedicated imaging follow-up. COMPARISON: 04/11/2022 FINDINGS: The lack of intravenous contrast limits the sensitivity of this exam for evaluation of solid visceral organs, vascular structures, and retroperitoneum. LOWER CHEST: The visualized lung bases are clear. LIVER: Normal in size and contour. Diffuse parenchymal hypoattenuation suggesting steatosis. No focal lesion. BILIARY SYSTEM: Status post cholecystectomy. SPLEEN: Normal size. No focal lesion. PANCREAS: No mass, ductal dilation, or anastacia-pancreatic fluid. ADRENALS: Normal; no mass. KIDNEYS AND URETERS: Normal size and contour. No hydronephrosis. URINARY BLADDER: Decompressed limiting evaluation. GASTROINTESTINAL TRACT: No evidence of bowel obstruction, significant free fluid, free air or abscess . APPENDIX: Normal appendix. LYMPH NODES: No lymphadenopathy. MUSCULOSKELETAL: No acute or suspicious osseous abnormality. ADDITIONAL FINDINGS: None. IMPRESSION: No acute or concerning abnormalities in the abdomen or pelvis, with evaluation limited by lack of IV contrast. Diffuse hepatic steatosis.
[2024-07-20] MEDS ORDERED: DICYCLOMINE HCL 10 MG CAP ONE (16:02)
--- NOTE | 2024-07-20 16:03 | EDPHYS ---
Physician Documentation [facility] Name: Jenn Wills Age: 28 yrs Sex: Female : 1995 Arrival Date: 07/20/2024 Time: 12:04 Bed 6 Private MD: ED Physician Easton Gurrola HPI: 07/20 12:12 This 28 yrs old Female presents to ER via Unassigned with complaints of ec2 Abdominal Pain. 12:27 Patient arrives today for evaluation of left abdominal and flank pain. Onset of several ec2 days ago. Reports associated nausea. No vomiting. No diarrhea. Unsure of any urinary problems. Reports previous history of kidney stones. Also history of cholecystectomy.. 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 - Infectious Disease History:: Denies. - Social history:: Smoking status: Patient denies any tobacco usage or history of. ROS: 12:27 Constitutional: as per hpi ec2 Exam: 12:27 Constitutional: GEN: NAD Head: atraumatic Eyes: EOMI Ears: External ears are ec2 normal. CV: regular rate LUNGS: no respiratory distress ABD: non-distended, soft, not guarding, not rigid, left abdomen TTP, mild left CVA TTP SKIN: no evidence of rashes MSK: no evidence of trauma Vital Signs: 12:16 BP 132 / 92; Pulse 86; Resp 16; Temp 99.4(O); Pulse Ox 100% on R/A; Weight 83.91 kg; hb Height 5 ft. 2 in. ; Pain 8/10; 12:30 BP 139 / 87; Pulse 69; Resp 15; Pulse Ox 99% ; cm10 13:30 BP 120 / 65; Pulse 72; Resp 16; Pulse Ox 95% ; cm10 14:45 BP 103 / 64; Pulse 64; Resp 16; Pulse Ox 100% on R/A; cm10 16:00 BP 112 / 81; Pulse 70; Resp 16; Pulse Ox 100% ; cm10 12:16 Body Mass Index 33.84 (83.91 kg, 157.48 cm) hb 12:16 Pain Scale: Adult hb MDM: 12:11 Medical Screening Exam initiated ec2 12:27 Data reviewed: vital signs, nurses notes. ED course: Patient arrives today for left ec2 abdominal and flank pain with a history of kidney stones. Examination yields abdominal findings as above. Will obtain lab work, CT imaging. Differential diagnosis considered include processes such as UTI, pyelonephritis, diverticulitis, ureteral stone.. 16:01 ED course: CT abdomen pelvis shows hepatic steatosis, otherwise negative abdomen ec2 pelvis. Will discharge home have the patient follow-up with GI. Return precautions given.. 07/20 12:20 Order name: CBC with Diff; Complete Time: 12:38 cm10 07/20 12:20 Order name: CMP; Complete Time: 13:15 cm10 07/20 12:20 Order name: Lipase; Complete Time: 13:15 cm10 07/20 12:20 Order name: Test, Urine; Complete Time: 13:27 cm10 07/20 12:20 Order name: Urinalysis w/ reflexes; Complete Time: 13:27 cm10 07/20 13:55 Order name: Stone Protocol; Complete Time: 16:00 EDMS 07/20 12:20 Order name: IV Saline Lock; Complete Time: 12:21 cm10 07/20 12:20 Order name: Labs collected and sent; Complete Time: 12:21 cm10 Administered Medications: 12:38 Not Given (Physician Discretion): [id number] mg PO once cm10 12:38 Drug: Ondansetron IVP 4 mg IVP once; over 2 minutes Route: IVP; Site: right antecubital;cm10 13:16 Follow up: Response: No adverse reaction cm10 12:38 Drug: morphine IVP or IV 4 mg IVP once over 4 mins Route: IVP; Infused Over: 4 mins; cm10 Site: right antecubital; 13:15 Follow up: Response: No adverse reaction cm10 12:38 Drug: NS 0.9% IV 250 ml IV at bolus once; to be given as a bolus over 30 minutes Route: cm10 IV; Rate: bolus; Site: right antecubital; 13:15 Follow up: Response: No adverse reaction; IV Status: Completed infusion; IV Intake: cm10 250ml 13:24 Drug: fentaNYL (PF) IVP 100 mcg IVP once Route: IVP; Site: right antecubital; cm10 14:21 Follow up: Response: No adverse reaction; Pain is decreased cm10 16:05 Drug: Dicyclomine PO 20 mg PO once Route: PO; cm10 16:20 Follow up: Response: No adverse reaction cm10 Disposition Summary: 07/20/24 16:02 Discharge Ordered Notes: Location: Home ec2 Condition: Stable ec2 Diagnosis - Abdominal pain, unspecified ec2 - Fattly Liver ec2 - Fatty Liver ec2 Followup: ec2 - With: Private Physician - When: - Reason: Re-evaluation by your physician Followup: ec2 - With: Ben Regalado MD - When: - Reason: Recheck today's complaints Discharge Instructions: - Discharge Summary Sheet ec2 - Abdominal Pain, Adult, Yrtm-qa-Rrte ec2 - Fatty Liver Disease ec2 Forms: - Medication Reconciliation Form ec2 - Antibiotic Education ec2 - Prescription Opioid Use ec2 - Patient Portal Instructions ec2 - Leadership Thank You Letter ec2 Prescriptions: - Zofran 4 mg Oral Tablet - take 1 tablet ORAL route every 12 hours As needed; 20 tablet; Refills: 0, ec2 Product Selection Permitted - dicyclomine 10 mg Oral capsule - take 1 capsule ORAL route 4 times per day; 20 capsule; Refills: 0, Product ec2 Selection Permitted Signatures: Dispatcher [employer] EDMS Chely Peraza RN RN Denise Herrera RN RN cm10 Easton Gurrola MD MD ec2 Corrections: (The following items were deleted from the chart) 12:21 12:21 CBC+H.LAB.BRZ ordered. EDMS EDMS 12:21 12:21 COMPREHENSIVE METABOLIC PANEL+C.LAB.BRZ ordered. EDMS EDMS 12:21 12:21 LIPASE+C.LAB.BRZ ordered. EDMS EDMS 12:21 12:21 Test, Urine+UC.LAB.BRZ ordered. EDMS EDMS 12:21 12:21 Urinalysis+U.LAB.BRZ ordered. EDMS EDMS 13:55 12:27 Abdomen Pelvis Wo Con+CT.RAD.BRZ ordered. EDMS EDMS
--- NOTE | 2024-07-20 16:03 | ER ---
Nurse's Notes [facility] Name: Jenn Wills Age: 28 yrs Sex: Female : 1995 Arrival Date: 07/20/2024 Time: 12:04 Bed 6 Private MD: Diagnosis: Abdominal pain, unspecified;Fatty Liver Presentation: 07/20 12:16 Chief complaint: Left sided abdominal pain that radiates to back and nausea x 3 days. hb Denies urinary symptoms. Coronavirus screen: At this time, the client does not indicate any symptoms associated with coronavirus-19. Ebola Screen: No symptoms or risks identified at this time. Initial Sepsis Screen: Does the patient meet any 2 criteria? No. Patient's initial sepsis screen is negative. Does the patient have a suspected source of infection? No. Patient's initial sepsis screen is negative. Risk Assessment: Do you want to hurt yourself or someone else? Patient reports no desire to harm self or others. Onset of symptoms was July 17, 2024. 12:16 Method Of Arrival: Ambulatory 12:16 Acuity: CARLOS 3 hb Triage Assessment: 12:39 General: Appears in no apparent distress. uncomfortable, Behavior is calm, cooperative. cm10 Pain: Complains of pain in left lower quadrant Pain radiates to back Pain currently is 8 out of 10 on a pain scale. Quality of pain is described as stabbing, Pain began 2-3 days ago. Neuro: No deficits noted. Level of Consciousness is awake, alert, obeys commands, Oriented to person, place, time, situation, Appropriate for age. Respiratory: No deficits noted. Airway is patent Respiratory effort is even, unlabored, Respiratory pattern is regular, symmetrical. GI: Reports lower abdominal pain. 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 - Infectious Disease History:: Denies. - Social history:: Smoking status: Patient denies any tobacco usage or history of. Screenin:39 [facility] ED Fall Risk Assessment (Adult) History of falling in the last 3 months, cm10 including since admission No falls in past 3 months (0 pts) Confusion or Disorientation No (0 pts) Intoxicated or Sedated No (0 pts) Impaired Gait No (0 pts) Mobility Assist Device Used No (0 pt) Altered Elimination No (0 pt) Score/Fall Risk Level 0 - 2 = Low Risk Oriented to surroundings, Maintained a safe environment, Hourly rounding (assess needs \T\ fall precautionary measures) done. Abuse screen: Denies threats or abuse. Denies injuries from another. Nutritional screening: No deficits noted. Tuberculosis screening: No symptoms or risk factors identified. Assessment: 13:14 Reassessment: Pt reports that pain is worse after walking to restroom. provider made cm10 aware. 14:46 Reassessment: Patient appears in no apparent distress at this time. Patient and/or cm10 family updated on plan of care and expected duration. Pain level reassessed. Patient is alert, oriented x 3, equal unlabored respirations, skin warm/dry/pink. Patient states feeling better. Patient states symptoms have improved. 15:50 Reassessment: pt reports that her pain is coming back. provider made aware. cm10 16:20 GI: not ausculated not palpated. cm10 Vital Signs: 12:16 BP 132 / 92; Pulse 86; Resp 16; Temp 99.4(O); Pulse Ox 100% on R/A; Weight 83.91 kg; hb Height 5 ft. 2 in. ; Pain 8/10; 12:30 BP 139 / 87; Pulse 69; Resp 15; Pulse Ox 99% ; cm10 13:30 BP 120 / 65; Pulse 72; Resp 16; Pulse Ox 95% ; cm10 14:45 BP 103 / 64; Pulse 64; Resp 16; Pulse Ox 100% on R/A; cm10 16:00 BP 112 / 81; Pulse 70; Resp 16; Pulse Ox 100% ; cm10 12:16 Body Mass Index 33.84 (83.91 kg, 157.48 cm) hb 12:16 Pain Scale: Adult hb ED Course: 12:08 Patient arrived in ED. al6 12:11 Easton Gurrola MD is Attending Physician. ec2 12:13 Denise Silverman, MCKAY is Primary Nurse. cm10 12:18 Triage completed. hb 12:19 Arm band placed on. hb 12:19 Initial lab(s) drawn, by me, sent to lab. Inserted saline lock: 20 gauge in right cm10 antecubital area, using aseptic technique. Blood collected. Flushed with 10 mL NS. 12:39 Patient has correct armband on for positive identification. Bed in low position. Call cm10 light in reach. Side rails up X2. Provided Education on: ER process and procedures. Pulse ox on. NIBP on. 14:12 Stone Protocol In Process Unspecified. EDMS 16:02 Ben Regalado MD is Referral Physician. ec2 16:20 No provider procedures requiring assistance completed. IV discontinued, intact, cm10 bleeding controlled, No redness/swelling at site. Pressure dressing applied. Administered Medications: 12:38 Not Given (Physician Discretion): [id number] mg PO once cm10 12:38 Drug: Ondansetron IVP 4 mg IVP once; over 2 minutes Route: IVP; Site: right antecubital;cm10 13:16 Follow up: Response: No adverse reaction cm10 12:38 Drug: morphine IVP or IV 4 mg IVP once over 4 mins Route: IVP; Infused Over: 4 mins; cm10 Site: right antecubital; 13:15 Follow up: Response: No adverse reaction cm10 12:38 Drug: NS 0.9% IV 250 ml IV at bolus once; to be given as a bolus over 30 minutes Route: cm10 IV; Rate: bolus; Site: right antecubital; 13:15 Follow up: Response: No adverse reaction; IV Status: Completed infusion; IV Intake: cm10 250ml 13:24 Drug: fentaNYL (PF) IVP 100 mcg IVP once Route: IVP; Site: right antecubital; cm10 14:21 Follow up: Response: No adverse reaction; Pain is decreased cm10 16:05 Drug: Dicyclomine PO 20 mg PO once Route: PO; cm10 16:20 Follow up: Response: No adverse reaction cm10 Medication: 12:39 VIS not applicable for this client. cm10 Intake: 13:15 IV: 250ml; Total: 250ml. cm10 Outcome: 16:02 Discharge ordered by . ec2 16:20 Discharged to home ambulatory, with family, cm10 16:20 Condition: good 16:20 Discharge instructions given to patient, Instructed on discharge instructions, follow up and referral plans. medication usage, Demonstrated understanding of instructions, follow-up care, medications, Prescriptions given X 2, 16:22 Patient left the ED. cm10 Signatures: Dispatcher [employer] Chely Cruz RN RN hb Martinez, Clarissa, RN RN cm10 Easton Gurrola MD MD ec2 Saira [email or web address]
[2024-07-20 16:59] VITALS: TEMP 99.4
[2024-07-20 17:02] VITALS: O2SAT 100
[2024-07-20 17:03] VITALS: BP 112/81
== END 2024-07-20 16:22 | disposition home or self-care (01) ==
LOC: ER 12:04
DX: K76.0 Fatty (change of) liver, not elsewhere classified (principal); Z87.442 Personal history of urinary calculi
CPT/HCPCS: 96361; 85025; 81001; 36415; 81025; 83690; 80053; 76377; 74176; 96375; 96374; 99284; J3010; J2405; J7050

== ENCOUNTER 2024-10-17 17:32 | Emergency (ER) | payer OTHER ==
--- OUTSIDE RECORDS SUMMARY | 2024-10-17 17:38 | XMS REPORT | Continuity of Care Document ---
Author Name Unknown Address [address] 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 Role Phone Anel Flynn Primary Care Physician [phone] EZRA ALANIZ Attending Clinician Un available BENY ULRICH Attending Clinician Unavail able BENY ULRICH Attending Clinician Unavail able Beny Ulrich MD Attending Clinician [phone] Xavier Fierro Attending Clinician Unavailab LAURA Villa Attending Clinician Unavailab Laura Villa DO Attending Clinician [phone] AMBKYLE_BERNARDO Attending Clinician Unavailable Manjula GRIMES Attending Clinician Unavailable Manjula Lakhani Attending Clinician [phone] JOELLEN HART Attending Clinician Unavailable Salvador ROBERTSON, Pascale Attending Clinician [phone] PASCALE FRANCO Attending Clinician Unavailable Colin RN, Eliana Vogt Attending Clinician Un available Joellen Hart MD Attending Clinician [phone] TYRA LEONG Attending Clinician Unavailable Tyra Leong MD Attending Clinician [phone] Doctor Unassigned, [place] Attending Clinician U Anel Waters Attending Clinician [phone] RADHA BRYSON Attending Clinician Unavailab phillip WHITAKERP, Joleen Attending Clinician [phone] Radha Rajput Attending Clinician [phone] Pob, [facility] Main Attending Clinician UnavailGAETANO Alonso Attending Clinician Unavailable Ebashley WHITAKERP, Gaeatno Attending Clinician [phone] [facility] Attending Clinician Unavailable RANDY NEWBY Attending Clinician Unavailable Randy Angel Attending Clinician [phone] ANEL GERONIMO Attending Clinician Unavailable BJORN LOPEZ Attending Clinician Unavailable Bjorn George Attending Clinician [phone] LEDY BUTLER Attending Clinician Unavailable Kenya Arguello RN Attending Clinician Unavaila Chely Loo PT Attending Clinician Shanti Rodriges MD Attending Clinician [phone] SHANTI KING Attending Clinician UnavailUmu Esqueda PT, Safia Attending Clinician Un available SRIKANTH DEJESUS Attending Clinician Unavail able SRIKANTH DEJESUS Attending Clinician Unavail able Liam ALONZO, Ezra Garner Attending Clinician Srikanth Dejesus MD Attending Clinician [phone] Lala Ortiz MD Attending Clinician [phone] LALA ORTIZ Attending Clinician Unavailable Lab, Adc F[facility] Pob I Attending Clinician Unavailab phillip Vogt_Pappafederico Attending Clinician Unavailable Chely Johns Attending Clinician CHELY WARE Attending Clinician Samira vailable iVvien Attending Clinician Unavailable EZRA ALANIZ Admitting Clinician Un available BENY ULRICH Admitting Clinician Unavail able Physician, No Primary or Family Admitting Clinic alejandra Unavailable LAURA GEE Admitting Clinician Unavailab le AMBREEN_MYRTLEA Admitting Clinician Unavailable TYRA LEONG Admitting Clinician Unavailable RANDY NEWBY Admitting Clinician Unavailable BJORN LOPEZ Admitting Clinician Unavailable Manjula GRIMES Admitting Clinician Unavailable Ezra Alaniz MD Admitting Clinician Torie_Sadi Admitting Clinician Unavailable Vivien Admitting Clinician Unavailable Payers Payer Name Policy Type Policy Number Effective Date Expirati on Date Source [employer] [place] [employer] [id number] 2020 00:00:00 [place]MEDICAID[place] [id number] [place] [id number] 2022 00:00:00 Problems Condition Name Condition Details Condition Category Status Onset Date Resolution Date Last Treatment Date Treating Clinician Comments Source Prediabete s Prediabete s Problem Active 10-28 00:00: 00 [facility] Polycystic ovary syndrome Polycystic Ovary Syndrome Problem Active 10-28 00:00: 00 [facility] Morbid obesity with body mass index of 40.0-49.9 Morbid obesity with body mass index of 40.0-49.9 Disease Active 2-08 00:00: 00 [facility] Disturbanc e of skin sensation Disturbanc e of skin sensation Disease Active 02-07 00:00: 00 [facility] Numbness Numbness Disease Active 02-07 00:00: 00 [facility] Acute non intractabl e tension-ty pe headache Acute non intractabl e tension-ty pe headache Disease Active 02-07 00:00: 00 [facility] Obesity (BMI 30-39.9) Obesity (BMI 30-39.9) Disease Active 7- 00:00: 00 [facility] Primary female infertilit y Primary female infertilit y Disease Active 04-22 00:00: 00 [facility] Oligomenor lorrie Oligomenor lorrie Disease Active 04-22 00:00: 00 [facility] Polycystic ovary syndrome Polycystic ovary syndrome Disease Active 04-22 00:00: 00 [facility] Gynecologi c examinatio n Gynecologi c Examinatio n Problem Active 04-22 00:00: 00 [facility] Anxiety Anxiety Disease Active 1-13 00:00: 00 [facility] Iron deficiency anemia due to chronic blood loss Iron deficiency anemia due to chronic blood loss Disease Active 4-30 00:00: 00 [facility] Porokerato sis Porokerato sis Disease Active 2014-07 0-05 00:00: 00 [facility] Absence of menstruati on Absence of menstruati on Disease Active 2011-07 1-02 00:00: 00 [facility] Allergies, Adverse Reactions, Alerts Allergy Name Allergy Type Status Severity Reaction(s) Onset Date Inactive Date Treating Clinician Comments Source NSAIDS (Non-Micheal roidal Anti-Inf lamma DA Active U "CLOSES MY THROAT" 08-13 00:00: 00 [facility] ibuprofe n DA Active U "CLOSES MY THROAT" 08-13 00:00: 00 [facility] Nsaids (Non-Micheal roidal Anti-Inf lammator y Drug) Propensi ty to adverse reaction s Active Anaphylaxis 02-07 00:00: 00 [facility] IBUPROFE N DRUG INGREDI Active Anaphylaxis 02-07 00:00: 00 [facility] NSAIDS (NON-MICHEAL ROIDAL ANTI-INF LAMMATOR Y DRUG) Drug Class Active Anaphylaxis 02-07 00:00: 00 [facility] Nsaids (Non-Micheal roidal Anti-Inf lammator y Drug) Propensi ty to adverse reaction s Active Anaphylaxis 02-07 00:00: 00 [facility] Ibuprofe n Propensi ty to adverse reaction s Active Anaphylaxis 02-07 00:00: 00 [facility] NSAIDS (NON-MICHEAL ROIDAL ANTI-INF LAMMATOR Y DRUG) Drug Class Active High Swelling 2016-07 00:00: 00 [facility] IBUPROFE N DRUG INGREDI Active Swelling 2016-07 00:00: 00 [facility] Nsaids (Non-Micheal roidal Anti-Inf lammator y Drug) Drug Allergy Active Anaphylaxis 2016-07 00:00: 00 [facility] Ibuprofe n Drug Allergy Active Anaphylaxis 2016-07 00:00: 00 [facility] Nsaids (Non-Micheal roidal Anti-Inf lammator y Drug) Drug Allergy Active Anaphylaxis 2016-07 00:00: 00 [facility] Motrin Allergy to substanc e Active Anaphylaxis [facility] NSAIDS (NON-MICHEAL ROIDAL ANTI-INF LAMMATOR Y DRUG) Allergy to substanc e Active Severe Respiratory distress [facility] Social History Social Habit Start Date Stop Date Quantity Comments Source History SDOH Alcohol Frequency [facility] History SDOH Alcohol Std Drinks [facility] History SDOH Alcohol Binge [facility] intake 2023-04-24 00:00:00 2023-04-24 00:00:00 Current drinker of alcohol (finding) [facility] Alcohol intake 2023-04-24 00:00:00 2023-04-24 00:00:00 Current drinker of alcohol (finding) [facility] Exposure to SARS-CoV-2 (event) 2022-12-01 00:00:00 2022-12-11 10:23:00 Not sure [facility] Tobacco use and exposure 2022-02-19 00:00:00 2022-02-19 00:00:00 Smokeless tobacco non-user [facility] History of Social function 2021-11-12 00:00:00 2021-11-12 00:00:00 [facility] Alcohol Comment 2021-03-24 00:00:00 2021-03-24 00:00:00 Socially [facility] Sex assigned at 1995 00:00:00 1995 00:00:00 [facility] Smoking Status Start Date Stop Date Source Former Smoker [facility] Never smoked tobacco [facility] Medications Ordered Medication Name Filled Medication Name Start Date Stop Date Current Medication? Ordering Clinician Indication Dosage Frequency Signature (SIG) Comments Components Source pantoprazol e (PROTONIX) 80 mg in NaCl 0.9% (NS) 20 mL syringe 08-25 20:45: 00 08-25 20:42 :00 No 80mg 80 mg, IV Push, ONCE, 1 dose, On 08/25/24 at 1445, Administer over 2 Minutes, 20 mL [facility] metoclopram veronica HCl (REGLAN) injection 10 mg 08-25 20:00: 00 08-25 20:10 :00 No 10mg 10 mg, Slow IV Push, ONCE, 1 dose, On 08/25/24 at 1400, MIRANDA [facility] benzonatate 100 mg capsule 08-25 00:00: 00 Yes [id number] 100mg Take 1 capsule by mouth 3 (three) times daily as needed for Cough. [facility] ondansetron 4 mg disintegrat ing tablet 08-25 00:00: 00 Yes [id number] 4mg Take 1 tablet by mouth every 8 (eight) hours as needed for Nausea and Vomiting (N/V). [facility] sulfamethox azole-trime thoprim (BACTRIM DS) 800-160 mg per tablet 1 tablet 2022-07 04:00: 00 04-25 03:10 :00 No 1{tbl} 1 tablet, Oral, ONCE, 1 dose, On 04/24/23 at 2300, MIRANDA
Re ason for Anti-Infec tive: Documented Infection< br>Documen justice Infection Site: Urine
D uration of Therapy: 7 days [facility] iopamidol (ISOVUE 370-500 mL) injection 85 mL 2022-07 0 03:30: 00 04-25 03:30 :00 No [id number] 85mL 85 mL, Intravenou s, ONCE, 1 dose, On 04/24/23 at 2230, Routine [facility] ondansetron (ZOFRAN (PF)) injection 4 mg 2022-07 0 02:00: 00 04-25 02:06 :00 No 4mg 4 mg, Slow IV Push, ONCE, 1 dose, [facility] 4 mg 2022-07 02:00: 00 04-25 02:06 :00 No 4mg 4 mg, Slow IV Push, ONCE, 1 dose, On 04/24/23 at 2100, STAT [facility] ondansetron (ZOFRAN (PF)) injection 4 mg 2022-07 00:45: 00 04-25 01:00 :00 No 4mg 4 mg, Slow IV Push, ONCE, 1 dose, [facility] 04/24/23 at 1945[facility] famotidine (PEPCID (PF)) injection 20 mg 2022-07 0 00:45: 00 04-25 01:00 :00 No 20mg 20 mg, Slow IV Push, ONCE, 1 dose, [facility] 04/24/23 at 1945[facility] azole-trime thoprim 800-160 mg per tablet 2022-07 0- 00:00: 00 04-30 04:59 :00 No [id number] 1{tbl} Take 1 tablet by mouth every 12 (twelve) hours for 5 days. [facility] cefdinir (OMNICEF) capsule 300 mg 12-11 16:30: 00 12-11 16:30 :00 No 300mg 300 mg, Oral, ONCE, 1 dose, On 12/11/22 at 1130, MIRANDA
Re ason for Anti-Infec tive: Documented Infection< br>Documen justice Infection Site: Urine
D uration of Therapy: 10 days [facility] phenazopyri dine (PYRIDIUM) tablet 200 mg 12-11 16:00: 00 12-11 16:20 :00 No 200mg 200 mg, Oral, ONCE, 1 dose, On Tue12/11/22 at 1100, MIRANDA [facility] phenazopyri dine 200 mg tablet 12-11 00:00: 00 Yes [id number] 200mg Take 1 tablet by mouth in the morning and 1 tablet at noon and 1 tablet in the evening. [facility] cefdinir 300 mg capsule 12-11 00:00: 00 12-22 04:59 :00 No [id number] 300mg Take 1 capsule by mouth every 12 (twelve) hours for 10 days. [facility] dicyclomine (BENTYL) injection 20 mg 09-15 06:00: 00 09-15 05:28 :00 No 20mg 20 mg, Intramuscu lar, ONCE, 1 dose, On Tue09/15/22 at 0000, Routine [facility] iopamidol (ISOVUE 370-500 mL) injection 84 mL 09-15 04:30: 00 09-15 04:30 :00 No [id number] 84mL 84 mL, Intravenou s, ONCE, 1 dose, On Tue09/14/22 at 2230, Routine [facility] FENTanyl PF (SUBLIMAZE (PF)) injection 50 mcg 09-15 04:00: 00 09-15 03:04 :00 No 50ug 50 mcg, Slow IV Push, ONCE, 1 dose, On Tue09/14/22 at 2200, Routine [facility] maalox:diph enhydrAMINE :lidocaine 2 % viscous 1:1:1 (FIRST-MOUT HWASH BLM) oral suspension 15 mL 09-15 03:00: 00 09-15 03:05 :00 No 15mL 15 mL, Oral, ONCE, 1 dose, On Tue09/14/22 at 2100, Routine [facility] ondansetron (ZOFRAN (PF)) injection 4 mg 09-15 03:00: 00 09-15 03:02 :00 No 4mg 4 mg, Slow IV Push, ONCE, 1 dose, On Tue09/14/22 at 2100, MIRANDA [facility] ondansetron (ZOFRAN) 4 mg tablet 09-14 00:00: 00 Yes [id number] 4mg Take 1 tablet by mouth every 8 (eight) hours as needed for Nausea and Vomiting (N/V). [facility] dicyclomine 20 mg tablet 09-14 00:00: 00 Yes [id number] 20mg Take 1 tablet by mouth every 6 (six) hours as needed for Abdominal pain. [facility] linaCLOtide (LINZESS) 72 mcg Cap 12 00:00: 00 11-04 04:59 :00 No [id number] 72ug Take 1 capsule by mouth in the morning for 90 days. [facility] plecanatide (TRULANCE) 3 mg Tab 2021-07 006 00:00: 00 07-29 05:59 :00 No [id number] 3mg Take 1 tablet by mouth in the morning for 90 days. [facility] ondansetron (ZOFRAN-ODT ) disintegrat ing tablet 4 mg 03-28 17:30: 00 03-28 16:26 :00 No 4mg 4 mg, Oral, ONCE, 1 dose, On 03/28/22 at 1230, Routine [facility] maalox:diph enhydrAMINE :lidocaine 2 % viscous 1:1:1 (FIRST-MOUT HWASH BLM) oral suspension 15 mL 03-28 17:00: 00 03-28 17:04 :00 No 15mL 15 mL, Oral, ONCE, 1 dose, On Tue03/28/22 at 1200, Routine [facility] ondansetron 4 mg disintegrat ing tablet 04 00:00: 00 Yes [id number] 4mg Take 1 tablet by mouth every 8 (eight) hours as needed for Nausea and Vomiting (N/V). [facility] codeine-gua ifenesin 10-100 mg/5 mL oral solution 02-19 00:00: 00 02-27 04:59 :00 No [id number] 5mL Take 5 mL by mouth every 6 (six) hours as needed for Cough for up to 7 days. Indication s: acute pain [facility] multivit-mi n/ascorbic/ herb 124 ([employer] ORAL) 01-21 09:28: 20 Yes Take by mouth. [facility] omeprazole 40 mg capsule 01-21 00:00: 00 Yes [id number] 40mg Take 1 capsule by mouth daily. [facility] linaCLOtide (LINZESS) 72 mcg Cap 01-21 00:00: 00 04-22 04:59 :00 No [id number] 72ug Take 1 capsule by mouth daily for 90 days. [facility] multivit-mi n/ascorbic/ herb 124 ([employer] NAT[employer]ER[employer] ORAL) 12-12 13:03: 07 Yes Take by mouth. [facility] metFORMIN 500 mg tablet 11-26 12:34: 58 Yes metformin 500 mg tablet Take 1 tablet twice a day by oral route. [facility] peg-electro lyte soln 236-22.74-6 .74 -5.86 gram solution 05 00:00: 00 04-29 00:00 :00 No [id number] Take as directed before colonoscop y [facility] omeprazole 40 mg capsule 11-26 00:00: 00 01-21 00:00 :00 No [id number] 40mg Take 1 capsule by mouth daily for 90 days. [facility] dicyclomine 20 mg tablet 3-12 00:00: 00 Yes [id number] 20mg Take 1 tablet by mouth 4 (four) times daily. [facility] medroxyPROG ESTERone (PROVERA) 10 mg tablet 2-08 00:00: 00 Yes [id number] 10mg Take 1 tablet by mouth daily. [facility] amitriptyli ne 25 mg tablet 8 00:00: 00 Yes [id number] 25mg Take 1 tablet by mouth at bedtime. [facility] cyanocobala min (VITAMIN B12) injection 1,000 mcg 02-08 18:43: 00 02-08 19:46 :00 No 1000ug 1,000 mcg, Intramuscu lar, ONCE, 1 dose, 02/08/21 at 1345, Routine [facility] acetaminoph en (TYLENOL) tablet 650 mg 02-08 12:44: 15 Yes 650mg 650 mg, Oral, Q6HPRN, Starting 02/08/21 at 0744, Until Discontinu ed, Routine, Pain (scale 1-3), Pain (scale 4-6), pain 1-10 [facility] gadobenate dimeglumine (MULTIHANCE -20 mL) injection 19.8 mL 02-08 10:33: 00 02-08 10:45 :00 No [id number] .2mL/kg 19.8 mL (0.2 mL/kg ?99 kg), Intravenou s, ONCE, 1 dose, [place] 02/08/21 at 0545, Routine [facility] LORazepam (ATIVAN) tablet 1 mg 02-08 06:00: 00 02-08 09:11 :00 No 1mg 1 mg, Oral, ONCE, 1 dose, 02/08/21 at 0100, Routine [facility] glucagon (GLUCAGEN DIAGNOSTIC KIT) injection 1 mg 02-08 01:45: 14 Yes 1mg 1 mg, Intramuscu lar, PRN, Starting 02/07/21 at 2045, Until Discontinu ed, MIRANDA, Blood Glucose < or = 70 mg/dL and patient is unable to swallow or has mental changes. [facility] dextrose 50 % in water (D50W) injection 25 mL 02-08 01:45: 14 Yes 25mL 25 mL, Slow IV Push, PRN, Starting 02/07/21 at 2045, Until Discontinu ed, MIRANDA, Blood Glucose < or = 70 mg/dL and patient is unable to swallow or has mental status changes. [facility] magnesium oxide 400 mg (241.3 mg magnesium) tablet 02-08 00:00: 00 11-12 00:00 :00 No [id number] 400mg Take 1 tablet by mouth daily. [facility] vitamin B-12 1,000 mcg tablet 02-08 00:00: 00 11-12 00:00 :00 No [id number] 1000ug Take 1 tablet by mouth daily. [facility] magnesium sulfate in water 2 gram/50 mL (4 %) infusion 2 g 02-07 16:51: 00 02-07 17:00 :00 No 2g 2 g, IV Piggyback, ONCE, 1 dose, 02/07/21 at 1200, Routine [facility] famotidine (PEPCID AC) tablet 20 mg 02-07 13:00: 00 Yes 20mg 20 mg, Oral, BID, First dose on 02/07/21 at 0800, Until Discontinu ed, Routine [facility] heparin (porcine) injection 5,000 Units 02-07 13:00: 00 Yes 5000U 5,000 Units, Subcutaneo us, Q12H, First dose on 02/07/21 at 0800, Until Discontinu ed, Routine [facility] ondansetron (ZOFRAN (PF)) injection 4 mg 02-07 10:47: 30 Yes 4mg 4 mg, Slow IV Push, Q6HPRN, Starting 02/07/21 at 0547, Until Discontinu ed, Routine, Nausea and Vomiting (N/V) [facility] acetaminoph en (TYLENOL) tablet 500 mg 02-07 10:47: 00 02-08 12:45 :19 No 500mg 500 mg, Oral, Q6HPRN, Starting 02/07/21 at 0547, Until 02/08/21 at 0745, Routine, Pain (scale 1-3), Pain (scale 4-6) [facility] medroxyPROG ESTERone (PROVERA) 10 mg tablet 01-22 00:00: 00 09-01 00:00 :00 No [id number] 10mg Take 1 tablet by mouth daily. [facility] Provera 10 mg tablet Take 1 tablet every day by oral route for 7 days. Provera 10 mg tablet Take 1 tablet every day by oral route for 7 days. No 1 Q1D Provera 10 mg tablet Take 1 tablet every day by oral route for 7 days. [facility] Provera 10 mg tablet Take 1 tablet every day by oral route for 10 days. Provera 10 mg tablet Take 1 tablet every day by oral route for 10 days. No 1 Q1D Provera 10 mg tablet Take 1 tablet every day by oral route for 10 days. [facility] Immunizations Ordered Immunization Name Filled Immunization Name Date Status Comments Source Influenza Virus Vaccine 2020 00:00:00 Completed [facility] Influenza Virus Vaccine 2020 00:00:00 Completed [facility] Influenza Virus Vaccine 2020 00:00:00 Completed [facility] Influenza Virus Vaccine 2020 00:00:00 Completed [facility] Influenza Virus Vaccine 2020 00:00:00 Completed [facility] Influenza Virus Vaccine 2020 00:00:00 Completed [facility] Influenza Virus Vaccine 2020 00:00:00 Completed [facility] Influenza Virus Vaccine 2020 00:00:00 Completed [facility] Influenza Virus Vaccine 2020 00:00:00 Completed [facility] Influenza Virus Vaccine 2020 00:00:00 Completed [facility] Influenza Virus Vaccine 2020 00:00:00 Completed [facility] Influenza Virus Vaccine 2020 00:00:00 Completed [facility] Influenza Virus Vaccine 2020 00:00:00 Completed [facility] Influenza Virus Vaccine 2020 00:00:00 Completed [facility] Influenza Virus Vaccine 2020 00:00:00 Completed [facility] Influenza Virus Vaccine (3+ yrs) 2019-06-11 00:00:00 Completed [facility] Influenza Virus Vaccine (3+ yrs) 2019-06-11 00:00:00 Completed [facility] Influenza Virus Vaccine (3+ yrs) 2019-06-11 00:00:00 Completed [facility] Influenza Virus Vaccine (3+ yrs) 2019-06-11 00:00:00 Completed [facility] Influenza Virus Vaccine (3+ yrs) 2019-06-11 00:00:00 Completed [facility] Influenza, split virus, trivalent, preservative (3+ Yrs) (Afluria) 2019-06-11 00:00:00 Completed Influenza Virus Vaccine (3+ yrs) 2019-04-30 00:00:00 Completed [facility] Influenza Virus Vaccine (3+ yrs) 2019-04-30 00:00:00 Completed [facility] Influenza Virus Vaccine (3+ yrs) 2019-04-30 00:00:00 Completed [facility] Influenza Virus Vaccine (3+ yrs) 2019-04-30 00:00:00 Completed [facility] Influenza Virus Vaccine (3+ yrs) 2019-04-30 00:00:00 Completed [facility] Influenza, split virus, trivalent, preservative (3+ Yrs) (Afluria) 2019-04-30 00:00:00 Completed [facility]AP 2017-12-23 00:00:00 Completed [facility] TDAP 2017-12-23 00:00:00 Completed [facility] TDAP 2017-12-23 00:00:00 Completed [facility] TDAP 2017-12-23 00:00:00 Completed [facility] TDAP 2017-12-23 00:00:00 Completed [facility] TDAP 2017-12-23 00:00:00 Completed [facility] TDAP 2017-12-23 00:00:00 Completed [facility] TDAP 2017-12-23 00:00:00 Completed [facility] TDAP 2017-12-23 00:00:00 Completed [facility] TDAP 2017-12-23 00:00:00 Completed [facility] TDAP 2017-12-23 00:00:00 Completed [facility] TDAP 2017-12-23 00:00:00 Completed [facility] TDAP 2017-12-23 00:00:00 Completed [facility] TDAP 2017-12-23 00:00:00 Completed [facility] TDAP 2017-12-23 00:00:00 Completed [facility] Tdap - ML Tdap - ML 2017-12-23 00:00:00 Completed [facility] Hep A, ped/adol, 2 dose - ML Hep A, ped/adol, 2 dose - ML 2009-02-17 00:00:00 Completed [facility] Tdap - ML Tdap - ML 2009-02-17 00:00:00 Completed [facility] Hep A, ped/adol, 2 dose - ML Hep A, ped/adol, 2 dose - ML 2005-03-17 00:00:00 Completed [facility] DTaP, unspecified formulation - ML DTaP, unspecified formulation - ML 1998-12-30 00:00:00 Completed [facility] MMR - ML MMR - ML 1998-12-30 00:00:00 Completed [facility] IPV - ML IPV - ML 1998-12-30 00:00:00 Completed [facility] varicella - ML varicella - ML 1998-11-22 00:00:00 Completed [facility] Hib, unspecified formulation - ML Hib, unspecified formulation - ML 1996-05-31 00:00:00 Completed [facility] DTaP, unspecified formulation - ML DTaP, unspecified formulation - ML 1996-05-31 00:00:00 Completed [facility] MMR - ML MMR - ML 1996-05-31 00:00:00 Completed [facility] DTaP, unspecified formulation - ML DTaP, unspecified formulation - ML 1995-08-02 00:00:00 Completed [facility] Hep B, unspecified formulation - ML Hep B, unspecified formulation - ML 1995-08-01 00:00:00 Completed [facility] IPV - ML IPV - ML 1995-08-01 00:00:00 Completed [facility] Hib, unspecified formulation - ML Hib, unspecified formulation - ML 1995-08-01 00:00:00 Completed [facility] DTP-Hib - ML DTP-Hib - ML 1995-04-21 00:00:00 Completed [facility] IPV - ML IPV - ML 1995-04-21 00:00:00 Completed [facility] DTaP, unspecified formulation - ML DTaP, unspecified formulation - ML 1995-02-04 00:00:00 Completed [facility] Hep B, unspecified formulation - ML Hep B, unspecified formulation - ML 1995-02-04 00:00:00 Completed [facility] IPV - ML IPV - ML 1995-02-04 00:00:00 Completed [facility] Hib, unspecified formulation - ML Hib, unspecified formulation - ML 1995-02-04 00:00:00 Completed [facility] Hep B, unspecified formulation - ML Hep B, unspecified formulation - ML 1994 00:00:00 Completed [facility] TDAP Unknown Completed [facility] Influenza Virus Vaccine Unknown Completed [facility] Influenza Virus Vaccine (3+ yrs) Unknown Completed [facility] TDAP Unknown Completed [facility] Influenza Virus Vaccine Unknown Completed [facility] Influenza Virus Vaccine (3+ yrs) Unknown Completed [facility] TDAP Unknown Completed [facility] Influenza Virus Vaccine Unknown Completed [facility] Influenza Virus Vaccine (3+ yrs) Unknown Completed [facility] TDAP Unknown Completed [facility] Influenza Virus Vaccine Unknown Completed [facility] Influenza Virus Vaccine (3+ yrs) Unknown Completed [facility] TDAP Unknown Completed [facility] Influenza Virus Vaccine Unknown Completed [facility] Influenza Virus Vaccine (3+ yrs) Unknown Completed [facility] Vital Signs Vital Name Observation Time Observation Value Comments Federico saavedra Systolic blood pressure 2024-08-25 21:00:00 106 mm[Hg] [facility] Diastolic blood pressure 2024-08-25 21:00:00 55 mm[Hg] [facility] Heart rate 2024-08-25 21:00:00 96 /min [facility] Body temperature 2024-08-25 21:00:00 36.89 Bre [facility] Respiratory rate 2024-08-25 21:00:00 22 /min [facility] Oxygen saturation in Arterial blood by Pulse oximetry 2024-08-25 21:00:00 99 /min [facility] Body height 2024-08-25 19:52:[address] [facility] Body weight 2024-08-25 19:52:[address] [facility] BMI 2024-08-25 19:52:00 42.25 kg/m2 [facility] Systolic blood pressure 2023-04-25 02:30:00 122 mm[Hg] [facility] Diastolic blood pressure 2023-04-25 02:30:00 88 mm[Hg] [facility] Heart rate 2023-04-25 02:30:00 69 /min [facility] Respiratory rate 2023-04-25 02:30:00 16 /min [facility] Oxygen saturation in Arterial blood by Pulse oximetry 2023-04-25 02:30:00 98 /min [facility] Body temperature 2023-04-25 00:09:00 36.72 Bre [facility] Body height 2023-04-25 00:09:[address] [facility] Body weight 2023-04-25 00:09:[address] [facility] BMI 2023-04-25 00:09:00 42.07 kg/m2 [facility] Systolic blood pressure 2022-12-11 16:31:43 115 mm[Hg] [facility] Diastolic blood pressure 2022-12-11 16:31:43 74 mm[Hg] [facility] Heart rate 2022-12-11 16:31:43 65 /min [facility] Body temperature 2022-12-11 16:31:43 36.39 Bre [facility] Respiratory rate 2022-12-11 16:31:43 16 /min [facility] Oxygen saturation in Arterial blood by Pulse oximetry 2022-12-11 16:31:43 98 /min [facility] Body height 2022-12-11 15:24:[address] [facility] Body weight 2022-12-11 15:24:[address] [facility] BMI 2022-12-11 15:24:00 41.77 kg/m2 [facility] BP Diastolic 2022-10-28 00:00:00 87 mm[Hg] [facility] Height 2022-10-28 00:00:00 62 [in_i] Mattosha orda [facility] BMI (Body Mass Index) 2022-10-28 00:00:00 41.5 kg/m2 [facility] BP Systolic 2022-10-28 00:00:00 139 mm[Hg] Yao caroline [facility] Body Weight 2022-10-28 00:00:00 227 [lb_av] Marquis vargasrda [facility] Heart rate 2022-09-15 05:30:00 75 /min [facility] Respiratory rate 2022-09-15 05:30:00 18 /min [facility] Oxygen saturation in Arterial blood by Pulse oximetry 2022-09-15 05:30:00 97 /min [facility] Systolic blood pressure 2022-09-15 05:00:00 119 mm[Hg] [facility] Diastolic blood pressure 2022-09-15 05:00:00 54 mm[Hg] [facility] Body temperature 2022-09-15 02:18:00 36.72 Bre [facility] Body height 2022-09-15 02:13:00 157.5 cm [facility] Body weight 2022-09-15 02:13:00 103.42 kg [facility] BMI 2022-09-15 02:13:00 41.70 kg/m2 [facility] Body weight 2022-04-29 13:49:00 102.059 kg [facility] BMI 2022-04-29 13:49:00 41.15 kg/m2 [facility] Systolic blood pressure 2022-03-28 17:30:00 138 mm[Hg] [facility] Diastolic blood pressure 2022-03-28 17:30:00 85 mm[Hg] [facility] Heart rate 2022-03-28 17:30:00 85 /min [facility] Respiratory rate 2022-03-28 17:30:00 14 /min [facility] Oxygen saturation in Arterial blood by Pulse oximetry 2022-03-28 17:30:00 99 /min [facility] Body temperature 2022-03-28 16:20:00 36.39 Bre [facility] Body weight 2022-03-28 16:20:[address] [facility] BMI 2022-03-28 16:20:00 41.15 kg/m2 [facility] Systolic blood pressure 2022-02-20 01:15:00 129 mm[Hg] [facility] Diastolic blood pressure 2022-02-20 01:15:00 89 mm[Hg] [facility] Heart rate 2022-02-20 01:15:00 78 /min [facility] Body temperature 2022-02-20 01:15:00 36.5 Bre [facility] Respiratory rate 2022-02-20 01:15:00 16 /min [facility] Body height 2022-02-20 01:15:00 157.5 cm [facility] Body weight 2022-02-20 01:15:00 105.461 kg [facility] BMI 2022-02-20 01:15:00 42.52 kg/m2 [facility] Oxygen saturation in Arterial blood by Pulse oximetry 2022-02-20 01:15:00 97 /min [facility] Systolic blood pressure 2022-01-21 14:27:00 119 mm[Hg] [facility] Diastolic blood pressure 2022-01-21 14:27:00 89 mm[Hg] [facility] Heart rate 2022-01-21 14:27:00 90 /min [facility] Body temperature 2022-01-21 14:27:00 36.56 Bre [facility] Respiratory rate 2022-01-21 14:27:00 16 /min [facility] Body height 2022-01-21 14:27:[address] [facility] Body weight 2022-01-21 14:27:[address] [facility] BMI 2022-01-21 14:27:00 42.10 kg/m2 [facility] Systolic blood pressure 2021-02-08 16:18:00 103 mm[Hg] [facility] Diastolic blood pressure 2021-02-08 16:18:00 50 mm[Hg] [facility] Heart rate 2021-02-08 16:18:00 63 /min [facility] Body temperature 2021-02-08 16:18:00 36.22 Bre [facility] Respiratory rate 2021-02-08 16:18:00 18 /min [facility] Oxygen saturation in Arterial blood by Pulse oximetry 2021-02-08 16:18:00 100 /min [facility] Body weight 2021-02-07 09:25:[address] [facility] BP Diastolic 2020-04-22 00:00:00 93 mm[Hg] [facility] Height 2020-04-22 00:00:00 62 [in_i] [facility] BMI (Body Mass Index) 2020-04-22 00:00:00 41 kg/m2 [facility] BP Systolic 2020-04-22 00:00:00 133 mm[Hg] [facility] Body Weight 2020-04-22 00:00:00 224.1 [lb_av] M [facility] Procedures Procedure Date / Time Performed Performing Clinician Source POCT TEST 2024-08-25 20:18:00 Beny Ulrich [facility] XR CHEST 1 VW 2024-08-25 20:13:19 Beny Ulrich [facility] COMP. METABOLIC PANEL (56504) 2024-08-25 20:13:00 Beny Ulrich [facility] CBC WITH DIFF 2024-08-25 20:13:00 Beny Ulrich [facility] INFLUENZA A/B RSV COVID NAAT 2024-08-25 20:13:00 Beny Ulrich [facility] CT ABDOMEN PELVIS W CONTRAST 2023-04-25 02:40:30 Laura Gee [facility] LIPASE 2023-04-25 01:00:00 [facility] 2023-04-25 01:00:00 [facility] COMP. METABOLIC PANEL ([id number]) 2023-04-25 01:00:00 Laura Gee [facility] CBC WITH DIFF 2023-04-25 01:00:00 [facility] 2023-04-25 00:47:00 Treasure Gee ra [facility] URINALYSIS 2023-04-25 00:45:00 aLura Gee [facility] ASSIGNMENT OF BENEFITS 2023-04-25 00:19:39 Docto r Unassigned, [place] [facility] CONSENT/REFUSAL FOR DIAGNOSIS AND TREATMENT 2023-04-25 00:04:54 Doctor Unassigned, [place] [facility] POCT TEST 2022-12-11 15:38:00 Manjula Grimes [facility] URINALYSIS 2022-12-11 15:36:00 Manjula Grimes [facility] CONSENT/REFUSAL FOR DIAGNOSIS AND TREATMENT 2022-12-11 15:15:47 Doctor Unassigned, [place] [facility] LIPASE 2022-09-15 02:31:[address] [facility] COMP. METABOLIC PANEL ([id number]) 2022-09-15 02:31:00 Tyra Leong [facility] CBC WITH DIFF 2022-09-15 02:31:00 Tyra Leong [facility] URINALYSIS 2022-09-15 02:31:[address] [facility] POCT TEST 2022-09-15 02:30:00 Tyra Leong [facility] CONSENT/REFUSAL FOR DIAGNOSIS AND TREATMENT 2022-09-15 01:54:58 Doctor Unassigned, [place] [facility] EXTERNAL PROVIDER RECORDS 2022-05-27 05:01:00 Do ctor Unassigned, [place] [facility] POCT TEST 2022-03-28 16:29:00 Treasure Gee ra [facility] CONSENT/REFUSAL FOR DIAGNOSIS AND TREATMENT 2022-03-28 16:12:09 Doctor Unassigned, [place] [facility] ASSIGNMENT OF BENEFITS 2021-03-17 13:09:25 Docto r Unassigned, [place] [facility] EXTERNAL PROVIDER RECORDS 2021-02-17 05:01:00 Do ctor Unassigned, [place] [facility] MR ANGIOGRAM NECK W WO CONTRAST 2021-02-08 10:56:14 Viv [facility] MR VENOGRAM HEAD WO CONTRAST 2021-02-08 10:27:46 Viv [facility] MR ANGIOGRAM HEAD WO CONTRAST 2021-02-08 10:26:56 Viv [facility] MR CERVICAL SPINE WO CONTRAST 2021-02-08 09:53:23 Luis Vega [facility] MR STROKE BRAIN WO CONTRAST 2021-02-07 12:40:45 Patricia Panda [facility] MAGNESIUM 2021-02-07 11:17:00 Gen Bruno [facility] VITAMIN B12, LEVEL 2021-02-07 11:17:00 Gen Contreras ra [facility] THYROID STIMULATING HORMONE 2021-02-07 11:17:00 Patricia Panda [facility] BASIC METABOLIC PANEL (NA, K, CL, CO2, GLUCOSE, BUN, CREATININE, CA) 2021-02-07 11:17:00 Patricia Panda [facility] CBC WITH DIFF 2021-02-07 11:17:00 Dago Panda Elaina [facility] Remove Tonsils and Adenoids [facility] [place] [facility] Tonsile[facility]/adenoids [facility] Cholecystectomy [facility] Plan of Care Planned Activity Planned Date Details Comments Source Diagnostic Test Pending 2022-10-28 00:00:00 cytology report, thin prep, smear or scraping, cervical or vaginal [code = cytology report, thin prep, smear or scraping, cervical or vaginal] [facility] Program Diagnostic Test Pending 2022-10-28 00:00:00 HIV 1 + 2, meaningful use set [code = HIV 1 + 2, meaningful use set] [facility] Diagnostic Test Pending 2022-10-28 00:00:00 RPR (rapid plasma reagin), serum [code = RPR (rapid plasma reagin), serum] [facility] Diagnostic Test Pending 2022-10-28 00:00:00 HBsAg (hepatitis B surface Ag), EIA, serum [code = HBsAg (hepatitis B surface Ag), EIA, serum] [facility] Program Diagnostic Test Pending 2020-04-22 00:00:00 urinalysis, dipstick [code = urinalysis, dipstick] [facility] Diagnostic Test Pending 2020-04-22 00:00:00 pap, LB + CT/NG/TV + reflex HR HPV [code = pap, LB + CT/NG/TV + reflex HR HPV] [facility] Diagnostic Test Pending 2020-04-22 00:00:00 test, urine [code = test, urine] [facility] Diagnostic Test Pending 2020-04-22 00:00:00 beta-HCG, quantitative, serum or plasma [code = beta-HCG, quantitative, serum or plasma] [facility] Encounters Start Date/Time End Date/Time Encounter Type Admission Type Attending [facility] Facility Care Department Encounter ID Source 2021-02-07 04:14:00 Inpatient EZRA SIN [facility] [id number] [facility] 2024-08-25 13:56:00 2024-08-25 16:07:00 Emergency X BENY ULRICH JOSEPH [facility] ERT [id number] [facility] 2024-08-25 13:56:00 2024-08-25 16:07:00 Emergency Beny Ulrich [facility] 1.2.840.114 350.1.13.10 4.2.7.2.686 [id number] [facility] 2024-08-13 14:43:00 2024-08-13 19:45:00 Emergency EM Xavier Fierro [facility] CORTEZ [id number] [facility] 2023-04-24 19:15:00 2023-04-24 22:19:00 Emergency X LAURA GEE [facility] ERT [id number] [facility] 2023-04-24 19:15:00 2023-04-24 22:19:00 Emergency Laura Gee [facility] 1..840.114 350.1.13.10 4.2.7.2.686 [id number] [facility] 2023-01-06 00:00:00 2023-01-06 00:00:00 Outpatient MARIKA_RITESH CARDONA [id number] Catherine shaikh [facility] Program 2022-12-11 10:25:00 2022-12-11 11:41:00 Emergency X Manjula GRIMES [facility] ERT [id number] [facility] 2022-12-11 10:25:00 2022-12-11 11:41:00 Emergency Manjula Grimes [facility] 1..840.114 350.1.13.10 4.2.7.2.686 [id number] [facility] 2022-11-02 09:30:00 2022-11-02 09:30:00 Outpatient JOELLEN BUCKNER [facility] [id number] [facility] 2022-10-28 00:00:00 2022-10-28 00:00:00 Outpatient AMBREEN_RITESH HANA [facility] [id number] [facility] 2022-10-28 00:00:00 2022-10-28 00:00:00 Radha Baez, 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 RESEARCH TECH [id number] [facility] 2022-10-08 10:00:00 2022-10-08 10:30:00 Telemedici ne Visit Pascale Franco [facility] ..840.114 350.1.13.10 4.2.7.2.686 [id number] [facility] 2022-10-08 10:00:00 2022-10-08 10:00:00 Outpatient PASCALE FERRER [facility] [id number] [facility] 2022-09-29 00:00:00 2022-09-29 00:00:00 Patient Secure Eliana Shaw [facility] 1..840.114 350.1.13.10 4.2.7.2.686 [id number] [facility] 2022-09-28 00:00:00 2022-09-28 00:00:00 RefJoellen Madrigal [facility] 1.0.114 350.1.13.10 4.2.7.2.686 [id number] [facility] 2022-09-14 20:06:00 2022-09-14 23:51:00 Emergency X TYRA LEONG [facility] ERT [id number] [facility] 2022-09-14 20:06:00 2022-09-14 23:51:00 Emergency Tyra Leong S [facility] 1.0.114 350.1.13.10 4.2.7.2.686 [id number] [facility] 2022-09-03 09:30:00 2022-09-03 09:30:00 Outpatient Korina AUREANHUNG JOELLEN [facility] [id number] [facility] 2022-08-05 09:00:00 2022-08-05 09:30:00 Telemedici ne Visit [facility] 1..114 350.1.13.10 4.2.7.2.686 [id number] [facility] 2022-08-05 09:00:00 2022-08-05 09:00:00 Outpatient R PASCALE FRANCO [facility] [id number] [facility] 2022-05-27 00:00:00 2022-05-27 00:00:00 Orders Only Doctor Unassigned, [place] [facility] 1..114 350.1.13.10 4.2.7.2.686 [id number] [facility] 2022-04-29 09:00:00 2022-04-29 09:30:00 Telemedici ne Visit [facility] 1.0.114 350.1.13.10 4.2.7.2.686 [id number] [facility] 2022-04-29 09:00:00 2022-04-29 09:00:00 Outpatient PASCALE FERRER [facility] [id number] [facility] 2022-04-29 09:00:00 2022-04-29 09:00:00 Outpatient PASCALE FERRER [facility] [id number] [facility] 2022-04-14 00:00:00 2022-04-14 00:00:00 Telephone AdJoellen ndiaye [facility] 1..840.114 350.1.13.10 4.2.7.2.686 [id number] [facility] 2022-03-28 11:21:00 2022-03-28 12:35:00 Emergency X LAURA GEE [facility] [id number] [facility] 2022-03-28 11:21:00 2022-03-28 12:35:00 Emergency Laura Gee [facility] 1..840.114 350.1.13.10 4.2.7.2.686 [id number] [facility] 2022-02-24 00:00:00 2022-02-24 00:00:00 Patient Secure Msg Anel Geronimo [facility] 1..840.114 350.1.13.10 4.2.7.2.686 [id number] [facility] 2022-02-19 20:00:00 2022-02-19 20:51:59 Outpatient RADHA STEEL [facility] [id number] [facility] 2022-02-19 20:00:00 2022-02-19 20:20:00 Urgent Care Joleen Morejon Kimberly [facility] 1..840.114 350.1.13.10 4.2.7.2.686 [id number] [facility] 2022-02-09 00:00:00 2022-02-09 00:00:00 Patient Secure Joellen Vega [facility] 1..840.114 350.1.13.10 4.2.7.2.686 [id number] [facility] 2022-01-21 09:00:00 2022-01-21 09:30:00 Office Visit Pascale Franco [facility] 1.840.114 350.1.13.10 4.2.7.2.686 [id number] [facility] 2022-01-21 09:00:00 2022-01-21 09:00:00 Outpatient PASCALE FERRER [facility] [id number] [facility] 2022-01-20 12:00:00 2022-01-20 12:15:00 Human Resources Team Member Visit Pob, Adc Lab Main Salvador Pascale [facility] 1..840.114 350.1.13.10 4.2.7.2.686 [id number] [facility] 2022-01-20 12:00:00 2022-01-20 12:00:00 Outpatient R PASCALE FRANCO [facility] [id number] [facility] 2022-01-07 14:30:00 2022-01-07 14:30:00 Outpatient PASCALE FERRER [facility] [id number] [facility] 2021-12-12 13:00:00 2021-12-12 13:39:44 Outpatient GAETANO SHAVER [facility] [id number] [facility] 2021-12-12 13:00:00 2021-12-12 13:20:00 Urgent Care Gaetano Donaldson [facility] 1..840.114 350.1.13.10 4.2.7.2.686 [id number] [facility] 2021-11-27 00:00:00 2021-11-27 00:00:00 Patient Secure Msg [facility] 1.0.114 350.1.13.10 4.2.7.2.686 [id number] [facility] 2021-11-26 13:15:00 2021-11-26 13:30:00 Human Resources Team Member Visit [facility] 1..114 350.1.13.10 4.2.7.2.686 [id number] [facility] 2021-11-26 13:15:00 2021-11-26 13:15:00 Outpatient R SALVADOR [facility] [id number] [facility] 2021-11-26 12:30:00 2021-11-26 13:00:00 Office Visit [facility] 1..114 350.1.13.10 4.2.7.2.686 [id number] [facility] 2021-11-26 12:30:00 2021-11-26 12:30:00 Outpatient R SALVADOR PASCALE [facility] [id number] [facility] 2021-11-20 00:00:00 2021-11-20 00:00:00 Patient Secure Msg Doctor Unassigned, [place] [facility] 1..114 350.1.13.10 4.2.7.2.686 [id number] [facility] 2021-11-16 00:00:00 2021-11-16 00:00:00 Patient Secure Msg Anel Geronimo [facility]?DRAKEJade [facility] 1..114 350.1.13.10 4.2.7.2.686 [id number] [facility] 2021-11-12 17:16:00 2021-11-12 22:02:00 Emergency X RANDY NEWBY [facility] ERT [id number] [facility] 2021-11-12 17:16:00 2021-11-12 22:02:00 Emergency Randy Newby [facility] 1.2.840.114 350.1.13.10 4.2.7.2.686 [id number] [facility] 2021-11-12 17:16:00 2021-11-12 22:02:00 Emergency X RANDY NEWBY [facility] ERT [id number] [facility] 2021-11-12 15:00:00 2021-11-12 15:41:39 [facility] 1.2.840.114 350.1.13.10 4.2.7.2.686 [id number] [facility] 2021-11-12 15:00:00 2021-11-12 15:41:39 Outpatient R ANEL GERONIMO [facility] [id number] [facility] 2021-11-12 15:00:00 2021-11-12 15:30:00 Office Visit Anel Geronimo [facility] MED[facility] OFF[facility] 1.2.840.114 350.1.13.10 4.2.7.2.686 [id number] [facility] 2021-11-12 15:00:00 2021-11-12 15:00:00 Outpatient R ANEL GERONIMO [facility] [id number] [facility] 2021-11-12 15:00:00 2021-11-12 15:00:00 Outpatient R ANEL GERONIMO [facility] [id number] [facility] 2021-11-12 15:00:00 2021-11-12 15:00:00 Outpatient ANEL AMADOR [facility] [id number] [facility] 2021-11-10 13:54:00 2021-11-10 17:28:00 Emergency X BJORN LOPEZ [facility] ERT [id number] [facility] 2021-11-10 13:54:00 2021-11-10 17:28:00 Emergency Bjorn Lopez B [facility] 1.840.114 350.1.13.10 4.2.7.2.686 [id number] [facility] 2021-11-10 13:54:00 2021-11-10 17:28:00 Emergency X BJORN LOPEZ [facility] ERT [id number] [facility] 2021-10-09 09:00:00 2021-10-09 09:00:00 Outpatient JOELLEN BUCKNER [facility] [id number] [facility] 2021-10-03 19:34:00 2021-10-03 23:27:00 Emergency X Manjula GRIMES [facility] ERT [id number] [facility] 2021-10-03 19:34:00 2021-10-03 23:27:00 Emergency Manjula Grmies [facility] 1.840.114 350.1.13.10 4.2.7.2.686 [id number] [facility] 2021-10-03 00:00:00 2021-10-03 00:00:00 Orders Only Doctor Unassigned, [place] [facility] 1.840.114 350.1.13.10 4.2.7.2.686 [id number] [facility] 2021-10-02 10:00:00 2021-10-02 10:00:00 Outpatient JOELLEN BUCKNER [facility] [id number] [facility] 2021-10-01 13:30:00 2021-10-01 13:30:00 Outpatient R [facility]ILEY [facility] [id number] [facility] 2021-09-03 00:00:00 2021-09-03 00:00:00 [facility] 1.2.840.114 350.1.13.10 4.2.7.2.686 [id number] [facility] 2021-09-01 13:30:00 2021-09-01 15:05:26 Outpatient R HAILEY [facility] [id number] [facility] 2021-09-01 13:30:00 2021-09-01 15:05:26 Office Visit Hailey [facility] 1.2.840.114 350.1.13.10 4.2.7.2.686 [id number] [facility] 2021-09-01 13:30:00 2021-09-01 15:05:26 Outpatient R HAILEY [facility] [id number] [facility] 2021-06-02 14:00:00 2021-06-02 14:00:00 Outpatient R LUKE LEDY [facility] [id number] [facility] 2021-05-28 14:30:00 2021-05-28 14:30:00 Outpatient R HAILEY [facility] [id number] [facility] 2021-04-18 00:00:00 2021-04-18 00:00:[address] [facility] 1.2.840.114 350.1.13.10 4.2.7.2.686 [id number] [facility] 2021-04-17 10:26:23 2021-04-17 11:05:15 [facility] Office Building 1..840.114 350.1.13.10 4.2.7.2.686 [id number] [facility] 2021-04-17 10:20:00 2021-04-17 10:20:00 Outpatient R [facility] [id number] [facility] 2021-04-13 09:53:32 2021-04-13 11:15:31 Ancillary Visit Chely Billings [facility] Building 1..840.114 350.1.13.10 4.2.7.2.686 [id number] [facility] 2021-04-10 15:47:31 2021-04-10 16:22:11 Office Visit Anel Geronimo [facility] Office Building 1..840.114 350.1.13.10 4.2.7.2.686 [id number] [facility] 2021-04-10 16:00:00 2021-04-10 16:00:00 Outpatient R ANEL GERONIMO [facility] [id number] [facility] 2021-04-09 08:00:00 2021-04-09 11:22:37 Outpatient R SHANTI KING [facility] [id number] [facility] 2021-04-09 08:00:00 2021-04-09 11:22:37 Outpatient R SHANTI KING [facility] [id number] [facility] 2021-04-09 07:54:21 2021-04-09 11:22:37 Ancillary Visit Safia Aguirre [facility] Building 1..840.114 350.1.13.10 4.2.7.2.686 [id number] [facility] 2021-04-09 07:54:21 2021-04-09 11:22:37 Ancillary Visit Safia Aguirre [facility] Building 1..840.114 350.1.13.10 4.2.7.2.686 [id number] [facility] 2021-04-01 08:20:00 2021-04-01 08:20:00 Outpatient SRIKANTH PARKINSON HOW[facility] [id number] [facility] 2021-03-31 00:00:00 2021-03-31 00:00:00 Patient Secure MsAnel Nick [facility] OFFICE BUILDING ONE 1..840.114 350.1.13.10 4.2.7.2.686 [id number] [facility] 2021-03-24 11:19:00 2021-03-24 12:19:00 Office Visit Ezra Alaniz [facility] 1..840.114 350.1.13.10 4.2.7.2.686 [id number] [facility] 2021-03-24 11:30:00 2021-03-24 11:30:00 Outpatient EZRA WHALEN [facility] [id number] [facility] 2021-03-20 16:20:00 2021-03-20 16:20:00 Outpatient SRIKANTH PARKINSON [facility] [id number] [facility] 2021-03-20 09:46:15 2021-03-20 10:18:44 Office Visit Srikanth Dejes[facility]jit?Rosalind ar[facility] Office Building 1..840.114 350.1.13.10 4.2.7.2.686 [id number] [facility] 2021-03-17 08:00:00 2021-03-17 23:59:00 Hospital Encounter Shanina, Lala [facility] Medical Office Building 1.2840.114 350.1.13.10 4.2.7.2.686 [id number] [facility] 2021-03-17 08:00:00 2021-03-17 23:59:00 Outpatient R LALA ORTIZ [facility] [id number] [facility] 2021-03-17 08:00:00 2021-03-17 08:00:00 Outpatient R GABY [facility] [id number] [facility] 2021-03-17 00:00:00 2021-03-17 00:00:00 Orders Only Doctor Unassigned, [place] [facility] 1.2840.114 350.1.13.10 4.2.7.2.686 [id number] [facility] 2021-03-17 00:00:00 2021-03-17 00:00:[address] [facility] Medical Office Building 1.840.114 350.1.13.10 4.2.7.2.686 [id number] [facility] 2021-03-17 00:00:00 2021-03-17 00:00:[address] [facility] Medical Office Building 1.2840.114 350.1.13.10 4.2.7.2.686 [id number] [facility] 2021-03-06 08:53:54 2021-03-06 09:55:39 Office Visit Anel Geronimo [facility] Office Building One 1.2840.114 350.1.13.10 4.2.7.2.686 [id number] [facility] 2021-03-06 09:30:00 2021-03-06 09:30:00 Outpatient ANEL AMADOR [facility] [id number] [facility] 2021-03-06 00:00:00 2021-03-06 00:00:00 Telephone Srikanth Dejesus [facility] 1.2.840.114 350.1.13.10 4.2.7.2.686 [id number] [facility] 2021-03-06 00:00:00 2021-03-06 00:00:00 Telephone Srikanth Dejesus [facility] 1..840.114 350.1.13.10 4.2.7.2.686 [id number] [facility] 2021-02-25 11:30:00 2021-02-25 11:30:00 Outpatient Korina ANEL GERONIMO [facility] [id number] [facility] 2021-02-23 00:00:00 2021-02-23 00:00:00 Orders Only Doctor Unassigned, [place] [facility] 1.840.114 350.1.13.10 4.2.7.2.686 [id number] [facility] 2021-02-20 08:34:34 2021-02-20 10:15:20 Office Visit AbbySrikanth [facility] 1..840.114 350.1.13.10 4.2.7.2.686 [id number] [facility] 2021-02-20 08:40:00 2021-02-20 08:40:00 Outpatient SRIKANTH PARKINSON SRIKANTH [facility] [id number] [facility] 2021-02-17 00:00:00 2021-02-17 00:00:00 Orders Only Doctor Unassigned, [place] [facility] 1.2840.114 350.1.13.10 4.2.7.2.686 [id number] [facility] 2021-02-11 15:37:09 2021-02-11 16:50:15 Office Visit Anel Geronimo Jade [facility] Office Building One 1.2840.114 350.1.13.10 4.2.7.2.686 [id number] [facility] 2021-02-11 16:00:00 2021-02-11 16:00:00 Outpatient R ANEL GERONIMO [facility] [id number] [facility] 2021-02-07 04:14:00 2021-02-08 17:51:00 Hospital Encounter Ezra Alaniz [facility] 1.0.114 350.1.13.10 4.2.7.2.686 [id number] [facility] 2021-01-29 15:58:54 2021-01-29 23:59:00 Hospital Encounter Joellen Hart [facility] 1.840.114 350.1.13.10 4.2.7.2.686 [id number] [facility] 2021-01-29 15:58:54 2021-01-29 23:59:00 Hospital Encounter Joellen Hart [facility] 1.2840.114 350.1.13.10 4.2.7.2.686 [id number] 2021-01-29 00:00:00 2021-01-29 00:00:00 Outpatient R JOELLEN HART [facility] [id number] [facility] 2021-01-29 00:00:00 2021-01-29 00:00:00 Orders Only Doctor Unassigned, [place] [facility] 1.0.114 350.1.13.10 4.2.7.2.686 [id number] [facility] 2021-01-29 00:00:00 2021-01-29 00:00:00 Orders Only Doctor Unassigned, [place] [facility] 1.2.840.114 350.1.13.10 4.2.7.2.686 [id number] 2021-01-26 00:00:00 2021-01-26 00:00:00 Patient Secure Msg Doctor Unassigned, [place] [facility] 1.2.840.114 350.1.13.10 4.2.7.2.686 [id number] [facility] 2021-01-23 00:00:00 2021-01-23 00:00:00 Telephone Adum, Joellen Gutiérrez [facility] 1.2.840.114 350.1.13.10 4.2.7.2.686 [id number] [facility] 2021-01-23 00:00:00 2021-01-23 00:00:00 Telephone Adum, Joellen Gutiérrez [facility] Building 1.2.840.114 350.1.13.10 4.2.7.2.686 [id number] 2021-01-22 16:38:34 2021-01-22 16:53:34 Human Resources Team Member Visit Pob, Adc Lab Main Adum, Joellen Gutiérrez [facility] Building 1.2.840.114 350.1.13.10 4.2.7.2.686 [id number] [facility] 2021-01-22 14:41:29 2021-01-22 16:15:20 Office Visit Adnhung, Joellen Gutiérrez [facility] 1.2.840.114 350.1.13.10 4.2.7.2.686 [id number] [facility] 2021-01-22 16:15:00 2021-01-22 16:15:00 Outpatient R JOELLEN HART [facility] [id number] [facility] 2021-01-22 15:00:00 2021-01-22 15:00:00 Outpatient R HAILEY [facility] [id number] [facility] 2021-01-22 15:00:00 2021-01-22 15:00:00 Outpatient R HAILEY [facility] [id number] [facility] 2021-01-19 00:00:00 2021-01-19 00:00:00 Patient Secure Msg Anel Geronimo [facility] OFFICE BUILDING ONE .114 350.1.13.10 4.2.7.2.686 [id number] [facility] 2021-01-16 11:22:23 2021-01-16 11:42:23 Human Resources Team Member Visit Lab, Adc Fam Pob I Anel Geronimo [facility] Office Building One .114 350.1.13.10 4.2.7.2.686 [id number] [facility] 2021-01-16 10:16:56 2021-01-16 11:20:58 Office Visit Anel Geronimo [facility] Office Building One 114 350.1.13.10 4.2.7.2.686 [id number] [facility] 2021-01-16 10:30:00 2021-01-16 10:30:00 Outpatient R ANEL GERONIMO [facility] [id number] [facility] 2021-01-16 00:00:00 2021-01-16 00:00:00 Orders Only Doctor Unassigned, [place] [facility] .114 350.1.13.10 4.2.7.2.686 [id number] [facility] 2020-11-24 04:18:00 2020-11-24 04:18:00 Outpatient G_[facility]appas [facility] [id number] [facility] 2020-10-31 10:47:00 2020-10-31 23:59:00 Hospital Encounter Chely Gomez [facility] 1.2.840.114 350.1.13.10 4.2.7.2.686 [id number] [facility] 2020-10-31 10:47:00 2020-10-31 10:47:00 Outpatient R SAM LESLIE CHELY [facility] EHA [id number] [facility] 2020-10-16 00:00:00 2020-10-16 00:00:00 Orders Only Doctor Unassigned, [place] [facility] 1.2.840.114 350.1.13.10 4.2.7.2.686 [id number] [facility] 2020-07-10 02:18:00 2020-07-10 02:18:00 Outpatient G_Pappas [facility] [id number] [facility] 2020-06-27 06:16:00 2020-06-27 06:16:00 Outpatient AMBREEN_RITESH RAMON [facility] [id number] [facility] 2020-06-11 02:25:00 2020-06-11 02:25:00 Outpatient V_Landis [facility] [id number] [facility] 2020-04-22 07:01:00 2020-04-22 07:01:00 Outpatient V_Landis [facility] [id number] [facility] 2020-04-22 00:00:00 2020-04-22 00:00:00 Debbie Cabrera, NP: [address] [address], [place] [address] , Ph. [phone] [facility] [id number] [facility] 2020-04-21 03:52:00 2020-04-21 03:52:00 Outpatient Vivien [facility] [id number] 0928 [facility] Results Test Description Test Time Test Comments Results Resul t Comments Source XR Chest 1 vw 2024-08-25 21:34:15 Ordering Physician: BENY ULRICH Clinical Indication: chest pain; cough Additional Clinical Information: Technical Limitations: None Comparison: None Technique:Portab le chest obtained at 1430 hoursFindings: No infiltrate or effusion. Heart size and mediastinum are normal [facility] with [id number] 20:26:13* Test Item Value Reference Range Interpretation Comme nts WBC (test code = 6690-2) 9.93 4.30-11.10 RBC (test code = 789-8) 4.37 3.93-5.25 HGB (test code = 718-7) 12.7 g/dL 11.6-15.0 HCT (test code = 4544-3) 38.7 % 35.7-45.2 MCV (test code = 787-2) 88.6 fL 80.6-95.5 MCH (test code = 785-6) 29.1 pg 25.9-32.8 MCHC (test code = 786-4) 32.8 g/dL 31.6-35.1 RDW-SD (test code = 63489-0) 40.9 fL 39.0-49.9 RDW-CV (test code = 788-0) 12.6 % 12.0-15.5 PLT (test code = 777-3) 290 166-358 MPV (test code = 43445-4) 9.7 fL 9.5-12.9 NRBC/100 WBC (test code = 7871653987) 0.0 0.0-10.0 NRBC x10^3 (test code = 3265527683) See_Comment [Automated me ssage] The system which generated this result transmitted reference range: 10*3/?L. The reference range was not used to interpret this result as normal/abnormal. GRAN MAT (NEUT) % (test code = 770-8) 57.8 % IMM GRAN % (test code = 2609935901) 0.20 % LYMPH % (test code = 736-9) 32.0 % MONO % (test code = 5905-5) 5.8 % EOS % (test code = 713-8) 3.6 % BASO % (test code = 706-2) 0.6 % GRAN MAT x10^3(ANC) (test code = 5547648898) 5.73 10*3/uL 1.88-7.09 IMM GRAN x10^3 (test code = 0873400317) 0.00-0.06 LYMPH x10^3 (test code = 731-0) 3.18 10*3/uL 1.32-3.29 MONO x10^3 (test code = 742-7) 0.58 10*3/uL 0.33-0.92 EOS x10^3 (test code = 711-2) 0.36 10*3/uL 0.03-0.39 BASO x10^3 (test code = 704-7) 0.06 10*3/uL 0.01-0.07 [id number] 20:18:00* Test Item Value Reference Range Interpretation Comme nts POCT PREG (test code = 1605) Negative On board controls acceptable with C Line (test code = 3574) Yes POCT PREG LOT # (test code = 3575) [id number] POCT PREG TEST DATE ( test code = 3576) 09/24/2025 Lab Interpretation (test cod e = 55299-0) Normal [facility] [id number] 16:38:00* Test Item Value Reference Range Interpretation Comme nts SODIUM (test code = NA) 138 mEq/L 134-147 N POTASSIUM (test code = K) 4.0 mEq/L 3.4-5.0 N CHLORIDE (test code = CL) 106 mEq/L 100-108 N CARBON DIOXIDE (test code = CO2) 26 mEq/l 21-33 N ANION GAP (test code = GAP) 10 0-20 N GLUCOSE (test code = GLU) 114 mg/dL 77-141 N BLOOD UREA NITROGEN (test code = BUN) 10 mg/dL 7-25 N GLOMERULAR FILTRATION RATE (test code = GFR) 102.2 110-120 L The Glomerular Filtration Rate is a calculated parameterbased on serum Creatinine, patient age and sex. GFR valuesless than 60 mL/min/1.73 square meters are indicative ofChronic Kidney Disease. Values less than 15 mL/min/1.73square meters indicate Kidney failure. The calculation forGFR is based on the CKD-EPI (2020) calculation. This formulais race indifferent and is the recommended formula for GFRby the National Kidney Foundation for Adults.The GFR will not calculate if the sex is unknown or if thepatient's age is <18 years. CREATININE (test code = CREAT) 0.8 mg/dL 0.6-1.3 N CALCIUM (test code = CA) 9.7 mg/dL 8.0-10.5 N HEPATIC FUNCTION [id number] 16:38:00* Test Item Value Reference Range Interpretation Comme nts TOTAL PROTEIN (test code = PROT) 7.3 g/dL 5.7-8.2 N Note change in REFERENCE RANGE due to change in REAGENT. ALBUMIN (test code = ALB) 3.30 g/dL 3.4-5.0 L BILIRUBIN TOTAL (test code = BILT) 0.40 mg/dL 0.0-1.0 N BILIRUBIN DIRECT (test code = BILD) < 0.10 MG/DL 0.1-0.3 L BILIRUBIN INDIRECT (test code = BILIND) 0.30 MG/DL SGOT/AST (test code = AST) 14 IUnit/L 8-34 N SGPT/ALT (test code = ALT) 11 IUnit/L 10-49 N ALKALINE PHOSPHATASE TOTAL (test code = ALKP) 62 IUnit/L 20-125 N [id number] 16:38:00* Test Item Value Reference Range Interpretation Comme nts LIPASE (test code = LIP) 37 U/L 13-57 N HCG SERUM [id number] 16:27:00* Test Item Value Reference Range Interpretation Comme nts HCG SERUM QUAL (test code = HCGQL) SERUM NEGATIVE NEGATIVE CBC W/AUTO [id number] 16:18:00* Test Item Value Reference Range Interpretation Comme nts WHITE BLOOD CELL (test code = WBC) 8.1 x10 3/uL 4.5-11.0 N RED BLOOD CELL (test code = RBC) 4.22 x10 6/uL 3.54-5.02 N HEMOGLOBIN (test code = HGB) 12.3 g/dL 11.0-15.0 N HEMATOCRIT (test code = HCT) 37.3 % 33.0-45.0 N MEAN CELL VOLUME (test code = MCV) 88.4 fL 81.0-99.0 N MEAN CELL HGB (test code = MCH) 29.1 pg 27.0-33.0 N MEAN CELL HGB CONCETRATION (test code = MCHC) 33.0 g/dL 33.0-37.0 N RED CELL DISTRIBUTION WIDTH CV (test code = RDW) 12.7 % 11.5-14.5 N RED CELL DISTRIBUTION WIDTH SD (test code = RDW-SD) 41.1 fL 37.0-54.0 N PLATELET COUNT (test code = PLT) 265 x10 3/uL 150-400 N MEAN PLATELET VOLUME (test c ode = MPV) 9.7 fL 7.0-9.0 H NEUTROPHIL % (test code = NT%) 50.0 % 56.0-77.0 L IMMATURE GRANULOCYTE % (test code = IG%) 0.1 % 0.0-2.0 N LYMPHOCYTE % (test code = LY%) 38.7 % 14.0-32.0 H MONOCYTE % (test code = MO%) 7.0 % 4.8-9.0 N EOSINOPHIL % (test code = EO%) 3.3 % 0.3-3.7 N BASOPHIL % (test code = BA%) 0.9 % 0.0-2.0 N NUCLEATED RBC % (test code = NRBC%) 0.0 % 0-0 N NEUTROPHIL # (test code = NT#) 4.05 x10 3/uL 2.0-7.6 N IMMATURE GRANULOCYTE # (test code = IG#) 0.01 x10 3/uL 0.00-0.03 N LYMPHOCYTE # (test code = LY#) 3.14 x10 3/uL 1.0-3.8 N MONOCYTE # (test code = MO#) 0.57 x10 3/uL 0.1-0.8 N EOSINOPHIL # (test code = EO#) 0.27 x10 3/uL 0.0-0.2 H BASOPHIL # (test code = BA#) 0.07 x10 3/uL 0.0-0.2 N NUCLEATED RBC # (test code = NRBC#) 0.00 x10 3/uL 0.0-0.1 N UA RFLX MICR CULT IF [id number] 16:12:00* Test Item Value Reference Range Interpretation Comme nts UA COLOR (test code = COLU) YELLOW YEL/STRAW UA APPEARANCE (test code = APPU) CLOUDY CLEAR A UA GLUCOSE DIPSTICK (test co de = DGLUU) NEGATIVE NEGATIVE UA BILIRUBIN DIPSTICK (test code = BILU) NEGATIVE NEGATIVE UA KETONE DIPSTICK (test cod e = KETU) NEGATIVE NEGATIVE UA SPECIFIC GRAVITY (test co de = SGU) 1.016 1.005-1.030 N UA BLOOD DIPSTICK (test code = GINGER) NEGATIVE NEGATIVE UA PH DIPSTICK (test code = MIKEY) 8.0 5.0-7.0 H UA PROTEIN DIPSTICK (test co de = PROU) NEGATIVE NEGATIVE UA UROBILINIOGEN DIPSTICK (t est code = URO) 0.2 mg/dL 0.2-1.0 UA NITRITE DIPSTICK (test co de = ALEXA) NEGATIVE NEGATIVE UA LEUKOCYTE ESTERASE DIPSTI CK (test code = LEUU) 3+ NEGATIVE A UA WBC (test code = WBCU) 10-20 WBC/HPF 0-3 A UA RBC (test code = RBCU) 0-3 RBC/HPF 0-3 UA WBC NO REFLEX (test code = WBCUCL) 10-20 WBC/HPF 0-3 A UA BACTERIA (test code = BACU) 1+ /HPF NONE SEEN A UA SQUAMOUS CELLS (test code = SQU) 6-10 /HPF NONE SEEN A UA MUCUS (test code = MUCU) TRACE /LPF NONE SEEN Indication for culture: Flank PainSpecimen Description: CLEAN CATCHCOMP. METABOLIC PANEL ([id number])2023-04-25 01:47:31* Test Item Value Reference Range Interpretation Comme nts NA (test code = 7829666262) 141 mmol/L 135-145 K (test code = 7978533197) 3.2 mmol/L 3.5-5.0 L CL (test code = 6821970568) 103 mmol/L 98-108 CO2 TOTAL (test code = 8441264445) 29 mmol/L 23-31 AGAP (test code = 6445535579) 9 2-16 BUN (test code = 3828806643) 14 mg/dL 7-23 GLUCOSE (test code = 0994189992) 107 mg/dL 70-110 CREATININE (test code = 9462959773) 0.70 mg/dL 0.50-1.04 TOTAL BILI (test code = 6675073473) 0.5 mg/dL 0.1-1.1 CALCIUM (test code = 8436078276) 9.5 mg/dL 8.6-10.6 T PROTEIN (test code = 7703253255) 7.9 g/dL 6.3-8.2 ALBUMIN (test code = 8990242173) 4.2 g/dL 3.5-5.0 ALK PHOS (test code = 3971045246) 75 U/L 34-122 ALTv (test code = 1742-6) 33 U/L 5-35 AST(SGOT) (test code = 6049735119) 28 U/L 13-40 eGFR (test code = 8522228351) 99.6 mL/min/1.73m2 RABIA (test code = RABIA) [...] imaging tests). Lab Interpretation (test code = 76871-9) [facility] 01:47:31* Test Item Value Reference Range Interpretation Comme nts MAGNESIUM (test code = 9954813256) 1.9 mg/dL 1.7-2.4 Lab Interpretation (test cod e = 23668-0) [facility] 01:47:11* Test Item Value Reference Range Interpretation Comme nts LIPASE (test code = 9661438996) 69 U/L 0-220 Lab Interpretation (test cod e = 21245-0) [facility] WITH [id number] 01:18:29* Test Item Value Reference Range Interpretation Comme nts WBC (test code = 6690-2) 10.31 See_Comment [Automated [employer]] The system which generated this result transmitted reference range: 4.30 - 11.10 10*3/?L. The reference range was not used to interpret this result as normal/abnormal. RBC (test code = 789-8) 4.55 See_Comment [Automated messa ge] The system which generated this result transmitted reference range: 3.93 - 5.25 10*6/?L. The reference range was not used to interpret this result as normal/abnormal. HGB (test code = 718-7) 13.4 g/dL 11.6-15.0 HCT (test code = 4544-3) 40.0 % 35.7-45.2 MCV (test code = 787-2) 87.9 fL 80.6-95.5 MCH (test code = 785-6) 29.5 pg 25.9-32.8 MCHC (test code = 786-4) 33.5 g/dL 31.6-35.1 RDW-SD (test code = 73806-5) 41.6 fL 39.0-49.9 RDW-CV (test code = 788-0) 13.0 % 12.0-15.5 PLT (test code = 777-3) 275 See_Comment [Automated [employer] ge] The system which generated this result transmitted reference range: 166 - 358 10*3/?L. The reference range was not used to interpret this result as normal/abnormal. MPV (test code = 45243-9) 10.3 fL 9.5-12.9 NRBC/100 WBC (test code = 7488268485) 0.0 See_Comment [Automated [employer]age] The system which generated this result transmitted reference range: 0.0 - 10.0 /100 WBCs. The reference range was not used to interpret this result as normal/abnormal. NRBC x10^3 (test code = 2714806190) See_Comment [Automated [employer] ge] The system which generated this result transmitted reference range: 10*3/?L. The reference range was not used to interpret this result as normal/abnormal. GRAN MAT (NEUT) % (test code = 770-8) 55.0 % IMM GRAN % (test code = 6726251184) 0.20 % LYMPH % (test code = 736-9) 33.9 % MONO % (test code = 5905-5) 6.7 % EOS % (test code = 713-8) 3.4 % BASO % (test code = 706-2) 0.8 % GRAN MAT x10^3(ANC) (test code = 8315160480) 5.67 10*3/uL 1.88-7.09 IMM GRAN x10^3 (test code = 1696870769) 0.00-0.06 LYMPH x10^3 (test code = 731-0) 3.50 10*3/uL 1.32-3.29 H MONO x10^3 (test code = 742-7) 0.69 10*3/uL 0.33-0.92 EOS x10^3 (test code = 711-2) 0.35 10*3/uL 0.03-0.39 BASO x10^3 (test code = 704-7) 0.08 10*3/uL 0.01-0.07 H Lab Interpretation (test code = 35793-9) Abnormal [facility] [id number] 00:47:00* Test Item Value Reference Range Interpretation Comme nts POCT PREG (test code = 1605) Negative On board controls acceptable with C Line (test code = 3574) Yes POCT PREG LOT # (test code = 3575) [id number] POCT PREG TEST DATE ( test code = 3576) 10/02/2024 Lab Interpretation (test cod e = 18000-7) Normal [facility] [id number] 15:38:00* Test Item Value Reference Range Interpretation Comme nts POCT PREG (test code = 1605) Negative On board controls acceptable with C Line (test code = 3574) Yes POCT PREG LOT # (test code = 3575) [id number] POCT PREG TEST DATE ( test code = 3576) 04/29/2024 Lab Interpretation (test cod e = 39549-5) Normal [facility] with [id number] 03:32:34* Test Item Value Reference Range Interpretation Comme nts WBC (test code = 6690-2) 11.10 See_Comment [Automated messa ge] The system which generated this result transmitted reference range: 4.30 - 11.10 10*3/?L. The reference range was not used to interpret this result as normal/abnormal. RBC (test code = 789-8) 4.64 See_Comment [Automated [employer] ge] The system which generated this result transmitted reference range: 3.93 - 5.25 10*6/?L. The reference range was not used to interpret this result as normal/abnormal. HGB (test code = 718-7) 13.4 g/dL 11.6-15.0 HCT (test code = 4544-3) 40.5 % 35.7-45.2 MCV (test code = 787-2) 87.3 fL 80.6-95.5 MCH (test code = 785-6) 28.9 pg 25.9-32.8 MCHC (test code = 786-4) 33.1 g/dL 31.6-35.1 RDW-SD (test code = 26901-5) 41.4 fL 39.0-49.9 RDW-CV (test code = 788-0) 12.9 % 12.0-15.5 PLT (test code = 777-3) 306 See_Comment [Automated messa ge] The system which generated this result transmitted reference range: 166 - 358 10*3/?L. The reference range was not used to interpret this result as normal/abnormal. MPV (test code = 71722-2) 10.0 fL 9.5-12.9 NRBC/100 WBC (test code = 5708881857) 0.0 See_Comment [Automated [employer] ssage] The system which generated this result transmitted reference range: 0.0 - 10.0 /100 WBCs. The reference range was not used to interpret this result as normal/abnormal. NRBC x10^3 (test code = 3698875394) See_Comment [Automated messa ge] The system which generated this result transmitted reference range: 10*3/?L. The reference range was not used to interpret this result as normal/abnormal. GRAN MAT (NEUT) % (test code = 770-8) 43.9 % IMM GRAN % (test code = 0310107936) 0.30 % LYMPH % (test code = 736-9) 44.2 % MONO % (test code = 5905-5) 8.0 % EOS % (test code = 713-8) 2.8 % BASO % (test code = 706-2) 0.8 % GRAN MAT x10^3(ANC) (test code = 8228949081) 4.87 10*3/uL 1.88-7.09 IMM GRAN x10^3 (test code = 8085349545) 0.03 10*3/uL 0.00-0.06 LYMPH x10^3 (test code = 731-0) 4.91 10*3/uL 1.32-3.29 H MONO x10^3 (test code = 742-7) 0.89 10*3/uL 0.33-0.92 EOS x10^3 (test code = 711-2) 0.31 10*3/uL 0.03-0.39 BASO x10^3 (test code = 704-7) 0.09 10*3/uL 0.01-0.07 H Lab Interpretation (test code = 93420-0) [facility] Center[facility] Metabolic Sgcdl3589-77-27 03:02:43* Test Item Value Reference Range Interpretation Comme nts NA (test code = 4948091336) 140 mmol/L 135-145 K (test code = 2701329098) 4.6 mmol/L 3.5-5.0 CL (test code = 7222601181) 105 mmol/L 98-108 CO2 TOTAL (test code = 8577213523) 27 mmol/L 23-31 AGAP (test code = 1519337922) 8 2-16 BUN (test code = 6156709633) 12 mg/dL 7-23 GLUCOSE (test code = 0227636536) 85 mg/dL 70-110 CREATININE (test code = 5438498618) 0.61 mg/dL 0.50-1.04 TOTAL BILI (test code = 1577638544) 1.2 mg/dL 0.1-1.1 H CALCIUM (test code = 8256897596) 9.4 mg/dL 8.6-10.6 T PROTEIN (test code = 0365091807) 8.1 g/dL 6.3-8.2 ALBUMIN (test code = 6476875845) 4.7 g/dL 3.5-5.0 ALK PHOS (test code = 0988223579) 67 U/L 34-122 ALTv (test code = 1742-6) 28 U/L 5-35 AST(SGOT) (test code = 6017599406) 30 U/L 13-40 eGFR (test code = 0607418229) 117.7 mL/min/1.73m2 RABIA (test code = RABIA) Association [...] imaging tests). Lab Interpretation (test code = 23842-8) [facility] CenterLipase, [id number] 03:02:43* Test Item Value Reference Range Interpretation Comme nts LIPASE (test code = 6486498857) 56 U/L 0-220 Lab Interpretation (test cod e = 58189-1) Normal [facility] Umzk6040-46-77 02:30:00* Test Item Value Reference Range Interpretation Comme nts POCT PREG (test code = 1605) negative On board controls acceptable with C Line (test code = 3574) present POCT PREG LOT # (test code = 3575) [id number] POCT PREG TEST DATE ( test code = 3576) 10/23/2023 Lab Interpretation (test cod e = 85669-1) Normal [facility] [id number] 16:29:00* Test Item Value Reference Range Interpretation Comme nts POCT PREG (test code = 1605) negative On board controls acceptable with C Line (test code = 3574) present POCT PREG LOT # (test code = 3575) [id number] POCT PREG TEST DATE ( test code = 3576) 06/23/2023 Lab Interpretation (test cod e = 38774-4) Normal [facility] CenterVITAMIN B12, [id number] 18:13:43* Test Item Value Reference Range Interpretation Comme nts VIT B12 (test code = 5908505257) 239 pg/mL 240-930 L RABIA (test code = RABIA) Biotin has been reported to cause a positive bias, interpret results relative to patient's use of biotin. Lab Interpretation (test code = 93944-0) [facility]2021-07-18 15:05:18* Test Item Value Reference Range Interpretation Comme nts MAGNESIUM (test code = 8750475179) 2.1 mg/dL 1.7-2.4 Lab Interpretation (test cod e = 96110-1) Normal [facility] CenterMR CERVICAL SPINE WO [id number] 15:01:17Unremarkable MRA head. No significant abnormalities in the MRI cervical spine. The right vertebral artery origin is not clearly identified due toartifact. The visualized right vertebral artery demonstrates noabnormality. The MRA neck is otherwise unremarkable. No evidence of venous sinus thrombosis. HISTORY:left sided weakness TECHNIQUE: MRI of the cervical spine was performed without IV contrast.MRAof the head was performed without IV contrast. MR venogram was performedwithout IV contrast. MRAof the neck was performed with IV contrast COMPARISON:None. FINDINGS: MRI cervical spine: There is straightening of the normal cervical lordosis. The vertebral bodyheights are preserved. No acute fractures are seen. The cervical spinal cord demonstrates normal signal intensity. Nodegenerative changes, spinal canal stenosis. MR ANGIOGRAPHY OF THE [place]: The PICA origin is visualized [...] are otherwise patent without evidence of venousthrombosis. [facility] Results Inft User - 02/08/2021 10:02 AM CDT HISTORY:left sided weakness TECHNIQUE: MRI of the cervical spine was performed without IV contrast. MRAof the head was performed without IV contrast. MR venogram was performedwithout IV contrast. MRA of the neck was performed with IV contrastCOMPARISON:None.FINDINGS:MRI cervical spine:There is straightening of the normal cervical lordosis. The vertebral bodyheights are preserved. No acute fractures are seen.The cervical spinal cord demonstrates normal signal intensity. Nodegenerative changes, spinal canal stenosis.MR ANGIOGRAPHY OF THE [place]:The PICA origin is visualized on [...] is otherwise unremarkable.No evidence of venous sinus thrombosis.[facility]MR AN[facility] HEAD WO [id number] 15:01:17Unremarkable MRA head. No significant abnormalities in the MRI cervical spine. The right vertebral artery origin is not clearly identified due toartifact. The visualized right vertebral artery demonstrates noabnormality. The MRA neck is otherwise unremarkable. No evidence of venous sinus thrombosis.HISTORY:left sided weakness TECHNIQUE: MRI of the cervical spine was performed without IV contrast.MRAof the head was performed without IV contrast. MR venogram was performedwithout IV contrast. MRA of the neck was performed with IV contrast COMPARISON:None. FINDINGS: MRI cervical spine: There is straightening of the normal cervical lordosis. The vertebral bodyheights are preserved. No acute fractures are seen. The cervical spinal cord demonstrates normal signal intensity. Nodegenerative changes, spinal canal stenosis. MR ANGIOGRAPHY OF THE [place]: The PICA origin is visualized [...] are otherwise patent without evidence of venousthrombosis. [facility] Inft User - 02/08/2021 10:02 AM CDT HISTORY:left sided weakness TECHNIQUE: MRI of the cervical spine was performed without IV contrast. MRAof the head was performed without IV contrast. MR venogram was performedwithout IV contrast. MRA of the neck was performed with IV contrastCOMPARISON:None.FINDINGS:MRI cervical spine:There is straightening of the normal cervical lordosis. The vertebral bodyheights are preserved. No acute fractures are seen.The cervical spinal cord demonstrates normal signal intensity. Nodegenerative changes, spinal canal stenosis.MR ANGIOGRAPHY OF THE [place]:The PICA origin is visualized on [...] is otherwise unremarkable.No evidence of venous sinus thrombosis.[facility] CenterMR VENOGRAM HEAD WO [id number] 15:01:17Unremarkable MRA head. No significant abnormalities in the MRI cervical spine. The right vertebral artery origin is not clearly identified due toartifact. The visualized right vertebral artery demonstrates noabnormality. The MRA neck is otherwise unremarkable. No evidence of venous sinus thrombosis.HISTORY:left sided weakness TECHNIQUE: MRI of the cervical spine was performed without IV contrast.MRAof the head was performed without IV contrast. MR venogram was performedwithout IV contrast. MRA of the neck was performed with IV contrast COMPARISON:None. FINDINGS: MRI cervical spine: There is straightening of the normal cervical lordosis. The vertebral bodyheights are preserved. No acute fractures are seen. The cervical spinal cord demonstrates normal signal intensity. Nodegenerative changes, spinal canal stenosis. MR ANGIOGRAPHY OF THE [place]: The PICA origin is visualized [...] are otherwise patent without evidence of venousthrombosis. [facility] Inft User - 02/08/2021 10:02 AM CDT HISTORY:left sided weakness TECHNIQUE: MRI of the cervical spine was performed without IV contrast. MRAof the head was performed without IV contrast. MR venogram was performedwithout IV contrast. MRA of the neck was performed with IV contrastCOMPARISON:None.FINDINGS:MRI cervical spine:There is straightening of the normal cervical lordosis. The vertebral bodyheights are preserved. No acute fractures are seen.The cervical spinal cord demonstrates normal signal intensity. Nodegenerative changes, spinal canal stenosis.MR ANGIOGRAPHY OF THE [place]:The PICA origin is visualized on [...] is otherwise unremarkable.No evidence of venous sinus thrombosis.[facility] CenterMR ANGIOGRAM NECK W WO [id number] 15:01:17Unremarkable MRA head. No significant abnormalities in the MRI cervical spine. The right vertebral artery origin is not clearly identified due toartifact. The visualized right vertebral artery demonstrates noabnormality. The MRA neck is otherwise unremarkable. No evidence of venous sinus thrombosis.HISTORY:left sided weakness TECHNIQUE: MRI of the cervical spine was performed without IV contrast.MRAof the head was performed without IV contrast. MR venogram was performedwithout IV contrast. MRA of the neck was performed with IV contrast COMPARISON:None. FINDINGS: MRI cervical spine: There is straightening of the normal cervical lordosis. The vertebral bodyheights are preserved. No acute fractures are seen. The cervical spinal cord demonstrates normal signal intensity. Nodegenerative changes, spinal canal stenosis. MR ANGIOGRAPHY OF THE [place]: The PICA origin is visualized [...] are otherwise patent without evidence of venousthrombosis. [facility] Inft User - 02/08/2021 10:02 AM CDT HISTORY:left sided weakness TECHNIQUE: MRI of the cervical spine was performed without IV contrast. MRAof the head was performed without IV contrast. MR venogram was performedwithout IV contrast. MRA of the neck was performed with IV contrastCOMPARISON:None.FINDINGS:MRI cervical spine:There is straightening of the normal cervical lordosis. The vertebral bodyheights are preserved. No acute fractures are seen.The cervical spinal cord demonstrates normal signal intensity. Nodegenerative changes, spinal canal stenosis.MR ANGIOGRAPHY OF THE [place]:The PICA origin is visualized on [...] is otherwise unremarkable.No evidence of venous sinus thrombosis.[facility] CenterThyroid Stimulating [id number] 22:45:37* Test Item Value Reference Range Interpretation Comme nts TSH (test code = 5217841437) See_Comment [Automated messa [employer]] The system which generated this result transmitted reference range: 0.45 - 4.70 mIU/L. The reference range was not used to interpret this result as normal/abnormal. Lab Interpretation (test code = 75336-6) Normal [facility] CenterBASI METABOLIC PANEL (NA, K, CL, CO2, GLUCOSE, BUN, CREATININE, CA)2021-02-07 22:28:15* Test Item Value Reference Range Interpretation Comme nts NA (test code = 9780987329) 142 mmol/L 135-145 K (test code = 0516789509) 3.7 mmol/L 3.5-5.0 CL (test code = 1545314372) 111 mmol/L 98-108 H CO2 TOTAL (test code = 7304598924) 19 mmol/L 23-31 L AGAP (test code = 6656392552) 2-16 BUN (test code = 4123606007) 11 mg/dL 7-23 GLUCOSE (test code = 4097660572) 47 mg/dL 70-110 LL CREATININE (test code = 6958572230) 0.50 mg/dL 0.50-1.04 CALCIUM (test code = 4744475848) 8.8 mg/dL 8.6-10.6 eGFR (test code = 7631533225) mL/min/1.73m2 RABIA (test code = RABIA) Association [...] imaging tests). Lab Interpretation (test code = 58010-7) Abnormal [facility] WITH [id number] 21:56:18* Test Item Value Reference Range Interpretation Comme nts WBC (test code = 6690-2) See_Comment [Automated [employer]] The system which generated this result transmitted reference range: 4.30 - 11.10 10*3/?L. The reference range was not used to interpret this result as normal/abnormal. RBC (test code = 789-8) See_Comment [Automated [employer] ge] The system which generated this result transmitted reference range: 3.93 - 5.25 10*6/?L. The reference range was not used to interpret this result as normal/abnormal. HGB (test code = 718-7) 11.6 g/dL 11.6-15.0 HCT (test code = 4544-3) 36.2 % 35.7-45.2 MCV (test code = 787-2) 89.4 fL 80.6-95.5 MCH (test code = 785-6) 28.6 pg 25.9-32.8 MCHC (test code = 786-4) 32.0 g/dL 31.6-35.1 RDW-SD (test code = 93084-3) 42.5 fL 39.0-49.9 RDW-CV (test code = 788-0) 13.0 % 12.0-15.5 PLT (test code = 777-3) See_Comment [Automated [employer]] The system which generated this result transmitted reference range: 166 - 358 10*3/?L. The reference range was not used to interpret this result as normal/abnormal. MPV (test code = 32615-9) 11.1 fL 9.5-12.9 NRBC/100 WBC (test code = 6856279447) See_Comment [Automated [employer] ssage] The system which generated this result transmitted reference range: 0.0 - 10.0 /100 WBCs. The reference range was not used to interpret this result as normal/abnormal. NRBC x10^3 (test code = 7038239823) <0.01 See_Comment [Automated [employer] ssage] The system which generated this result transmitted reference range: 10*3/?L. The reference range was not used to interpret this result as normal/abnormal. GRAN MAT (NEUT) % (test code = 770-8) 56.9 % IMM GRAN % (test code = 7605333998) 0.20 % LYMPH % (test code = 736-9) 34.2 % MONO % (test code = 5905-5) 7.0 % EOS % (test code = 713-8) 0.9 % BASO % (test code = 706-2) 0.8 % GRAN MAT x10^3(ANC) (test code = 5529676723) 5.06 10*3/uL 1.88-7.09 IMM GRAN x10^3 (test code = 0343708847) <0.03 0.00-0.06 LYMPH x10^3 (test code = 731-0) 3.04 10*3/uL 1.32-3.29 MONO x10^3 (test code = 742-7) 0.62 10*3/uL 0.33-0.92 EOS x10^3 (test code = 711-2) 0.08 10*3/uL 0.03-0.39 BASO x10^3 (test code = 704-7) 0.07 10*3/uL 0.01-0.07 [facility]MR STROKE BRAIN WO [id number] 14:15:04 Unremarkable brain MRI.HISTORY:Neuro deficit, acute, stroke suspected TECHNIQUE: MRI of the brain was performed without IV contrast. COMPARISON: None. FINDINGS: The ventricles and sulci are within normal limits for patient's age. There is no midline shift. The basal cisterns are preserved. There isno diffusion restriction to suggest an acute infarct. No pathological extra-axial fluid collection is seen. No abnormal foci ofgradient blooming is identified. [facility], Radiant Results Inft User - 02/07/2021 9:16 AM CDT HISTORY:Neuro deficit,acute, stroke suspected TECHNIQUE: MRI of the brain was performed without IV contrast.COMPARISON: No ne.FINDINGS: The ventricles and sulci are within normal limits for patient's age.There is no midline shift. The basal cisterns are preserved.There is no diffusion restriction to suggest an acute infarct.No pathological extra-axial fluid collection is seen. No abnormal foci ofgradient blooming is identified. IMPRESSIONUnremarkable brain MRI.[facility] Notes Date/Time Note Provider Source 2024-08-25 16:06:14 Pt given printed and verbal discharge instructions regarding vomiting, encouraged hydration, Prescriptions provided Pt verbalized understanding of instructions, pt awake alert oriented, resp reg unlabored, skin w/d, color appropriate for race, moves all ext well,pt encouraged to follow up with pcp . Advised to seek medical attention for new/prolonged/worsening of symptoms. No adverse reaction to meds given in ER noted upon discharge PIV d'cd, dressing to site, catheter in tact. 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 Reports eating [employer] 30 minutes ago and started vomiting blood. Complains of chest wall tenderness from having a cough for a week. 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 Denies diarrhea, fever. Reports several days of cough, w/ a few specks of blood in the sputum earlier today. History provided by: Patient Past Medical History/Immunizations: Past Medical History: Diagnosis Date Anemia Anxiety 08/06/2019 Female infertility History of adenoidectomy History of PCOS Menstrual disorder PCOS (polycystic ovarian syndrome) Prediabetes S/P tonsillectomy Tetanus received in last 5 years: No Allergies: Allergies Allergen Reactions Nsaids (Non-Steroidal Anti-Inflammatory Drug) Swelling and Anaphylaxis Ibuprofen Swelling and Anaphylaxis Past Social History: Tobacco Use Never smoked or used smokeless tobacco. Vaping Use Never used Alcohol Use Yes. Comments: Socially Drug Use No. Sexual Activity Sexually active; Partners: Male; Control/Protection: None. Past Surgical History: Past Surgical History: Procedure Laterality Date CHOLECYSTECTOMY MYRINGOTOMY several surgeries TONSILLECTOMY WITH ADENOIDECTOMY 2014 TOOTH EXTRACTION Review of Systems: Review of Systems Constitutional: Negative for activity change, appetite change, chills, diaphoresis, fatigue and fever. HENT: Negative for congestion, ear discharge, ear pain, facial swelling, hearing loss, sore throat, tinnitus, trouble swallowing and voice change. Eyes: Negative for photophobia, pain, discharge, redness, itching and visual disturbance. Respiratory: Positive for cough. Negative for apnea, choking, chest tightness, shortness of breath and stridor. Breasts: Negative for discharge. Cardiovascular: Positive for chest pain. Negative for palpitations and leg swelling. Gastrointestinal: Positive for nausea and vomiting. Negative for abdominal distention, abdominal pain, blood in stool and diarrhea. Genitourinary: Negative for dysuria, frequency, hematuria, flank pain, enuresis and difficulty urinating. Musculoskeletal: Negative for arthralgias, back pain, gait problem, joint swelling, myalgias, neck pain and neck stiffness. Skin: Negative for color change, pallor, rash and wound. Neurological: Negative for dizziness, syncope, facial asymmetry, speech difficulty, weakness, light-headedness and headaches. Psychiatric/Behavioral: Negative for agitation, confusion, hallucinations and self-injury. The patient is not nervous/anxious. Hematological: Negative for adenopathy, cold intolerance and heat intolerance. Does not bruise/bleed easily. Endocrine: Negative for cold intolerance, heat intolerance, polydipsia and polyphagia. Physical Exam: ED Triage Vitals [08/25/24 1352] Weight 104.8 kg (231 lb) Actual or estimated Actual Height 1.575 m (5' 2") BP (!) 127/96 Pulse 84 Resp 16 Temp 36.8 ?C (98.2 ?F) Temp source Oral SpO2 100 % Measured on Room air Physical Exam Constitutional: General: She is not in acute distress. Appearance: She is well-developed. She is not diaphoretic. HENT: Head: Normocephalic and atraumatic. Right Ear: External ear normal. Left Ear: External ear normal. Eyes: General: No scleral icterus. Right eye: No discharge. Left eye: No discharge. Neck: Trachea: No tracheal deviation. Cardiovascular: Rate and Rhythm: Normal rate and regular rhythm. Heart sounds: Normal heart sounds. Pulmonary: Effort: Pulmonary effort is normal. No respiratory distress. Breath sounds: Normal breath sounds. No stridor. No wheezing or rales. Abdominal: General: There is no distension. Palpations: Abdomen is soft. Tenderness: There is no abdominal tenderness. There is no guarding. Musculoskeletal: General: No tenderness or deformity. Normal range of motion. Cervical back: Normal range of motion and neck supple. Skin: General: Skin is warm. Coloration: Skin is not pale. Findings: No erythema or rash. Neurological: Mental Status: She is alert and oriented to person, place, and time. Motor: No abnormal muscle tone. Psychiatric: Behavior: Behavior normal. Thought Content: Thought content normal. Judgment: Judgment normal. Radiology: XR Chest 1 vw Final Result Ordering Physician: BENY ULRICH Clinical Indication: chest pain; cough Additional Clinical Information: Technical Limitations: None Comparison: None Technique: Portable chest obtained at 1430 hours Findings: No infiltrate or effusion. Heart size and mediastinum are normal IMPRESSION No active pulmonary disease. END OF REPORT Lab Results: Lab Results COMP. METABOLIC PANEL (35827) - Abnormal Result Value Ref Range NA 138 135 - 145 mmol/L K 3.9 3.5 - 5.0 mmol/L CL 105 98 - 108 mmol/L CO2 TOTAL 27 23 - 31 mmol/L AGAP 6 2 - 16 BUN 15 7 - 23 mg/dL GLUCOSE 116 (*) 70 - 110 mg/dL CREATININE 0.68 0.50 - 1.04 mg/dL TOTAL BILI 0.7 0.1 - 1.1 mg/dL CALCIUM 9.3 8.6 - 10.6 mg/dL T PROTEIN 7.8 6.3 - 8.2 g/dL ALBUMIN 4.1 3.5 - 5.0 g/dL ALK PHOS 62 34 - 122 U/L ALTv 14 5 - 35 U/L AST(SGOT) 54 (*) 13 - 40 U/L eGFR 121.1 mL/min/1.73m2 POCT TEST - Normal POCT PREG Negative On board controls acceptable with C Line Yes POCT PREG LOT # [id number] POCT PREG TEST DATE 09/24/2025 INFLUENZA A/B RSV COVID NAAT - Normal Influenza A NAAT Negative Negative Influenza B NAAT Negative Negative RSV by PCR Negative Negative SARS-CoV-2 NAAT Negative Negative CBC WITH DIFF WBC 9.93 4.30 - 11.10 10*3/?L RBC 4.37 3.93 - 5.25 10*6/?L HGB 12.7 11.6 - 15.0 g/dL HCT 38.7 35.7 - 45.2 % MCV 88.6 80.6 - 95.5 fL MCH 29.1 25.9 - 32.8 pg MCHC 32.8 31.6 - 35.1 g/dL RDW-SD 40.9 39.0 - 49.9 fL RDW-CV 12.6 12.0 - 15.5 % PLT 290 166 - 358 10*3/?L MPV 9.7 9.5 - 12.9 fL NRBC/100 WBC 0.0 0.0 - 10.0 /100 WBCs NRBC x10 3 <0.01 10*3/?L GRAN MAT (NEUT) % 57.8 % IMM GRAN % 0.20 % LYMPH % 32.0 % MONO % 5.8 % EOS % 3.6 % BASO % 0.6 % GRAN MAT x10 3 (ANC) 5.73 1.88 - 7.09 10*3/uL IMM GRAN x10 3 <0.03 0.00 - 0.06 10*3/uL LYMPH x10 3 3.18 1.32 - 3.29 10*3/uL MONO x10 3 0.58 0.33 - 0.92 10*3/uL EOS x10 3 0.36 0.03 - 0.39 10*3/uL BASO x10 3 0.06 0.01 - 0.07 10*3/uL EKG: If EKG completed, see Procedure Note. Orders and Treatments: Orders Placed This Encounter Procedures XR Chest 1 vw POCT Test Cbc with Diff Comp. Metabolic Panel (76837) Influenza A B RSV COVID NAAT Lab Only COVID Interpretation Orders Placed This Encounter Medications metoclopramide HCl (REGLAN) injection 10 mg pantoprazole (PROTONIX) 80 mg in NaCl 0.9% (NS) 20 mL syringe benzonatate 100 mg capsule ondansetron 4 mg disintegrating tablet First Provider Eval: ED Events Date/Time Event User Comments 08/25/24 1349 Medical Screening Begins BENY ULRICH MD -- 08/25/24 1349 First Provider Evaluation BENY ULRICH MD -- ED COURSE Diagnosis/Impression as of 08/25/24 1559 Vomiting, unspecified vomiting type, unspecified whether nausea present Procedures: Procedures MDM: Medical Decision Making DDx incl food poisoning, viral syndrome, PNA, hematemesis, bronchitis, et al PT symptomatically improved, NAD, and motivated for d/c. Amount and/or Complexity of Data Reviewed Labs: ordered. Radiology: ordered. Risk Prescription drug management. Flowsheet Documentation: Disposition/Condition: ED Disposition ED Disposition Discharge Condition Stable Comment -- Discharge Medications: Patient's Medications START taking these medications BENZONATATE 100 MG CAPSULE Take 1 capsule by mouth 3 (three) times daily as needed for Cough. ONDANSETRON 4 MG DISINTEGRATING TABLET Take 1 tablet by mouth every 8 (eight) hours as needed for Nausea and Vomiting (N/V). CONTINUE taking these medications which have NOT CHANGED AMITRIPTYLINE 25 MG TABLET Take 1 tablet by mouth at bedtime. DICYCLOMINE 20 MG TABLET Take 1 tablet by mouth 4 (four) times daily. DICYCLOMINE 20 MG TABLET Take 1 tablet by mouth every 6 (six) hours as needed for Abdominal pain. MEDROXYPROGESTERONE (PROVERA) 10 MG TABLET Take 1 tablet by mouth daily. METFORMIN 500 MG TABLET metformin 500 mg tablet Take 1 tablet twice a day by oral route. MULTIVIT-MIN/ASCORBIC/HERB 124 ([employer] NATURAL ENERGY ORAL) Take by mouth. OMEPRAZOLE 40 MG CAPSULE Take 1 capsule by mouth daily. ONDANSETRON (ZOFRAN) 4 MG TABLET Take 1 tablet by mouth every 8 (eight) hours as needed for Nausea and Vomiting (N/V). ONDANSETRON 4 MG DISINTEGRATING TABLET Take 1 tablet by mouth every 8 (eight) hours as needed for Nausea and Vomiting (N/V). PHENAZOPYRIDINE 200 MG TABLET Take 1 tablet by mouth in the morning and 1 tablet at noon and 1 tablet in the evening. PNV WITH CA8/IRON/FA/LMEFOLATE (PNV-IRON ORAL) Take by mouth. START taking Modified Medications as Prescribed No medications on file STOP taking these medications No medications on file Follow-up: Electronically signed by: Beny Ulrich MD 08/25/24 1559 [facility] 2024-08-13 16:25:00 [facility] ([facility] EMERGENCY PROVIDER REPORT REPORT#:[id number] REPORT STATUS: Signed DATE:08/13/24 TIME: 1624 PATIENT: NICO OCHOA UNIT #: [id number] ROOM/BED: : 94 AGE: 28 SEX:F PCP PHYS: No Primary or Family Physician SERVICE AUTHOR: Rosalinda Irvin REP SRV REP SRV TM: 1625 * ALL edits or amendments must be made on the electronic/computer document * Rosalinda Irvin 08/13/24 1625: HPI-Abd Pain F 40 and Over Free Text HPI Notes Free Text HPI Notes 28-year-old female history of cholecystectomy comes the ER for evaluation of right-sided abdominal pain and vomiting for the past couple of days. Last menstrual period was 2 weeks ago patient is on control General Initial Greet Date/Time 08/13/24 1448 Provider in Triage Greet Note I have greeted and performed a focused rapid initial assessment of this patient. A comprehensive ED assessment and evaluation of the patient, analysis of all test results, and completion of the medical decision-making process will be conducted by additional ED providers. Presentation Chief Complaint Abdominal pain, Vomiting moderate Sudden in Onset? Yes Past Medical History - Adult Stated Complaint ABD PAIN X2 DAYS, NAUSEA Allergies Coded Allergies: NSAIDS (Non-Steroidal Anti-Inflamma ("CLOSES MY THROAT" 08/13/24) ibuprofen (From MOTRIN) ("CLOSES MY THROAT" 08/13/24) Calculated Suicide Risk (nurs) No risk Smoking status for patients 13 years old or older: Unknown,if ever smoked Physical Exam Vital Signs Vital Signs First Documented: Result Date Time Pulse Ox 100 08/13 152 B/P 127/82 08/13 152 B/P Mean 97 08/13 1520 O2 Delivery Room air 08/13 152 Temp 36.7 08/13 152 Pulse 79 08/13 1521 Resp 16 08/13 1521 Last Documented: Result Date Time B/P 134/69 08/13 194 B/P Mean 95 08/13 194 Pulse Ox 100 08/13 194 Pulse 73 08/13 193 O2 Delivery Room air 08/13 152 Temp 36.7 08/13 152 Resp 16 08/13 152 Focused PE General/Const General/Const Awake, Alert Resp/Chest Respiratory/Chest Atraumatic, Breath sounds NL, Breath sounds = bilat, No respiratory distress Cardiovascular Cardiovascular Heart rate NL, Regular rhythm, Heart sounds NL Abdomen/GI Abdomen/GI Atraumatic, Soft, Non-tender, TTP RIGHT SIDE Interpretation Diagnostics Lab Results Interpretation Results Laboratory Tests 08/13/24 153: [Embedded Image Not Available] Laboratory Tests: 08/13 08/13 1530 1530 Chemistry Sodium (134 - 147 mEq/L) 138 Potassium (3.4 - 5.0 mEq/L) 4.0 Chloride (100 - 108 mEq/L) 106 Carbon Dioxide (21 - 33 mEq/l) 26 Anion Gap (0 - 20) 10 BUN (7 - 25 mg/dL) 10 Creatinine (0.6 - 1.3 mg/dL) 0.8 Glomerular Filtr Rate (110 - 120) 102.2 L Glucose (77 - 141 mg/dL) 114 Calcium (8.0 - 10.5 mg/dL) 9.7 Total Bilirubin (0.0 - 1.0 mg/dL) 0.40 Direct Bilirubin (0.1 - 0.3 MG/DL) < 0.10 L Indirect Bilirubin (MG/DL) 0.30 AST (8 - 34 IUnit/L) 14 ALT (10 - 49 IUnit/L) 11 Total Alk Phosphatase (20 - 125 IUnit/L) 62 Total Protein (5.7 - 8.2 g/dL) 7.3 Albumin (3.4 - 5.0 g/dL) 3.30 L Lipase (13 - 57 U/L) 37 Serum , Qual (NEGATIVE) SERUM NEGATIVE Hematology WBC (4.5 - 11.0 x10 3/uL) 8.1 RBC (3.54 - 5.02 x10 6/uL) 4.22 Hgb (11.0 - 15.0 g/dL) 12.3 Hct (33.0 - 45.0 %) 37.3 MCV (81.0 - 99.0 fL) 88.4 MCH (27.0 - 33.0 pg) 29.1 MCHC (33.0 - 37.0 g/dL) 33.0 RDW (11.5 - 14.5 %) 12.7 Plt Count (150 - 400 x10 3/uL) 265 MPV (7.0 - 9.0 fL) 9.7 H Neut % (Auto) (56.0 - 77.0 %) 50.0 L Lymph % (Auto) (14.0 - 32.0 %) 38.7 H [place] % (Auto) (4.8 - 9.0 %) 7.0 Eos % (Auto) (0.3 - 3.7 %) 3.3 Baso % (Auto) (0.0 - 2.0 %) 0.9 Neut # (Auto) (2.0 - 7.6 x10 3/uL) 4.05 Lymph # (Auto) (1.0 - 3.8 x10 3/uL) 3.14 [place] # (Auto) (0.1 - 0.8 x10 3/uL) 0.57 Eos # (Auto) (0.0 - 0.2 x10 3/uL) 0.27 H Baso # (Auto) (0.0 - 0.2 x10 3/uL) 0.07 Abs Immat Gran (auto) (0.00 - 0.03 x10 3/uL) 0.01 Immature Gran % (0.0 - 2.0 %) 0.1 Nucleated RBC % (0 - 0 %) 0.0 Nucleated RBCs # (Man) (0.0 - 0.1 x10 3/uL) 0.00 Urines Urine Color (YEL/STRAW) YELLOW Urine Appearance (CLEAR) CLOUDY H Urine pH (5.0 - 7.0) 8.0 H Ur Specific [place] (1.005 - 1.030) 1.016 Urine Protein (NEGATIVE) NEGATIVE Urine Glucose (UA) (NEGATIVE) NEGATIVE Urine Ketones (NEGATIVE) NEGATIVE Urine Blood (NEGATIVE) NEGATIVE Urine Nitrite (NEGATIVE) NEGATIVE Urine Bilirubin (NEGATIVE) NEGATIVE Urine Urobilinogen (0.2 - 1.0 mg/dL) 0.2 Ur Leukocyte Esterase (NEGATIVE) 3+ H Urine RBC (0 - 3 RBC/HPF) 0-3 Urine WBC (0 - 3 WBC/HPF) 10-20 H Ur Squamous Epith Cells (NONE SEEN /HPF) 6-10 H Urine Bacteria (NONE SEEN /HPF) 1+ H Urine Mucus (NONE SEEN /LPF) TRACE Microbiology: Date/Time Procedure - Status Source Growth 08/13 1530 Urine Culture - RECD Urine Recent Impressions: ULTRASOUND - DUP AB/PEL/SC/LTD 08/13 1630 Report Impression - Status: SIGNED Entered: 08/13/2024 1631 IMPRESSION: Unremarkable transabdominal and transvaginal pelvic ultrasound with pelvic Doppler. Impression By: Tawny Moreno M.D. ULTRASOUND - US TRANSVAGINAL NON OB 08/13 163 Report Impression - Status: SIGNED Entered: 08/13/2024 1631 IMPRESSION: Unremarkable transabdominal and transvaginal pelvic ultrasound with pelvic Doppler. Impression By: Tawny Moreno M.D. ULTRASOUND - US PELVIS COMPLETE 08/13 1630 Report Impression - Status: SIGNED Entered: 08/13/2024 1631 IMPRESSION: Unremarkable transabdominal and transvaginal pelvic ultrasound with pelvic Doppler. Impression By: Tawny Moreno M.D. CAT SCAN - CT ABD PELVIS W/CONT 08/13 1800 Report Impression - Status: SIGNED Entered: 08/13/2024 1841 IMPRESSION: Fatty infiltration is seen in this patient's liver. Otherwise this CT study of the abdomen pelvis is unremarkable. Impression By: [email or web address] - Omid Bonilla M.D. Re-Evaluation [facility] ED Course Medication(s) Ordered Medication(s) Ordered: Autonomic Drugs Sig/Manish Start time Last Medication Dose Route Stop Time Status Admin Methocarbamol 500 MG X1ED STA 08/13 184 DC 08/13 PO 08/13 1844 1849 Central Nervous System Agents Sig/Manish Start time Last Medication Dose Route Stop Time Status Admin Fentanyl Citrate 50 MCG X1ED STA 08/13 1810 DC 08/13 IV 08/13 1811 1812 Morphine Sulfate 4 MG X1ED STA 08/13 1526 DC 08/13 IV 08/13 1527 1609 Diagnostic Agents Sig/Manish Start time Last Medication Dose Route Stop Time Status Admin Iopamidol 100 ML .STK-MED ONE 08/13 1802 DC 08/13 IV 08/13 1803 1802 Gastrointestinal Drugs Sig/Manish Start time Last Medication Dose Route Stop Time Status Admin Metoclopramide HCl 5 MG X1ED STA 08/13 1647 DC 08/13 IV 08/13 1648 1651 Ondansetron HCl 4 MG X1ED STA 08/13 1527 DC 08/13 IV 08/13 1528 1609 Patient Discharge Departure Vital Signs/Condition Vital Signs First Documented: Result Date Time Pulse Ox 100 08/13 1521 B/P 127/82 08/13 1521 B/P Mean 97 08/13 1521 O2 Delivery Room air 08/13 1521 Temp 36.7 08/13 1521 Pulse 79 08/13 1521 Resp 16 08/13 1521 Last Documented: Result Date Time B/P 134/69 08/13 1942 B/P Mean 95 08/13 1942 Pulse Ox 100 08/13 1940 Pulse 73 08/13 1939 O2 Delivery Room air 08/13 1521 Temp 36.7 08/13 1521 Resp 16 08/13 1521 All vital signs available at the time of this entry have been reviewed. Xavier Fierro 08/13/24 185: Review of Systems ROS Statements All systems rev neg except as marked. Focused Review of Systems GI Reports: Abdominal pain, Nausea. Physical Exam Vital Signs Review of Vital Signs Reviewed, Vital signs normal Free Text PE Notes Free Text PE Notes General/Const Awake, Alert HENT Head atraumatic, normocephalic, ears/nose/throat airway patent, TMs clear bilaterally MS Neck Neck Supple, no swelling, no tenderness to palpation Resp/Chest CTAB, No respiratory distress, no rales, no rhonchi, no wheezing Cardiovascular Normal rate, regular rhythm, heart sounds. No rubs murmurs gallops Abdomen/GI Normal bowel sounds, soft, right-sided tenderness to palpation, nondistended. No rebound or guarding MS noLower Ext/Pelvis/MS No swelling, Non-tender Skin Skin Warm, Dry, no abrasions, rashes, lacerations Neurologic Neurologic Oriented X3, Speech NL, no focal neuro deficits, CN 2-12 intact, 5 /5 strength, sensation intact Interpretation Diagnostics Lab Results Interpretation Lab Imaging Statement Laboratory radiographic studies reviewed and considered in the medical decision-making. Free Text I D Notes Free Text I D Notes Recent Impressions: ULTRASOUND - DUP AB/PEL/SC/LTD 08/13 1630 Report Impression - Status: SIGNED Entered: 08/13/2024 1631 IMPRESSION: Unremarkable transabdominal and transvaginal pelvic ultrasound with pelvic Doppler. Impression By: Tawny Moreno M.D. ULTRASOUND - US TRANSVAGINAL NON OB 08/13 1630 Report Impression - Status: SIGNED Entered: 08/13/2024 1631 IMPRESSION: Unremarkable transabdominal and transvaginal pelvic ultrasound with pelvic Doppler. Impression By: Tawny Moreno M.D. ULTRASOUND - US PELVIS COMPLETE 08/13 1630 Report Impression - Status: SIGNED Entered: 08/13/2024 1631 IMPRESSION: Unremarkable transabdominal and transvaginal pelvic ultrasound with pelvic Doppler. Impression By: Tawny Moreno M.D. CAT SCAN - CT ABD PELVIS W/CONT 08/13 1800 Report Impression - Status: SIGNED Entered: 08/13/2024 1841 IMPRESSION: Fatty infiltration is seen in this patient's liver. Otherwise this CT study of the abdomen pelvis is unremarkable. Impression By: [email or web address] - Omid Bonilla M.D. Re-Evaluation MDM Free Text MDM Notes Free Text MDM Notes 28-year-old female with history of IBS and PCOS that was initially seen by nurse practitioner for right sided abdominal pain and nausea x 2 days. She had a recent cholecystectomy. Denied fever, chills, chest pain, shortness of breath, diarrhea, constipation, melena, hematochezia, dysuria, vaginal discharge or vaginal bleeding. Last menstrual period was August 07. Vital signs stable. Labs show no significant abnormalities. Epic abnormalities, normal LFTs, normal T. bili. No leukocytosis. Urine showed 3+ leukocyte esterase with 10-20 WBCs with a small amount of squamous cells. Transvaginal and transabdominal ultrasound both negative. CT scan was negative. UA showed signs of urinary tract infection patient was given morphine, fentanyl, Robaxin, Zofran. Stable for discharge follow-up with primary care doctor for follow-up or return here for worsening symptoms. Will give a prescription for Keflex for UTI. Also given prescription for Zofran and Robaxin. Stable for discharge. Patient Discharge Departure Vital Signs/Condition Condition Stable Clinical Impression Clinical Impression Primary Impression: Abdominal pain Secondary Impressions: UTI (urinary tract infection) Disposition Decision Discharge )( Discharged to Home Yes )( Time 1859 )( Date 08/13/24 Discharge/Care Plan Counseled Regarding Diagnosis, Lab results, Imaging studies, When to return to ED (Auto) Prescriptions Current Visit Scripts methocarbamoL (ROBAXIN) 500 MG PO TID PRN PRN PAIN 5 Days #15 TABS CEPHALEXIN (KEFLEX) 500 MG PO BID 7 Days #14 CAPS ONDANSETRON ODT (ZOFRAN ODT) 4 MG PO Q6H PRN PRN NAUSEA/VOMITING ONDANSETRON ODT (ZOFRAN ODT) 4 MG PO Q6H PRN PRN NAUSEA/VOMITING #15 TABS Patient Instructions Abdominal Pain, Urinary Tract Infections in Women Additional Instructions Follow-up with your primary care doctor turn if any worsening as needed. Discharge Note I have spoken with the patient and/or caregivers. I have explained the patient's condition, diagnoses and treatment plan based on the information available to me at this time. I have answered the patient's and/or caregiver's questions and addressed any concerns. The patient and/or caregivers have as good an understanding of the patient's diagnosis, condition and treatment plan as can be expected at this point. The vital signs have been stable. The patient's condition is stable and appropriate for discharge from the emergency department. The patient will pursue further outpatient evaluation with the primary care physician or other designated or consulting physician as outlined in the discharge instructions. The patient and/or caregivers are agreeable to this plan of care and follow-up instructions have been explained in detail. The patient and/or caregivers have received these instructions in written format and have expressed an understanding of the discharge instructions. The patient and/or caregivers are aware that any significant change in condition or worsening of symptoms should prompt an immediate return to this or the closest emergency department or a call to 911. at 1632 at 0017 RPT #:[id number] END OF REPORT [facility]
[2024-10-17] MEDS ORDERED: HYDROCODONE/APAP 7.5/325 MG TAB ONE (18:35)
--- NOTE | 2024-10-17 18:39 | ER ---
Nurse's Notes [facility] Name: Jenn Wills Age: 28 yrs Sex: Female : 1995 Arrival Date: 10/17/2024 Time: 17:32 Bed DX2 Private MD: Diagnosis: Headache;Otalgia, right ear Presentation: 10/17 18:16 Chief complaint: Patient states: migraine last night, pain down into her right side and iw ear , now the left ear is started to hurt also, the last migraine i Had it was an ear infection. Coronavirus screen: At this time, the client does not indicate any symptoms associated with coronavirus-19. Ebola Screen: No symptoms or risks identified at this time. Initial Sepsis Screen: Does the patient meet any 2 criteria? No. Patient's initial sepsis screen is negative. Does the patient have a suspected source of infection? No. Patient's initial sepsis screen is negative. Risk Assessment: Do you want to hurt yourself or someone else? Patient reports no desire to harm self or others. 18:16 Method Of Arrival: Ambulatory iw 18:16 Acuity: CARLOS 3 iw 18:19 Onset of symptoms was October 16, 2024. iw 18:19 Acuity: CARLOS 4 iw Triage Assessment: 18:54 Headache History: Denies prior headaches. General: Appears uncomfortable. Pain: Pain ll1 Pain began 2-3 days ago. Also complains of no other associated symptoms. 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 - Infectious Disease History:: Denies. - Social history:: Smoking status: Patient denies any tobacco usage or history of. Screenin:54 [facility] ED Fall Risk Assessment (Adult) History of falling in the last 3 months, ll1 including since admission No falls in past 3 months (0 pts) Confusion or Disorientation No (0 pts) Intoxicated or Sedated No (0 pts) Impaired Gait No (0 pts) Mobility Assist Device Used No (0 pt) Altered Elimination No (0 pt) Score/Fall Risk Level 0 - 2 = Low Risk Maintained a safe environment, Hourly rounding (assess needs \T\ fall precautionary measures) done. Abuse screen: Denies threats or abuse. Nutritional screening: No deficits noted. Tuberculosis screening: No symptoms or risk factors identified. Assessment: 18:39 General: Appears in no apparent distress. Behavior is calm, cooperative. Pain: iw Complains of pain in head. Pain: Complains of pain in right ear and left ear. Neuro: Level of Consciousness is awake, alert, obeys commands, Oriented to person, place, time, situation, Moves all extremities. Full function. Cardiovascular: Patient's skin is warm and dry. Respiratory: Respiratory effort is even, unlabored, Respiratory pattern is regular, symmetrical. Derm: Skin is intact, is healthy with good turgor. Musculoskeletal: Range of motion: intact in all extremities. 18:53 Reassessment: No changes from previously documented assessment. Patient and/or family ll1 updated on plan of care and expected duration. Pain level reassessed. Patient is alert, oriented x 3, equal unlabored respirations, skin warm/dry/pink. Vital Signs: 18:16 BP 116 / 91; Pulse 106; Resp 18; Temp 97.7; Pulse Ox 100% ; Weight 95.25 kg; Height 5 iw ft. 2 in. ; Pain 8/10; 18:16 Body Mass Index 38.41 (95.25 kg, 157.48 cm) iw 18:16 Pain Scale: Adult iw Gabriella Coma Score: 19:40 Eye Response: spontaneous(4). Motor Response: obeys commands(6). Verbal Response: kb oriented(5). Total: 15. ED Course: 17:33 Patient arrived in ED. gm2 17:56 Sabina Cooper FNP-C [facility]. kb 17:56 Easton Gurrola MD is Attending Physician. kb 18:18 Triage completed. iw 18:46 Tayler Castillo, RN is Primary Nurse. iw 18:54 Arm band placed on. ll1 18:54 No provider procedures requiring assistance completed. Patient did not have IV access ll1 during this emergency room visit. 18:55 Patient has correct armband on for positive identification. Bed in low position. Call ll1 light in reach. Provided Education on: return to ED for worsening symptoms. Cardiac monitoring not applicable on this patient. Administered Medications: 18:46 Drug: Hydrocodone-Acetaminophen PO (7.5 mg-325 mg) 1 tabs PO once Route: PO; iw 18:56 Follow up: Response: No adverse reaction ll1 Medication: 18:39 VIS not applicable for this client. iw Outcome: 18:39 Discharge ordered by . brandon 18:54 Discharged to home ambulatory, ll1 18:54 Condition: stable 18:54 Discharge instructions given to patient, Instructed on discharge instructions, follow up and referral plans. Demonstrated understanding of instructions, follow-up care, 18:56 Patient left the ED. ll1 Signatures: Sabina Cooper, BANBURY OPERATOR-C BANBURY OPERATOR-Tayler Serra RN RN iw Mellisa Quesada RN RN 1 Josy Matos [facility]
--- NOTE | 2024-10-17 18:39 | EDPHYS ---
Physician Documentation [facility] Name: Jenn Wills Age: 28 yrs Sex: Female : 1995 Arrival Date: 10/17/2024 Time: 17:32 Bed DX2 Private MD: ED Physician Easton Gurrola HPI: 10/17 19:34 This 28 yrs old Female presents to ER via Ambulatory with complaints of Headache. kb 19:34 Pt is a 28 year old female who presents for headache and right ear pain that started kb yesterday. States she has had similar symptoms in the past due to an ear infection so she came to have her ears checked. Denies fever. . 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 - Infectious Disease History:: Denies. - Social history:: Smoking status: Patient denies any tobacco usage or history of. ROS: 19:35 Constitutional: As per HPI kb Exam: 19:35 Constitutional: This is a well developed, well nourished patient who is awake, alert, kb and in no acute distress. Head/Face: Normocephalic, atraumatic. Eyes: Pupils equal round and reactive to light, extra-ocular motions intact. Lids and lashes normal. Conjunctiva and sclera are non-icteric and not injected. Cornea within normal limits. Periorbital areas with no swelling, redness, or edema. ENT: Moist Mucous membranes Cardiovascular: Regular rate Respiratory: Respirations even and unlabored. No increased work of breathing. Talking in full sentences Skin: Warm, dry with normal turgor. Normal color. MS/ Extremity: Pulses equal, no cyanosis. Neurovascular intact. Full, normal range of motion. Neuro: Awake and alert, GCS 15, oriented to person, place, time, and situation. 19:35 ENT: External ear(s): are unremarkable, Ear canal(s): are normal, TM's: are normal, Vital Signs: 18:16 BP 116 / 91; Pulse 106; Resp 18; Temp 97.7; Pulse Ox 100% ; Weight 95.25 kg; Height 5 iw ft. 2 in. ; Pain 8/10; 18:16 Body Mass Index 38.41 (95.25 kg, 157.48 cm) iw 18:16 Pain Scale: Adult iw Welsh Coma Score: 19:40 Eye Response: spontaneous(4). Motor Response: obeys commands(6). Verbal Response: kb oriented(5). Total: 15. MDM: 17:56 Medical Screening Exam initiated kb 19:40 Differential diagnosis: migraine, sinusitis, tension headache, otitis media, kb mastoiditis. Data reviewed: vital signs, nurses notes. Test considered but Not performed: CT: ct considered but pt has no neuro deficits, no mastoid tenderness. Counseling: I had a detailed discussion with the patient and/or guardian regarding the historical points, exam findings, and any diagnostic results supporting the discharge/admit diagnosis, the need for outpatient follow up, a family practitioner, to return to the emergency department if symptoms worsen or persist or if there are any questions or concerns that arise at home. Administered Medications: 18:46 Drug: Hydrocodone-Acetaminophen PO (7.5 mg-325 mg) 1 tabs PO once Route: PO; iw 18:56 Follow up: Response: No adverse reaction ll1 Disposition Summary: 10/17/24 18:39 Discharge Ordered Notes: Location: Home kb Condition: Stable kb Diagnosis - Headache kb - Otalgia, right ear kb Followup: kb - With: Private Physician - When: 2 - 3 days - Reason: Recheck today's complaints, Continuance of care, Re-evaluation by your physician Followup: kb - With: Emergency Department - When: As needed - Reason: Worsening of condition Discharge Instructions: - Discharge Summary Sheet kb - Earache, Adult kb - General Headache Without Cause, [id number] kb Forms: - Medication Reconciliation Form kb - Antibiotic Education kb - Prescription Opioid Use kb - Patient Portal Instructions kb - Leadership Thank You Letter kb - Work release form ll1 Signatures: Sabina Cooper FNP-C FNP-Tayler Serra RN RN iw Mellisa Quesada RN ll1
[2024-10-17 19:47] VITALS: BP 116/91; TEMP 97.7; O2SAT 100
== END 2024-10-17 18:56 | disposition home or self-care (01) ==
LOC: ER 17:32
DX: R51.9 Headache, unspecified (principal); H92.01 Otalgia, right ear
CPT/HCPCS: 99283